=== PATIENT | female | born 1950 | race Caucasian/White ===

== ENCOUNTER 2019-06-30 06:26 | Day surgery (SDC) | payer OTHER, MEDICARE ==
--- NOTE | 2019-06-29 10:23 | EKG ---
Test Date: 2019-06-29 Test Time: 09:46:10 Network Cabler: [facility] MEASUREMENT RESULTS: Intervals: Rate: 69 MI: 150 QRSD: 76 QT: 402 QTc: 430 Wideman: P: 47 MI: 150 QRS: 5 T: 20 INTERPRETIVE STATEMENTS: Normal sinus rhythm Normal ECG Compared to ECG 10/14/2016 06:35:01 No significant changes Electronically Signed On 06-29-19 10:22:30 FRONT DESK ASSOCIATE by Roberto Orozco
[2019-06-29 10:45] LABS: Absolute Lymphocytes (CBC) 0.9 K/uL (0.7-4.9); Basophils % 0.8 % (0-1.3); Lymphocytes % 40.1 % (15.3-44.8); MPV 8.4 fL (7.6-11.3); RBC Red Blood Cell Count 3.77 M/uL (3.86-4.86)
--- NOTE | 2019-06-29 11:02 | RAD REPORT ---
EXAM DESCRIPTION: Freddy Cash (2 Views)06/29/2019 10:10 am CLINICAL HISTORY: Breast cancer. Preop COMPARISON: May 2018 FINDINGS: The lungs appear clear of acute infiltrate. The heart is normal size IMPRESSION: No acute abnormalities displayed
[2019-06-30] MEDS ORDERED: Ringers Lactate 1,000 ML IV ONE ×2 (07:04→13:47)
[2019-06-30] MEDS ORDERED: CIPROFLOXACIN 400mg IV 400 MG/200 ML BAG IV ONE (07:04)
[2019-06-30] MEDS ORDERED: LIDOCAINE 2% MPF 5 ML VIAL ONE (08:50)
[2019-06-30] MEDS ORDERED: FENTANYL CITR 100 MCG/2 ML ONE (08:50)
[2019-06-30] MEDS ORDERED: ROCURONIUM 50 MG/5 ML VIAL IV ONE (08:50)
[2019-06-30] MEDS ORDERED: propofoL 200 MG/20 ML VIAL IV ONE (08:50)
[2019-06-30] MEDS ORDERED: MIDAZOLAM HCL 2 MG/2 ML INJ ONE (08:50)
--- NOTE | 2019-06-30 09:20 | RAD REPORT ---
EXAM DESCRIPTION: NM - Lymphoscintigraphy - 06/30/2019 8:06 am FINDINGS: Injection performed at 0736 hours. Four periareolar injections using 0.01 millicuries technetium 99 M sulfur colloid performed. A single image was obtained showing the 4 periareolar injections.
[2019-06-30] MEDS ORDERED: METHYLENE BLUE 0.5% 10 ML AMP ONE (09:52)
--- NOTE | 2019-06-30 11:20 | RAD REPORT ---
EXAM DESCRIPTION: US - Surgical Specimen - 06/30/2019 11:11 am FINDINGS: Sonographic evaluation of the right breast specimen shows the spiculated mass, previously subjected to biopsy, to be present within the biopsy tissue. A small hypoechoic 6 mm mass with punctate echogenicity, seen on the pre localization chief ultrasound technologist imaging i s also contained within the specimen.
--- NOTE | 2019-06-30 11:28 | RAD REPORT ---
EXAM DESCRIPTION: US - Brst,Preop NL Wire Init w/Guid - 06/30/2019 9:02 am CLINICAL HISTORY: NEEDLE LOCALIZATION, right breast pre-surgical needle localization procedure prior to biopsy/mastectomy COMPARISON: MRI of the breast June 22, outside sonography exam TECHNIQUE: Preliminary sonographic imaging was performed and identified a previously biopsied spicul ated mass in the 9 o'clock right breast. Appearance of the mass and position match prior imaging stud ies. Along the medial and slightly inferior margin of this dominant mass is a second 6-7 mm spiculate d mass. Anterior breast was prepped and draped in the usual sterile fashion. Consent for the procedure had be en obtained as part of the surgical consent. From an inferior approach the skin and deeper tissues were anesthetized with 1% lidocaine. Under dire ct sonographic visualization a [place] mammo lock needle was advanced with the tip abutting the inferio r margin of the mass. The hookwire was set. At final positioning the tip of the needle was at the lat eral inferior margin of the mass. The patient tolerated procedure well without complications and was transferred to the surgical [facility] area for pending breast procedure. IMPRESSION: Successful ultrasound-guided needle localization of the right breast mass.
[2019-06-30] MEDS: HYDROMORPHONE HCL 2 MG/ML inj ONE ×4 (13:59→14:29)
[2019-06-30] MEDS ORDERED: ONDANSETRON 4 MG/2 ML VIAL ONE (14:22)
[2019-06-30 14:44] VITALS: O2SAT 98
[2019-06-30] MEDS ORDERED: TRAMADOL 37.5mg/APAP 325mg PER TAB ONE (15:50)
[2019-06-30 16:58] VITALS: TEMP 98.7
[2019-06-30 16:59] VITALS: BP 112/48
--- NOTE | 2019-07-01 01:20 | OP ---
Date of Procedure: 06/30/2019 Surgeon: Tank Redman MD Secured Entrance Monitor: DEVONTE Castro and DEVONTE Kaiser. Preoperative Diagnosis: Right breast cancer. Postoperative Diagnosis: Right breast cancer. Procedure: 1.Needle localization, sentinel node biopsy, right breast mastectomy with axillary dissection. 2.Left breast mastectomy. Estimated Blood Loss: Minimal. Specimen: Axillary dissection on the right side, sentinel node on the right side, right breast and l eft breast. Findings: Margins free and as above. Anesthesia: General. Complications: None. Drains: SHANAI #10 flat, 2 on the right, 1 on the left. Condition: Patient tolerated procedure in stable condition, taken to Recovery in good general condit ion. Procedure In Detail: Patient was brought to the OR and placed in supine position. General anesthesi a was begun. Patient was prepped and draped in the usual sterile fashion and then methylene blue inj ected around the nipple-areolar margins around the right breast and the patient had a needle localiza tion where the cancer was done in the radiology and the patient was prepped and draped in the usual s terile fashion. Then, a counting device was used to try to isolate the sentinel node. The sentinel node could not be identified because patient had a previous right breast surgery for a mass or cyst m any-many years ago, so the anatomy had been distorted. So, at this time, I did the mastectomy with t he ellipse of skin incision approximately 20 x 10 cm to include where the needle localization and spe cimen was and then subcutaneous tissue divided and flaps created superiorly to the clavicle, medially to the sternal border, inferiorly to the insertion of the rectus abdominis muscle, ad laterally to t he anterior border of the latissimus dorsi. Then, all the breast tissue off the pectoralis fascia re moved and sent to Pathology for margin check after Radiology confirmed that the cancer was in the spe cimen and at this time, wound was irrigated, bleeding controlled with cautery. Then, the axilla was examined. A 3 cm lymph node was identified. This was sent for frozen section. However, because the patient had lobular carcinoma, intraoperative consultation was obtained from our oncologist, Dr. Gilson smith. We discussed the case in detail and given that the primary was 28 mm in size and the lymph node w as 3 cm and we could not identify the sentinel node because of the distorted anatomy, the prudent thi ng in our opinion was to proceed with an axillary dissection, which was done. Through the same wound , the axillary vein was identified and neurovascular bundle of the long thoracic nerve and thoracodor bronwyn neurovascular bundle was identified. The Lynn's lymph nodes were identified and all the lymph nodes in this region were dissected. Vascular clips were utilized as needed. 2-0 silk was used as n eeded. Cautery was used and the lymph nodes were removed and sent to Pathology. Subsequently, wound was irrigated, bleeding controlled with cautery, and then 2 Jason-Francois drain, 1 in the right axil la, 1 under the flap, were placed and secured with 3-0 nylon and then 2-0 chromic, 3-0 chromic used t o approximate the subcutaneous tissue and closed the skin. Sterile dressing applied and fresh instru ments, entire team re-scrubbed and then on the left breast, a simple mastectomy was done the same man ner as on the right side without the axillary dissection and the wound was closed the same way. Then , a sterile dressing was applied. Patient was awakened and taken to Recovery in good general conditi on. Discharged home. The patient will go to day surgery and home when stable. Disposition: Home. Condition: Stable. Discharge Instructions: Resume home medications and diet. Activity as tolerated. No heavy lifting. Keep dressing clean and dry. Follow up in my office in a week. Call for appointment. Ultracet 1 tablet p.o. q.4 p.r.n. pain, Cipro 500 mg p.o. q.12. Incentive spirometry. Sponge bathe only. Record SHANIA q .12, bring record to office. REMIGIO/HEBERT Voice ID: [id number] Report ID: [id number]
== END 2019-06-30 17:00 | disposition home or self-care (01) ==
LOC: OR 06:26
PROVIDERS: ATTEND Surgery
PROC: 0HTU0ZZ Resection of Left Breast, Open Approach (ICD-10-PCS; principal; 2019-06-30 09:30)
PROC: 0HTT0ZZ Resection of Right Breast, Open Approach (ICD-10-PCS; 2019-06-30 09:30)
DX: C50.911 Malignant neoplasm of unspecified site of right female breast (principal); Z17.0 Estrogen receptor positive status [ER+]; Z88.0 Allergy status to penicillin; Z88.2 Allergy status to sulfonamides; Z88.6 Allergy status to analgesic agent; Z83.3 Family history of diabetes mellitus
CPT/HCPCS: 19303; 93005; 85025; 80048; 36415; 88307; 88333; 71046; 76098; 19285; 78195; 19307; 38900; J2704; J2250; J1170; J3010; J7120 ×2; J2405; J0744; A9541; 88305

== ENCOUNTER 2019-07-18 10:17 | Inpatient (IN) | payer OTHER, MEDICARE ==
[2019-07-18] MEDS ORDERED: VANCOMYCIN/NS 1 gm 1 GM/250 ML BAG IV ONE (10:45)
[2019-07-18] MEDS ORDERED: ONDANSETRON 4 MG/2 ML VIAL ONE (10:53)
[2019-07-18] MEDS ORDERED: MORPHINE 4 MG/ML SYR ONE (10:53)
[2019-07-18 10:56] LABS: Absolute Lymphocytes (CBC) 0.9 K/uL (0.7-4.9); Basophils % 0.3 % (0-1.3); Hematocrit 35.2 % (36.0-45.0); Lymphocytes % 15.3 % (15.3-44.8); MPV 8.1 fL (7.6-11.3); RBC Red Blood Cell Count 3.63 M/uL (3.86-4.86)
--- NOTE | 2019-07-18 11:29 | EDPHYS ---
Physician Documentation [facility] Name: Rosi Jordan Age: 69 yrs Sex: Female : 1950 Arrival Date: 07/18/2019 Time: 10:22 Bed 24 Private MD: ED Physician Tony Perales HPI: 07/18 11:18 This 69 yrs old Female presents to ER via EMS with complaints of right arm tw4 pain. Historical: - Allergies: 10:30 Codeine; ca1 10:30 PENICILLINS; ca1 10:30 Sulfa (Sulfonamide Antibiotics); ca1 - Home Meds: 11:41 atorvastatin 20 mg Oral tab 1 tab once daily [Active]; aspirin 81 mg Oral TbEC 1 tab ca1 once daily [Active]; azelastine 137 mcg 1 spray twice a day [Active]; cholestyramine (with sugar) 4 gram oral powd [Active]; citalopram 40 mg oral tab 1 tab once daily [Active]; clonazepam 0.5 mg Oral tab 1 tab daily [Active]; Depakote 250 mg Oral TbEC 1 tab once daily [Active]; donepezil 10 mg oral tab 1 tab once daily [Active]; Iron CR Oral 325 mg daily [Active]; gabapentin 300 mg oral cap 1 cap 3 times per day [Active]; Levaquin 500 mg Oral tab 1 tab once daily [Active]; levothyroxine 75 mcg tab 1 tab once daily [Active]; Vitamin B-12 5000 mcg Oral TbER daily [Active]; lisinopril 20 mg oral tab 1 tab once daily [Active]; memantine 10 mg oral tab 1 tab daily [Active]; nifedipine 90 mg Oral TbER 1 tab once daily [Active]; omeprazole 40 mg Oral cpDR 1 cap once daily [Active]; oxybutynin chloride 5 mg Oral tab 1 tab daily [Active]; prednisone 10 mg Oral tab once daily [Active]; Singulair 10 mg Oral tab 1 tab once daily [Active]; Soma 350 mg Oral tab 1 tab nightly [Active]; Symbicort 80-4.5 mcg/actuation inhalation HFAA 2 puffs 2 times per day [Active]; tramadol 50 mg Oral tab 1 tab every 6 hours [Active]; trazodone 50 mg Oral tab 1 tab nightly [Active]; trimethoprim 100 mg Oral tab 1 tab once daily [Active]; Vitamin D3 5,000 unit oral tab daily [Active]; - PMHx: 10:30 Depression; GERD; Hypertension; Hypothyroidism; Hyperlipidemia; ca1 11:41 Breast Cancer; ca1 - PSHx: 10:30 hand surgery; ca1 11:41 lap band; foot surgery; back surgery; Mastectomy; ca1 - Immunization history:: Adult Immunizations up to date, Pneumococcal vaccine is up to date, Flu vaccine is up to date. - Coronavirus screen:: The patient has NOT traveled to [place] in the past 14 days. The patient has NOT had contact with known/suspected case of Coronavirus?. - Social history:: Smoking status: Patient denies any tobacco usage or history of. - Ebola Screening: : Patient negative for fever greater than or equal to 101.5 degrees Fahrenheit, and additional compatible Ebola Virus Disease symptoms Patient denies exposure to infectious person Patient denies travel to an Ebola-affected area in the 21 days before illness onset No symptoms or risks identified at this time. ROS: 11:29 Constitutional: Negative for fever, chills, and weight loss, Eyes: Negative for injury, tw4 pain, redness, and discharge, Cardiovascular: Negative for chest pain, palpitations, and edema, Respiratory: Negative for shortness of breath, cough, wheezing, and pleuritic chest pain, Abdomen/GI: Negative for abdominal pain, nausea, vomiting, diarrhea, and constipation, Back: Negative for injury and pain, Neuro: Negative for headache, weakness, numbness, tingling, and seizure. 11:29 Skin: Positive for cellulitis, Negative for abrasions, abscesses, avulsion, burn, ecchymosis, erythema, hematoma, jaundice, laceration(s), lesions. Exam: 11:29 Constitutional: This is a well developed, well nourished patient who is awake, alert, tw4 and in no acute distress. Head/Face: Normocephalic, atraumatic. Chest/axilla: Normal chest wall appearance and motion. Nontender with no deformity. No lesions are appreciated. Cardiovascular: Regular rate and rhythm with a normal S1 and S2. No gallops, murmurs, or rubs. Normal PMI, no JVD. No pulse deficits. Respiratory: Lungs have equal breath sounds bilaterally, clear to auscultation and percussion. No rales, rhonchi or wheezes noted. No increased work of breathing, no retractions or nasal flaring. Abdomen/GI: Soft, non-tender, with normal bowel sounds. No distension or tympany. No guarding or rebound. No evidence of tenderness throughout. MS/ Extremity: Pulses equal, no cyanosis. Neurovascular intact. Full, normal range of motion. Neuro: Awake and alert, GCS 15, oriented to person, place, time, and situation. Cranial nerves II-XII grossly intact. Motor strength 5/5 in all extremities. Sensory grossly intact. Cerebellar exam normal. Normal gait. 11:29 Skin: cellulitis, that is moderate. 11:29 Skin: cellulitis, irregular, on the dorsal aspect of right forearm, right tricep and palmar aspect of right forearm. Vital Signs: 10:31 BP 121 / 53; Pulse 87; Resp 18 S; Temp 98.6(O); Pulse Ox 94% on R/A; Weight 90.26 kg ca1 (R); Height 5 ft. 1 in. (154.94 cm) (R); Pain 8/10; 11:28 BP 102 / 53; Pulse 80; Resp 16 S; Pulse Ox 97% on R/A; Pain 4/10; ca1 12:10 BP 98 / 52; Pulse 85; Resp 17 S; Pulse Ox 94% on R/A; ca1 13:03 BP 123 / 55; Pulse 73; Resp 16; Pulse Ox 96% on R/A; ca1 10:31 Body Mass Index 37.60 (90.26 kg, 154.94 cm) ca1 MDM: 10:27 Patient medically screened. tw4 21:24 Differential diagnosis: abscess, cellulitis. Data reviewed: vital signs, nurses notes. tw4 Data interpreted: Pulse oximetry: Interpretation: normal. Counseling: I had a detailed discussion with the patient and/or guardian regarding: the historical points, exam findings, and any diagnostic results supporting the discharge/admit diagnosis, lab results, radiology results. Medication response: morphine markedly relieved the patient's pain. Symptoms have improved. Response to treatment: and as a result, I will admit patient. Physician consultation: Kirby Ludwig DO regarding admission, to the medical/surgical unit. patient's condition, and will see patient in ED. Special discussion:. 07/18 10:30 Order name: CBC with Diff; Complete Time: : tw4 07/18 10:30 Order name: CMP tw4 07/18 10:30 Order name: Blood Culture Adult (2) tw4 07/18 10:30 Order name: Lactate; Complete Time: tw4 07/18 11:45 Order name: UPPER EXTREMITY VENOUS UNILATE EDMS Administered Medications: 10:50 Drug: Zofran 4 mg Route: IVP; Site: left antecubital; ca1 11:29 Follow up: Response: No adverse reaction; Nausea is decreased ca1 10:53 Drug: morphine 4 mg {Note: RASS = 0.} Route: IVP; Site: left antecubital; ca1 11:29 Follow up: Response: No adverse reaction; Pain is decreased; RASS: Alert and Calm (0) ca1 11:20 Drug: vancoMYCIN 1 grams Route: IVPB; Infused Over: 2 hrs; Site: left antecubital; ca1 13:22 Follow up: Response: No adverse reaction; IV Status: Completed infusion ca1 11:30 Drug: LevaQUIN 750 mg Volume: 150 ml; Route: IVPB; Infused Over: 90 mins; Site: left ca1 antecubital; 13:31 Follow up: Response: No adverse reaction; IV Status: Infusion continued upon admission ca1 Disposition: 07/18/19 11:29 Hospitalization ordered by Kirby Ludwig for Inpatient Admission. Preliminary diagnosis is Cellulitis of right upper limb. - Bed requested for Telemetry/MedSurg (Inpatient). - Status is Inpatient Admission. ca1 - Condition is Stable. - Problem is new. - Symptoms have improved. Signatures: [facility] Helena Smith RN RN dw Tony Perales MD MD tw4 Ritu Valero RN RN ca1 Corrections: (The following items were deleted from the chart) 11:45 11:43 Extremity Venous Uni [id number] ordered. [facility] 12:42 11:29 Hospitalization Ordered by Kirby Ludwig DO for Inpatient Admission. Preliminary dw diagnosis is Cellulitis of right upper limb. Bed requested for Telemetry/MedSurg (Inpatient). Status is Inpatient Admission. Condition is Stable. Problem is new. Symptoms have improved. tw4 13:33 12:42 07/18/2019 11:29 Hospitalization Ordered by Kirby Ludwig DO for Inpatient ca1 Admission. Preliminary diagnosis is Cellulitis of right upper limb. Bed requested for Telemetry/MedSurg (Inpatient). Status is Inpatient Admission. Condition is Stable. Problem is new. Symptoms have improved. dw
--- NOTE | 2019-07-18 11:29 | ER ---
Nurse's Notes [facility] Name: Rosi Jordan Age: 69 yrs Sex: Female : 1950 Arrival Date: 07/18/2019 Time: 10:22 Bed 24 Private MD: Diagnosis: Cellulitis of right upper limb Presentation: 07/18 10:22 Presenting complaint: EMS states: Double mastectomy 2 weeks ago. Wednesday, R hand ca1 started swelling and redness noted. Went up to the elbow yesterday, tenderness reported, warm to touch. Seen Dr. Feroz hunter yesterday, given 2 more ABX. Reports pain and nausea. Denies fever. Transition of care: patient was not received from another setting of care. Onset of symptoms was July 18, 2019. Risk Assessment: Do you want to hurt yourself or someone else? Patient reports no desire to harm self or others. Initial Sepsis Screen: Does the patient meet any 2 criteria? No. Patient's initial sepsis screen is negative. Does the patient have a suspected source of infection? No. Patient's initial sepsis screen is negative. Care prior to arrival: None. 10:22 Method Of Arrival: [facility] ca1 10:22 Acuity: CASPER 3 ca1 Historical: - Allergies: 10:30 Codeine; ca1 10:30 PENICILLINS; ca1 10:30 Sulfa (Sulfonamide Antibiotics); ca1 - Home Meds: 11:41 atorvastatin 20 mg Oral tab 1 tab once daily [Active]; aspirin 81 mg Oral TbEC 1 tab ca1 once daily [Active]; azelastine 137 mcg 1 spray twice a day [Active]; cholestyramine (with sugar) 4 gram oral powd [Active]; citalopram 40 mg oral tab 1 tab once daily [Active]; clonazepam 0.5 mg Oral tab 1 tab daily [Active]; Depakote 250 mg Oral TbEC 1 tab once daily [Active]; donepezil 10 mg oral tab 1 tab once daily [Active]; Iron CR Oral 325 mg daily [Active]; gabapentin 300 mg oral cap 1 cap 3 times per day [Active]; Levaquin 500 mg Oral tab 1 tab once daily [Active]; levothyroxine 75 mcg tab 1 tab once daily [Active]; Vitamin B-12 5000 mcg Oral TbER daily [Active]; lisinopril 20 mg oral tab 1 tab once daily [Active]; memantine 10 mg oral tab 1 tab daily [Active]; nifedipine 90 mg Oral TbER 1 tab once daily [Active]; omeprazole 40 mg Oral cpDR 1 cap once daily [Active]; oxybutynin chloride 5 mg Oral tab 1 tab daily [Active]; prednisone 10 mg Oral tab once daily [Active]; Singulair 10 mg Oral tab 1 tab once daily [Active]; Soma 350 mg Oral tab 1 tab nightly [Active]; Symbicort 80-4.5 mcg/actuation inhalation HFAA 2 puffs 2 times per day [Active]; tramadol 50 mg Oral tab 1 tab every 6 hours [Active]; trazodone 50 mg Oral tab 1 tab nightly [Active]; trimethoprim 100 mg Oral tab 1 tab once daily [Active]; Vitamin D3 5,000 unit oral tab daily [Active]; - PMHx: 10:30 Depression; GERD; Hypertension; Hypothyroidism; Hyperlipidemia; ca1 11:41 Breast Cancer; ca1 - PSHx: 10:30 hand surgery; ca1 11:41 lap band; foot surgery; back surgery; Mastectomy; ca1 - Immunization history:: Adult Immunizations up to date, Pneumococcal vaccine is up to date, Flu vaccine is up to date. - Coronavirus screen:: The patient has NOT traveled to [place] in the past 14 days. The patient has NOT had contact with known/suspected case of Coronavirus?. - Social history:: Smoking status: Patient denies any tobacco usage or history of. - Ebola Screening: : Patient negative for fever greater than or equal to 101.5 degrees Fahrenheit, and additional compatible Ebola Virus Disease symptoms Patient denies exposure to infectious person Patient denies travel to an Ebola-affected area in the 21 days before illness onset No symptoms or risks identified at this time. Screenin:32 Abuse screen: Denies threats or abuse. Denies injuries from another. Nutritional ca1 screening: No deficits noted. Tuberculosis screening: No symptoms or risk factors identified. Fall Risk IV access (20 points). Assessment: 10:30 General: Appears in no apparent distress. comfortable, Behavior is calm, cooperative, ca1 appropriate for age. Pain: Complains of pain in right arm Pain does not radiate. Pain currently is 8 out of 10 on a pain scale. Quality of pain is described as sharp, Pain began 2-3 days ago. Is continuous. Neuro: Level of Consciousness is awake, alert, obeys commands. Cardiovascular: Heart tones S1 S2 present Capillary refill < 3 seconds Patient's skin is warm and dry. Respiratory: Airway is patent Trachea midline Respiratory effort is even, unlabored, Respiratory pattern is regular, symmetrical, Breath sounds are clear bilaterally. GI: Abdomen is round non-distended, Bowel sounds present X 4 quads. Abd is soft and non tender X 4 quads. : No signs and/or symptoms were reported regarding the genitourinary system. EENT: No signs and/or symptoms were reported regarding the EENT system. Derm: Skin is healthy with good turgor, Skin is pink, warm \T\ dry. Wound noted right breast and left breast Wound is Surgical incision, clean,, dry and intact. With a drain on the R side. draining well with brownish drainage noted Bruising that is bright red, on right bicep and dorsal aspect of right forearm. Musculoskeletal: Circulation, motion, and sensation intact. Capillary refill < 3 seconds, Range of motion: intact in all extremities. 11:24 Reassessment: Patient appears in no apparent distress at this time. Patient and/or ca1 family updated on plan of care and expected duration. Pain level reassessed. Patient is alert, oriented x 3, equal unlabored respirations, skin warm/dry/pink. 11:41 Reassessment: Dr. Ludwig at bedside. ca1 12:10 Reassessment: Patient appears in no apparent distress at this time. Patient and/or ca1 family updated on plan of care and expected duration. Pain level reassessed. Patient is alert, oriented x 3, equal unlabored respirations, skin warm/dry/pink. 12:17 Reassessment: Pt wheeled to US. ca1 13:03 Reassessment: Patient appears in no apparent distress at this time. Patient and/or ca1 family updated on plan of care and expected duration. Pain level reassessed. Patient is alert, oriented x 3, equal unlabored respirations, skin warm/dry/pink. 13:07 Reassessment: Called for report. Nurse will call back per BROCK Vega. ca1 Vital Signs: 10:31 BP 121 / 53; Pulse 87; Resp 18 S; Temp 98.6(O); Pulse Ox 94% on R/A; Weight 90.26 kg ca1 (R); Height 5 ft. 1 in. (154.94 cm) (R); Pain 8/10; 11:28 BP 102 / 53; Pulse 80; Resp 16 S; Pulse Ox 97% on R/A; Pain 4/10; ca1 12:10 BP 98 / 52; Pulse 85; Resp 17 S; Pulse Ox 94% on R/A; ca1 13:03 BP 123 / 55; Pulse 73; Resp 16; Pulse Ox 96% on R/A; ca1 10:31 Body Mass Index 37.60 (90.26 kg, 154.94 cm) ca1 ED Course: 10:22 Patient arrived in ED. ca1 10:27 Tony Perales MD is Attending Physician. tw4 10:28 Triage completed. ca1 10:31 Ritu Valero, RN is Primary Nurse. ca1 10:31 Arm band placed on right wrist. ca1 10:32 Patient has correct armband on for positive identification. Placed in gown. Bed in low ca1 position. Call light in reach. Side rails up X2. 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 Pulse ox on. NIBP on. Warm blanket given. 10:32 No provider procedures requiring assistance completed. ca1 10:45 Inserted saline lock: 20 gauge in left antecubital area, using aseptic technique. Blood ca1 collected. 10:45 Initial lab(s) drawn, by me, sent to lab. First set of blood cultures drawn. ca1 11:15 Second set of blood cultures drawn by lab staff. ca1 11:22 Notified ED physician of a critical lab result(s). lactate-2.1. sv 11:27 Kirby Ludwig DO is Hospitalizing Provider. tw4 13:03 Patient admitted, IV remains in place. ca1 Administered Medications: 10:50 Drug: Zofran 4 mg Route: IVP; Site: left antecubital; ca1 11:29 Follow up: Response: No adverse reaction; Nausea is decreased ca1 10:53 Drug: morphine 4 mg {Note: RASS = 0.} Route: IVP; Site: left antecubital; ca1 11:29 Follow up: Response: No adverse reaction; Pain is decreased; RASS: Alert and Calm (0) ca1 11:20 Drug: vancoMYCIN 1 grams Route: IVPB; Infused Over: 2 hrs; Site: left antecubital; ca1 13:22 Follow up: Response: No adverse reaction; IV Status: Completed infusion ca1 11:30 Drug: LevaQUIN 750 mg Volume: 150 ml; Route: IVPB; Infused Over: 90 mins; Site: left ca1 antecubital; 13:31 Follow up: Response: No adverse reaction; IV Status: Infusion continued upon admission ca1 Outcome: 11:29 Decision to Hospitalize by Provider. tw4 13:25 Admitted to Med/surg accompanied by tech, via stretcher, room 206, with chart, Report ca1 called to CIRILO Wong 13:25 Condition: stable 13:25 Instructed on the need for admit. 13:33 Patient left the ED. ca1 Signatures: Abeba Orozco RN RN sv Tony Perales MD MD tw4 Ritu Valero RN RN ca1
[2019-07-18 11:33] LABS: Bilirubin Total 0.5 mg/dL (0.2-1.0); Potassium 4.5 mmol/L (3.5-5.1); Protein, Total 7.3 g/dL (6.4-8.2)
--- NOTE | 2019-07-18 12:53 | RAD REPORT ---
EXAM DESCRIPTION: US - UPPER EXTREMITY VENOUS UNILATE - 07/18/2019 12:41 pm CLINICAL HISTORY: Pain;Swelling Arm pain and swelling COMPARISON: Extrem Venous W Compress Arash dated 10/13/2016 FINDINGS: Right upper extremity venous system was interrogated with Doppler technique. Normal flow, compressibility and augmentation was noted. There is no DVT present. IMPRESSION: No evidence of right upper extremity deep venous thrombosis.
[2019-07-18] MEDS ORDERED: Levofloxacin 750mg IV 750 MG/150 ML BAG IV ONE (13:32)
[2019-07-18] MEDS ORDERED: ONDANSETRON 4 MG/2 ML VIAL IV PRN (13:50)
[2019-07-18] MEDS ORDERED: TRAMADOL HCL 50 MG TAB PO PRN (13:50)
[2019-07-18] MEDS: NA CHLORIDE 0.9% 1,000 ML IV SCH (14:17)
[2019-07-18] MEDS: ACETAMINOPHEN 500 MG TAB PO PRN (14:26)
--- NOTE | 2019-07-18 14:56 | P.HP ---
Certification for Inpatient Patient admitted to: Inpatient With expected LOS: >2 Midnights Patient will require the following post-hospital care: None Practitioner: I am a practitioner with admitting privileges, knowledge of patient current condition, hospital course, and medical plan of care. Services: Services provided to patient in accordance with Admission requirements found in Title 42 Section 412.3 of the Code of Federal Regulations Patient History Date of Service: 07/18/19 Primary Care Provider: Dr. Abrams; Surgery-Dr. Redman; Oncology-Dr. Tirado Reason for admission: Erythema, swelling to the right upper extremity History of Present Illness: 69-year-old female with multiple medical problems including hypothyroidism, GERD, hypertension, chronic renal disease and breast cancer. Patient had bilateral breast mastectomy and removal of lymph nodes to the right side about 2 weeks ago. She follow up with her surgeon yesterday. She had noticed some increasing edema to the right upper extremity with some erythema mainly to the hand and forearm region. Today a she noted more erythema, warmth and swelling to the right upper extremity above the elbow all region. She also reported some mild erythema to the left forearm. She reports some chills. Denies fever. No erythema, exudate or swelling noted to surgical site of bilateral mastectomies. She came to the ER for further evaluation. In the ER she was evaluated. White count 5.6, hemoglobin 11.5. Platelet count 151. Sodium 138, potassium 4.5, BUN of 19, creatinine 1.47 with a GFR 35. Glucose 124. Lactic acid slightly elevated at 2.1. Repeat lactic acid showed improvement. Venous Doppler shows no DVT. Patient was started on IV antibiotic therapy. Patient admitted for further evaluation and treatment. When I saw the patient ER, she appeared stable. She did not appear septic. Blood pressure 102/53. Patient receiving IV fluids. Allergies codeine Allergy (Verified 07/18/19 13:50) Rash Penicillins Allergy (Verified 07/18/19 13:50) Rash Sulfa (Sulfonamide Antibiotics) Allergy (Verified 07/18/19 13:50) Rash Home medications list reviewed: Yes Home Medications: Aspirin [Aspirin EC 81 MG] 81 mg PO DAILY 10/13/16 Atorvastatin Calcium [Lipitor*] 20 mg PO BEDTIME 10/13/16 Cetirizine HCl [Zyrtec] 10 mg PO DAILY 10/13/16 Cholecalciferol (Vitamin D3) [Vitamin D3] 400 unit PO DAILY 10/13/16 Cholestyramine (with Sugar) [Cholestyramine Packet] 4 gm PO DAILY 10/13/16 Citalopram [Celexa*] 40 mg PO DAILY 10/13/16 Donepezil [Aricept*] 5 mg PO DAILY 10/13/16 Ferrous Sulfate [Iron] 325 mg PO DAILY 10/13/16 Levothyroxine [Synthroid*] 75 mcg PO [id number] 10/13/16 Oxybutynin Chloride [Ditropan*] 10 mg PO BID 10/13/16 Tramadol HCl [Ultram] 50 mg PO Q6HP PRN 10/13/16 Trazodone [Desyrel*] 50 mg PO BEDTIME 10/13/16 clonazePAM [Klonopin*] 0.5 mg PO BID 10/13/16 Divalproex [Depakote Sprinkle] 250 mg PO BEDTIME 06/29/19 Ferrous Gluconate [Iron] 65 mg PO DAILY 06/29/19 Gabapentin 300 mg PO BID 06/29/19 Memantine HCl 10 mg PO BID 06/29/19 Nifedipine [Procardia Xl] 90 mg PO DAILY AFTER SUPPER 06/29/19 Pantoprazole [Protonix Tab] 40 mg PO DAILY 06/29/19 lisinopriL [Lisinopril] 20 mg PO [id number] 06/29/19 - Past Medical/Surgical History Diabetic: No -: Depression -: GERD -: Hyperlipidemia -: Hypertension -: Hypothyroidism -: Dementia -: Chronic renal disease -: Recurrent UTI -: Breast cancer status post bilateral mastectomy -: Hand surgery -: Lap band -: Foot surgery -: Back surgery -: Bilateral mastectomy -: Cholecystectomy -: Tubal ligation Psychosocial/ Personal History: She is a . She has 3 children. 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 - Family History Mother -: Diabetes Father -: Heart disease, Other (see notes) (CHF) Brother -: Heart disease Sister -: Other (see notes) (Lupus) - Social History Smoking Status: Never smoker Alcohol use: No CD- Drugs: No Caffeine use: Yes Place of Residence: Home Review of Systems General: As per HPI Eyes: Unremarkable ENT: Unremarkable Respiratory: Unremarkable Cardiovascular: Unremarkable Gastrointestinal: Unremarkable Genitourinary: Unremarkable Musculoskeletal: As per HPI Integumentary: As per HPI Neurological: Unremarkable Lymphatics: Unremarkable Physical Examination - Vital Signs Temperature: 98 F Blood Pressure: 123/55 Pulse: 73 Respirations: 16 - Physical Exam General: Alert, In no apparent distress, Oriented x3, Cooperative HEENT: Atraumatic, Normocephalic, Other (Dry mucous membranes) Neck: Supple Respiratory: Clear to auscultation bilaterally, Normal air movement Cardiovascular: Normal pulses, Regular rate/rhythm Gastrointestinal: Normal bowel sounds, Soft and benign, Non-distended, No tenderness, No masses, No rebound, No guarding Musculoskeletal: Other (Swelling noted to the right upper extremity compared to the left. Some erythema, ecchymosis noted to the right side. Minimal erythema swelling noted to the left side. Warm to touch on the right side.) Integumentary: Warmth, Other (Bilateral mastectomy postop changes noted.) Neurological: Normal speech, Normal strength at 5/5 x4 extr, Normal tone, Normal affect - Studies Laboratory Data (last 24 hrs) 07/18/19 10:45: Sodium 138, Potassium 4.5, BUN 19 H, Creatinine 1.47 H, Glucose 124 H, Total Bilirubin 0.5, AST 18, ALT 17, Alkaline Phosphatase 67 07/18/19 10:45: WBC 5.6, Hgb 11.5 L, Hct 35.2 L, Plt Count 151 L Assessment and Plan - Plan Impression: Bilateral right greater than left upper extremity cellulitis Acute on chronic renal failure stage 3 Hypertension Hypothyroidism Hyperlipidemia GERD Depression Recent bilateral mastectomy with history of breast cancer Plan: Bilateral right greater than left upper extremity cellulitis: Patient with me to further evaluation and treatment. Will start IV antibiotic therapy. Will also start IV fluids. Will check pro calcitonin. Obtain blood cultures. Venous Doppler negative for DVT. Will continue to monitor closely. Elevate upper extremities. Will have surgery evaluate patient tomorrow. Anticipate improvement over the next 48-72 hr. Acute on chronic renal failure stage 3: Continue IV fluid hydration. Will consult Nephrology to further monitor and address. Hypertension: Obtain home medication. Hold blood pressure medication at this time. Hypothyroidism: Will need to obtain and restart home medication. Hyperlipidemia: Will need to obtain and restart home medication GERD: Will provide medication Depression: Restart home medication Recent bilateral mastectomy with history of breast cancer: Continue postop changes. Surgery will re-evaluate. Discharge Plan: Home Plan to discharge in: Greater than 2 days - Advance Directives Does patient have a Living Will: No Does patient have a Durable POA for Healthcare: No - Code Status/Comfort Care Code Status Assessed: Yes (Patient is full code) Time Spent Managing Pts Care (In Minutes): 55
[2019-07-18 15:41] VITALS: BMI 37.5
[2019-07-18] MEDS: INSULIN -REGULAR HUMAN 50 UNIT/0.5 ML ML SQ SCH ×2 (16:18→20:25)
[2019-07-18] MEDS: HEPARIN 5000 UNIT/ML 1 ML VIAL SQ SCH (20:30)
[2019-07-18] MEDS ORDERED: TRAZODONE 50 MG TABLET PO SCH (21:00)
[2019-07-19] MEDS: NA CHLORIDE 0.9% 1,000 ML IV SCH ×2 (01:24→09:50)
[2019-07-19 06:01] LABS: Absolute Lymphocytes (CBC) 0.7 K/uL (0.7-4.9); Basophils % 0.3 % (0-1.3); Hematocrit 29.4 % (36.0-45.0); MPV 8.6 fL (7.6-11.3); RBC Red Blood Cell Count 3.02 M/uL (3.86-4.86)
[2019-07-19 06:22] LABS: Magnesium 1.7 mg/dL (1.8-2.4); Potassium 5.3 mmol/L (3.5-5.1)
[2019-07-19] MEDS ORDERED: PANTOPRAZOLE 40MG TABLET PO SCH (06:30)
[2019-07-19] MEDS: INSULIN -REGULAR HUMAN 50 UNIT/0.5 ML ML SQ SCH ×4 (07:30→20:17)
[2019-07-19] MEDS: PANTOPRAZOLE 40MG TABLET PO SCH (08:05)
[2019-07-19] MEDS: HEPARIN 5000 UNIT/ML 1 ML VIAL SQ SCH ×2 (08:06→20:15)
[2019-07-19] MEDS: ACETAMINOPHEN 500 MG TAB PO PRN (08:24)
[2019-07-19] MEDS ORDERED: MAGNESIUM SULFATE 1 gm IVPB 1 GM/100 ML BAG IV ONE (09:00)
[2019-07-19] MEDS ORDERED: VANCOMYCIN 1.5 GM in NA CHLORIDE 0.9% 500 ML IVPB SCH ×4 (09:00)
--- NOTE | 2019-07-19 11:18 | CON ---
Date of Consultation: 07/18/2019 Reason For Consultation: Lymphangitis right upper extremity and left upper extremity. History Of Present Illness: Patient is a 69-year-old female, who underwent right modified radical ma stectomy for breast cancer and left simple mastectomy approximately 2 to 3 weeks ago. She still has 1 drain and that drain is draining approximately 30 cc every 12 hours. It is in the right side. She came to my office on Wednesday with redness and swelling of her right upper extremity was glove pattern distal to the elbow and the hand. On the left side, she has small patchy area of redness, warmth, a nd swelling. I started her on oral antibiotics. However she started having fevers yesterday and my office advised her to go to the emergency room for IV antibiotics. She was admitted and she had a Do ppler done. There was no DVT noted and she was admitted for IV antibiotics. I was asked to evaluate the patient. She is awake, alert, feels better. No fever today. Pain and swelling have improved s spencer being admitted. Review of Systems: Otherwise unremarkable. No sore throat, runny nose, cough, headaches, or dizziness. No chest pain. Past Medical History: Significant for depression, GERD, hyperlipidemia, hypertension, breast cancer. Past Surgical History: Bilateral mastectomy and the right one being modified radical hand surgery, l ap band, foot surgery, cholecystectomy, tubal ligation. Allergies: CODEINE, PENICILLIN, SULFA. Social History: Patient does not smoke. Denies drinking. Family History: Significant for diabetes in her mother. Heart disease in father and brother. Physical Examination: Vitals: Her vital signs currently are stable. She is afebrile. She is awake, alert, and oriented x 3. Head and Neck: No masses. Chest: Clear. Heart: S1, S2. Abdomen: Soft. Extremities: Neurovascularly intact. On the right arm there is no redness distal to the elbow anymo re and the swelling is markedly improved. There is redness in the right arm however, it is somewhat circumferential in nature but it stops before entering the axilla region and there is some warmth to it and the area on the left forearm that has improved as well. Neuro: Nonfocal. Laboratory Data: White count is 4.9. There is no left shift. Chemistry reviewed. Extremity venous study does not show any DVT. Assessment: Probable lymphangitis, cellulitis right upper extremity. Recommendations: Continue IV antibiotics for another 24 hours and as patient is making good progress continue current regimen of the antibiotics and she can be probably tomorrow discharged home on oral antibiotics and she will follow up with me in my office and I will remove the drain when it is less than 30 cc in the 24 hour period. Currently, patient is on vancomycin and Levaquin. /MODL Voice ID: [id number] Report ID: [id number]
--- NOTE | 2019-07-19 11:38 | P.PN ---
Subjective Date of Service: 07/19/19 Primary Care Provider: Dr. Abrams; Surgery-Dr. Redman; Oncology-Dr. Tirado Chief Complaint: Erythema, swelling to the right upper extremity Subjective: Improving, Doing well Physical Examination - Vital Signs Temperature: 98.9 F Blood Pressure: 112/76 Pulse: 89 Respirations: 20 Pulse Ox (%): 93 - Physical Exam General: Alert, Cooperative HEENT: Atraumatic Neck: Supple Respiratory: Clear to auscultation bilaterally, Normal air movement Cardiovascular: Normal pulses, Regular rate/rhythm Integumentary: Other (Erythema, swelling to the right upper extremity improved) Neurological: Normal speech, Normal strength at 5/5 x4 extr, Normal tone, Normal affect - Studies Microbiology Data (last 24 hrs): 07/18/19 11:17 Blood - Blood Anaerobic Blood Culture - Final Medications List Reviewed: Yes Assessment & Plan Discharge Plan: Home Plan to discharge in: 24 Hours Physician Review Additional Text: Impression: Bilateral right greater than left upper extremity cellulitis Acute on chronic renal failure stage 3 Hypertension Hypothyroidism Hyperlipidemia GERD Depression Recent bilateral mastectomy with history of breast cancer Plan: Bilateral right greater than left upper extremity cellulitis: Erythema, swelling improved. Venous Doppler negative for DVT. Continue to elevate upper extremity. Continue IV antibiotic therapy. Case discussed with surgery. Likely discharge tomorrow with oral antibiotics. Acute on chronic renal failure stage 3: Will hold IV fluid. Await further recommendations from nephrology Hypertension: Obtain home medication. Hold blood pressure medication at this time. Hypothyroidism: Continue home medication. Hyperlipidemia: Continue home medication GERD: Continue Medicaid Depression: Continue medication Recent bilateral mastectomy with history of breast cancer: Continue postop changes. Surgery will re-evaluate. Time Spent Managing Pts Care (In Minutes): 55
[2019-07-19] MEDS ORDERED: TRAMADOL HCL 50 MG TAB PO PRN (11:39)
[2019-07-19] MEDS ORDERED: clonazePAM 0.5 MG TAB PO PRN (11:39)
[2019-07-19] MEDS ORDERED: carisoprodoL 350 MG TAB PO PRN (11:39)
[2019-07-19] MEDS ORDERED: TRAZODONE 50 MG TABLET PO PRN (11:39)
--- NOTE | 2019-07-19 12:48 | CON ---
Date of Consultation: 07/19/2019 Reason For Consult: Chronic renal insufficiency. History Of Present Illness: Ms. Jordan is a 69-year-old female with past medical history significant for recent diagnosis of breast cancer, status post right mastectomy done by Dr. Redman recently. She noted that she started having increased edema to the right upper extremity and erythema with severe pain. She had gone to Dr. Redman for evaluation and was told to come to the ER if it got worse and he nce she presented to the ER. She has been diagnosed with cellulitis of the right upper arm and is be ing treated with IV antibiotics. Of note, she also has had lymph node dissection on the right side a s well along with her bilateral breast mastectomy. Past Medical History: Significant for history of diabetes, depression, GERD, hypertension, hyperlipi demia, stage 3 CKD, recurrent urinary tract infections. Past Surgical History: Significant for history of hand surgery, lap band, foot surgery, back surgery , bilateral mastectomy, cholecystectomy, and tubal ligation. Social History: Patient is a . 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 No history of smoking or alcohol use reported. Family History: Significant for history of mother with diabetes and father with history of heart dis ease. Review of Systems: Positive for pain and swelling in the right upper extremity, which is improving at this time. Denies any chest pain or shortness of breath. Denies any dysuria or hematuria. Denies any abdominal pain, nausea, vomiting, headaches, blurry vision. All other review of systems are negative. Physical Examination: Vital Signs: Showing temperature of 98 degrees Fahrenheit, pulse rate of 94, respiratory rate of 18, and blood pressure of 130/59. General: She appears in no acute distress. HEENT: Shows atraumatic head. Lungs: Auscultation of the lungs revealed bilateral equal air entry with diminished breath sounds at the bases. Heart: Auscultation of the heart revealed regular rate and rhythm. Extremities: Right upper extremity with a lot of subcutaneous edema with some swelling and bruising was noted. Laboratory Data: At this time is showing sodium of 137, potassium of 5.3, chloride of 109, BUN of 22 , and creatinine of 1.4. Magnesium was low at 1.7 and calcium was at 8.2. CBC showing hemoglobin of 9.5, hematocrit of 29.4, and platelet count of 123. Blood cultures are currently pending. Current Medications: Tylenol p.r.n. for pain, heparin for DVT prophylaxis, Levaquin 250 mg every 24 hours, magnesium sulfate has been repleted, normal saline at 100 mL an hour, Zofran p.r.n., tramadol p.r.n., trazodone, vancomycin every 36 hours. Impression: 1.Chronic renal insufficiency, currently with stable renal function. Creatinine is overall stable c ompared to her baseline. 2.Right upper extremity cellulitis with recent history of bilateral mastectomy and lymph node dissec tion. Suspect underlying developing lymphedema of the right upper extremity with some superimposed c ellulitis. I agree with broad-spectrum antibiotics with Levaquin and vancomycin at this time. We wi ll continue the medications, adjust for renal function, and we will follow up closely. 3.Acute on chronic renal insufficiency, currently with stable renal function. 4.Mild hyperkalemia. We will continue to monitor. Patient is not on any other medicines except for heparin that can cause hyperkalemia. We will continue to monitor and no need for Kayexalate at this time. 5.Hypomagnesemia, has been repleted. 6.Recent bilateral mastectomy with history of breast cancer. Continue postoperative monitoring. Plan: Overall, patient is doing okay at this time. Renal function is stable. She has mild hyperkal emia, which can be monitored and hypomagnesemia has been repleted. Continue antibiotics, adjust for renal function, and we will follow up closely. Avoid further hypotension and nephrotoxins. VV/MODL Voice ID: [id number] Report ID: [id number]
[2019-07-19] MEDS ORDERED: Levofloxacin 250mg IV 250 MG/50 ML BAG IV SCH (13:00)
[2019-07-19] MEDS: ENSURE PUDDING 4 OZ CUP PO SCH (14:00)
[2019-07-19] MEDS: GABAPENTIN 300 MG CAP PO SCH ×2 (14:11→20:15)
[2019-07-19] MEDS ORDERED: DIPHENOX/ATROP SULF 1 TAB PO PRN (19:13)
[2019-07-19] MEDS: LACTOBACILLUS/ACIDOPHILUS TAB PO SCH (20:16)
[2019-07-19] MEDS: HOME MED 1 EA UNK (Budesonide/Formoterol Fumarate [Symbicort 80-4.5 Mcg Inhaler] 2 PUFF) IH SCH (20:30)
[2019-07-19] MEDS ORDERED: DIVALPROEX NA 125 MG CAP PO SCH (21:00)
[2019-07-19] MEDS ORDERED: DONEPEZIL HCL 5 MG TAB PO SCH (21:00)
[2019-07-19] MEDS ORDERED: ATORVASTATIN 20 MG TAB PO SCH (21:00)
[2019-07-20 04:28] VITALS: TEMP 98.7
[2019-07-20 05:39] LABS: Hematocrit 28.4 % (36.0-45.0); RBC Red Blood Cell Count 2.93 M/uL (3.86-4.86)
[2019-07-20 05:40] LABS: Absolute Lymphocytes (CBC) 0.7 K/uL (0.7-4.9); Basophils % 0.3 % (0-1.3); MPV 8.3 fL (7.6-11.3)
[2019-07-20] MEDS ORDERED: LEVOTHYROXINE SOD 0.075 MG TAB PO SCH (06:00)
[2019-07-20 06:01] LABS: Magnesium 1.9 mg/dL (1.8-2.4); Potassium 5.1 mmol/L (3.5-5.1)
[2019-07-20] MEDS: INSULIN -REGULAR HUMAN 50 UNIT/0.5 ML ML SQ SCH (07:30)
[2019-07-20 07:53] LABS: Blood Morphology Comment NOT SEEN (NOT SEEN); Platelet Estimate ADEQ
[2019-07-20 08:04] VITALS: BP 151/68
[2019-07-20] MEDS: HEPARIN 5000 UNIT/ML 1 ML VIAL SQ SCH (08:14)
[2019-07-20] MEDS: HOME MED 1 EA UNK (Budesonide/Formoterol Fumarate [Symbicort 80-4.5 Mcg Inhaler] 2 PUFF) IH SCH (08:15)
[2019-07-20] MEDS: PANTOPRAZOLE 40MG TABLET PO SCH (08:15)
[2019-07-20] MEDS: LACTOBACILLUS/ACIDOPHILUS TAB PO SCH (08:16)
[2019-07-20] MEDS: GABAPENTIN 300 MG CAP PO SCH (08:19)
[2019-07-20] MEDS: ENSURE PUDDING 4 OZ CUP PO SCH (08:23)
[2019-07-20] MEDS ORDERED: CITALOPRAM 10 MG TABLET PO SCH (09:00)
[2019-07-20] MEDS ORDERED: lisinopriL 20 MG TAB PO SCH (09:00)
[2019-07-20] MEDS ORDERED: ASPIRIN EC 81 MG TAB PO SCH (09:00)
[2019-07-20] MEDS ORDERED: MONTELUKAST 10 MG TAB PO SCH (09:00)
[2019-07-20] MEDS ORDERED: MEMANTINE HCL 10 MG TABLET PO SCH (09:00)
[2019-07-20] MEDS ORDERED: CYANOCOBALAMIN 1,000 MCG TAB PO SCH (09:00)
[2019-07-20] MEDS ORDERED: HOME MED 1 EA UNK (Omeprazole [Prilosec] 40 MG) PO SCH (09:00)
[2019-07-20] MEDS ORDERED: OXYBUTYNIN CHLORIDE 5 MG TAB PO SCH (09:00)
[2019-07-20] MEDS ORDERED: FERROUS SULFATE 325 MG TAB PO SCH (09:00)
[2019-07-20] MEDS ORDERED: predniSONE 10 MG TAB PO SCH (09:00)
[2019-07-20] MEDS ORDERED: NIFEDIPINE XL 90 MG TABLET PO SCH (09:00)
--- NOTE | 2019-07-20 09:19 | P.DS ---
Admission Date: 07/18/19 Discharge Date: 07/20/19 Primary Care Provider: Dr. Abrams; Surgery-Dr. Redman; Oncology-Dr. Tirado Disposition: ROUTINE DISCHARGE Discharge Condition: GOOD Reason for Admission: Erythema, swelling to the right upper extremity Consultations: Surgery-Dr. Redman Nephrology-Dr. Wyman Procedures: Venous doppler: Negative for DVT Medical Problem List: Bilateral right greater than left upper extremity cellulitis Acute on chronic renal failure stage 3 Hypertension Hypothyroidism Hyperlipidemia GERD Depression Recent bilateral mastectomy with history of breast cancer COPD Chronic allergies Chronic pain Brief History of Present Illness: 69-year-old female with multiple medical problems including hypothyroidism, GERD, hypertension, chronic renal disease and breast cancer. Patient had bilateral breast mastectomy and removal of lymph nodes to the right side about 2 weeks ago. She follow up with her surgeon yesterday. She had noticed some increasing edema to the right upper extremity with some erythema mainly to the hand and forearm region. Today a she noted more erythema, warmth and swelling to the right upper extremity above the elbow all region. She also reported some mild erythema to the left forearm. She reports some chills. Denies fever. No erythema, exudate or swelling noted to surgical site of bilateral mastectomies. She came to the ER for further evaluation. In the ER she was evaluated. White count 5.6, hemoglobin 11.5. Platelet count 151. Sodium 138, potassium 4.5, BUN of 19, creatinine 1.47 with a GFR 35. Glucose 124. Lactic acid slightly elevated at 2.1. Repeat lactic acid showed improvement. Venous Doppler shows no DVT. Patient was started on IV antibiotic therapy. Patient admitted for further evaluation and treatment. When I saw the patient ER, she appeared stable. She did not appear septic. Blood pressure 102/53. Patient receiving IV fluids. Hospital Course: Patient presented with bilateral right greater than left upper extremity cellulitis. Patient started on IV antibiotic therapy. Patient improved. Venous Doppler negative for DVT. Patient seen by surgery. No intervention required. Blood cultures negative. Her condition has significantly improved. No significant pain at discharge. At discharge patient will continue with doxycycline 100 mg twice daily and Levaquin 250 mg daily for 7 days. Patient will also continue with Bactroban ointment to the wound, nares and umbilicus twice daily. Patient is to elevate arm whenever possible. She is to monitor for any further exudate. Recommend follow up with surgery within 1 week to follow up her care. Medications have been adjusted per renal function. Patient with history of chronic renal failure stage 3. This has remained stable. Nephrology monitored the patient closely. No further recommendations at this time. Patient may he continue with her current medications. Future medications to be renally dosed. Recommend follow up with nephrology as directed. Patient with hypertension. This has remained stable. At discharge she will continue with Nifedipine XL 90 mg daily, lisinopril 20 mg daily. Recommend to maintain blood pressures less 150/80. Further adjustment can be done by her PCP. Patient with hypothyroidism. At discharge she will continue with levothyroxine 75 mcg daily. Patient with GERD. At discharge she may continue with Prilosec 40 mg daily. Patient with depression. She will continue with her home medications of Celexa 40 mg daily, Klonopin 0.5 mg daily as needed for anxiety, trazodone 50 mg at bedtime, and Depakote 250 mg at bedtime. Further adjustment can be done by her PCP. Patient with history of COPD and chronic allergies. At discharge she will continue with Symbicort 2 puffs twice daily and Singulair 10 mg daily. Follow up with her PCP to further monitor. Patient with chronic pain. She may continue with Soma 350 mg at bedtime as needed for muscle spasm, gabapentin 300 mg 3 times a day and tramadol 50 mg 3 times a day as needed for pain. Further adjustment in medication can be done by her PCP. Patient with early dementia. Patient may continue with home medications of Aricept 10 mg daily and Namenda 10 mg daily. Vital Signs/Physical Exam: Temp Pulse Resp BP Pulse Ox 98.7 F 75 15 151/68 H 94 07/20/19 08:00 07/20/19 08:00 07/20/19 08:00 07/20/19 08:00 07/20/19 08:00 General: Alert, In no apparent distress, Oriented x3, Cooperative HEENT: Atraumatic Neck: Supple Respiratory: Clear to auscultation bilaterally, Normal air movement Cardiovascular: Normal pulses, Regular rate/rhythm Gastrointestinal: Normal bowel sounds, Soft and benign, Non-distended Musculoskeletal: No tenderness, No warmth Integumentary: Other (Edema to the right upper extremity significantly improved. Minimal erythema noted. Clear exudate noted to the right distal humerus region about 2-3 inches above the elbow. No pain noted.) Neurological: Normal speech, Normal strength at 5/5 x4 extr, Normal tone, Normal affect Laboratory Data at Discharge: WBC 3.1 K/uL (4.3-10.9) L D 07/20/19 05:06 Hgb 9.5 g/dL (12.0-15.0) L 07/20/19 05:06 Hct 28.4 % (36.0-45.0) L 07/20/19 05:06 Plt Count 118 K/uL (152-406) L 07/20/19 05:06 Sodium 138 mmol/L (136-145) 07/20/19 05:06 Potassium 5.1 mmol/L (3.5-5.1) 07/20/19 05:06 BUN 15 mg/dL (7-18) 07/20/19 05:06 Creatinine 1.24 mg/dL (0.55-1.3) 07/20/19 05:06 Glucose 102 mg/dL (74-106) 07/20/19 05:06 Magnesium 1.9 mg/dL (1.8-2.4) 07/20/19 05:06 Total Bilirubin 0.5 mg/dL (0.2-1.0) 07/18/19 10:45 AST 18 U/L (15-37) 07/18/19 10:45 ALT 17 U/L (12-78) 07/18/19 10:45 Alkaline Phosphatase 67 U/L (45-117) 07/18/19 10:45 Home Medications: Aspirin [Aspirin EC 81 MG] 81 mg PO DAILY 10/13/16 Atorvastatin Calcium [Lipitor*] 20 mg PO BEDTIME 10/13/16 Cholestyramine (with Sugar) [Cholestyramine Packet] 4 gm PO DAILY 10/13/16 Citalopram [Celexa*] 40 mg PO DAILY 10/13/16 Donepezil [Aricept*] 10 mg PO DAILY 10/13/16 Ferrous Sulfate [Iron] 325 mg PO DAILY 10/13/16 Levothyroxine [Synthroid*] 75 mcg PO [id number] 10/13/16 Oxybutynin Chloride [Ditropan*] 5 mg PO DAILY 10/13/16 Tramadol HCl [Ultram] 50 mg PO Q6HP PRN 10/13/16 Trazodone [Desyrel*] 50 mg PO BEDTIME 10/13/16 clonazePAM [Klonopin*] 0.5 mg PO DAILY 10/13/16 Divalproex [Depakote Sprinkle*] 250 mg PO BEDTIME 06/29/19 Gabapentin 300 mg PO TID 06/29/19 Memantine HCl 10 mg PO DAILY 06/29/19 Nifedipine [Procardia Xl] 90 mg PO DAILY 06/29/19 lisinopriL [Lisinopril] 20 mg PO DAILY 06/29/19 Azelastine [Astelin 137MCG/Metered [place]*] 137 mcg NS BID 07/18/19 Budesonide/Formoterol Fumarate [Symbicort 80-4.5 Mcg Inhaler] 2 puff IH BID Cholecalciferol (Vitamin D3) [Vitamin D3] 5,000 unit PO DAILY 07/18/19 Cyanocobalamin [Vitamin B-12*] 5,000 mcg PO DAILY 07/18/19 Montelukast [Singulair*] 10 mg PO DAILY 07/18/19 Omeprazole [Prilosec] 40 mg PO DAILY 07/18/19 carisoprodoL [Soma*] 350 mg PO BEDTIME 07/18/19 predniSONE [Prednisone*] 10 mg PO DAILY 07/18/19 Doxycycline Hyclate [Vibramycin] 100 mg PO Q12H #14 capsule 07/20/19 Mupirocin Oint [Bactroban 2% Ointment] 8 appl TOP SEECOM #1 tube 07/20/19 levoFLOXacin [Levaquin] 250 mg PO DAILY #7 tab 07/20/19 New Medications: Doxycycline Hyclate [Vibramycin] 100 mg PO Q12H #14 capsule levoFLOXacin [Levaquin] 250 mg PO DAILY #7 tab Mupirocin Oint [Bactroban 2% Ointment] 8 appl TOP SEECOM #1 tube Patient Discharge Instructions: 1. Recommend follow up with PCP in 1 week to follow up this hospitalization. 2. Patient presented with bilateral right greater than left upper extremity cellulitis. Patient started on IV antibiotic therapy. Patient improved. Venous Doppler negative for DVT. Patient seen by surgery. No intervention required. Blood cultures negative. Her condition has significantly improved. No significant pain at discharge. At discharge patient will continue with doxycycline 100 mg twice daily and Levaquin 250 mg daily for 7 days. Patient will also continue with Bactroban ointment to the wound, nares and umbilicus twice daily. Patient is to elevate arm whenever possible. She is to monitor for any further exudate. Recommend follow up with surgery within 1 week to follow up her care. Medications have been adjusted per renal function. 3. Patient with history of chronic renal failure stage 3. This has remained stable. Nephrology monitored the patient closely. No further recommendations at this time. Patient may he continue with her current medications. Future medications to be renally dosed. Recommend follow up with nephrology as directed. 4. Patient with hypertension. This has remained stable. At discharge she will continue with Nifedipine XL 90 mg daily, lisinopril 20 mg daily. Recommend to maintain blood pressures less 150/80. Further adjustment can be done by her PCP. 5. Patient with hypothyroidism. At discharge she will continue with levothyroxine 75 mcg daily. 6. Patient with GERD. At discharge she may continue with Prilosec 40 mg daily. 7. Patient with depression. She will continue with her home medications of Celexa 40 mg daily, Klonopin 0.5 mg daily as needed for anxiety, trazodone 50 mg at bedtime, and Depakote 250 mg at bedtime. Further adjustment can be done by her PCP. 8. Patient with history of COPD and chronic allergies. At discharge she will continue with Symbicort 2 puffs twice daily and Singulair 10 mg daily. Follow up with her PCP to further monitor. 9. Patient with chronic pain. She may continue with Soma 350 mg at bedtime as needed for muscle spasm, gabapentin 300 mg 3 times a day and tramadol 50 mg 3 times a day as needed for pain. Further adjustment in medication can be done by her PCP. 10. Patient with early dementia. Patient may continue with home medications of Aricept 10 mg daily and Namenda 10 mg daily. Diet: Renal Activity: Ad khoi Time spent managing pt's care (in minutes): 55
[2019-07-20 10:38] VITALS: O2SAT 94
[2019-07-20] MEDS ORDERED: CHOLESTYRAMINE/ASP 4 GM/PKT PO SCH (12:00)
[2019-07-21] MEDS ORDERED: propofoL 200 MG/20 ML VIAL IV ONE (14:51)
[2019-07-21] MEDS ORDERED: GLYCOPYRROLATE 0.2 MG/ML SYR ONE (14:52)
[2019-07-21] MEDS ORDERED: FENTANYL CITR 250 MCG/5 ML ONE (14:53)
[2019-07-21] MEDS ORDERED: LIDOCAINE 2% MPF 5 ML VIAL ONE (14:53)
[2019-07-21] MEDS ORDERED: ROCURONIUM 50 MG/5 ML VIAL IV ONE (14:54)
[2019-07-21] MEDS ORDERED: NEOSTIGMINE 1 MG/ML -5 ML ONE (14:54)
[2019-07-21] MEDS ORDERED: MIDAZOLAM HCL 2 MG/2 ML INJ ONE (14:54)
== END 2019-07-20 10:25 | disposition home or self-care (01) | DRG 603 ==
LOC: ER 10:17 → ERHOLD 11:46 → 2ND 13:27
PROVIDERS: ADMIT Family Medicine; ATTEND Family Medicine
DX: L03.114 Cellulitis of left upper limb (principal); N17.9 Acute kidney failure, unspecified; L03.113 Cellulitis of right upper limb; I12.9 Hypertensive chronic kidney disease with stage 1 through stage 4 chronic kidney disease, or unspecified chronic kidney disease; N18.3 Chronic kidney disease, stage 3 (moderate); E03.9 Hypothyroidism, unspecified; K21.9 Gastro-esophageal reflux disease without esophagitis; F41.8 Other specified anxiety disorders; J44.9 Chronic obstructive pulmonary disease, unspecified; J30.1 Allergic rhinitis due to pollen; G89.29 Other chronic pain; F03.90 Unspecified dementia, unspecified severity, without behavioral disturbance, psychotic disturbance, mood disturbance, and anxiety; E78.5 Hyperlipidemia, unspecified; C50.919 Malignant neoplasm of unspecified site of unspecified female breast; Z98.84 Bariatric surgery status; E87.5 Hyperkalemia; E83.42 Hypomagnesemia; Z88.0 Allergy status to penicillin; Z88.2 Allergy status to sulfonamides
CPT/HCPCS: 36415; 80048; 80053; 80202; 82947; 83605; 83735; 84132; 84145; 85025; 87040; 93971; 96365; 96375; 99285; J1644; J2405; J3370; J3475; J7030; J7040; J7512

== ENCOUNTER 2019-08-01 16:56 | Inpatient (IN) | payer OTHER, MEDICARE ==
[2019-08-01 18:57] LABS: Absolute Lymphocytes (CBC) 1.4 K/uL (0.7-4.9); Basophils % 0.9 % (0-1.3); Hematocrit 30.8 % (36.0-45.0); Lymphocytes % 25.9 % (15.3-44.8); MPV 9.1 fL (7.6-11.3); RBC Red Blood Cell Count 3.17 M/uL (3.86-4.86)
[2019-08-01 19:10] LABS: ALT/SGPT 23 U/L (12-78); AST/SGOT 26 U/L (15-37); Albumin 3.2 g/dL (3.4-5.0); Alkaline Phosphatase 69 U/L (45-117); BUN Blood Urea Nitrogen 29 mg/dL (7-18); Bicarbonate 26 mmol/L (21-32); Bilirubin Direct 0.1 mg/dL (0-0.2); Bilirubin Total 0.3 mg/dL (0.2-1.0); Glucose Level 95 mg/dL (74-106); Magnesium 1.8 mg/dL (1.8-2.4); NT PRO-BNP 141 pg/mL (<125); Potassium 4.6 mmol/L (3.5-5.1); Protein, Total 6.9 g/dL (6.4-8.2); Sodium Level 140 mmol/L (136-145); Troponin (Emerg Dept Use Only) < 0.02 ng/mL (0.0-0.045)
--- NOTE | 2019-08-01 19:40 | RAD REPORT ---
EXAM DESCRIPTION: RAD - Chest Single View - 08/01/2019 6:46 pm CLINICAL HISTORY: left arm swelling Chest pain. COMPARISON: Chest Pa And Lat (2 Views) dated 06/29/2019; Chest Pa And Lat (2 Views) dated 06/08/2018; C hest Pa And Lat (2 Views) dated 04/26/2018; Chest Pa And Lat (2 Views) dated 01/17/2018 FINDINGS: Portable technique limits examination quality. The lungs are grossly clear. The heart is normal in size. No displaced fractures. IMPRESSION: No acute intrathoracic process suspected.
[2019-08-01 19:49] LABS: Blood Morphology Comment NOT SEEN (NOT SEEN); Platelet Estimate DECR; Urine White Blood Cell Casts OK
--- NOTE | 2019-08-01 20:26 | ER ---
Nurse's Notes [facility] Name: Rosi Jordan Age: 69 yrs Sex: Female : 1950 Arrival Date: 08/01/2019 Time: 16:58 Bed 25 Private MD: Jayme Cantu Diagnosis: Cellulitis of left upper limb Presentation: 07/31 17:40 Chief complaint: Patient states: Redness, pain and swelling to L arm since yesterday ss evening. Pt reports she was recently treated for cellulitis to her R arm. Coronavirus screen: The patient has NOT traveled to a country currently being monitored by the [facility] within the last 14 days. Proceed with normal triage procedures. Ebola Screen: Patient denies exposure to infectious person. Patient denies travel to an Ebola-affected area in the 21 days before illness onset. Initial Sepsis Screen: Does the patient meet any 2 criteria? No. Patient's initial sepsis screen is negative. Does the patient have a suspected source of infection? Yes: Other: poss cellulitis. Risk Assessment: Do you want to hurt yourself or someone else? Patient reports no desire to harm self or others. 17:40 Method Of Arrival: Ambulatory ss 17:40 Acuity: CASPER 3 ss 18:03 Onset of symptoms was July 31, 2019. ll1 Historical: - Allergies: 17:38 Codeine; ss 17:38 PENICILLINS; ss 17:38 Sulfa (Sulfonamide Antibiotics); ss 22:49 Vancomycin; ll1 - Home Meds: 17:38 aspirin 81 mg Oral TbEC 1 tab once daily [Active]; atorvastatin 20 mg Oral tab 1 tab ss once daily [Active]; azelastine 137 mcg 1 spray twice a day [Active]; cholestyramine (with sugar) 4 gram Oral powd [Active]; citalopram 40 mg tab 1 tab once daily [Active]; clonazepam 0.5 mg Oral tab 1 tab daily [Active]; Depakote 250 mg Oral TbEC 1 tab once daily [Active]; donepezil 10 mg Oral tab 1 tab once daily [Active]; gabapentin 300 mg Oral cap 1 cap 3 times per day [Active]; Iron CR Oral 325 mg daily [Active]; Levaquin 500 mg Oral tab 1 tab once daily [Active]; levothyroxine 75 mcg tab 1 tab once daily [Active]; lisinopril 20 mg Oral tab 1 tab once daily [Active]; memantine 10 mg Oral tab 1 tab daily [Active]; nifedipine 90 mg Oral TbER 1 tab once daily [Active]; omeprazole 40 mg Oral cpDR 1 cap once daily [Active]; oxybutynin chloride 5 mg Oral tab 1 tab daily [Active]; prednisone 10 mg Oral tab once daily [Active]; Singulair 10 mg Oral tab 1 tab once daily [Active]; Soma 350 mg Oral tab 1 tab nightly [Active]; Symbicort 80-4.5 mcg/actuation inhalation HFAA 2 puffs 2 times per day [Active]; trazodone 50 mg Oral tab 1 tab nightly [Active]; trimethoprim 100 mg Oral tab 1 tab once daily [Active]; Vitamin B-12 5000 MCG Oral TbER daily [Active]; Vitamin D3 5,000 unit Oral tab daily [Active]; tramadol 50 mg Oral tab 1 tab every 6 hours [Active]; - PMHx: 17:38 breast cancer; Depression; GERD; Hyperlipidemia; Hypertension; Hypothyroidism; ss - PSHx: 17:38 hand surgery; lap band; foot surgery; back surgery; Mastectomy; ss - Immunization history:: Adult Immunizations up to date. - Social history:: Smoking status: Patient denies any tobacco usage or history of. Screenin:03 Abuse screen: Denies threats or abuse. Nutritional screening: No deficits noted. ll1 Tuberculosis screening: No symptoms or risk factors identified. 21:56 Fall Risk IV access (20 points). Ambulatory Aid- Crutches/Cane/Walker (15 pts). Gait- ll1 Weak (10 pts.). Total Hu Fall Scale indicates High Risk Score (45 or more points). Fall prevention measures have been instituted. Side Rails Up X 2 Placed Close to Nursing Station. Assessment: 17:45 General: Appears in no apparent distress. Behavior is calm, cooperative. Pain: ll1 Complains of pain in left arm Pain currently is 4 out of 10 on a pain scale. Quality of pain is described as aching, Pain began gradually, 2-3 days ago. 17:45 Neuro: No deficits noted. Cardiovascular: No deficits noted. Respiratory: No deficits ll1 noted. Derm: Skin is intact, Skin is red, Skin temperature is warm Reports pain and redness to LUE. 18:45 Reassessment: No changes from previously documented assessment. Patient and/or family ll1 updated on plan of care and expected duration. Pain level reassessed. Patient is alert, oriented x 3, equal unlabored respirations, skin warm/dry/pink. 19:45 Reassessment: No changes from previously documented assessment. Patient and/or family ll1 updated on plan of care and expected duration. Pain level reassessed. Patient is alert, oriented x 3, equal unlabored respirations, skin warm/dry/pink. 22:35 Reassessment: pt c/o reddened area to left upper chest area notified Isaiah RIVERS who bb is at bedside will hold room admission for Dr Hardin to evaluate, vancomycin stopped. 22:50 Reassessment: Isaiah RIVERS spoke to Dr Hardin who states stop the vancomycin and send bb the pt upstairs, pt is A\T\O x 4, resp unlabored, IV site intact, patent, redness to left chest wall approx size of a grapefruit. Vital Signs: 17:40 BP 134 / 51; Pulse 92; Resp 17; Temp 98.8; Pulse Ox 97% on R/A; Weight 90.72 kg; Height ss 5 ft. 1 in. (154.94 cm); 21:53 BP 127 / 71; Pulse 82; Resp 17; Temp 98.3; Pulse Ox 97% ; Pain 3/10; ll1 17:40 Body Mass Index 37.79 (90.72 kg, 154.94 cm) ED Course: 16:58 Patient arrived in ED. ag5 16:58 Jayme Cantu MD is Private Physician. ag5 17:36 Triage completed. ss 17:38 Arm band placed on right wrist. ss 18:01 Isaiah Lozano PA is PHCP. cp 18:01 Isaiah Cifuentes MD is Attending Physician. cp 18:02 Michele Edwards, CIRILO is Primary Nurse. ll1 18:03 Patient has correct armband on for positive identification. Bed in low position. Call ll1 light in reach. Side rails up X 1. 18:47 XRAY Chest (1 view) In Process Unspecified. EDMS 20:24 Rolly Hardin MD is Hospitalizing Provider. cp 22:09 Patient admitted, IV remains in place. ll1 22:09 No provider procedures requiring assistance completed. ll1 22:34 Attending Physician role handed off by Isaiah Cifuentes MD ll1 22:34 Primary Nurse role handed off by Michele Edwards RN [facility] 22:47 Michele Edwards, RN is Primary Nurse. 1 Administered Medications: Discontinued: vancoMYCIN 1 grams IVPB once over 2 hrs 18:51 Drug: Cefepime 1 grams Route: IVPB; Rate: 200 ml/hr; Infused Over: 30 mins; Site: left ll1 jugular; 20:28 Follow up: Response: No adverse reaction; RASS: Alert and Calm (0); IV Status: ll1 Completed infusion 20:44 Drug: vancoMYCIN 1 grams Route: IVPB; Infused Over: 2 hrs; Site: left jugular; [facility] Outcome: 20:25 Decision to Hospitalize by Provider. cp 22:07 Admitted to Med/surg accompanied by tech, via stretcher, room 2nd floor, Report called [facility] to Tj 22:07 Condition: stable 22:07 Instructed on the need for admit. 22:24 Patient left the ED. 1 22:52 Patient left the ED. bb Signatures: Dispatcher [employer] EDMS Angélica Grullon RN RN bb Isabel Meyer RN RN ss Page, Corey, TITA PA Renetta Simon [facility] Michele Edwards, CIRILO RN [facility]
--- NOTE | 2019-08-01 20:26 | EDPHYS ---
Physician Documentation [facility] Name: Rosi Jordan Age: 69 yrs Sex: Female : 1950 Arrival Date: 08/01/2019 Time: 16:58 Bed 25 Private MD: Jayme Cantu ED Physician HPI: 07/31 18:20 This 69 yrs old Female presents to ER via Ambulatory with complaints of Arm cp Problem. 18:20 The patient or guardian complains of pain, that is acute, swelling, erythema. The cp complaints affect the left arm. Context: concern for cellulitis. Associated signs and symptoms: Pertinent positives: erythema, Pertinent negatives: deformity, fever, numbness, weakness, chest pain, shortness of breath. Historical: - Allergies: 17:38 Codeine; ss 17:38 PENICILLINS; ss 17:38 Sulfa (Sulfonamide Antibiotics); ss 22:49 Vancomycin; ll1 - Home Meds: 17:38 aspirin 81 mg Oral TbEC 1 tab once daily [Active]; atorvastatin 20 mg Oral tab 1 tab ss once daily [Active]; azelastine 137 mcg 1 spray twice a day [Active]; cholestyramine (with sugar) 4 gram Oral powd [Active]; citalopram 40 mg tab 1 tab once daily [Active]; clonazepam 0.5 mg Oral tab 1 tab daily [Active]; Depakote 250 mg Oral TbEC 1 tab once daily [Active]; donepezil 10 mg Oral tab 1 tab once daily [Active]; gabapentin 300 mg Oral cap 1 cap 3 times per day [Active]; Iron CR Oral 325 mg daily [Active]; Levaquin 500 mg Oral tab 1 tab once daily [Active]; levothyroxine 75 mcg tab 1 tab once daily [Active]; lisinopril 20 mg Oral tab 1 tab once daily [Active]; memantine 10 mg Oral tab 1 tab daily [Active]; nifedipine 90 mg Oral TbER 1 tab once daily [Active]; omeprazole 40 mg Oral cpDR 1 cap once daily [Active]; oxybutynin chloride 5 mg Oral tab 1 tab daily [Active]; prednisone 10 mg Oral tab once daily [Active]; Singulair 10 mg Oral tab 1 tab once daily [Active]; Soma 350 mg Oral tab 1 tab nightly [Active]; Symbicort 80-4.5 mcg/actuation inhalation HFAA 2 puffs 2 times per day [Active]; trazodone 50 mg Oral tab 1 tab nightly [Active]; trimethoprim 100 mg Oral tab 1 tab once daily [Active]; Vitamin B-12 5000 MCG Oral TbER daily [Active]; Vitamin D3 5,000 unit Oral tab daily [Active]; tramadol 50 mg Oral tab 1 tab every 6 hours [Active]; - PMHx: 17:38 breast cancer; Depression; GERD; Hyperlipidemia; Hypertension; Hypothyroidism; ss - PSHx: 17:38 hand surgery; lap band; foot surgery; back surgery; Mastectomy; ss - Immunization history:: Adult Immunizations up to date. - Social history:: Smoking status: Patient denies any tobacco usage or history of. ROS: 18:25 Constitutional: Negative for body aches, chills, fever, poor PO intake. cp 18:25 Eyes: Negative for injury, pain, redness, and discharge. cp 18:25 ENT: Negative for drainage from ear(s), ear pain, sore throat, difficulty swallowing, difficulty handling secretions. 18:25 Cardiovascular: Negative for chest pain, palpitations. 18:25 Respiratory: Negative for cough, shortness of breath, wheezing. 18:25 Abdomen/GI: Negative for abdominal pain, nausea, vomiting, and diarrhea. 18:25 MS/extremity: Positive for erythema, pain, swelling, tenderness, of the left arm, Negative for injury or acute deformity, decreased range of motion, paresthesias. 18:25 Neuro: Negative for altered mental status, headache, weakness. 18:25 All other systems are negative. Exam: 18:30 Constitutional: The patient appears in no acute distress, alert, awake, cp non-diaphoretic, non-toxic, well developed, well nourished. 18:30 Head/Face: Normocephalic, atraumatic. cp 18:30 Eyes: Periorbital structures: appear normal, Conjunctiva: normal, no exudate, no injection, Sclera: no appreciated abnormality, Lids and lashes: appear normal, bilaterally. 18:30 ENT: External ear(s): are unremarkable, Nose: is normal, Mouth: is normal, Posterior pharynx: is normal, airway is patent, no erythema, no exudate. 18:30 Chest/axilla: Inspection: right side mastectomy noted. 18:30 Cardiovascular: Rate: normal, Rhythm: regular, JVD: is not appreciated. 18:30 Respiratory: the patient does not display signs of respiratory distress, Respirations: normal, no use of accessory muscles, no retractions, labored breathing, is not present, Breath sounds: are clear throughout, no decreased breath sounds, no stridor, no wheezing. 18:30 Abdomen/GI: Exam negative for discomfort, distension, guarding, Inspection: abdomen appears normal. 18:30 Musculoskeletal/extremity: Extremities: grossly normal except: noted in the left arm: erythema, swelling, tenderness, Perfusion: the extremity is normally perfused throughout, Sensation intact. 18:30 Neuro: Orientation: to person, place \T\ time. Mentation: is normal, Motor: moves all fours, strength is normal, Sensation: no obvious gross deficits. Vital Signs: 17:40 BP 134 / 51; Pulse 92; Resp 17; Temp 98.8; Pulse Ox 97% on R/A; Weight 90.72 kg; Height ss 5 ft. 1 in. (154.94 cm); 21:53 BP 127 / 71; Pulse 82; Resp 17; Temp 98.3; Pulse Ox 97% ; Pain 3/10; ll1 17:40 Body Mass Index 37.79 (90.72 kg, 154.94 cm) Procedures: 18:20 Peripheral line: by aseptic technique a peripheral line was placed in the left external cp jugular vein. MDM: 18:04 [facility] 19:55 Data reviewed: vital signs, nurses notes, lab test result(s), EKG, radiologic studies, plain films. 19:55 Differential diagnosis: DVT, cellulitis, vasculitis, sepsis. Test interpretation: by ED cp physician or midlevel provider: ECG, plain radiologic studies, chest xray negative for infiltrates. Counseling: I had a detailed discussion with the patient and/or guardian regarding: the historical points, exam findings, and any diagnostic results supporting the discharge/admit diagnosis, lab results, radiology results. 20:23 Physician consultation: Rolly Hardin MD was called at 20:23, regarding admission, to the telemetry unit. patient's condition, no answer and unable to leave message. 07/31 18:15 Order name: Basic Metabolic Panel; Complete Time: 19:11 07/31 19:11 Interpretation: Normal except: BUN 29; CRE 1.55; GFR 33. cp 07/31 18:15 Order name: CBC with Diff; Complete Time: 19:50 cp 07/31 19:12 Interpretation: Normal except: RBC 3.17; HGB 10.4; HCT 30.8; PLT 147; EOSINOPHIL % 8.3. cp 07/31 18:15 Order name: LFT's; Complete Time: 19:11 cp 07/31 19:12 Interpretation: Normal except: GLOB 3.7; ALB 3.2; A/G 0.9. cp 07/31 18:15 Order name: Magnesium; Complete Time: 19:11 cp 07/31 18:15 Order name: NT PRO-BNP; Complete Time: 19:11 cp 07/31 18:15 Order name: PT-INR; Complete Time: 19:11 cp 07/31 18:15 Order name: Troponin (emerg Dept Use Only); Complete Time: 19:11 cp 07/31 18:15 Order name: Blood Culture Adult (2) cp 07/31 18:15 Order name: Procalcitonin; Complete Time: 19:38 cp 07/31 19:38 Interpretation: Within normal limits: Procalcitonin 0.15. cp 07/31 18:15 Order name: Lactate; Complete Time: 19:11 cp 07/31 19:39 Interpretation: Within normal limits: LAC 1.1. cp 07/31 19:50 Order name: CBC Smear Scan; Complete Time: 19:50 EDMS 07/31 21:12 Order name: Basic Metabolic Panel EDMS 07/31 21:12 Order name: Basic Metabolic Panel EDMS 07/31 21:12 Order name: CBC with Automated Diff EDMS 07/31 18:15 Order name: XRAY Chest (1 view); Complete Time: 19:50 cp 07/31 19:51 Interpretation: Report review. cp 07/31 18:15 Order name: EKG; Complete Time: 18:16 cp 07/31 18:15 Order name: Cardiac monitoring; Complete Time: 22:11 cp 07/31 18:15 Order name: EKG - Nurse/Tech; Complete Time: 22:10 cp 07/31 18:15 Order name: IV Saline Lock; Complete Time: 22:10 cp 07/31 18:15 Order name: Labs collected and sent; Complete Time: 22:10 cp 07/31 18:15 Order name: O2 Per Protocol; Complete Time: 22:10 cp 07/31 18:15 Order name: O2 Sat Monitoring; Complete Time: 22:10 cp 07/31 21:12 Order name: CONS Pharmacy Consult EDMS 07/31 21:12 Order name: CONS Pharmacy Consult EDMS 07/31 21:12 Order name: Consistent Carb (ADA) [address] EDMS 07/31 21:12 Order name: CBC with Automated Diff EDMS Administered Medications: Discontinued: vancoMYCIN 1 grams IVPB once over 2 hrs 18:51 Drug: Cefepime 1 grams Route: IVPB; Rate: 200 ml/hr; Infused Over: 30 mins; Site: left ll1 jugular; 20:28 Follow up: Response: No adverse reaction; RASS: Alert and Calm (0); IV Status: ll1 Completed infusion 20:44 Drug: vancoMYCIN 1 grams Route: IVPB; Infused Over: 2 hrs; Site: left jugular; ll1 Disposition: 08/01 12:42 Co-signature as Attending Physician, Isaiah Cifuentes MD I agree with the assessment and urbaon plan of care. Disposition: 08/01/19 20:25 Hospitalization ordered by Rolly Hardin for Inpatient Admission. Preliminary diagnosis is Cellulitis of left upper limb. - Bed requested for Telemetry/MedSurg (Inpatient). - Status is Inpatient Admission. bb - Condition is Stable. - Problem is an ongoing problem. - Symptoms are unchanged. Signatures: Dispatcher [facility] Helena Smith RN RN dw Anderson, Corey, MD MD cha Ballard, Brenda, RN RN bb Smirch, Shelby, RN RN ss Page, Corey, PA PA cp Lewis, Lynsay, RN RN ll1 Corrections: (The following items were deleted from the chart) 07/31 21:22 20:25 Hospitalization Ordered by Rolly Hardin MD for Inpatient Admission. Preliminary dw diagnosis is Cellulitis of left upper limb. Bed requested for Telemetry/MedSurg (Inpatient). Status is Inpatient Admission. Condition is Stable. Problem is an ongoing problem. Symptoms are unchanged. cp 22:24 21:22 08/01/2019 20:25 Hospitalization Ordered by Rolly Hardin MD for Inpatient ll1 Admission. Preliminary diagnosis is Cellulitis of left upper limb. Bed requested for Telemetry/MedSurg (Inpatient). Status is Inpatient Admission. Condition is Stable. Problem is an ongoing problem. Symptoms are unchanged. dw 22:52 22:24 08/01/2019 20:25 Hospitalization Ordered by Rolly Hardin MD for Inpatient bb Admission. Preliminary diagnosis is Cellulitis of left upper limb. Bed requested for Telemetry/MedSurg (Inpatient). Status is Inpatient Admission. Condition is Stable. Problem is an ongoing problem. Symptoms are unchanged. ll1
[2019-08-01] MEDS ORDERED: VANCOMYCIN 1 GM/VIAL ONE (20:39)
[2019-08-01] MEDS ORDERED: NA CHLORIDE 0.9% 250 ML ONE (20:40)
[2019-08-01] MEDS ORDERED: ACETAMINOPHEN 500 MG TAB PO PRN (21:08)
[2019-08-01] MEDS ORDERED: MORPHINE 2 MG/ML SYR IV PRN (21:08)
[2019-08-01] MEDS ORDERED: VANCOMYCIN/NS 1 gm 1 GM/250 ML BAG IVPB SCH (21:15)
[2019-08-01] MEDS: NA CHLORIDE 0.9% 1,000 ML IV SCH (23:36)
[2019-08-02 00:31] VITALS: BMI 39.7
[2019-08-02] MEDS: GABAPENTIN 300 MG CAP PO SCH ×3 (01:14→22:25)
[2019-08-02] MEDS: DONEPEZIL HCL 5 MG TAB PO SCH ×2 (01:14→22:25)
[2019-08-02] MEDS: DOXYCYCLINE 100 MG CAP PO SCH ×3 (01:14→22:25)
[2019-08-02] MEDS: TRAZODONE 50 MG TABLET PO SCH ×2 (01:15→22:26)
[2019-08-02] MEDS: PANTOPRAZOLE 40MG TABLET PO SCH ×2 (01:15→22:24)
[2019-08-02] MEDS ORDERED: NA CHLORIDE 0.9% 250 ML ONE (01:42)
[2019-08-02] MEDS ORDERED: VANCOMYCIN/NS 1 gm 1 GM/250 ML BAG IVPB ONE (01:45)
[2019-08-02] MEDS ORDERED: VANCOMYCIN 1 GM/VIAL ONE (01:46)
[2019-08-02] MEDS ORDERED: Levofloxacin500mg IV 500 MG/100 ML BAG IV SCH (05:00)
[2019-08-02 05:32] LABS: Absolute Lymphocytes (CBC) 0.6 K/uL (0.7-4.9); Basophils % 0.3 % (0-1.3); Hematocrit 27.5 % (36.0-45.0); Lymphocytes % 20.4 % (15.3-44.8); MPV 8.3 fL (7.6-11.3); RBC Red Blood Cell Count 2.84 M/uL (3.86-4.86)
[2019-08-02] MEDS ORDERED: METHYLPREDNISOLONE 125 MG INJ IV ONE (07:20)
--- NOTE | 2019-08-02 07:25 | P.HP ---
Certification for Inpatient Patient admitted to: Inpatient With expected LOS: >2 Midnights Patient will require the following post-hospital care: None Practitioner: I am a practitioner with admitting privileges, knowledge of patient current condition, hospital course, and medical plan of care. Services: Services provided to patient in accordance with Admission requirements found in Title 42 Section 412.3 of the Code of Federal Regulations Patient History Date of Service: 08/01/19 Reason for admission: Left upper extremity cellulitis History of Present Illness: Patient is a 69-year-old female with a recent history of breast cancer status post bilateral mastectomy who was here about a week ago with right upper extremity cellulitis. Patient was given IV antibiotics at that time with vancomycin and Levaquin and this resolved. She comes in once again with her left upper extremity being erythema dose. She does have some purple blotches on that left upper arm as well. She was on antibiotics over the last couple weeks while the right upper extremity was healing. The persistent rash is concerning for something more than just a routine cellulitis. She could possibly have a vasculitis as well. Will keep her on antibiotic therapy at this time and see how all the redness improves over the next few days. The pictures do indicate a significant improvement of the cellulitis of the right upper extremity very quickly. She said the redness some peer to just go away after a couple of days. I feel a cellulitis with improve much more gradually. Will monitor this patient very closely and will continue the antibiotic therapy that work on her last admission. Will also try to get culture results from her last admission. Allergies codeine Allergy (Verified 07/18/19 13:50) Rash Penicillins Allergy (Verified 07/18/19 13:50) Rash Sulfa (Sulfonamide Antibiotics) Allergy (Verified 07/18/19 13:50) Rash Home Medications: Aspirin [Ecotrin 81 MG] 81 mg PO DAILY 08/01/19 Atorvastatin Calcium [Lipitor] 20 mg PO BEDTIME 08/01/19 Azelastine [Astelin 137MCG/Metered [place]] 1 sprays NS BID 08/01/19 Cholecalciferol (Vitamin D3) [Vitamin D3] 5,000 unit PO DAILY 08/01/19 Cholestyramine (with Sugar) [Cholestyramine Packet] 4 gm PO DAILY 08/01/19 Citalopram Hydrobromide [Celexa] 40 mg PO DAILY 08/01/19 Cyanocobalamin (Vitamin B-12) [Vitamin B12] 5,000 mcg PO DAILY 08/01/19 Divalproex [Depakote Sprinkle] 250 mg PO BEDTIME 08/01/19 Donepezil HCl [Aricept] 10 mg PO DAILY 08/01/19 Doxycycline Hyclate 100 mg PO Q12H 08/01/19 Ferrous Sulfate [Feosol] 325 mg PO DAILY 08/01/19 Gabapentin 300 mg PO DAILY 08/01/19 Gabapentin 600 mg PO BEDTIME 08/01/19 Levothyroxine Sodium [Synthroid] 75 mcg PO DAILY 08/01/19 Lisinopril [Zestril] 20 mg PO DAILY 08/01/19 Memantine HCl [Namenda] 10 mg PO DAILY 08/01/19 Omeprazole [Prilosec] 40 mg PO BEDTIME 08/01/19 Trazodone [Desyrel] 50 mg PO BEDTIME 08/01/19 Nifedipine [Procardia Xl] 90 mg PO BEDTIME 08/02/19 - Past Medical/Surgical History Has patient received pneumonia vaccine in the past: Yes Diabetic: No -: Depression -: GERD -: Hyperlipidemia -: Hypertension -: Hypothyroidism -: Dementia -: Chronic renal disease -: Recurrent UTI -: Breast cancer status post bilateral mastectomy -: Hand surgery -: Lap band -: Foot surgery -: Back surgery -: Bilateral mastectomy -: Cholecystectomy -: Tubal ligation Psychosocial/ Personal History: She is a . She has 3 children. 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 - Family History Mother Medical History: Diabetes Father Medical History: Heart disease, Other (see notes) Brother Medical History: Heart disease Sister Medical History: Other (see notes) Notes: lupous - Social History Smoking Status: Never smoker Alcohol use: No CD- Drugs: No Caffeine use: Yes Place of Residence: Home Physical Examination - Vital Signs Temperature: 99.3 F Blood Pressure: 145/70 Pulse: 89 Respirations: 18 Pulse Ox (%): 93 - Physical Exam General: Alert, In no apparent distress, Oriented x3 HEENT: Atraumatic, PERRLA, Mucous membr. moist/pink, EOMI, Sclerae nonicteric Neck: Supple, 2+ carotid pulse no bruit, No LAD, Without JVD or thyroid abnormality Respiratory: Clear to auscultation bilaterally, Normal air movement Cardiovascular: Regular rate/rhythm, Normal S1 S2, No murmurs Gastrointestinal: Normal bowel sounds, Soft and benign, Non-distended, No tenderness Musculoskeletal: No clubbing, No swelling, Tenderness Integumentary: No rashes, Tenderness/swelling, Erythema Neurological: Normal gait, Normal speech, Normal strength at 5/5 x4 extr, Normal tone, Sensation intact, Cranial nerves 3-12 intact, Normal affect Lymphatics: No axilla or inguinal lymphadenopathy - Studies Laboratory Data (last 24 hrs) 08/01/19 18:00: PT 11.8, INR 1.00 08/01/19 18:00: WBC 5.3 D, Hgb 10.4 L, Hct 30.8 L, Plt Count 147 L D 08/01/19 18:00: Sodium 140, Potassium 4.6, BUN 29 H, Creatinine 1.55 H, Glucose 95, Magnesium 1.8, Total Bilirubin 0.3, AST 26, ALT 23, Alkaline Phosphatase 69 Assessment & Plan - Problems (Diagnosis) (1) Left arm cellulitis Current Visit: Yes Status: Acute (2) Depression Onset Date: 10/14/16 Current Visit: No Status: Chronic Qualifiers: (3) Hyperlipidemia Onset Date: 10/14/16 Current Visit: No Status: Chronic Qualifiers: (4) Hypertension Onset Date: 10/14/16 Current Visit: No Status: Chronic Qualifiers: (5) Hypothyroidism Onset Date: 10/14/16 Current Visit: No Status: Chronic Qualifiers: - Plan 1. Continue with IV antibiotic 2. Continue with local wound care 3. Wound care consultation if there is any worsening 4. Gentle IV hydration 5. Monitor CBC 6. Strict blood sugar monitoring 7. Pain control 8. GI and DVT prophylaxis Discharge Plan: Home Plan to discharge in: Greater than 2 days - Advance Directives Does patient have a Living Will: Yes Does patient have a Durable POA for Healthcare: Yes - Code Status/Comfort Care Code Status Assessed: Yes Code Status: Full Code Critical Care: No Time Spent Managing PTS Care (In Minutes): 45
[2019-08-02 07:34] LABS: Blood Morphology Comment NOT SEEN (NOT SEEN); Platelet Estimate DECR; Urine White Blood Cell Casts OK
[2019-08-02] MEDS: NA CHLORIDE 0.9% 1,000 ML IV SCH (08:00)
[2019-08-02] MEDS: ONDANSETRON 4 MG/2 ML VIAL IV PRN ×2 (08:53→17:34)
[2019-08-02] MEDS: AZELASTINE NASAL SPRAY 30 ML NAS SCH ×2 (08:56→21:00)
[2019-08-02] MEDS: LEVOTHYROXINE SOD 0.075 MG TAB PO SCH (08:57)
[2019-08-02] MEDS: CHOLESTYRAMINE/ASP 4 GM/PKT PO SCH (08:57)
[2019-08-02] MEDS: CYANOCOBALAMIN 1,000 MCG TAB PO SCH (08:57)
[2019-08-02] MEDS: VITAMIN D 5,000 UNIT CAP PO SCH (08:59)
[2019-08-02] MEDS: ASPIRIN EC 81 MG TAB PO SCH (08:59)
[2019-08-02] MEDS: FERROUS SULFATE 325 MG TAB PO SCH (09:00)
[2019-08-02] MEDS: lisinopriL 20 MG TAB PO SCH (09:00)
[2019-08-02] MEDS: CITALOPRAM 10 MG TABLET PO SCH (09:02)
[2019-08-02] MEDS: MEMANTINE HCL 10 MG TABLET PO SCH (09:02)
[2019-08-02] MEDS: predniSONE 20 MG TAB PO SCH ×2 (09:03→22:26)
[2019-08-02 10:36] VITALS: O2SAT 93
--- NOTE | 2019-08-02 14:45 | P.PN ---
Subjective Date of Service: 08/02/19 Chief Complaint: Left upper extremity cellulitis No new changes. Patient had her right upper extremity markedly swollen which resolved over a period of 2 days. I suspect the erythema and swelling secondary to lymphedema versus lymphangitis. She denies any pain. Noted patient has undergone bilateral mastectomy with right axillary lymph node dissection which increases risk for lymphedema in the upper extremities. Physical Examination - Vital Signs Temperature: 99.1 F Blood Pressure: 163/85 Pulse: 75 Respirations: 18 Pulse Ox (%): 91 - Physical Exam General: Alert, In no apparent distress, Oriented x3 HEENT: Mucous membr. moist/pink, Sclerae nonicteric Neck: Supple, JVD not distended Respiratory: Clear to auscultation bilaterally, Normal air movement Cardiovascular: Regular rate/rhythm, Normal S1 S2, No murmurs, Edema (Mild edema of left upper extremity.) Capillary refill: <2 Seconds Gastrointestinal: Normal bowel sounds, Soft and benign, Non-distended, No tenderness Musculoskeletal: Swelling (Left upper extremity), Erythema (Left upper extremity ) Integumentary: Erythema (As above.) Neurological: Normal speech, Normal strength at 5/5 x4 extr, Cranial nerves 3- 12 intact - Studies Laboratory Data (last 24 hrs) 08/01/19 18:00: PT 11.8, INR 1.00 08/01/19 18:00: WBC 5.3 D, Hgb 10.4 L, Hct 30.8 L, Plt Count 147 L D 08/01/19 18:00: Sodium 140, Potassium 4.6, BUN 29 H, Creatinine 1.55 H, Glucose 95, Magnesium 1.8, Total Bilirubin 0.3, AST 26, ALT 23, Alkaline Phosphatase 69 Assessment And Plan - Plan Continue current antibiotics Consult to wound Care Clinic to assist for arrangement for lymphedema Clinic Check venous Doppler of bilateral upper extremities to rule out DVT.
[2019-08-02] MEDS ORDERED: TRAMADOL HCL 50 MG TAB PO PRN (16:01)
[2019-08-02] MEDS: HYDRALAZINE HCL 20 MG/ML VIAL IV PRN ×2 (16:10→22:26)
[2019-08-02] MEDS ORDERED: HYDROCODONE/APAP 10/325 TAB PO PRN (19:46)
[2019-08-02] MEDS ORDERED: DIVALPROEX NA 125 MG CAP PO SCH (21:00)
[2019-08-02] MEDS ORDERED: ATORVASTATIN 20 MG TAB PO SCH (21:00)
--- NOTE | 2019-08-02 21:09 | RAD REPORT ---
EXAM DESCRIPTION: US - UPPER EXTREMITY VENOUS BILAT - 08/02/2019 8:36 pm CLINICAL HISTORY: Arm swelling COMPARISON: July 27 2019 FINDINGS: The jugular, subclavian, axillary, brachial, basilic, radial and ulnar veins bilaterally a re compressible. Doppler demonstrates good flow IMPRESSION: No evidence of venous thrombus involving either upper extremity
[2019-08-03] MEDS: ONDANSETRON 4 MG/2 ML VIAL IV PRN (00:22)
[2019-08-03] MEDS ORDERED: NIFEDIPINE XL 90 MG TABLET PO SCH (01:00)
[2019-08-03] MEDS ORDERED: Levofloxacin 250mg IV 250 MG/50 ML BAG IV SCH (05:00)
[2019-08-03 08:21] VITALS: BP 127/66; TEMP 97.8
[2019-08-03] MEDS: AZELASTINE NASAL SPRAY 30 ML NAS SCH (08:59)
[2019-08-03] MEDS ORDERED: VANCOMYCIN 1.75 GM in NA CHLORIDE 0.9% 500 ML IVPB SCH ×2 (09:00→21:00)
[2019-08-03] MEDS: CHOLESTYRAMINE/ASP 4 GM/PKT PO SCH (09:00)
[2019-08-03] MEDS: LEVOTHYROXINE SOD 0.075 MG TAB PO SCH (09:01)
[2019-08-03] MEDS: lisinopriL 20 MG TAB PO SCH (09:01)
[2019-08-03] MEDS: VITAMIN D 5,000 UNIT CAP PO SCH (09:03)
[2019-08-03] MEDS: MEMANTINE HCL 10 MG TABLET PO SCH (09:03)
[2019-08-03] MEDS: DOXYCYCLINE 100 MG CAP PO SCH (09:03)
[2019-08-03] MEDS: CYANOCOBALAMIN 1,000 MCG TAB PO SCH (09:03)
[2019-08-03] MEDS: CITALOPRAM 10 MG TABLET PO SCH (09:04)
[2019-08-03] MEDS: ASPIRIN EC 81 MG TAB PO SCH (09:04)
[2019-08-03] MEDS: FERROUS SULFATE 325 MG TAB PO SCH (09:04)
[2019-08-03] MEDS: predniSONE 20 MG TAB PO SCH (09:04)
[2019-08-03] MEDS: GABAPENTIN 300 MG CAP PO SCH (09:04)
--- NOTE | 2019-08-03 10:35 | P.DS ---
Admission Date: 08/01/19 Discharge Date: 08/03/19 Disposition: ROUTINE DISCHARGE Discharge Condition: GOOD Reason for Admission: Left upper extremity cellulitis - Problems (1) Post-mastectomy lymphedema syndrome Status: Acute (2) Left arm cellulitis Status: Acute (3) History of breast cancer Status: Acute (4) Hypertension Onset Date: 10/14/16 Status: Chronic Qualifiers: Brief History of Present Illness: 69-year-old woman with a history of breast cancer status post recent bilateral mastectomy and right lymph node dissection was admitted a week ago for right upper extremity cellulitis. Her right arm swelling, redness and pain resolved within 2 days on antibiotics. Patient returned to the ED with a complaint of swelling and redness of the left upper extremity. She denied pain in the left upper extremity. Cellulitis was again suspected. Patient was admitted for further management. Hospital Course: Patient was admitted to the medical floor and started broad-spectrum IV antibiotics. Venous Doppler of the extremities did not show any evidence of DVT. There was a concern patient has recurrent lymphedema of the upper extremities secondary to bilateral mastectomy. Case was discussed with Dr. Redman, wound care was contacted and patient referred to lymphedema clinic. Tl Hale from the lymphedema clinic as contacted patient and setting up the appointment. Patient is deemed clinically stable and discharged with oral antibiotics. Vital Signs/Physical Exam: Temp Pulse Resp BP Pulse Ox 97.8 F 72 18 127/66 95 08/03/19 08:00 08/03/19 09:01 08/03/19 08:00 08/03/19 09:01 08/03/19 08:00 General: Alert, In no apparent distress HEENT: Atraumatic, Mucous membr. moist/pink Neck: Supple Respiratory: Clear to auscultation bilaterally, Normal air movement Cardiovascular: Regular rate/rhythm, Normal S1 S2, Edema (1+ Edema of left upper extremity) Gastrointestinal: Normal bowel sounds, Soft and benign, No tenderness Musculoskeletal: Swelling (Left upper extremity), Erythema (Mild erythema left hand and forearm.) Neurological: Normal speech, Normal strength at 5/5 x4 extr Laboratory Data at Discharge: WBC 2.9 K/uL (4.3-10.9) L D 08/02/19 05:09 Hgb 9.2 g/dL (12.0-15.0) L 08/02/19 05:09 Hct 27.5 % (36.0-45.0) L 08/02/19 05:09 Plt Count 124 K/uL (152-406) L 08/02/19 05:09 PT 11.8 SECONDS (9.5-12.5) 08/01/19 18:00 INR 1.00 08/01/19 18:00 Sodium 140 mmol/L (136-145) 08/02/19 05:09 Potassium 5.0 mmol/L (3.5-5.1) 08/02/19 05:09 BUN 25 mg/dL (7-18) H 08/02/19 05:09 Creatinine 1.19 mg/dL (0.55-1.3) 08/03/19 08:00 Glucose 106 mg/dL (74-106) 08/02/19 05:09 Magnesium 1.8 mg/dL (1.8-2.4) 08/01/19 18:00 Total Bilirubin 0.3 mg/dL (0.2-1.0) 08/01/19 18:00 AST 26 U/L (15-37) 08/01/19 18:00 ALT 23 U/L (12-78) 08/01/19 18:00 Alkaline Phosphatase 69 U/L (45-117) 08/01/19 18:00 Home Medications: Aspirin [Ecotrin 81 MG] 81 mg PO DAILY 08/01/19 Atorvastatin Calcium [Lipitor*] 20 mg PO BEDTIME 08/01/19 Azelastine [Astelin 137MCG/Metered [place]*] 1 sprays NS BID 08/01/19 Cholecalciferol (Vitamin D3) [Vitamin D3] 5,000 unit PO DAILY 08/01/19 Cholestyramine (with Sugar) [Cholestyramine Packet] 4 gm PO DAILY 08/01/19 Citalopram Hydrobromide [Celexa] 40 mg PO DAILY 08/01/19 Cyanocobalamin (Vitamin B-12) [Vitamin B12] 5,000 mcg PO DAILY 08/01/19 Divalproex [Depakote Sprinkle*] 250 mg PO BEDTIME 08/01/19 Donepezil HCl [Aricept] 10 mg PO DAILY 08/01/19 Doxycycline Hyclate 100 mg PO Q12H 08/01/19 Ferrous Sulfate [Ferrous Sulfate*] 325 mg PO DAILY 08/01/19 Gabapentin 300 mg PO DAILY 08/01/19 Gabapentin 600 mg PO BEDTIME 08/01/19 Levothyroxine Sodium [Synthroid] 75 mcg PO DAILY 08/01/19 Lisinopril [Zestril] 20 mg PO DAILY 08/01/19 Memantine HCl [Namenda] 10 mg PO DAILY 08/01/19 Omeprazole [Prilosec] 40 mg PO BEDTIME 08/01/19 Trazodone [Desyrel*] 50 mg PO BEDTIME 08/01/19 Nifedipine [Procardia Xl] 90 mg PO BEDTIME 08/02/19 Montelukast Sodium [Singulair] 10 mg PO BEDTIME 08/03/19 Oxybutynin Chloride [Ditropan*] 5 mg PO DAILY 08/03/19 Trimethoprim 100 mg PO DAILY 08/03/19 levoFLOXacin [Levaquin] 500 mg PO DAILY #7 tab 08/03/19 New Medications: levoFLOXacin [Levaquin] 500 mg PO DAILY #7 tab Patient Discharge Instructions: Follow up Lymphedema Clinic next week. Diet: AHA Activity: Ad khoi Followup: Tank Redman MD [ACTIVE - CAN ADMIT] - (Follow up in office in 1 month. Call to schedule an appointment.) Time spent managing pt's care (in minutes): 42
== END 2019-08-03 11:41 | disposition home or self-care (01) | DRG 600 ==
LOC: ER 16:56 → ERHOLD 21:31 → 2ND 22:05
PROVIDERS: ADMIT Hospitalist; ATTEND Internal Medicine
DX: I97.2 Postmastectomy lymphedema syndrome (principal); L03.114 Cellulitis of left upper limb; N18.3 Chronic kidney disease, stage 3 (moderate); I12.9 Hypertensive chronic kidney disease with stage 1 through stage 4 chronic kidney disease, or unspecified chronic kidney disease; E03.9 Hypothyroidism, unspecified; F32.9 Major depressive disorder, single episode, unspecified; K21.9 Gastro-esophageal reflux disease without esophagitis; C50.919 Malignant neoplasm of unspecified site of unspecified female breast; Z90.13 Acquired absence of bilateral breasts and nipples
CPT/HCPCS: 36415; 71045; 80048; 80076; 80202; 82565; 83605; 83735; 83880; 84145; 84484; 85025; 85610; 87040; 93970; 93971; 96365; 96366; 96375; 99285; J0360; J2270; J2405; J2930; J3370; J7030; J7040; J7512

== ENCOUNTER 2021-11-25 14:38 | Emergency (ER) | payer OTHER, MEDICARE ==
[2021-11-25 16:08] LABS: Absolute Lymphocytes (CBC) 0.9 K/uL (0.7-4.9); Hematocrit 38.2 % (36.0-45.0); Lymphocytes % 17.2 % (15.3-44.8); MCV 96.4 fL (80-100); MPV 7.3 fL (7.6-11.3); RBC Red Blood Cell Count 3.96 M/uL (3.86-4.86)
[2021-11-25] MEDS ORDERED: DIPHENHYDRAMINE 50 MG/ML VIAL ONE (16:12)
[2021-11-25] MEDS ORDERED: METOCLOPRAMIDE 10 MG/2mL INJ ONE (16:12)
[2021-11-25] MEDS ORDERED: ONDANSETRON 4 MG/2 ML VIAL ONE (16:12)
[2021-11-25 16:19] LABS: Albumin 4.1 g/dL (3.4-5.0); Bilirubin Total 0.4 mg/dL (0.2-1.0); Potassium 4.2 mmol/L (3.5-5.1); Protein, Total 7.8 g/dL (6.4-8.2)
[2021-11-25 16:36] LABS: Urine Blood Negative (Negative); Urine Glucose Negative (Negative); Urine Protein Negative (Negative); Urine Specific Gravity 1.015 (1.005-1.030)
[2021-11-25 16:46] LABS: Urine Bacteria <20 /HPF (<20); Urine RBC NONE SEEN /HPF (NONE SEEN)
[2021-11-25] MEDS ORDERED: NA CHLORIDE 0.9% 1,000 ML ONE (17:00)
--- NOTE | 2021-11-25 17:41 | RAD REPORT ---
EXAM DESCRIPTION: RAD - Chest Single View - 11/25/2021 5:33 pm CLINICAL HISTORY: generalized weaknes Chest pain. COMPARISON: Chest Single View dated 08/01/2019; Chest Pa And Lat (2 Views) dated 06/29/2019; Chest Pa A nd Lat (2 Views) dated 06/08/2018; Chest Pa And Lat (2 Views) dated 04/26/2018 FINDINGS: Portable technique limits examination quality. The lungs are grossly clear. The heart is upper limit of normal in size. No displaced fractures. IMPRESSION: No acute intrathoracic process suspected.
--- NOTE | 2021-11-25 19:14 | RAD REPORT ---
EXAM DESCRIPTION: CT - Head Brain Wo Cont - 11/25/2021 6:57 pm CLINICAL HISTORY: Headache Headache, hypertension COMPARISON: No comparisons TECHNIQUE: All CT scans are performed using dose optimization technique as appropriate and may inclu de automated exposure control or mA/KV adjustment according to patient size. FINDINGS: No intracranial hemorrhage, hydrocephalus or extra-axial fluid collection.Mild brain atrop hy.No areas of brain edema or evidence of midline shift. The paranasal sinuses and mastoids are clear. The calvarium is intact. IMPRESSION: No acute intracranial abnormality.
--- NOTE | 2021-11-25 19:51 | ER ---
Nurse's Notes [facility] Name: Rosi Jordan Age: 71 yrs Sex: Female : 1950 Arrival Date: 11/25/2021 Time: 14:44 Bed 3 Private MD: Diagnosis: Headache Presentation: 11/25 14:44 Chief complaint: EMS states: SENT FROM CLINIC FOR PEDERSEN AND HTN, SEEN AT [facility] FOR SAME bp AND D/C WITH DX OF [facility]ERTIGO. Coronavirus screen: At this time, the client does not indicate any symptoms associated with coronavirus-19. Ebola Screen: No symptoms or risks identified at this time. Initial Sepsis Screen: Does the patient meet any 2 criteria? No. Patient's initial sepsis screen is negative. Does the patient have a suspected source of infection? No. Patient's initial sepsis screen is negative. Risk Assessment: Do you want to hurt yourself or someone else? Patient reports no desire to harm self or others. Onset of symptoms is unknown. Care prior to arrival: Medication(s) given: CLONIDINE 0.1 MG IV initiated. 20 GA, in the left antecubital area. 14:44 Method Of Arrival: EMS: [facility] bp 14:44 Acuity: CASPER 3 bp Triage Assessment: 14:46 Headache History: The patient has had previous headaches and this one is similar to bp previous episodes. General: Appears in no apparent distress. uncomfortable, obese, Behavior is cooperative, appropriate for age, anxious. Pain: Complains of pain in head Pain currently is 6 out of 10 on a pain scale. Pain began 2-3 days ago. Also complains of no other associated symptoms. EENT: No deficits noted. Neuro: Reports headache. Cardiovascular: No deficits noted. Respiratory: No deficits noted. GI: No signs and/or symptoms were reported involving the gastrointestinal system. : No signs and/or symptoms were reported regarding the genitourinary system. Derm: No deficits noted. Musculoskeletal: No deficits noted. Historical: - Allergies: 14:46 Codeine; bp 14:46 PENICILLINS; bp 14:46 Sulfa (Sulfonamide Antibiotics); bp 14:46 Vancomycin; bp - Home Meds: 14:46 lisinopril 20 mg Oral tab 1 tab once daily [Active]; Arimidex 1 mg Oral tab 1 tab once bp daily [Active]; aspirin 81 mg Oral TbEC 1 tab once daily [Active]; atorvastatin 20 mg Oral tab 1 tab once daily [Active]; cholecalciferol (vitamin D3) 5000 UNIT oral 1 tab daily [Active]; cholestyramine (with sugar) 4 gram Oral powd 1 scoop 2 times per day [Active]; citalopram 40 mg tab 1 tab once daily [Active]; diazepam 5 mg Oral tab 1 tab 2 times per day [Active]; Depakote 250 mg Oral TbEC 1 tab once daily [Active]; donepezil 10 mg Oral tab 1 tab once daily [Active]; Iron CR Oral 325 mg daily [Active]; fluticasone propionate 50 mcg/actuation nasal spsn 1 spray once daily [Active]; furosemide 20 mg Oral tab 1 tab 2 times per day [Active]; gabapentin 300 mg Oral cap 1 cap 3 times per day [Active]; Foltx 2-1.13-25 mg oral tab 1 tab daily [Active]; levothyroxine 75 mcg tab 1 tab once daily [Active]; loratadine 10 mg oral tab 1 tab once daily [Active]; meclizine 25 mg Oral tab 1 tab 3 times per day [Active]; memantine 10 mg Oral tab 1 tab daily [Active]; modafinil 200 mg oral tab 1 tab once daily [Active]; nifedipine 90 mg Oral TbER 1 tab once daily [Active]; omeprazole 40 mg Oral cpDR 1 cap once daily [Active]; oxybutynin chloride 5 mg Oral tab 1 tab daily [Active]; trazodone 50 mg Oral tab 1 tab nightly [Active]; - PMHx: 14:46 breast cancer; Hypothyroidism; Hypertension; Hyperlipidemia; Depression; GERD; Kidney bp disease; - PSHx: 14:46 Cholecystectomy; Tonsillectomy; bp - Immunization history:: Adult Immunizations up to date. - Social history:: Smoking status: Patient denies any tobacco usage or history of. Screenin:55 Abuse screen: Denies threats or abuse. Denies injuries from another. Nutritional bp screening: No deficits noted. Tuberculosis screening: No symptoms or risk factors identified. Fall Risk None identified. Assessment: 14:55 General: SEE TRIAGE NOTE. bp 16:00 Reassessment: Patient appears in no apparent distress at this time. No changes from jl7 previously documented assessment. Patient and/or family updated on plan of care and expected duration. Pain level reassessed. Patient is alert, oriented x 3, equal unlabored respirations, skin warm/dry/pink. 17:00 Reassessment: Patient appears in no apparent distress at this time. No changes from jl7 previously documented assessment. Patient and/or family updated on plan of care and expected duration. Pain level reassessed. Patient is alert, oriented x 3, equal unlabored respirations, skin warm/dry/pink. 18:23 Reassessment: Left AC IV infiltrated, removed, catheter intact. Unable to obtain jl7 another left arm IV, VO from [facility] for IV to lower extremity. 22G inserted to left foot, NS bolus restarted at this time. Vital Signs: 14:44 BP 187 / 98; Pulse 81; Resp 20; Temp 97.8; Pulse Ox 93% ; Weight 92.08 kg; bp 16:00 BP 156 / 70; Pulse 63; Resp 15; Pulse Ox 95% ; jl7 17:02 BP 170 / 65; Pulse 81; Resp 15; Pulse Ox 94% ; jl7 18:28 BP 129 / 97; Pulse 57; Resp 15; Pulse Ox 93% ; jl7 19:00 BP 135 / 116; Pulse 67; Resp 21 S; Pulse Ox 92% on R/A; aa9 ED Course: 14:44 Patient arrived in ED. bp 14:46 Triage completed. bp 14:46 Arm band placed on. bp 14:55 Patient has correct armband on for positive identification. Bed in low position. Call bp light in reach. Side rails up X2. 14:56 Selvin Pfeiffer DO is Attending Physician. ms3 15:00 Maintain EMS IV. Dressing intact. Good blood return noted. Site clean \T\ dry. Gauge \T\ bp site: 20 G LEFT AC. 15:09 Tl Almeida is PHCP. jl9 15:12 Debi Echeverria, CIRILO is Primary Nurse. jl7 17:35 CXR XRAY In Process Unspecified. EDMS 18:58 CT Head Brain wo Cont In Process Unspecified. EDMS 19:11 Attending Physician role handed off by Selvin Pfeiffer DO rn 19:11 Hugh Reeys MD is Attending Physician. rn 19:24 Primary Nurse role handed off by Debi Echeverria RN mw2 19:34 Eliezer Ornelas, RN is Primary Nurse. as6 19:50 Nacho Short MD is Referral Physician. rn 20:13 No provider procedures requiring assistance completed. IV discontinued, intact, as6 bleeding controlled, No redness/swelling at site. Pressure dressing applied. Administered Medications: 15:45 Drug: Zofran (Ondansetron) 4 mg Route: IVP; Site: left antecubital; bp 18:29 Follow up: Response: No adverse reaction jl7 15:45 Drug: Reglan (metoCLOPramide) 10 mg Route: IVP; Site: left antecubital; bp 18:29 Follow up: Response: No adverse reaction jl7 15:45 Drug: Benadryl (diphenhydrAMINE) 12.5 mg Route: IVP; Site: left antecubital; bp 16:30 Follow up: Response: No adverse reaction; Pain is decreased jl7 17:02 Drug: NS 0.9% 1000 ml Route: IV; Rate: 1000 ml; Site: left antecubital; jl7 20:14 Follow up: IV Status: Completed infusion as6 Medication: 14:55 VIS not applicable for this client. bp Outcome: 19:51 Discharge ordered by MD. rn 20:13 Discharged to home via wheelchair, with family. as6 20:13 Condition: stable 20:13 Discharge instructions given to patient, Instructed on discharge instructions, follow up and referral plans. Demonstrated understanding of instructions, follow-up care. 20:14 Patient left the ED. as6 Signatures: Dispatcher [employer] EDMS Hugh Reyes MD MD rn Leal, Jahala, RN RN jl7 Tobi Chirinos RN RN bp Andreina Meneses mw2 Selvin Pfeiffer DO DO ms3 Eliezer Ornelas, RN RN as6 Tl Almeida jl9 Jada Levi RN RN aa9
--- NOTE | 2021-11-25 19:51 | EDPHYS ---
Physician Documentation [facility] Name: Rosi Jordan Age: 71 yrs Sex: Female : 1950 Arrival Date: 11/25/2021 Time: 14:44 Bed 3 Private MD: ED Physician Hugh Reyes HPI: 11/25 18:14 This 71 yrs old Female presents to ER via EMS with complaints of Headache, Blood ms3 Pressure Problem. 18:14 The patient complains of pain to the head. The patient describes the headache as ms3 throbbing. Onset: The symptoms/episode began/occurred 2 week(s) ago. Associated signs and symptoms: Pertinent positives: weakness. Severity of symptoms: At its worst the pain was moderate, in the emergency department the pain has improved. The symptoms are alleviated by nothing. the symptoms are aggravated by nothing. Historical: - Allergies: 14:46 Codeine; bp 14:46 PENICILLINS; bp 14:46 Sulfa (Sulfonamide Antibiotics); bp 14:46 Vancomycin; bp - Home Meds: 14:46 lisinopril 20 mg Oral tab 1 tab once daily [Active]; Arimidex 1 mg Oral tab 1 tab once bp daily [Active]; aspirin 81 mg Oral TbEC 1 tab once daily [Active]; atorvastatin 20 mg Oral tab 1 tab once daily [Active]; cholecalciferol (vitamin D3) 5000 UNIT oral 1 tab daily [Active]; cholestyramine (with sugar) 4 gram Oral powd 1 scoop 2 times per day [Active]; citalopram 40 mg tab 1 tab once daily [Active]; diazepam 5 mg Oral tab 1 tab 2 times per day [Active]; Depakote 250 mg Oral TbEC 1 tab once daily [Active]; donepezil 10 mg Oral tab 1 tab once daily [Active]; Iron CR Oral 325 mg daily [Active]; fluticasone propionate 50 mcg/actuation nasal spsn 1 spray once daily [Active]; furosemide 20 mg Oral tab 1 tab 2 times per day [Active]; gabapentin 300 mg Oral cap 1 cap 3 times per day [Active]; Foltx 2-1.13-25 mg oral tab 1 tab daily [Active]; levothyroxine 75 mcg tab 1 tab once daily [Active]; loratadine 10 mg oral tab 1 tab once daily [Active]; meclizine 25 mg Oral tab 1 tab 3 times per day [Active]; memantine 10 mg Oral tab 1 tab daily [Active]; modafinil 200 mg oral tab 1 tab once daily [Active]; nifedipine 90 mg Oral TbER 1 tab once daily [Active]; omeprazole 40 mg Oral cpDR 1 cap once daily [Active]; oxybutynin chloride 5 mg Oral tab 1 tab daily [Active]; trazodone 50 mg Oral tab 1 tab nightly [Active]; - PMHx: 14:46 breast cancer; Hypothyroidism; Hypertension; Hyperlipidemia; Depression; GERD; Kidney bp disease; - PSHx: 14:46 Cholecystectomy; Tonsillectomy; bp - Immunization history:: Adult Immunizations up to date. - Social history:: Smoking status: Patient denies any tobacco usage or history of. ROS: 18:14 Constitutional: Negative for fever, and chills. ENT: Negative for injury, pain, and ms3 discharge, Neck: Negative for injury, pain, and swelling, Cardiovascular: Negative for chest pain, and palpitations. Respiratory: Negative for shortness of breath, cough, wheezing, and pleuritic chest pain, Abdomen/GI: Negative for abdominal pain, nausea, vomiting, diarrhea, and constipation, MS/Extremity: Negative for injury and deformity, Skin: Negative for injury, rash, and discoloration. 18:14 Neuro: Positive for headache. 18:14 All other systems are negative. ms3 Exam: 18:14 Constitutional: This is a well developed, well nourished patient who is awake, alert, ms3 and in no acute distress. Head/Face: Normocephalic, atraumatic. Eyes: Pupils equal round and reactive to light, extra-ocular motions intact. Lids and lashes normal. Conjunctiva and sclera are non-icteric and not injected. Periorbital areas with no swelling, redness, or edema. Neck: Trachea midline, no cervical lymphadenopathy. Supple, full range of motion without nuchal rigidity, or vertebral point tenderness. No Meningismus. Chest/axilla: Normal chest wall appearance and motion. Nontender with no deformity. Cardiovascular: Regular rate and rhythm with a normal S1 and S2. No gallops, murmurs, or rubs. Normal PMI, no JVD. No pulse deficits. Respiratory: Lungs have equal breath sounds bilaterally, clear to auscultation and percussion. No rales, rhonchi or wheezes noted. No increased work of breathing, no retractions or nasal flaring. Abdomen/GI: Soft, non-tender, with normal bowel sounds. No distension or tympany. No guarding or rebound. No evidence of tenderness throughout. Skin: Warm, dry with normal turgor. Normal color with no rashes, no lesions, and no evidence of cellulitis. MS/ Extremity: Pulses equal, no cyanosis. Neurovascular intact. Full, normal range of motion. Psych: Awake, alert, with orientation to person, place and time. Behavior, mood, and affect are within normal limits. Vital Signs: 14:44 BP 187 / 98; Pulse 81; Resp 20; Temp 97.8; Pulse Ox 93% ; Weight 92.08 kg; bp 16:00 BP 156 / 70; Pulse 63; Resp 15; Pulse Ox 95% ; jl7 17:02 BP 170 / 65; Pulse 81; Resp 15; Pulse Ox 94% ; jl7 18:28 BP 129 / 97; Pulse 57; Resp 15; Pulse Ox 93% ; jl7 19:00 BP 135 / 116; Pulse 67; Resp 21 S; Pulse Ox 92% on R/A; aa9 MDM: 15:09 Patient medically screened. jl9 18:14 Differential diagnosis: intracerebral hemorrhage, subarachnoid bleed, sinusitis vs ms3 covid. 19:48 Data reviewed: vital signs, nurses notes, lab test result(s), EKG, radiologic studies, rn CT scan, plain films, and as a result, I will discharge patient. Counseling: I had a detailed discussion with the patient and/or guardian regarding: the historical points, exam findings, and any diagnostic results supporting the discharge/admit diagnosis, lab results, radiology results, the need for outpatient follow up, to return to the emergency department if symptoms worsen or persist or if there are any questions or concerns that arise at home. Response to treatment: the patient's symptoms have markedly improved after treatment, and as a result, I will discharge patient. Special discussion: I discussed with the patient/guardian in detail that at this point there is no indication for admission to the hospital. It is understood, however, that if the symptoms persist or worsen the patient needs to return immediately for re-evaluation. Based on the history and exam findings, there is no indication for further emergent testing or inpatient evaluation. I discussed with the patient/guardian the need to see the neurologist for further evaluation of the symptoms. ED course: Pt signed out to me by Dr. Pfeiffer, pending ct head, plan was to dc home if ct normal. Pt feels better, ct head negative. Has had 2 weeks of headache, seen at outside hospital without acute findings. Has neurologist. No focal neuro symptoms. Will f/u with Dr. Short and given return precautions.. 11/25 15:24 Order name: CBC with Diff; Complete Time: 16:51 ms3 11/25 15:24 Order name: CMP; Complete Time: 16:51 ms3 11/25 15:24 Order name: Urine Microscopic Only; Complete Time: 16:51 ms3 11/25 16:36 Order name: Urine Dipstick-Ancillary; Complete Time: 16:51 EDMS 11/25 16:52 Order name: CXR XRAY; Complete Time: 17:58 ms3 11/25 15:24 Order name: IV Saline Lock; Complete Time: 15:37 ms3 11/25 15:24 Order name: Labs collected and sent; Complete Time: 16:15 ms3 11/25 17:59 Order name: CT Head Brain wo Cont; Complete Time: 19:41 eb Administered Medications: 15:45 Drug: Zofran (Ondansetron) 4 mg Route: IVP; Site: left antecubital; bp 18:29 Follow up: Response: No adverse reaction jl7 15:45 Drug: Reglan (metoCLOPramide) 10 mg Route: IVP; Site: left antecubital; bp 18:29 Follow up: Response: No adverse reaction jl7 15:45 Drug: Benadryl (diphenhydrAMINE) 12.5 mg Route: IVP; Site: left antecubital; bp 16:30 Follow up: Response: No adverse reaction; Pain is decreased jl7 17:02 Drug: NS 0.9% 1000 ml Route: IV; Rate: 1000 ml; Site: left antecubital; jl7 20:14 Follow up: IV Status: Completed infusion as6 Disposition Summary: 11/25/21 19:51 Discharge Ordered Location: Home rn Problem: an ongoing problem rn Symptoms: have improved rn Condition: Stable rn Diagnosis - Headache rn Followup: rn - With: Nacho Short MD - When: As needed - Reason: Recheck today's complaints, Re-evaluation by your physician Discharge Instructions: - Discharge Summary Sheet rn - General Headache Without Cause rn - Hypertension, Adult rn Forms: - Medication Reconciliation Form rn - Thank You Letter rn - 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
[2021-11-25 20:41] VITALS: TEMP 97.8
[2021-11-25 20:50] VITALS: BP 135/116; O2SAT 92
--- NOTE | 2021-11-26 11:08 | EKG ---
Test Date: 2021-11-25 Test Time: 15:21:05 Crematory Operator: OLI MEASUREMENT RESULTS: Intervals: Rate: 64 OR: 158 QRSD: 80 QT: 396 QTc: 408 [place]: P: 58 OR: 158 QRS: 3 T: 19 INTERPRETIVE STATEMENTS: Normal sinus rhythm Normal ECG Compared to ECG 06/29/2019 09:46:10 No significant changes Electronically Signed On 11-26-21 11:06:37 CDT by Rohit Perez
== END 2021-11-25 20:14 | disposition home or self-care (01) ==
LOC: ER 14:38
DX: R51.9 Headache, unspecified (principal); R53.1 Weakness; E03.9 Hypothyroidism, unspecified; F32.A Depression, unspecified; Z85.3 Personal history of malignant neoplasm of breast; Z88.0 Allergy status to penicillin; Z88.2 Allergy status to sulfonamides; Z88.3 Allergy status to other anti-infective agents; Z88.5 Allergy status to narcotic agent
CPT/HCPCS: 93005; 85025; 36415; 80053; 70450; 71045; J2765; J1200; J7030; J2405; 81003; 81015

== ENCOUNTER → 2022-01-05 | Day surgery (SDC) | payer OTHER, MEDICARE | LOC: DS 07:38 | PROVIDERS: ATTEND Urology | PROC: 05HC33Z Insertion of Infusion Device into Left Basilic Vein, Percutaneous Approach (ICD-10-PCS; principal; 2022-01-05) | DX: N39.0 Urinary tract infection, site not specified (principal); Z88.0 Allergy status to penicillin; Z88.6 Allergy status to analgesic agent; Z88.2 Allergy status to sulfonamides; Z79.2 Long term (current) use of antibiotics ==

== ENCOUNTER 2022-07-01 12:35 | Emergency (ER) | payer OTHER, MEDICARE ==
--- OUTSIDE RECORDS SUMMARY | 2022-07-01 12:41 | XMS REPORT | Continuity of Care Document ---
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 No cyclobenza rine rine radha Procardia Procardia No 1{table QD Procardia XL 90 MG XL 90 MG t} XL 90 MG Depakote Depakote No 1{table BID Depakote 250 MG 250 MG t} 250 MG Wixela Wixela No 1{puff} BID Wixela Inhub Inhub Inhub 250-50 250-50 250-50 MCG/ACT MCG/ACT MCG/ACT Omeprazole Omeprazole No QD Omeprazole 40 MG 40 MG 40 MG Namenda 10 Namenda 10 No 1{table BID Namenda 10 MG MG t} MG Oxybutynin Oxybutynin No 1{table BID Oxybutynin Chloride 5 Chloride 5 t} Chloride 5 MG MG MG Claritin 10 Claritin 10 No 1{table QD Claritin MG MG t} 10 MG Lipitor 20 Lipitor 20 No 1{table QD Lipitor 20 MG MG t} MG Aspirin 81 Aspirin 81 No 1{table QD Aspirin 81 81 MG 81 MG t} 81 MG Vitamin D3 Vitamin D3 No 1{capsu Vitamin D3 1.25 MG 1.25 MG le} 1.25 MG (95153 UT) (95965 UT) (82127 UT) Synthroid Synthroid No QD Synthroid 75 MCG 75 MCG 75 MCG Questran 4 Questran 4 No 1{packe QD Questran 4 GM GM t_mixed GM _with_w ater_or _non-ca rbonate d_drink } Gabapentin Gabapentin No 1{capsu QD Gabapentin 300 MG 300 MG le} 300 MG traZODone traZODone No 1{table QD traZODone HCl 50 MG HCl 50 MG t_at_be HCl 50 MG dtime_a s_neede d} CeleXA 40 CeleXA 40 No .5{tabl QD CeleXA 40 MG MG et} MG Lasix 20 MG Lasix 20 MG No 1{table QD Lasix 20 t} MG Aricept 10 Aricept 10 No 1{table QD Aricept 10 MG MG t_at_be MG dtime} Ferrous Ferrous No 1{table QD Ferrous Sulfate 325 Sulfate 325 t} Sulfate (65 Fe) MG (65 Fe) MG 325 (65 Fe) MG Lisinopril Lisinopril No 1{table QD Lisinopril 20 MG 20 MG t} 20 MG Provigil Provigil No 1{table QD Provigil 200 MG 200 MG t_in_th 200 MG e_morni ng} Anastrozole Anastrozole No 1{table QD Anastrozol 1 MG 1 MG t} e 1 MG cyclobenzap cyclobenzap No cyclobenza rine rine radha Procardia Procardia No 1{table QD Procardia XL 90 MG XL 90 MG t} XL 90 MG Depakote Depakote No 1{table BID Depakote 250 MG 250 MG t} 250 MG Wixela Wixela No 1{puff} BID Wixela Inhub Inhub Inhub 250-50 250-50 250-50 MCG/ACT MCG/ACT MCG/ACT Omeprazole Omeprazole No QD Omeprazole 40 MG 40 MG 40 MG Namenda 10 Namenda 10 No 1{table BID Namenda 10 MG MG t} MG Oxybutynin Oxybutynin No 1{table BID Oxybutynin Chloride 5 Chloride 5 t} Chloride 5 MG MG MG Claritin 10 Claritin 10 No 1{table QD Claritin MG MG t} 10 MG Lipitor 20 Lipitor 20 No 1{table QD Lipitor 20 MG MG t} MG Aspirin 81 Aspirin 81 No 1{table QD Aspirin 81 81 MG 81 MG t} 81 MG Vitamin D3 Vitamin D3 No 1{capsu Vitamin D3 1.25 MG 1.25 MG le} 1.25 MG (19277 UT) (96686 UT) (66032 UT) Synthroid Synthroid No QD Synthroid 75 MCG 75 MCG 75 MCG Questran 4 Questran 4 No 1{packe QD Questran 4 GM GM t_mixed GM _with_w ater_or _non-ca rbonate d_drink } Gabapentin Gabapentin No 1{capsu QD Gabapentin 300 MG 300 MG le} 300 MG traZODone traZODone No 1{table QD traZODone HCl 50 MG HCl 50 MG t_at_be HCl 50 MG dtime_a s_neede d} CeleXA 40 CeleXA 40 No .5{tabl QD CeleXA 40 MG MG et} MG Lasix 20 MG Lasix 20 MG No 1{table QD Lasix 20 t} MG Aricept 10 Aricept 10 No 1{table QD Aricept 10 MG MG t_at_be MG dtime} Ferrous Ferrous No 1{table QD Ferrous Sulfate 325 Sulfate 325 t} Sulfate (65 Fe) MG (65 Fe) MG 325 (65 Fe) MG Lisinopril Lisinopril No 1{table QD Lisinopril 20 MG 20 MG t} 20 MG Provigil Provigil No 1{table QD Provigil 200 MG 200 MG t_in_th 200 MG e_morni ng} Anastrozole Anastrozole No 1{table QD Anastrozol 1 MG 1 MG t} e 1 MG cyclobenzap cyclobenzap No cyclobenza rine rine radha Procardia Procardia No 1{table QD Procardia XL 90 MG XL 90 MG t} XL 90 MG Depakote Depakote No 1{table BID Depakote 250 MG 250 MG t} 250 MG Wixela Wixela No 1{puff} BID Wixela Inhub Inhub Inhub 250-50 250-50 250-50 MCG/ACT MCG/ACT MCG/ACT Omeprazole Omeprazole No QD Omeprazole 40 MG 40 MG 40 MG Namenda 10 Namenda 10 No 1{table BID Namenda 10 MG MG t} MG Oxybutynin Oxybutynin No 1{table BID Oxybutynin Chloride 5 Chloride 5 t} Chloride 5 MG MG MG Claritin 10 Claritin 10 No 1{table QD Claritin MG MG t} 10 MG Lipitor 20 Lipitor 20 No 1{table QD Lipitor 20 MG MG t} MG Aspirin 81 Aspirin 81 No 1{table QD Aspirin 81 81 MG 81 MG t} 81 MG Vitamin D3 Vitamin D3 No 1{capsu Vitamin D3 1.25 MG 1.25 MG le} 1.25 MG (45469 UT) (27961 UT) (79752 UT) Synthroid Synthroid No QD Synthroid 75 MCG 75 MCG 75 MCG Questran 4 Questran 4 No 1{packe QD Questran 4 GM GM t_mixed GM _with_w ater_or _non-ca rbonate d_drink } Immunizations Ordered Immunization Filled Immunization Date Status Commen ts Source Name Name Hx influenza 2008-03-07 Completed [facility] vaccine-unspecified< 05:00:00 Herm jhony sup>1</sup> Vital Signs Vital Name Observation Time Observation Value Comments Source height 2022-01-15 11:45:00 61 [in_i] [facility] weight 2022-01-15 11:45:00 218 [lb_av] [facility] temperature 2022-01-15 11:45:00 98.6 [degF] [facility] bmi 2022-01-15 11:45:00 41.19 kg/m2 [facility] oximetry 2022-01-15 11:45:00 96 % [facility] respiratory rate 2022-01-15 11:45:00 16 /min [facility] blood pressure 2022-01-15 11:45:00 178 mm[Hg] [facility] systolic [facility] blood pressure 2022-01-15 11:45:00 79 mm[Hg] [facility] - diastolic [facility] Systolic (mm Hg) 2022-03-12 15:05:00 Alfredo [place] Diastolic (mm Hg) 2022-03-12 15:05:00 [place] Heart Rate 2022-03-12 15:05:00 [facility] Román Weight 2022-03-12 15:05:00 Georgette [place] Systolic (mm Hg) 2021-09-11 14:52:00 Alfredo rial [place] Diastolic (mm Hg) 2021-09-11 14:52:00 Mem orial [place] Heart Rate 2021-09-11 14:52:00 [facility] Rom[facility] Respitory Rate 2021-09-11 14:52:00 Memori al Román Height 2021-09-11 14:52:00 156.21 cm [facility] Rom[facility] Weight 2021-09-11 14:52:00 [facility] Rom[facility] BMI Calculated 2021-09-11 14:52:00 Memori al Román Systolic (mm Hg) 2020-06-12 15:22:00 Alfredo rial [place] Diastolic (mm Hg) 2020-06-12 15:22:00 Mem orial Román Heart Rate 2020-06-12 15:22:00 [facility] Román Respitory Rate 2020-06-12 15:22:00 Memori al Román Height 2020-06-12 15:22:00 157.48 cm [facility] [place] Weight 2020-06-12 15:22:00 [facility] [place] BMI Calculated 2020-06-12 15:22:00 Memori al Román Systolic (mm Hg) 2020-04-10 16:15:00 Alfredo rial Román Diastolic (mm Hg) 2020-04-10 16:15:00 Mem orial Román Heart Rate 2020-04-10 16:15:00 [facility] Román Respitory Rate 2020-04-10 16:15:00 Memori al Román Height 2020-04-10 16:15:00 157.48 cm [facility] [place] Weight 2020-04-10 16:15:00 [facility] [place] BMI Calculated 2020-04-10 16:15:00 Memori al Román Systolic (mm Hg) 2019-05-12 16:29:00 Alfredo rial [place] Diastolic (mm Hg) 2019-05-12 16:29:00 Mem orial Román Heart Rate 2019-05-12 16:29:00 [facility] Román Respitory Rate 2019-05-12 16:29:00 Memori al Román Height 2019-05-12 16:29:00 154.94 cm [facility] [place] Weight 2019-05-12 16:29:00 [facility] [place] BMI Calculated 2019-05-12 16:29:00 [facility] al [place] Systolic (mm Hg) 2019-01-17 14:44:00 Alfredo rial Román Diastolic (mm Hg) 2019-01-17 14:44:00 Mem orial Román Heart Rate 2019-01-17 14:44:00 [facility] [place] Respitory Rate 2019-01-17 14:44:00 Memori al [place] Height 2019-01-17 14:44:00 157.48 cm [facility] [place] Weight 2019-01-17 14:44:00 [facility] [place] BMI Calculated 2019-01-17 14:44:00 [facility] al [place] Height 2018-11-08 14:16:00 157.48 cm [facility] [place] Weight 2018-11-08 14:16:00 [facility] [place] BMI Calculated 2018-11-08 14:16:00 Memori al Román Respitory Rate 2018-11-08 14:16:00 Memori al [place] Heart Rate 2018-11-08 14:16:00 [facility] [place] Systolic (mm Hg) 2018-11-08 14:16:00 Alfredo rial Román Diastolic (mm Hg) 2018-11-08 14:16:00 Mem orial Román Systolic (mm Hg) 2018-06-28 15:33:00 Alfredo rial [place] Diastolic (mm Hg) 2018-06-28 15:33:00 Mem orial [place] Heart Rate 2018-06-28 15:33:00 [facility] [place] Height 2018-06-28 15:33:00 157.48 cm [facility] Rom[facility] Weight 2018-06-28 15:33:00 [facility] Román BMI Calculated 2018-06-28 15:33:00 Memori al [place] Temperature Oral (F) 2017-10-05 09:10:00 97.5 F [facility] [place] Systolic (mm Hg) 2017-10-05 09:10:00 Alfredo rial [place] Diastolic (mm Hg) 2017-10-05 09:10:00 Mem orial Román Respitory Rate 2017-10-05 09:10:00 Memori al [place] Heart Rate 2017-10-05 09:10:00 [facility] Román Heart Rate 2017-10-05 06:39:00 [facility] Román Systolic (mm Hg) 2017-10-05 06:39:00 Alfredo rial [place] Diastolic (mm Hg) 2017-10-05 06:39:00 Mem orial Román Systolic (mm Hg) 2017-10-05 05:00:00 Alfredo rial [place] Diastolic (mm Hg) 2017-10-05 05:00:00 Mem orial Román Heart Rate 2017-10-05 05:00:00 [facility] Román Respitory Rate 2017-10-05 05:00:00 Memori al Román Temperature Oral (F) 2017-10-05 04:30:00 98 F [facility] [place] Respitory Rate 2017-10-05 04:30:00 Memori al [place] Temperature Oral (F) 2017-10-05 00:05:00 97.5 F [facility] [place] Weight 2017-09-10 15:00:00 [facility] [place] BMI Calculated 2017-09-10 15:00:00 Mem[facility] al [place] Height 2017-09-10 15:00:00 160.02 cm [facility] Rom[facility] Respitory Rate 2016-09-09 19:30:00 Memori al Román Systolic (mm Hg) 2016-09-09 19:30:00 Alfredo rial [place] Diastolic (mm Hg) 2016-09-09 19:30:00 Mem orial [place] Systolic (mm Hg) 2016-09-09 18:45:00 Alfredo rial Román Diastolic (mm Hg) 2016-09-09 18:45:00 Mem orial Román Respitory Rate 2016-09-09 18:45:00 Memori al [place] Systolic (mm Hg) 2016-09-09 18:30:00 Alfredo rial Román Diastolic (mm Hg) 2016-09-09 18:30:00 Mem orial Román Respitory Rate 2016-09-09 18:30:00 Memori al Román Heart Rate 2016-09-09 13:15:00 [facility] Román BMI Calculated 2016-08-27 18:34:00 Memori al Román Height 2016-08-27 18:34:00 157.48 cm [facility] Rom[facility] Weight 2016-08-27 18:34:00 [facility] [place] Procedures Procedure Date / Time Performed Performing Clinician Sour e Bilateral tubal [facility] Rom[facility] ligation<sup>1</sup> Cholecystectomy<sup>2</matos Memori al [place] p> CTR - Carpal tunnel [facility] Her johnson release<sup>3</sup> Laminectomy<sup>4</sup> [facility] Román Procedure<sup>5</sup> [facility] H ermann Encounters Start End Encounter Admission Attending Care Care Encounter Source Date/Time Date/Time Type Type Clinicians Facility Department ID 2022-01-15 Out[facility] [id number] Common 10:55:04 [facility] 2022-09-10 2022-09-10 Outpatient MHIE MHIE [id number] Memoria 10:30:00 10:30:00 05 melissa GarciaRomán 2022-03-17 2022-03-19 Outside nullFlavo MNA [id number] Memoria 16:08:40 04:59:59 Medical r Neurology 04 l Ced Shekhar [place] 2022-03-17 2022-03-18 Outpatient MHMISCHER MHMISCHER [id number] 11:08:40 23:59:59 04 2022-03-12 2022-03-13 Outpatient nullFlavo MNA [id number] Memoria 14:45:00 04:59:59 r Neurology 04 l Shekhar [place] 2022-03-12 2022-03-12 Outpatient MARIYA ShortSCHORTIZ [id number] 09:45:00 23:59:59 Nacho 04 Minh 2022-03-12 2022-03-12 Outpatient MHIE MHIE [id number] Memoria 09:45:00 09:45:00 04 melissa Román 2022-02-23 2022-02-23 [facility]EL[facility] [id number] Co mmon 00:00:00 00:00:00 [facility] 2022-01-15 2022-01-15 [facility] [id number] Co mmon 00:00:00 00:00:00 VISIT EST Spir it PT LEVEL 3 - [facility] 2021-12-23 2021-12-23 Outpatient ROVERTO_CLEVE CUMMINGS KSCATIA [id number] [place] 00:00:00 00:00:00 [id number] 2021-09-11 2021-09-12 Outpatient nullFlavo MNA [id number] Memoria 15:30:00 04:59:59 r Neurology 03 l Shekhar [place] 2021-09-11 2021-09-11 Outpatient BEAN ShortSCHER MHMISCHER [id number] 10:30:00 23:59:59 Nacho 03 Minh 2021-09-11 2021-09-11 Outpatient MHIE MHIE [id number] Memoria 10:30:00 10:30:00 03 melissa Román 2021-06-19 2021-06-19 Outpatient GALINDO CUMMINGS KSHOP [id number] [place] 08:44:00 08:44:00 SSA [id number] [facility] 2020-07-24 2020-07-24 Ambulatory nullFlavo MNA [id number] Memoria 15:00:00 15:00:00 Pre-Reg r Neurology 02 melissa Shekhar [place] 2020-07-24 2020-07-24 Outpatient MHIE MHIE [id number] Memoria 09:00:00 09:00:00 02 melissa Román 2020-07-24 2020-07-24 Outpatient BEAN ShortSCHER MISCHER [id number] 09:00:00 09:00:00 Nacho 02 Minh 2020-06-12 2020-06-13 Outpatient nullFlavo MNA [id number] Memoria 15:00:00 05:59:59 r Neurology 01 melissa Shekhar [place] 2020-06-12 2020-06-12 Outpatient BEAN ShortSCHER MHMISCHER [id number] 09:00:00 23:59:59 Nacho 01 Minh 2020-06-12 2020-06-12 Outpatient MHIE MHIE [id number] Memoria 09:00:00 09:00:00 01 melissa [place] 2020-04-10 2020-04-11 Outpatient nullFlavo MNA [id number] Memoria 15:45:00 05:59:59 r Neurology 00 melissa [place] 2020-04-10 2020-04-10 Outpatient BEAN ShortSCHER MHMISCHER [id number] 09:45:00 23:59:59 Nacho 00 Minh 2020-04-10 2020-04-10 Outpatient MHIE MHIE [id number] Memoria 09:45:00 09:45:00 00 melissa [place] 2019-11-17 2019-11-17 Ambulatory nullFlavo MNA [id number] Memoria 15:00:00 15:00:00 Pre-Reg r Neurology 08 l Shekhar Garciaann 2019-11-17 2019-11-17 Outpatient MHIE MHIE [id number] Memoria 10:00:00 10:00:00 08 melissa Román 2019-11-17 2019-11-17 Outpatient BEAN ShortSCHER MISCHER [id number] 10:00:00 10:00:00 Nacho Jaime Wilkinson 2019-06-23 2019-06-25 Outside nullFlavo MNA [id number] Memoria 19:58:44 05:59:59 Medical r Neurology 03 l Records Shekhar [place] 2019-06-23 2019-06-24 Outpatient MHMISCHER MHMISCHER [id number] 13:58:44 23:59:59 03 2019-05-12 2019-05-13 Outpatient nullFlavo MNA [id number] Memoria 16:00:00 05:59:59 r Neurology 07 l Shekhar Román 2019-05-12 2019-05-12 Outpatient MAI ShortMISCHER MISCHER [id number] 10:00:00 23:59:59 Nacho Stefanie Wilkinson 2019-05-12 2019-05-12 Outpatient MHIE MHIE [id number] Memoria 10:00:00 10:00:00 Stefanie [place] 2019-01-17 2019-01-18 Outpatient nullFlavo MNA [id number] Memoria 14:45:00 04:59:59 r Neurology 06 melissa Corrigan Román 2019-01-17 2019-01-17 Outpatient MAI ShortMISCHER MISCHER [id number] 09:45:00 23:59:59 Nacho Silver Wilkinson 2019-01-17 2019-01-17 Outpatient MHIE MHIE [id number] Memoria 09:45:00 09:45:00 06 melissa Román 2018-11-08 2018-11-09 Outpatient nullFlavo MNA [id number] Memoria 14:15:00 04:59:59 r Neurology 05 l [place] Román 2018-11-08 2018-11-08 Outpatient BEAN ShortSCHER MISCHER [id number] 09:15:00 23:59:59 Nacho 05 Minh 2018-11-08 2018-11-08 Outpatient MHIE MHIE [id number] Memoria 09:15:00 09:15:00 05 melissa GarciaChepachet 2018-08-09 2018-08-09 Outpatient MHIE MHIE [id number] Memoria 09:45:00 09:45:00 04 melissa [place] 2018-06-28 2018-06-29 Outpatient nullFlavo MNA [id number] Memoria 15:30:00 05:59:59 r Neurology 03 l [place] Román 2018-06-28 2018-06-28 Outpatient BEAN ShortSCHER MHMISCHER [id number] 09:30:00 23:59:59 Nacho 03 Minh 2018-06-28 2018-06-28 Outpatient MHIE MHIE [id number] Memoria 09:30:00 09:30:00 03 melissa Román 2018-06-02 2018-06-04 Outside nullFlavo MNA [id number] Memoria 21:24:00 05:59:59 Medical r Neurology 01 l Records [place] Román 2018-06-02 2018-06-03 Outpatient MHMISCHER MHMISCHER [id number] 15:24:00 23:59:59 2018-03-18 2018-03-18 Ambulatory nullFlavo MNA [id number] Memoria 15:00:00 15:00:00 Pre-Reg r Neurology 02 l [place] Román 2018-03-18 2018-03-18 Outpatient MHIE MHIE [id number] Memoria 10:00:00 10:00:00 02 melissa Román 2018-03-18 2018-03-18 Outpatient Han, MAIMISCHER MHMISCHER [id number] 10:00:00 10:00:00 Nacho Tucker Minh 2018-02-09 2018-02-09 Outpatient MHIE MHIE [id number] Memoria 10:30:00 10:30:00 01 melissa [place] 2017-10-04 2017-10-05 Bedded nullFlavo [facility] [id number] Memoria 11:11:00 17:15:00 Outpatient r Román 03 l [facility] 2017-10-04 2017-10-05 Outpatient [facility] [id number] 06:11:00 12:15:00 Shanna I 03 2016-09-09 2016-09-09 Day nullFlavo [facility] [id number] Memoria 11:05:00 20:20:00 Surgery r Román 02 l [facility] 2016-09-09 2016-09-09 Outpatient Bindal, [facility] [id number] 06:05:00 15:20:00 Jonny K 02 2016-04-14 2016-04-14 Outpatient cain_jo MMG [id number] [id number] [place] 03:16:00 03:16:00 [facility] 2013-03-27 2013-03-27 ZAHEER nullFlavo [id number] Memoria 09:44:00 17:45:00 r Gunner l Román Results Test Description Test Time Test Comments Results Result Comments Source CHEM PANEL 2017-10-05 08:43:00 Test Item Value Reference Range Interpretation Comme nts Glucose Lvl (test code = Glucose Lvl) 130 70-99 [facility] [id number] 08:43:00 Test Item Value Reference Range Interpretation Comments Potassium Lvl (test code = Potassium 4.9 3.5-5.1 Lvl) [facility] [id number] 08:43:00 Test Item Value Reference Range Interpretation Comments BUN (test code = BUN) 7-22 [facility] [id number] 08:43:00 Test Item Value Reference Range Interpretation Comments Creatinine Lvl (test code = Creatinine 1.10 0.50-1.40 Lvl) [facility] [id number] 08:43:00 Test Item Value Reference Range Interpretation Comments Sodium Lvl (test code = Sodium Lvl) 136 135-145 [facility] [id number] 08:43:00 Test Item Value Reference Range Interpretation Comments CO2 (test code = CO2) 24 24-32 [facility] [id number] 08:43:00 Test Item Value Reference Range Interpretation Comments Chloride Lvl (test code = Chloride Lvl) 105 95-109 [facility] [id number] 08:43:00 Test Item Value Reference Range Interpretation Comments AGAP (test code = AGAP) 11.9 10.0-20.0 [facility]2018-05-15 08:43:00 Test Item Value Reference Range Interpretation Comments Calcium Lvl (test code = Calcium Lvl) 9.0 8.5-10.5 [facility]2018-05-15 08:43:00 Test Item Value Reference Range Interpretation Comments eGFR (test code = eGFR) 51 [facility]2018-05-14 16:20:00 Test Item Value Reference Range Interpretation Comments eGFR (test code = eGFR) 46 [facility]2018-05-14 16:20:00 Test Item Value Reference Range Interpretation Comments AGAP (test code = AGAP) 11.7 10.0-20.0 [facility] HospitalHang[facility] Huato SoftwareCONE [id number] 16:20:00 Test Item Value Reference Range Interpretation Comments BUN (test code = BUN) 19 7-22 [facility]2018-05-14 16:20:00 Test Item Value Reference Range Interpretation Comments Glucose Lvl (test code = Glucose Lvl) 136 70-99 [facility]2018-05-14 16:20:00 Test Item Value Reference Range Interpretation Comments Creatinine Lvl (test code = Creatinine 1.20 0.50-1.40 Lvl) [facility]Hang[facility] Huato SoftwareCONE [id number] 16:20:00 Test Item Value Reference Range Interpretation Comments Potassium Lvl (test code = Potassium 4.7 3.5-5.1 Lvl) [facility]2018-05-14 16:20:00 Test Item Value Reference Range Interpretation Comments Sodium Lvl (test code = Sodium Lvl) 141 135-145 [facility]2018-05-14 16:20:00 Test Item Value Reference Range Interpretation Comments Chloride Lvl (test code = Chloride Lvl) 108 95-109 [facility]2018-05-14 16:20:00 Test Item Value Reference Range Interpretation Comments CO2 (test code = CO2) 26 24-32 [facility]2018-05-14 16:20:00 Test Item Value Reference Range Interpretation Comments Calcium Lvl (test code = Calcium Lvl) 8.9 8.5-10.5 [facility] [id number] 11:30:00 Test Item Value Reference Range Interpretation Comments ABO/Rh (test code = ABO/Rh) A POS [facility] [id number] 11:30:00 Test Item Value Reference Range Interpretation Comments Antibody Scrn (test Negative (10/04/17 6:30 code = Antibody Scrn) AM) [facility]2018-04-20 15:05:00 Test Item Value Reference Range Interpretation Comments eGFR (test code = eGFR) 51 [facility]2018-04-20 15:05:00 Test Item Value Reference Range Interpretation Comments Calcium Lvl (test code = Calcium Lvl) 9.4 8.5-10.5 [facility]2018-04-20 15:05:00 Test Item Value Reference Range Interpretation Comments Potassium Lvl (test code = Potassium 4.7 3.5-5.1 Lvl) [facility]2018-04-20 15:05:00 Test Item Value Reference Range Interpretation Comments Chloride Lvl (test code = Chloride Lvl) 107 95-109 [facility]2018-04-20 15:05:00 Test Item Value Reference Range Interpretation Comments CO2 (test code = CO2) 27 24-32 [facility]2018-04-20 15:05:00 Test Item Value Reference Range Interpretation Comments Sodium Lvl (test code = Sodium Lvl) 139 135-145 [facility]2018-04-20 15:05:00 Test Item Value Reference Range Interpretation Comments Glucose Lvl (test code = Glucose Lvl) 94 70-99 [facility]2018-04-20 15:05:00 Test Item Value Reference Range Interpretation Comments BUN (test code = BUN) 19 7-22 [facility]2018-04-20 15:05:00 Test Item Value Reference Range Interpretation Comments Creatinine Lvl (test code = Creatinine 1.10 0.50-1.40 Lvl) [facility]2018-04-20 15:05:00 Test Item Value Reference Range Interpretation Comments AGAP (test code = AGAP) 9.7 10.0-20.0 [id number] 15:05:00 Test Item Value Reference Range Interpretation Comments Lymphocytes (test code = Lymphocytes) 23.6 20.0-40.0 [id number] 15:05:00 Test Item Value Reference Range Interpretation Comments Basophils # (test code 0.0 See_Comment [Aut omated message] The = Basophils #) system which generated this result tra nsmitted reference range : <=0.2. The reference r tato was not used to int erpret this result as normal/abnormal . [facility] [id number] 15:05:00 Test Item Value Reference Range Interpretation Comments Eosinophils # (test code 0.2 See_Comment [A utomated message] The = Eosinophils #) system wh h generated this result tra nsmitted reference range : <=0.5. The reference r tato was not used to int erpret this result as normal/abnormal . [id number] 15:05:00 Test Item Value Reference Range Interpretation Comments Segs-Bands # (test code = Segs-Bands #) 2.0 1.5-8.1 [facility] CenterRsgpdpcYIGCTFLSAU1180-82-13 15:05:00 Test Item Value Reference Range Interpretation Comments Monocytes (test code = Monocytes) 11.8 2.0-12.0 [facility] CenterNgboneeGEMEQNEHBG8002-88-42 15:05:00 Test Item Value Reference Range Interpretation Comments Basophils (test code = 0.8 See_Comment [Aut omated message] The Basophils) system which ge nerated this result tra nsmitted reference range : <=1.0. The reference r tato was not used to int erpret this result as normal/abnormal . [facility] CenterZslidciTGTFCSCLQE0903-38-39 15:05:00 Test Item Value Reference Range Interpretation Comments Monocytes # (test code 0.4 See_Comment [Aut omated message] The = Monocytes #) system which generated this result tra nsmitted reference range : <=0.8. The reference r tato was not used to int erpret this result as normal/abnormal . [facility] CenterMternlrYTKQPEPFIS4546-46-79 15:05:00 Test Item Value Reference Range Interpretation Comments Eosinophils (test code = 4.5 See_Comment [A utomated message] The Eosinophils) system which ge nerated this result tra nsmitted reference range : <=4.0. The reference r tato was not used to int erpret this result as normal/abnormal . [facility] CenterIxdwzpqCMWFYKEKFY5730-48-94 15:05:00 Test Item Value Reference Range Interpretation Comments Lymphocytes # (test code = Lymphocytes 0.8 1.0-5.5 #) [facility] CenterVzdusfhLICBLEKZPE4628-91-92 15:05:00 Test Item Value Reference Range Interpretation Comments Segs (test code = Segs) 59.3 45.0-75.0 [facility] CenterJetfbvvBSDSVLDECU8125-89-40 15:05:00 Test Item Value Reference Range Interpretation Comments MPV (test code = MPV) 7.9 7.4-10.4 [facility] CenterLbicitvDQVMSAYBAI2879-72-76 15:05:00 Test Item Value Reference Range Interpretation Comments RDW (test code = RDW) 13.5 11.5-14.5 [facility] CenterMjwjpajTCHLEULLWY3423-74-02 15:05:00 Test Item Value Reference Range Interpretation Comments Platelet (test code = Platelet) 132 133-450 [facility] CenterMgrmwckDYUQZEUKZY9703-25-26 15:05:00 Test Item Value Reference Range Interpretation Comments Hct (test code = Hct) 38.5 36.0-48.0 [facility] CenterYbjjtvaCQTLNUDNSU4164-70-28 15:05:00 Test Item Value Reference Range Interpretation Comments Hgb (test code = Hgb) 13.1 12.0-16.0 [facility] CenterTsphicxLZJPSHKEZF6808-92-49 15:05:00 Test Item Value Reference Range Interpretation Comments RBC (test code = RBC) 4.07 4.20-5.40 [facility] CenterVzljviaUJPHLJWOOQ8009-09-62 15:05:00 Test Item Value Reference Range Interpretation Comments WBC (test code = WBC) 3.4 3.7-10.4 [facility] CenterRcbhdxzXEOPSWBDNL4145-40-50 15:05:00 Test Item Value Reference Range Interpretation Comments MCHC (test code = MCHC) 34.0 32.0-36.0 [facility] CenterQquqvirHOAFIMYRHX9220-40-88 15:05:00 Test Item Value Reference Range Interpretation Comments MCV (test code = MCV) 94.6 80.0-98.0 [facility] CenterKpcznyqBQGDSORJUF5135-85-98 15:05:00 Test Item Value Reference Range Interpretation Comments MCH (test code = MCH) 32.2 pg 27.0-31.0 [facility]NhbtieiDINHOOZTNXGE0473-21-29 18:40:00 Test Item Value Reference Range Interpretation Comments AGAP (test code = AGAP) 13.2 10.0-20.0 [facility]ebbpwVAIJRMAOUNZO3433-77-33 18:40:00 Test Item Value Reference Range Interpretation Comments eGFR (test code = eGFR) 52 [facility] FlintEonsmmhNILMJJBLHITV1541-55-92 18:40:00 Test Item Value Reference Range Interpretation Comments Glucose Lvl (test code = Glucose Lvl) 70 70-99 [facility] FlintGausajkBKQBAOXASWWG6150-25-84 18:40:00 Test Item Value Reference Range Interpretation Comments BUN (test code = BUN) 16 7-22 [facility] FlintDmoystoJHSFCUGYMQWU5413-88-43 18:40:00 Test Item Value Reference Range Interpretation Comments CO2 (test code = CO2) 26 24-32 [facility] FlintEfhoywvNHTQTAYBJBSA1290-69-84 18:40:00 Test Item Value Reference Range Interpretation Comments Calcium Lvl (test code = Calcium Lvl) 9.1 8.5-10.5 [facility] FlintGpbtekbCECVNOIFGKWW2778-39-60 18:40:00 Test Item Value Reference Range Interpretation Comments Chloride Lvl (test code = Chloride Lvl) 106 95-109 [facility] FlintNfdlxrdZDOFWMKVPLFH2169-71-59 18:40:00 Test Item Value Reference Range Interpretation Comments Potassium Lvl (test code = Potassium 4.2 3.5-5.1 Lvl) [facility] FlintTewlxcqAQARTISZPABN1705-72-75 18:40:00 Test Item Value Reference Range Interpretation Comments Sodium Lvl (test code = Sodium Lvl) 141 135-145 [facility] FlintRnvlnlkIINVDJHXKOLU1736-51-67 18:40:00 Test Item Value Reference Range Interpretation Comments Creatinine Lvl (test code = Creatinine 1.10 0.50-1.40 Lvl) [facility] CenterBrrkmaxYSUUFOJZEU7233-31-67 18:40:00 Test Item Value Reference Range Interpretation Comments Segs-Bands # (test code = Segs-Bands #) 2.3 1.5-8.1 [facility] CenterMtgykddGMPQLQREAW5332-02-94 18:40:00 Test Item Value Reference Range Interpretation Comments Lymphocytes # (test code = Lymphocytes 1.1 1.0-5.5 #) [facility] CenterRzyoqqnPMHUXLRJNR7389-66-41 18:40:00 Test Item Value Reference Range Interpretation Comments Basophils # (test code 0.0 See_Comment [Aut omated message] The = Basophils #) system which generated this result tra nsmitted reference range : <=0.2. The reference r tato was not used to int erpret this result as normal/abnormal . [facility] CenterHwotswoUEWSLSGBQD6607-11-07 18:40:00 Test Item Value Reference Range Interpretation Comments Basophils (test code = 0.6 See_Comment [Aut omated message] The Basophils) system which ge nerated this result tra nsmitted reference range : <=1.0. The reference r tato was not used to int erpret this result as normal/abnormal . [facility] CenterBmjsvitUKMNZKAKAH5967-26-90 18:40:00 Test Item Value Reference Range Interpretation Comments Eosinophils (test code = 4.0 See_Comment [A utomated message] The Eosinophils) system which ge nerated this result tra nsmitted reference range : <=4.0. The reference r tato was not used to int erpret this result as normal/abnormal . [facility] CenterMzowfdcORGNBUQAME3916-75-64 18:40:00 Test Item Value Reference Range Interpretation Comments Eosinophils # (test code 0.2 See_Comment [A utomated message] The = Eosinophils #) system whic h generated this result tra nsmitted reference range : <=0.5. The reference r tato was not used to int erpret this result as normal/abnormal . [facility] CenterJkfmnkaKODXZGFBGS3554-53-54 18:40:00 Test Item Value Reference Range Interpretation Comments Monocytes # (test code 0.5 See_Comment [Aut omated message] The = Monocytes #) system which generated this result tra nsmitted reference range : <=0.8. The reference r tato was not used to int erpret this result as normal/abnormal . [facility] CenterItkuiraBOPYTSBMPQ0145-13-36 18:40:00 Test Item Value Reference Range Interpretation Comments Monocytes (test code = Monocytes) 11.9 2.0-12.0 [facility] CenterDhvscnqRKYXZEKDPL9000-59-10 18:40:00 Test Item Value Reference Range Interpretation Comments Segs (test code = Segs) 57.1 45.0-75.0 [facility] CenterXymjwzzBYZNTACPIP3118-93-59 18:40:00 Test Item Value Reference Range Interpretation Comments Lymphocytes (test code = Lymphocytes) 26.4 20.0-40.0 [facility] CenterTuebuapUPWIBMPBCO2885-15-65 18:40:00 Test Item Value Reference Range Interpretation Comments Platelet (test code = Platelet) 135 133-450 [facility] CenterXznwyrkBJBREYELJR7758-88-49 18:40:00 Test Item Value Reference Range Interpretation Comments MPV (test code = MPV) 8.6 7.4-10.4 [facility] CenterKrimripZPRVKYSYZK4454-97-73 18:40:00 Test Item Value Reference Range Interpretation Comments RDW (test code = RDW) 13.6 11.5-14.5 [facility] CenterHzyqoatBHQKSSSVPX5479-43-70 18:40:00 Test Item Value Reference Range Interpretation Comments WBC (test code = WBC) 4.1 3.7-10.4 [facility] CenterLwfehasIRMITTYLLC3677-55-17 18:40:00 Test Item Value Reference Range Interpretation Comments MCV (test code = MCV) 92.3 80.0-98.0 [facility] CenterUkddymtTWIUXUMOGL7477-06-60 18:40:00 Test Item Value Reference Range Interpretation Comments MCH (test code = MCH) 30.5 pg 27.0-31.0 [facility] CenterGmubjciJEJFCZDCAP0907-87-59 18:40:00 Test Item Value Reference Range Interpretation Comments Hct (test code = Hct) 35.7 36.0-48.0 [facility] CenterAbyymvgXPEVXLWOUH2018-43-10 18:40:00 Test Item Value Reference Range Interpretation Comments RBC (test code = RBC) 3.86 4.20-5.40 [facility] CenterJgybbdySXOSWIDAPD3346-11-94 18:40:00 Test Item Value Reference Range Interpretation Comments Hgb (test code = Hgb) 11.8 12.0-16.0 [facility] CenterLprfktkBYMJUAUEQJ5837-54-03 18:40:00 Test Item Value Reference Range Interpretation Comments MCHC (test code = MCHC) 33.0 32.0-36.0 [facility]
[2022-07-01 13:28] LABS: Urine Blood Negative (Negative); Urine Glucose Negative (Negative); Urine Protein 1+ (Negative)
[2022-07-01] MEDS ORDERED: MORPHINE 4 MG/ML SYR ONE (13:37)
[2022-07-01] MEDS ORDERED: LIDOCAINE 4% PATCH ONE (13:38)
[2022-07-01] MEDS ORDERED: ONDANSETRON 4 MG (ODT) TAB ONE (13:38)
--- NOTE | 2022-07-01 14:39 | ER ---
Nurse's Notes [facility] Name: Rosi Jordan Age: 72 yrs Sex: Female : 1950 Arrival Date: 07/01/2022 Time: 12:44 Bed 13 Private MD: Diagnosis: Low back pain Presentation: 07/01 13:01 Chief complaint: Patient states: she has been having back pain for a "few days" but ap3 last night the pain was so severe it brought her to tears. Patient currently rates her pain 8/10 on the pain scale. Coronavirus screen: At this time, the client does not indicate any symptoms associated with coronavirus-19. Ebola Screen: No symptoms or risks identified at this time. Initial Sepsis Screen: Does the patient meet any 2 criteria? No. Patient's initial sepsis screen is negative. Does the patient have a suspected source of infection? No. Patient's initial sepsis screen is negative. Risk Assessment: Do you want to hurt yourself or someone else? Patient reports no desire to harm self or others. Onset of symptoms was June 28, 2022. 13:01 Method Of Arrival: Wheelchair ap3 13:01 Acuity: CASPER 3 ap3 Historical: - Allergies: 13:02 Codeine; ap3 13:02 PENICILLINS; ap3 13:02 Sulfa (Sulfonamide Antibiotics); ap3 13:02 Vancomycin; ap3 - PMHx: 13:02 breast cancer; Depression; GERD; Hyperlipidemia; Hypertension; Hypothyroidism; kidney ap3 disease; - PSHx: 13:02 Cholecystectomy; Tonsillectomy; ap3 - Immunization history:: Client reports receiving the 2nd dose of the Covid vaccine, Flu vaccine is up to date. - Social history:: Smoking status: Patient denies any tobacco usage or history of. Screenin:03 Abuse screen: Denies threats or abuse. Nutritional screening: No deficits noted. ap3 Tuberculosis screening: No symptoms or risk factors identified. 13:46 [facility] ED Fall Risk Assessment (Adult) History of falling in the last 3 months, ko1 including since admission No falls in past 3 months (0 pts) Confusion or Disorientation No (0 pts) Intoxicated or Sedated No (0 pts) Impaired Gait No (0 pts) Mobility Assist Device Used No (0 pt) Altered Elimination No (0 pt) Score/Fall Risk Level 0 - 2 = Low Risk Oriented to surroundings, Maintained a safe environment, Educated pt \\T\\ family on fall prevention, incl call for assistance when getting out of bed, Assessed \\T\\ reinforced patient's understanding of fall precautions, Provided non-skid footwear, Hourly rounding (assess needs \\T\\ fall precautionary measures) done, Used ambulatory aids as needed (educated on \\T\\ assisted with), Used gait belt as appropriate. Assessment: 13:46 General: Appears in no apparent distress. uncomfortable, Behavior is calm, cooperative, ko1 appropriate for age. Pain: Complains of pain in left lower back. Neuro: Level of Consciousness is awake, alert, obeys commands, Oriented to person, place, time, situation, Appropriate for age Director Product Management are equal bilaterally Moves all extremities. Full function Gait is steady, Speech is normal, Facial symmetry appears normal, Pupils are PERRLA, Pupil Size: 3mm Intact. Cardiovascular: No deficits noted. Respiratory: No deficits noted. GI: No deficits noted. : No deficits noted. EENT: No deficits noted. Derm: No deficits noted. Musculoskeletal: Reports pain in left lower back. Vital Signs: 13:01 BP 141 / 61; Pulse 77; Resp 18; Temp 98.4; Pulse Ox 94% ; Weight 92.53 kg; ap3 13:46 BP 122 / 59; Pulse 78; Resp 16; Pulse Ox 99% ; ko1 14:00 BP 122 / 58; Pulse 92; Resp 18; Pulse Ox 98% ; ko1 14:30 BP 134 / 51; Pulse 92; Pulse Ox 99% ; ko1 15:00 BP 122 / 55; Pulse 90; Resp 18; Pulse Ox 99% ; ko1 ED Course: 12:44 Patient arrived in ED. am2 12:58 Peyman Davila NP is PHCP. pm1 12:58 Selvin Pfeiffer DO is Attending Physician. pm1 13:02 Triage completed. ap3 13:03 Arm band placed on right wrist. ap3 13:04 Patient has correct armband on for positive identification. Bed in low position. Call ap3 light in reach. Side rails up X 1. Pulse ox on. NIBP on. Door closed. Noise minimized. 13:07 Dona Vazquez, CIRILO is Primary Nurse. ko1 13:46 No provider procedures requiring assistance completed. Patient did not have IV access ko1 during this emergency room visit. Administered Medications: 13:37 Drug: Zofran (Ondansetron) 4 mg Route: PO; ko1 13:40 Drug: Lidoderm Patch 5 % (700 mg/patch) 1 patches Route: Topical; Site: affected area; ko1 13:41 Drug: morphine 4 mg Route: IM; Site: left gluteus; ko1 Medication: 13:46 VIS not applicable for this client. ko1 Outcome: 14:38 Discharge ordered by MD. pm1 15:24 Discharged to home ambulatory. jl7 15:24 Condition: stable 15:24 Discharge instructions given to patient, Instructed on discharge instructions, follow up and referral plans. medication usage, Demonstrated understanding of instructions, follow-up care, medications, Prescriptions given X 2. 15:25 Patient left the ED. jl7 Signatures: Peyman Davila NP [employer] REPRESENTATIVE pm1 Debi Echeverria RN RN jl7 Page Parnell am2 Page Damon RN RN ap3 Dona Vazquez, CIRILO RN ko1 Corrections: (The following items were deleted from the chart) 13:05 13:01 BP 141 / 61; Pulse 77bpm; Resp 18bpm; Pulse Ox 87%; Temp 98.4F; 92.53 kg; ap3 ap3
--- NOTE | 2022-07-01 14:39 | EDPHYS ---
Physician Documentation [facility] Name: Rosi Jordan Age: 72 yrs Sex: Female : 1950 Arrival Date: 07/01/2022 Time: 12:44 Bed 13 Private MD: ED Physician Selvin Pfeiffer HPI: 07/01 13:33 This 72 yrs old Female presents to ER via Wheelchair with complaints of Back Pain. pm1 13:33 The patient presents with pain. The symptoms are located in the left buttocks. Onset: pm1 The symptoms/episode began/occurred 3 day(s) ago. The pain radiates to the left leg. Associated signs and symptoms: Pertinent negatives: dysuria, fever, incontinence. The problem was sustained when bending over. Modifying factors: The patient symptoms are alleviated by remaining still. Severity of symptoms: in the emergency department the symptoms are unchanged. The patient has experienced similar episodes in the past, multiple times, patient reports similar presentation to right leg with herniation of disc. The patient has not recently seen a physician. Historical: - Allergies: 13:02 Codeine; ap3 13:02 PENICILLINS; ap3 13:02 Sulfa (Sulfonamide Antibiotics); ap3 13:02 Vancomycin; ap3 - PMHx: 13:02 breast cancer; Depression; GERD; Hyperlipidemia; Hypertension; Hypothyroidism; kidney ap3 disease; - PSHx: 13:02 Cholecystectomy; Tonsillectomy; ap3 - Immunization history:: Client reports receiving the 2nd dose of the Covid vaccine, Flu vaccine is up to date. - Social history:: Smoking status: Patient denies any tobacco usage or history of. ROS: 13:33 Constitutional: Negative for fever, chills, and weight loss, Cardiovascular: Negative pm1 for chest pain, palpitations, and edema, Respiratory: Negative for shortness of breath, cough, wheezing, and pleuritic chest pain. 13:33 : Negative for injury, bleeding, discharge, and swelling, MS/Extremity: Negative for injury and deformity, Skin: Negative for injury, rash, and discoloration, Neuro: Negative for headache, weakness, numbness, tingling, and seizure. 13:33 Back: Positive for of the left buttocks pain. 13:33 All other systems are negative. Exam: 13:33 Constitutional: This is a well developed, well nourished patient who is awake, alert, pm1 and in no acute distress. Head/Face: Normocephalic, atraumatic. 13:33 Skin: Warm, dry with normal turgor. Normal color with no rashes, no lesions, and no evidence of cellulitis. MS/ Extremity: Pulses equal, no cyanosis. Neurovascular intact. Full, normal range of motion. 13:33 Cardiovascular: Exam negative for acute changes, Rate: normal, Rhythm: regular, Pulses: no pulse deficits are appreciated. 13:33 Respiratory: Exam negative for acute changes, respiratory distress, shortness of breath. 13:33 Abdomen/GI: Inspection: abdomen appears normal, Palpation: abdomen is soft and non-tender, in all quadrants. 13:33 Back: vertebral tenderness, is not appreciated, muscle spasm, is appreciated in the left buttocks, Straight leg raises: of both lower extremities does not illicit pain. 13:33 Neuro: Exam negative for acute changes, Orientation: is normal, Mentation: is normal, Motor: is normal, moves all fours, Sensation: no obvious gross deficits. Vital Signs: 13:01 BP 141 / 61; Pulse 77; Resp 18; Temp 98.4; Pulse Ox 94% ; Weight 92.53 kg; ap3 13:46 BP 122 / 59; Pulse 78; Resp 16; Pulse Ox 99% ; ko1 14:00 BP 122 / 58; Pulse 92; Resp 18; Pulse Ox 98% ; ko1 14:30 BP 134 / 51; Pulse 92; Pulse Ox 99% ; ko1 15:00 BP 122 / 55; Pulse 90; Resp 18; Pulse Ox 99% ; ko1 MDM: 13:07 Patient medically screened. pm1 13:28 Differential diagnosis: ruptured disc, sprain, vertebral fracture, sciatica, muscle pm1 spasm. 14:36 Data reviewed: vital signs. pm1 14:36 ED course: Patient reports her pain has reached well past our goal of cutting her pain pm1 in half below 4. Patient cannot take codeine for pain. She can take tramadol. Will discharge home with tramadol and lidoderm patch. 14:36 Counseling: I had a detailed discussion with the patient and/or guardian regarding: the pm1 historical points, exam findings, and any diagnostic results supporting the discharge/admit diagnosis, the need for outpatient follow up, a neurosurgeon, a orthopedic surgeon, if no improvement in her pain. 14:45 ED course: [place]MP[place] reviewed, Patient's last tramadol prescription on 01/21/2022. pm1 07/01 13:28 Order name: Urine Dipstick-Ancillary; Complete Time: 13:33 EDMS Administered Medications: 13:37 Drug: Zofran (Ondansetron) 4 mg Route: PO; ko1 13:40 Drug: Lidoderm Patch 5 % (700 mg/patch) 1 patches Route: Topical; Site: affected area; ko1 13:41 Drug: morphine 4 mg Route: IM; Site: left gluteus; ko1 Disposition: 18:52 Co-signature as Attending Physician, Selvin Pfeiffer DO I was immediately available on-site ms3 in the Emergency Department for consultation in the care of the patient. Disposition Summary: 07/01/22 14:38 Discharge Ordered Location: Home pm1 Problem: new pm1 Symptoms: have improved pm1 Condition: Stable pm1 Diagnosis - Low back pain pm1 Followup: pm1 - With: Emergency Department - When: As needed - Reason: Worsening of condition Followup: pm1 - With: Private Physician - When: 2 - 3 days - Reason: Recheck today's complaints, Continuance of care, Re-evaluation by your physician Discharge Instructions: - Discharge Summary Sheet pm1 - Acute Back Pain, Adult pm1 - Back Injury Prevention, Jdgh-oh-Myrm pm1 Forms: - Medication Reconciliation Form pm1 - Thank You Letter pm1 - Antibiotic Education pm1 - Prescription Opioid Use pm1 Prescriptions: - Lidoderm 5 % Topical adhesive patch,medicated - apply 1 patch by TRANSDERMAL route once daily As needed 12 hours on and 12 pm1 hours off in a 24-hour period; 30 patch; Refills: 0, Product Selection Permitted - Tramadol 50 mg Oral Tablet - take 1 tablet by ORAL route every 8 hours As needed as needed; 12 tablet; pm1 Refills: 0, Product Selection Permitted Signatures: Peyman Davila NP [employer] pm1 Page Damon, RN RN ap3 Selvin Pfeiffer DO DO ms3 Dona Vazquez RN RN ko1
[2022-07-01 15:28] VITALS: TEMP 98.4
[2022-07-01 15:32] VITALS: O2SAT 99
[2022-07-01 15:33] VITALS: BP 122/55
== END 2022-07-01 15:25 | disposition home or self-care (01) ==
LOC: ER 12:35
DX: M54.50 Low back pain, unspecified (principal); Z88.0 Allergy status to penicillin; Z88.2 Allergy status to sulfonamides; Z88.3 Allergy status to other anti-infective agents; Z88.5 Allergy status to narcotic agent
CPT/HCPCS: 81003; Q0162; J2001

== ENCOUNTER 2022-07-20 09:16 | Inpatient (IN) | payer OTHER, MEDICARE ==
--- OUTSIDE RECORDS SUMMARY | 2022-07-20 09:25 | XMS REPORT | Continuity of Care Document ---
:1950 Author Organization [facility] Address [address] [place] [address] Care Team Providers Name Role Phone Nacho Short Attending Clinician JO ANN Attending Clinician Unavailable Shanna Newton I Attending Clinician Jonny Meraz Attending Clinician reno Attending Clinician Unavailable JO ANN Admitting Clinician Unavailable reno Admitting Clinician Unavailable Payers Payer Name Policy Type Policy Number Effective Date Expiration Date S miranda [place]IC[place]: [id number] 2013 My[employer]se 00:00:00 [facility] [id number] 2014 OPTION - PLAN F 00:00:00 (MEDICARE SUPPLEMENT) Problems Condition Condition Condition Status Onset Resolution Last Treating Co mments Source Name Details Category Date Date Treatment Clinician Date DISC DISC Diagnosis Active 2017-10-05 Mem oria Active 09-07 15:49:00 l 09/07/2017 00:00: Dmitriy sykes 00 [facility] NA NA Active Diagnosis Active 2017-10-04 Memoria 09/07/201709-07 13:11:00 l 00:00: Román Martino 00 POST POST Diagnosis Active 2016-09-09 Mem oria LAMINECTOM LAMINECTOM 08-27 06:08:00 l Y SYNDROME Y SYNDROME 00:00: He rmann OF LUMBAR OF LUMBAR 00 JALEN JALEN Active 08/27/2016 [facility] Dementia Dementia Problem Active 2015-052022-03-21 Memoria (disorder) (disorder) 1- 05:05:02 l Active 00:00: Román 04/02/2016 00 [facility] Am[facility]ia Amnesia Problem Active 2015-052022-03-21 Me moria (finding) (finding) 0- 05:05:02 l Active 00:00: Román 03/03/2016 00 Problem 03/21/2022 [facility] Essential Essential Problem Active 2015-052022-03-21 Memoria hypertensi hypertensi 0- 05:05:02 l on on 00:00: Román (disorder) (disorder) 00 Active 03/03/2016 Problem 03/21[facility]2022 [facility] Hyperlipid Hyperlipi Problem Active 2015-052022-03-21 Memoria emia demia 0- 05:05:02 l (disorder) (disorder) 00:00: He rmann Active 00 03/03/2016 Problem 03/21/2022 [facility] HNP/BACK HNP/BACK Diagnosis Active 2012-052013-03-28 Memoria ACH ACH Active 12:04:00 l 03/15/2013 00:00: Dmitriy sykes 00 [facility] Disorder Disorder Problem Active 2021-09-14 Memoria of of 02-03 03:37:06 l refraction refraction 00:00: He rmann AND/OR AND/OR 00 accommodat accommodat ion ion (disorder) (disorder) Active 02/03/2013 Problem 09/14/2021 Data migrated from [email or web address] on 10/20/14. [facility] Allergic Allergic Problem Active 2021-09-14 Memoria rhinitis rhinitis 08-19 03:37:06 l (disorder) (disorder) 00:00: He rmann Active 00 08/19/2012 Problem 09/14/2021 Data migrated from [email or web address] on 10/20/14. 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 - [facility] syndrome syndrome [facility] Cirrhosis Cirrhosis Problem Com mon of liver of liver [facility] [id number] Lower Problem Common urinary Spirit tract - [facility] symptoms (LUTS) [facility] [id number] Recurrent Problem Com mon UTI [facility] [id number] Voiding Problem Commo n dysfunctio Spirit n - [facility] [id number] Detrusor Problem Comm on instabilit Spirit y - [facility] [id number] Bacterial Problem Com mon infection, Spirit unspecifie - [facility] d [facility] [id number] OAB Problem Common (overactiv Spirit e bladder) [facility] [id number] Urinary Problem Commo n incontinen Spirit ce, - [facility]I unspecifie [facility] [id number] DSD Problem Common (detrusor Spirit [facility] Urge Problem Common urinary urinary Spirit incontinen incontinen - [facility] ce ce [facility] 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 Sp amanda ce [facility] [id number] Complicate Problem Com mon d UTI [facility] (urinary - CHI tract St infection) [facility] Anemia Anemia Problem Resolve 2021-09-14 Mem oria (disorder) (disorder) d 03:37:06 l Resolved Román Problem 09/14/2021 [facility] Chronic Chronic Problem Resolve 2021-09-14 M emoria obstructiv obstructiv d 03:37:06 l e lung e lung [place] disease disease (disorder) (disorder) Resolved Problem 09/14/2021 [facility] Hypothyroi Hypothyro Problem Resolve 2021-09-14 Memoria dism idism d 03:37:06 l (disorder) (disorder) He rmann Resolved Problem 09/14/2021 [facility] Gastroesop Gastroeso Problem Active 2022-03-21 Memoria hageal phageal 05:05:02 l reflux reflux Román disease disease (disorder) (disorder) Active Problem 03/21/2022 [facility] Anxiety Anxiety Problem Active 2022-03-21 Me moria (finding) (finding) 05:05:02 l Active Román Problem [facility]/21/2022 [facility] Benign Benign Problem Active 2021-09-14 Alfredo nusrat hypertensi hypertensi 03:37:06 l on on [place] (disorder) (disorder) Active Problem 09/14/2021 Data migrated from [facility] on 10/20/14. [facility] Crohn's Crohn's Problem Active 2022-03-21 Me moria disease disease 05:05:02 l (disorder) (disorder) He rmann Active Problem 03/21/2022 [facility] Cerebrovas Problem Active 2022-03-21 M emoria cular Cerebrovas 05:05:02 l accident cular [place] (disorder) accident (disorder) Active Problem 03/21/20222013 [facility] Hypertensi Problem Active 2022-03-21 M emoria ve Hypertensi 05:05:02 l disorder, ve Román systemic disorder, arterial systemic (disorder) arterial (disorder) Active Problem 03/21/2022 [facility] Increased Increased Problem Active 2022-03-21 Memoria frequency frequency 05:05:02 l of of [place] urination urination (finding) (finding) Active Problem 03/21/2022 [facility] Labile Labile Problem Active 2022-03-21 Alfredo nusrat affect affect 05:05:02 l (finding) (finding) Herm jhony Active Problem 03/21/2022 [facility] Paraparesi Parapares Problem Active 2022-03-21 Memoria s is 05:05:02 l (disorder) (disorder) He rmann Active Problem 03/21/2022 numbness [facility] Headache Headache Problem Active 2022-03-21 Memoria (finding) (finding) 05:05:02 l Active Román Problem 03/21/2022 [facility] CONN TISS CONN TISS Diagnosis Active 2017-10-05 Memoria AND DISC AND DISC 15:49:00 l 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 Active [facility] Cough Cough Problem Resolve 2012-2021-09-14 2021-09-14 Memoria (finding) (finding) d 3-29 03:37:06 03:37:06 l Resolved 00:00: Román 08/19/2012 00 Problem 09/14/2021 Data migrated from [facility] on 10/20/14. [facility] Allergies, Adverse Reactions, Alerts Allergy Allergy Status Severity Reaction(s) Onset Inactive Treating Comm ents Source Name Type Date Date Clinician penicill penicill Active Memori a ins<sup> ins<sup> 3-29 l 1</sup> 1</sup> 05:00: Román sulfa sulfa Active Memoria drugs<matos drugs<matos 3-29 l p>2</sup p>2</sup 05:00: Dmitriy [...] n in V in V [facility] codeine codeine Active Unknown Common [facility] Sulfona Sulfona Active Unknown Commo n mide mide Spirit (substan (substan - CHI ce) ce) [facility] Social History Social Habit Start Date Stop Date Quantity Comments Source History of Tobacco Common Spirit - Use [facility] Social History 2017-09-10 2017-09-10 Georgette urena 16:02:16 16:02:16 Sex Ass[birth year] At [birth year] [facility] 00:00:00 00[facility]:00 [facility] Smoking Status Start [...] tab, 1 Yamilex nn 00 Refill(s), Pharmacy: [id number], 156.21, cm, 09/11/21 9:52:00 CDT, Height, 94.545, kg, 03/12/22 10:27:00 CDT, Weight donepezil 2021-05 Yes = 1 tab, Alfredo nusrat 10 mg oral 0-20 PO, l tablet 15:50: Bedtime, # Yamilex nn 00 90 tab, 1 Refill(s), Pharmacy: [id number], 156.21, cm, 09/11/21 9:52:00 CDT, Height, 94.545, kg, 03/12/22 10:27:00 CDT, Weight memantine 2021-05 Yes = 1 tab, Alfredo nusrat 10 mg oral 0-20 PO, BID, # l tablet 15:50: 180 tab, 1 Yamilex nn 00 Refill(s), Pharmacy: [id number], 156.21, cm, 09/11/21 9:52:00 CDT, Height, 94.545, kg, 03/12/22 10:27:00 CDT, Weight donepezil 2021-05 Yes = 1 tab, Alfredo nusrat 10 mg oral 0-20 PO, l tablet 15:50: Bedtime, # Yamilex nn 00 90 tab, 1 Refill(s), Pharmacy: [facility] #[id number], 156.21, cm, 09/11/21 9:52:00 CDT, Height, 94.545, kg, 03/12/22 10:27:00 CDT, Weight donepezil 0 Yes = 1 tab, Alfredo nusrat 10 mg oral 4-21 PO, l tablet 15:02: Bedtime, # Yamilex nn 00 90 tab, 1 Refill(s), Pharmacy: [id number], 156.21, cm, 09/11/21 9:52:00 CDT, Height, 91.364, kg, 09/11/21 9:52:00 CDT, Weight donepezil 0 Yes = 1 tab, Alfredo nusrat 10 mg oral 4-21 PO, l tablet 15:02: Bedtime, # Yamilex nn 00 90 tab, 1 Refill(s), Pharmacy: [id number], 156.21, cm, 09/11/21 9:52:00 CDT, Height, 91.364, kg, 09/11/21 9:52:00 CDT, Weight divalproex 2020-05 Yes = 1 tab, Mem oria sodium 250 2-23 PO, l mg oral 18:11: Bedtime, # Herm jhony enteric 00 90 tab, 3 coated Refill(s), tablet Pharmacy: ([facility]) [facility] STORE [id number], 157.48, cm, 06/12/20 9:22:00 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, Height, 95.909, kg, 06/12/20 9:22:00 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, Weight divalproex 2020-05 Yes = 1 tab, Mem oria sodium 250 2-23 PO, l mg oral 18:11: Bedtime, # Herm jhony enteric 00 90 tab, 3 coated Refill(s), tablet Pharmacy: ([facility]) [facility] STORE [id number], 157.48, cm, 06/12/20 9:22:00 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, Height, 95.909, kg, 06/12/20 9:22:00 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, Weight Divalproex 2019-05 Yes 250 mg = 1 M emoria Sodium 250 1-18 tab, PO, l MG Enteric 16:34: Bedtime, # H ermann Coated 00 90 tab, 3 Tablet Refill(s), [Depakote] Pharmacy: [facility] #[id number], 157.48, cm, 04/10/20 10:15:00 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, Height, 93.182, kg, 04/10/20 10:15:00 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, Weight donepezil 2019-05 Yes = 1 tab, Alfredo nusrat 10 mg oral 1-18 PO, l tablet 16:34: Bedtime, # Yamilex nn 00 90 tab, 1 Refill(s), Pharmacy: [id number], 157.48, cm, 04/10/20 10:15:00 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, Height, 93.182, kg, 04/10/20 10:15:00 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, Weight memantine 2019-05 Yes = 1 tab, Alfredo nusrat 10 mg oral 1-18 PO, BID, # l tablet 16:34: 180 tab, 3 Yamilex nn 00 Refill(s), Pharmacy: [facility] #[id number], 157.48, cm, 04/10/20 10:15:00 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, Height, 93.182, kg, 04/10/20 10:15:00 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, Weight Divalproex 2019-05 Yes 250 mg = 1 M emoria Sodium 250 1-18 tab, PO, l MG Enteric 16:34: Bedtime, # H ermann Coated 00 90 tab, 3 Tablet Refill(s), [Depakote] Pharmacy: [facility] #[id number], 157.48, cm, 04/10/20 10:15:00 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, Height, 93.182, kg, 04/10/20 10:15:00 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, Weight donepezil 2019-05 Yes = 1 tab, Alfredo nusrat 10 mg oral 1-18 PO, l tablet 16:34: Bedtime, # Yamilex nn 00 90 tab, 1 Refill(s), Pharmacy: [id number], 157.48, cm, 04/10/20 10:15:00 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, Height, 93.182, kg, 04/10/20 10:15:00 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, Weight memantine 2019-05 Yes = 1 tab, Alfredo nusrat 10 mg oral 1-18 PO, BID, # l tablet 16:34: 180 tab, 3 Yamilex nn 00 Refill(s), Pharmacy: [facility] #[id number], 157.48, cm, 04/10/20 10:15:00 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, Height, 93.182, kg, 04/10/20 10:15:00 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, Weight memantine 2018-05 Yes = 1 tab, Alfredo nusrat 10 mg oral 0-30 PO, BID, # l tablet 12:56: 180 tab, 3 Yamilex nn 36 Refill(s), Pharmacy: [id number] memantine 2018-05 Yes = 1 tab, Alfredo nursat 10 mg oral 0-30 PO, BID, # l tablet 12:56: 180 tab, 3 Yamilex nn 36 Refill(s), [id number] Divalproex 2019- Yes 250 mg = 1 M emoria Sodium 250 9-26 tab, PO, l MG Enteric 14:44: Bedtime, # H ermann Coated 39 90 tab, 3 Tablet Refill(s), [Depakote] [id number] Divalproex 2019- Yes 250 mg = 1 M emoria Sodium 250 9-26 tab, PO, l MG Enteric 14:44: Bedtime, # H ermann Coated 39 90 tab, 3 Tablet Refill(s), [Depakote] [id number] memantine 2019-0 Yes = 1 tab, Alfredo nusrat 10 mg oral 8-27 PO, BID, # l tablet 15:15: 60 tab, 3 Dmitriy n 57 Refill(s), [id number] memantine Yes = 1 tab, Alfredo nusrat 10 mg oral 8-27 PO, BID, # l tablet 15:15: 60 tab, 3 Dmitriy n 57 Refill(s), [id number] donepezil 2019- Yes 10 mg = 1 Mem oria 10 mg oral 8-27 tab, PO, l tablet 15:15: Bedtime, # Yamilex nn 46 90 tab, 3 Refill(s), [id number] donepezil 2018-0 Yes 10 mg = 1 Mem oria 10 mg oral 8-27 tab, PO, l tablet 15:15: Bedtime, # Yamilex nn 46 90 tab, 3 Refill(s), [id number] Divalproex 2019- Yes 250 mg = 1 M emoria Sodium 250 8-27 tab, PO, l MG Enteric 15:15: Bedtime, # H ermann Coated 43 30 tab, 4 Tablet Refill(s), [Depakote] [id number] Divalproex 2019-0 Yes 250 mg = 1 M emoria Sodium 250 8-27 tab, PO, l MG Enteric 15:15: Bedtime, # H ermann Coated 43 30 tab, 4 Tablet Refill(s), [Depakote] [id number] Divalproex 2019- Yes 250 mg = 1 M emoria Sodium 250 6-18 tab, PO, l MG Enteric 14:51: Bedtime, # H ermann Coated 00 30 tab, 4 Tablet Refill(s), [Depakote] [id number] Divalproex Yes 250 mg = 1 M emoria Sodium 250 6-18 tab, PO, l MG Enteric 14:51: Bedtime, # H ermann Coated 00 30 tab, 4 Tablet Refill(s), [Depakote] [id number] memantine Yes = 1 tab, Alfredo nusrat 10 mg oral 6-01 PO, BID, # l tablet 23:10: 60 tab, Román 32 Refill(s) 3, [id number] memantine Yes = 1 tab, Alfredo nusrat 10 mg oral 6-01 PO, BID, # l tablet 23:10: 60 tab, Román 32 Refill(s) 3, [id number] Dextrometho No 1 cap, PO, Memoria rphan 4-04 Q12H, l Hydrobromid 16:15: Neudexta He rmann e 20 MG / 42 samples Quinidine given 1 Sulfate 10 month MG Oral supply-lot Capsule #[id number] Exp [Nuedexta] 02/2021, X 30 day, # 60 cap, 0 Refill(s), given to patient Dextrometho No 1 cap, PO, Memoria rphan [...] Dmitriy n 00 tab, 3 Refill(s), [id number] memantine No 10 mg = 1 Mem oria 10 mg oral 2-05 tab, PO, l tablet 16:01: BID, # 60 Dmitriy n 00 tab, 3 Refill(s), Pharmacy: [facility] #[id number] Cholestyram No Notes: Alfredo nusrat ine Resin 5-15 (Same As: l 14:00: Questran) [place] Zestril No Notes: Memoria 5-15 (Same as: l 14:00: Prinivil, Román 00 Zestril) Synthroid No Notes: Memori a 5-15 Take 1 l 14:00: hour [place] 00 before or 2 hours after meal; Enteral feeds may interefere with the absorption of this medication . (Same as:Synthro id, Levothroid ) Ditropan XL No Notes: Alfredo nusrat 5-15 (Same as: l 14:00: Ditropan Román XL) "Do Not Crush" Omeprazole No 40 mg, Memor ia 5-15 Route: PO, l 14:00: Drug form: DRC, Daily, Dosing Weight 88.807, kg, Start date: 10/05/17 9:00:00 CDT, Duration: 30 day, Stop date: 11/03/17 9:00:00 CDT NIFEdipine No Notes: Memor ia 90 mg oral 5-15 (Same as: l tablet, 14:00: Adalat CC, Herm jhony extended Procardia release XL) Give on empty stomach. Take 1 hour before or 2 hours after meal; "Avoid grapefruit and grapefruit juice". Do not crush Singulair No Notes: Memori a 5-15 (Same l 14:00: as:Singula [place] ir) Cholestyram No Notes: Alfredo nusrat ine Resin 5-15 (Same As: l 14:00: Questran) Román Zestril No Notes: Memoria 5-15 (Same as: l 14:00: Prinivil, [place] Zestril) Synthroid No Notes: Memori a 5-15 Take 1 l 14:00: hour Román 00 before or 2 hours after meal; Enteral feeds may interefere with the absorption of this medication . (Same as:Synthro id, Levothroid ) Ditropan XL No Notes: Alfredo nusrat 5-15 (Same as: l 14:00: Ditropan [place] 00 XL) "Do Not Crush" Omeprazole No 40 mg, Memor ia 5-15 Route: PO, l 14:00: Drug form: Román DRC, Daily, Dosing Weight 88.807, kg, Start [...] Memori a 5-15 (Same l 14:00: as:Singula [place] ir) Methocarbam Yes 750 mg = 1 Memoria ol 750 MG 5-15 tab, PO, l Oral Tablet 13:40: Q6H, PRN He rmann [Robaxin] 00 Spasms, X 10 day, # 40 tab, 0 Refill(s) Methocarbam Yes 750 mg = 1 Memoria [...] Memoria 5-15 (Same as: l 05:56: Zofran) Román 00 Zofran No Notes: Memoria 5-15 (Same as: l 05:56: Zofran) Hydralazine No Notes: Alfredo nusrat 5-15 (Same as: l 04:22: Apresoline ) Push over 5 minutes Hydralazine No Notes: Alfredo nusrat 5-15 (Same as: l 04:22: Apresoline ) Push over 5 minutes Lipitor No Notes: Memoria 5-15 (Same As: l 02:00: Lipitor) Trazodone No Notes: Memori a Hydrochlori 5-15 (Same As: l de 50 MG 02:00: Desyrel) Yamilex nn Oral Tablet 00 donepezil No Notes: Memori a 5-15 (Same as: l 02:00: Aricept) donepezil No Notes: Memori a 5-15 (Same as: l 02:00: Aricept) Lipitor No Notes: Memoria 5-15 (Same As: l 02:00: Lipitor) Trazodone No Notes: Memori a Hydrochlori 5-15 (Same As: l de 50 MG 02:00: Desyrel) Yamilex nn Oral Tablet 00 Citalopram No 10 mg, 1 Mem oria 5-14 tab, l 22:00: Route: PO, Román 00 Drug form: TAB, BID, Dosing Weight 88.807, kg, Start date: 10/04/17 17:00:00 CDT, Duration: 30 day, Stop date: 11/03/17 9:00:00 CDT budesonide- No Notes: Alfredo nusrat formoterol 5-14 (Same as: l 80 mcg-4.5 22:00: Symbicort) H ermann mcg/inh 00 WASTE: inhalation Aerosol - aerosol Return to with Pharmacy adapter Docusate No Notes: Memoria 5-14 (Same as: l 22:00: Colace) [place] 00 (Do Not Crush) Namenda No Notes: Memoria 5-14 (Same As: l 22:00: Namenda) [place] Citalopram No 10 mg, 1 Mem oria 5-14 tab, l 22:00: Route: PO, Román 00 Drug form: TAB, BID, Dosing Weight 88.807, kg, Start date: 10/04/17 17:00:00 CDT, Duration: 30 day, Stop date: 11/03/17 9:00:00 CDT budesonide- No Notes: Alfredo nusrat formoterol 5-14 (Same as: l 80 mcg-4.5 22:00: Symbicort) H ermann mcg/inh 00 WASTE: inhalation Aerosol - aerosol Return to with Pharmacy adapter Docusate No Notes: Memoria 5-14 (Same as: l 22:00: Colace) [place] 00 (Do Not Crush) Namenda No Notes: Memoria 5-14 (Same As: l 22:00: Namenda) [place] 00 Protonix No Notes: Memoria 5-14 Tablet l 21:30: should not Román 00 be chewed or crushed. (Same as: Protonix) Protonix No Notes: Memoria 5-14 Tablet l 21:30: should not Román 00 be chewed or crushed. (Same as: Protonix) dexamethaso 2017-0 No Notes: Alfredo nusrat ne 5-14 Give with l 20:00: food. Román 00 (Same As: Decadron) dexamethaso 2017-0 No Notes: Alfredo nusrat ne 5-14 Give with l 20:00: food. [place] 00 (Same As: Decadron) Insulin 2017-0 No Notes: Memoria Lispro 5-14 (Same as: l 17:21: Humalog ) Román 00 Roll in palms of hands gently; Do not shake `vigorousl y. "Single Patient Use Only " WASTE: F/P - Black; E - Municipal Trash Bin Stable for 28 days at room temperatur e. Expires in days from ____Date Dextrose 2017-0 No 12.5 gm, Memor ia 50% Syringe 5-14 25 mL, l 17:21: Route: [place] 00 IVP, Drug Form: INJ, Dosing Weight 88.807, kg, PRN, PRN Blood Glucose Results, Start date: 10/04/17 12:21:00 CDT, Duration: 30 day, Stop date: 11/03/17 12:20:00 CDT Glucagon 2017- No 1 mg, Memoria 5-14 Route: IM, l 17:21: Drug form: Román 00 PDR/INJ, PRN, Dosing Weight 88.807, kg, PRN Blood Glucose Results, Start date: 10/04/17 12:21:00 CDT, Duration: 30 day, Stop date: 11/03/17 12:20:00 CDT Insulin 2017-0 No Notes: Memoria Lispro 5-14 (Same as: l 17:21: Humalog ) [place] 00 Roll in palms of hands gently; Do not shake `vigorousl y. "Single Patient Use Only " WASTE: F/P - Black; E - Municipal Trash Bin Stable for 28 days at room temperatur e. Expires in days from ____Date Dextrose 2017-0 No 12.5 gm, Memor ia 50% Syringe 5-14 25 mL, l 17:21: Route: [place] 00 IVP, Drug Form: INJ, Dosing Weight 88.807, kg, PRN, PRN Blood Glucose Results, Start date: 10/04/17 12:21:00 CDT, Duration: 30 day, Stop date: 11/03/17 12:20:00 CDT Glucagon 2018-0 No 1 mg, Memoria 5-14 Route: IM, l 17:21: Drug form: [place] 00 PDR/INJ, PRN, Dosing Weight 88.807, kg, PRN Blood Glucose Results, Start date: 10/04/17 12:21:00 CDT, Duration: 30 day, Stop date: 11/03/17 12:20:00 CDT remifentani 2017-0 No Route: IV, Memoria l (ANES) 5-14 Drug form: l 15:49: INJ, ONCE, Stop date: 10/04/17 10:49:00 CDT neostigmine 2018-0 No Route: IV, Memoria (ANES) 5-14 Drug form: l 15:49: INJ, ONCE, Stop date: 10/04/17 10:49:00 CDT glycopyrrol 2017-0 No Route: IV, Memoria ate (ANES) 5-14 Drug form: l 15:49: INJ, ONCE, Stop date: 10/04/17 10:49:00 CDT remifentani 2017-0 No Route: IV, Memoria l (ANES) 5-14 Drug form: l 15:49: INJ, ONCE, Stop date: 10/04/17 10:49:00 CDT neostigmine 2017-0 No Route: IV, Memoria (ANES) 5-14 Drug form: l 15:49: INJ, ONCE, Stop date: 10/04/17 10:49:00 CDT glycopyrrol 2017-0 No Route: IV, Memoria ate (ANES) 5-14 Drug form: l 15:49: INJ, ONCE, Stop date: 10/04/17 10:49:00 CDT ondansetron 2018-0 No Route: IV, Memoria (ANES) 5-14 Drug form: l 15:38: INJ, ONCE, Stop date: 10/04/17 10:38:00 CDT ondansetron 2017-0 No Route: IV, Memoria (ANES) 5-14 Drug form: l 15:38: INJ, ONCE, Stop date: 10/04/17 10:38:00 CDT Glucagon 2017-0 No 1 mg, Memoria 5-14 Route: IM, l 15:34: Drug form: [place] PDR/INJ, PRN, Dosing Weight 88.807, kg, PRN Blood Glucose Results, Start date: 10/04/17 10:34:00 CDT, Duration: 30 day, Stop date: 11/03/17 10:33:00 CDT Dextrose 2017- No 12.5 gm, Memor ia 50% Syringe 10-04 25 mL, l 15:34: Route: [place] 00 IVP, Drug Form: INJ, Dosing Weight 88.807, kg, PRN, PRN Blood Glucose Results, Start date: 10/04/17 10:34:00 CDT, Duration: 30 day, Stop date: 11/03/17 10:33:00 CDT Insulin 2017-0 No Notes: Memoria Lispro 5-14 (Same as: l 15:34: Humalog ) Román 00 Roll in palms of hands gently; Do not shake `vigorousl y. "Single Patient Use Only " WASTE: F/P - Black; E - Municipal Trash Bin Stable for 28 days at room temperatur e. Expires in days from ____Date Insulin 2018-0 No Notes: Memoria Lispro 5-14 (Same as: l 15:34: Humalog ) [place] 00 Roll in palms of hands gently; Do not shake `vigorousl y. "Single Patient Use Only " WASTE: F/P - Black; E - Municipal Trash Bin Stable for 28 days at room temperatur e. Expires in days from ____Date Glucagon 2018-0 No 1 mg, Memoria 5-14 Route: IM, l 15:34: Drug form: Román 00 PDR/INJ, PRN, Dosing Weight 88.807, kg, PRN Blood Glucose Results, Start date: 10/04/17 10:34:00 CDT, Duration: 30 day, Stop date: 11/03/17 10:33:00 CDT Dextrose No 12.5 gm, Memor ia 50% Syringe 5-14 25 mL, l 15:34: Route: Román 00 IVP, Drug Form: INJ, Dosing Weight 88.807, kg, PRN, PRN Blood Glucose Results, Start date: 10/04/17 10:34:00 CDT, Duration: 30 day, Stop date: 11/03/17 10:33:00 CDT Bisacodyl No Notes: Memori a 5-14 (Same As: l 15:27: Dulcolax, Román 00 Bisco-Lax) Maalox No Notes: Memoria Advanced 5-14 (aluminum l Regular 15:27: hydroxide- Herm jhony Strength 00 magnesium SUSP hyd-simeth icone 200-200-20 mg/5ml 30 ml ud STEPHEN) Oxycodone No Notes: Memori a Hydrochlori 5-14 (Same as: l de 5 MG 15:27: Roxicodone Herm jhony Oral Tablet 00 ) Aluminum 0 No 30 mL, Memoria Hydroxide / 5-14 Route: PO, l magnesium 15:27: Dosing Dmitriy n carbonate 00 Weight 88.807, kg, Q4H, PRN as needed for indigestio n, Start date: 10/04/17 10:27:00 CDT Dexamethaso No 4 mg, Memor ia ne 5-14 Route: l 15:27: IVP, ONCE, Homer 00 Dosing Weight 88.807, kg, Start date: [...] 5-14 not exceed l 15:27: 4 gm/day. Homer 00 (Same as: Tylenol) 2NS + KCL No Notes: Alfredo nusrat 20mEq/L 5-14 PREMIX IV l 1000ml 15:27: - Do Not Román (Premix) 00 Alter 1,000 mL WASTE: F/P - Sink; E - Municipal Trash Bin Acetaminoph No Notes: Alfredo nusrat en 325 MG / 5-14 Same as l Hydrocodone 15:27: Sandy Yamilex nn Bitartrate 00 325-7.5mg 7.5 MG Oral Do not Tablet exceed [Sandy 4gm/day of 7.5/325] acetaminop hen. Zofran No Notes: Memoria 5-14 (Same as: l 15:27: Zofran) Homer MEDICATION WASTE Product Size: 4 mg Product Wasted: ___ mg Meperidine No Notes: Memor ia 5-14 (Same as: l 15:27: Demerol) Homer 00 "Use Precaution in Elderly, Seizure disorders, and Renal impairment " Bisacodyl No Notes: Memori a 5-14 (Same As: l 15:27: Dulcolax, Homer 00 Bisco-Lax) Maalox No Notes: Memoria Advanced [...] Dexamethaso No 4 mg, Memor ia ne 5-14 Route: l 15:27: IVP, ONCE, Homer 00 Dosing Weight 88.807, kg, Start date: 10/04/17 10:27:00 CDT, Stop date: 10/04/17 10:27:00 CDT tramadol No Notes: Not Mem oria hydrochlori -14 to exceed l de 50 MG 15:27: 400mg/day. Her johnson Oral Tablet 00 (Same As: [Ultram] Ultram) Morphine No Notes: Memoria 5-14 (Same l 15:27: as:MORPhin 00 e Sulfate) Acetaminoph No Notes: Do M emoria en 5-14 not exceed l 15:27: 4 gm/day. Homer 00 (Same as: Tylenol) 1/2NS + KCL No Notes: Alfredo nusrat 20mEq/L -14 PREMIX IV l 1000ml 15:27: - Do Not Román (Premix) 00 Alter 1,000 mL WASTE: F/P - Sink; E - Municipal Trash Bin Acetaminoph No Notes: Alfredo nusrat en 325 MG / 5-14 Same as l Hydrocodone 15:27: Sandy Yamilex nn Bitartrate 00 325-7.5mg 7.5 MG Oral Do not Tablet exceed [Sandy 4gm/day of 7.5/325] acetaminop hen. Zofran No Notes: Memoria -14 (Same as: l 15:27: Zofran) MEDICATION WASTE Product Size: 4 mg Product Wasted: ___ mg Meperidine No Notes: Memor ia -14 (Same as: l 15:27: Demerol) "Use Precaution in Elderly, Seizure disorders, and Renal impairment " ePHEDrine No Route: IV, Me moria (ANES) 5-14 Drug form: l 14:58: INJ, ONCE, Stop date: 10/04/17 9:58:00 CDT ePHEDrine No Route: IV, Me moria (ANES) [...] 14:48: Narcan) Ondansetron No Notes: Alfredo nusrat 5-14 (Same as: l 14:48: Zofran) MEDICATION WASTE Product Size: 4 mg Product Wasted: ___ mg propofol No Route: IV, Mem oria (ANES) [...] 5-14 Drug form: l 14:48: INJ, ONCE, Homer 00 Stop date: 10/04/17 9:48:00 CDT Metoprolol No [...] 14:48: Narcan) Ondansetron No Notes: Alfredo nusrat 5-14 (Same as: l 14:48: Zofran) MEDICATION WASTE Product Size: 4 mg Product Wasted: ___ mg Albuterol No Notes: SEE Me moria 0.83 MG/ML 5-14 RT l Inhalant 14:47: DOCUMENTAT Her johnson Solution 00 ION (Same as: Proventil) Albuterol No Notes: SEE Me moria 0.83 MG/ML 5-14 RT l Inhalant 14:47: DOCUMENTAT Her johnson Solution 00 ION (Same as: Proventil) midazolam No Route: IV, Me moria (ANES) 5-14 Drug form: l 14:02: SOLN, Homer 00 ONCE, Stop date: 10/04/17 9:02:00 CDT midazolam 2017-0 No Route: IV, Me moria (ANES) 5-14 Drug form: l 14:02: SOLN, Homer 00 ONCE, Stop date: 10/04/17 9:02:00 CDT remifentani 2017-0 No Route: IV, Memoria l (ANES) 1 5-14 Drug form: l mg 14:01: INJ, date: 10/04/17 9:01:00 CDT, Stop date: 10/04/17 10:01:00 CDT propofol 2017-0 No Route: IV, Mem oria (ANES) 10 5-14 Drug form: l mg 14:01: INJ, date: 10/04/17 9:01:00 CDT, Stop date: 10/04/17 10:01:00 CDT remifentani 2017-0 No Route: IV, Memoria l (ANES) 1 5-14 Drug form: l mg 14:01: INJ, date: 10/04/17 9:01:00 CDT, Stop date: 10/04/17 10:01:00 CDT propofol 2017-0 No Route: IV, Mem oria (ANES) 10 -14 Drug form: l mg 14:01: INJ, date: 10/04/17 9:01:00 CDT, Stop date: 10/04/17 10:01:00 CDT Isolyte S 2017-0 No Route: IV, Me moria PH 7.4 5-14 Total l (ANES) 1000 13:48: Volume: Her johnson mL 00 1,000, Start date: 10/04/17 8:48:00 CDT, Stop date: 10/04/17 9:48:00 CDT Isolyte S 2017-0 No Route: IV, Me moria PH 7.4 5-14 Total l (ANES) 1000 13:48: Volume: Her johnson mL 00 1,000, Start date: 10/04/17 8:48:00 CDT, Stop date: 10/04/17 9:48:00 CDT vancomycin 2018-0 No Route: IV, M emoria (ANES) 2000 5-14 Drug form: l mg 13:28: INJ, 00 date: 10/04/17 8:28:00 CDT, Stop date: 10/04/17 9:28:00 CDT Lactated 2017-0 No Route: IV, Mem oria Ringers 5-14 Total l Injection 13:28: Volume: Yamilex nn IV (ANES) 00 1,000, 1000 mL Start date: 10/04/17 8:28:00 CDT, Stop date: 10/04/17 9:28:00 CDT vancomycin 2018-0 No Route: IV, M emoria (ANES) 2000 5-14 Drug form: l mg 13:28: INJ, Start date: 10/04/17 8:28:00 CDT, Stop date: 10/04/17 9:28:00 CDT Lactated 2017-0 No Route: IV, Mem oria Ringers 5-14 Total l Injection 13:28: Volume: Yamilex nn IV (ANES) 00 1,000, 1000 mL Start date: 10/04/17 8:28:00 CDT, Stop date: 10/04/17 9:28:00 CDT Symbicort 2018-0 Yes 2 puff, Memor ia 80/4.5 4-20 INHALATION l inhalation 17:21: , BID, 0 Her johnson aerosol 00 Refill(s) with adapter Symbicort 2018-0 Yes 2 puff, Memor ia 80/4.5 4-20 INHALATION l inhalation 17:21: , BID, 0 Her johnson aerosol 00 Refill(s) with adapter Unknown 0 No Refill(s) Memor ia Home 4-20 0 l Medication 16:20: Unknown 2017-0 No Refill(s) Memor ia Home 4-20 0 l Medication 16:20: cholestyram 2018-0 Yes 4 gm, PO, M emoria ine 4 g/5 g 4-20 Daily, 0 l oral powder 15:56: Refill(s) H cholestyram 2018-0 Yes 4 gm, PO, M emoria ine 4 g/5 g 4-20 Daily, 0 l oral powder 15:56: Refill(s) H Vitamin B 2018-0 Yes 5,000 Memoria 12 4-20 microgram, l 15:54: 0 Refill(s) Vitamin B Yes 5,000 Memoria 12 4-20 microgram, l 15:54: 0 Homer 00 Refill(s) aspirin 81 Yes 81 mg = 1 Me moria mg tablet, 2-21 tab, PO, l chewable 19:09: Daily, Homer 00 tab, 0 Refill(s) Dymista 137 Yes 1 spray, Me moria mcg-50 2-21 NASAL, l mcg/inh 19:09: BID, 0 Román nasal spray 00 Refill(s) ZyrTEC 10 Yes 10 mg = 1 Mem oria mg oral 2-21 tab, PO, l tablet 19:09: Daily, 0 Homer 00 Refill(s) Lexapro 20 Yes 20 mg = 1 Me moria mg oral 2-21 tab, PO, l tablet 19:09: Daily, 0 Homer 00 Refill(s) Lasix 20 mg Yes 20 mg = 1 M emoria oral tablet 2-21 tab, PO, l 19:09: Daily, 0 Román 00 Refill(s) Levoxyl 75 Yes 75 Memoria mcg (0.075 2-21 microgram l mg) oral 19:09: = 1 tab, Yamilex nn tablet 00 PO, Before Breakfast, empty stomach, # 30 tab, 0 Refill(s) Singulair Yes 10 mg = 1 Mem oria 10 mg oral 2-21 tab, PO, l tablet 19:09: Daily, 0 Homer 00 Refill(s) omeprazole Yes 40 mg = 1 Me moria 40 mg oral 2-21 cap, PO, l delayed 19:09: Daily, 0 Dmitriy n release 00 Refill(s) capsule Ditropan XL Yes 5 mg = 1 Me moria 5 mg oral 2-21 tab, PO, l tablet, 19:09: Daily, 0 Dmitriy n extended 00 Refill(s) release Vitamin D3 Yes 0 Memoria 2-21 Refill(s) l 19:09: Román 00 aspirin 81 Yes 81 mg = 1 Me moria mg tablet, 2-21 tab, PO, l chewable 19:09: Daily, Homer 00 tab, 0 Refill(s) Dymista 137 Yes 1 spray, Me moria mcg-50 2-21 NASAL, l mcg/inh 19:09: BID, 0 Román nasal spray 00 Refill(s) ZyrTEC 10 Yes 10 mg = 1 Mem oria mg oral 2-21 tab, PO, l tablet 19:09: Daily, 0 Homer 00 Refill(s) Lexapro 20 Yes 20 mg = 1 Me moria mg oral 2-21 tab, PO, l tablet 19:09: Daily, 0 Homer 00 Refill(s) Lasix 20 mg Yes 20 mg = 1 M emoria oral tablet 2-21 tab, PO, l 19:09: Daily, 0 Homer 00 Refill(s) Levoxyl 75 Yes 75 Memoria mcg (0.075 2-21 microgram l mg) oral 19:09: = 1 tab, Yamilex nn tablet 00 PO, Before Breakfast, empty stomach, # 30 tab, 0 Refill(s) Singulair Yes 10 mg = 1 Mem oria 10 mg oral 2-21 tab, PO, l tablet 19:09: Daily, 0 Homer 00 Refill(s) omeprazole Yes 40 mg = 1 Me moria 40 mg oral 2-21 cap, PO, l delayed 19:09: Daily, 0 Dmitriy n release 00 Refill(s) capsule Ditropan XL Yes 5 mg = 1 Me moria 5 mg oral 2-21 tab, PO, l tablet, 19:09: Daily, 0 Dmitriy n extended 00 Refill(s) release Vitamin D3 Yes 0 Memoria 2-21 Refill(s) l 19:09: Román 00 vancomycin 2016-0 Yes 2001 mg: Me moria 4-19 infuse l 14:41: over 2.5 Homer 00 hours vancomycin 2017-0 Yes 2001 mg: Me moria 4-19 infuse l 14:41: over 2.5 Román 00 hours Morphine No Notes: Memoria 4-19 (Same l 11:56: as:MORPhin Homer 00 e Sulfate) Flumazenil No Notes: Memor ia - (Same as: l 11:56: Romazicon) Homer 00 Naloxone No Notes: Memoria 4-19 Same as l 11:56: Narcan Román 00 Fentanyl No Notes: Memoria 4-19 (Same as: l 11:56: Sublimaze) Homer 00 Preservati ve free. Ondansetron No Notes: Alfredo nusrat 4-19 (Same as: l 11:56: Zofran) Homer 00 MEDICATION WASTE Product Size: 4 mg Product Wasted: ___ mg Acetaminoph No Notes: Max Memoria en 4-19 acetaminop l 11:56: hen 4000 Homer 00 mg/day (4 gm/day). (Same as: Tylenol Extra Strength) Calcium No 1,000 mL, Memor ia Chloride 09-09 Rate: 125 l 0.0014 11:56: ml/hr, Homer MEQ/ML / 00 Infuse Potassium over: 8 Chloride hr, Route: 0.004 IV, Dosing MEQ/ML / Weight Sodium 84.5 kg, Chloride Total 0.103 Volume: MEQ/ML / 1,000, Sodium Start Lactate date: 0.028 09/09/16 MEQ/ML 6:56:00 Injectable CDT, Solution Duration: 30 day, Stop date: 10/09/16 6:55:00 CDT Morphine No Notes: Memoria 4-19 (Same l 11:56: as:MORPhin Román 00 e Sulfate) Flumazenil No Notes: Memor ia - (Same as: l 11:56: Romazicon) Homer Naloxone No Notes: Memoria 4-19 Same as l 11:56: Narcan Román 00 Fentanyl No Notes: Memoria 4-19 (Same as: l 11:56: Sublimaze) Homer 00 Preservati ve free. Ondansetron No Notes: Alfredo nusrat 4-19 (Same as: l 11:56: Zofran) Homer 00 MEDICATION WASTE Product Size: 4 mg Product Wasted: ___ mg Acetaminoph No Notes: Max Memoria en 4-19 acetaminop l 11:56: hen 4000 Homer 00 mg/day (4 gm/day). (Same as: Tylenol Extra Strength) Calcium 2016- No 1,000 mL, Memor ia Chloride 09-09 Rate: 125 l 0.0014 11:56: ml/hr, Homer MEQ/ML / 00 Infuse Potassium over: 8 [...] 0 Dmitriy n extended 00 Refill(s) release 24 HR Yes 90 mg = 1 Memoria Nifedipine 4-06 tab, PO, l 90 MG 19:03: Daily, 0 Homer Extended 00 Refill(s) Release Tablet NIFEdipine Yes 90 mg = 1 Me moria 90 mg oral 4-06 tab, PO, l tablet, 19:03: Daily, 0 Dmitriy n extended 00 Refill(s) release Lasix 2016-0 Yes = 1 tab, Memoria 4-06 PO, Daily, l 19:02: 0 Román 00 Refill(s) Lasix 2017-0 Yes = 1 tab, Memoria 4-06 PO, Daily, l 19:02: 0 Román 00 Refill(s) Lisinopril 2017 Yes 40 mg = 1 Me moria 40 MG Oral 4-06 tab, PO, l Tablet 19:00: Daily, 0 Homer [Zestril] 00 Refill(s) Zestril 40 2017- Yes 40 mg = 1 Me moria mg oral 4-06 tab, PO, l tablet 19:00: Daily, 0 Homer 00 Refill(s) Lisinopril 2016- Yes 40 mg = 1 Me moria 40 MG Oral 4-06 tab, PO, l Tablet 19:00: Daily, 0 Homer [Zestril] 00 Refill(s) Zestril 40 Yes 40 mg = 1 Me moria mg oral 4-06 tab, PO, l tablet 19:00: Daily, 0 Román Refill(s) Streptococc No Notes: Alfredo nusrat us 4-06 Lightly l pneumoniae 18:38: roll vial He rmann serotype 1 47 (DO NOT capsular SHAKE) antigen before diphtheria administra [id number] tion. protein (Same as: conjugate Prevnar vaccine / 13) Streptococc us pneumoniae serotype 14 capsular antigen diphtheria [id number] protein conjugate vaccine / Streptococc us pneumoniae serotype 18C capsular antigen d Streptococc No Notes: Alfredo nusrat us 4-06 Lightly l pneumoniae 18:38: roll vial He rmann serotype 1 47 (DO NOT capsular SHAKE) antigen before diphtheria administra [id number] tion. protein (Same as: conjugate Prevnar vaccine / 13) Streptococc us pneumoniae serotype 14 capsular antigen diphtheria [id number] protein conjugate vaccine / Streptococc us pneumoniae serotype 18C capsular antigen d citalopram 2012-05 Yes 10 mg, 1 Mem oria 10 mg oral 0-23 tab, PO, l tablet 20:07: BID, Román 58 Substituti on Allowed citalopram 2012-05 Yes 10 mg, 1 Mem oria 10 mg oral 0-23 tab, PO, l tablet 20:07: BID, Román 58 Substituti on Allowed Lipitor 20 2012-05 Yes 20 mg, 1 Mem oria mg oral 0-23 tab, l tablet 20:07: Bedtime, Román 36 Substituti on Allowed Lipitor 20 2012-05 Yes 20 mg, 1 Mem oria mg oral 0-23 tab, l tablet 20:07: Bedtime, Román 36 Substituti on Allowed trazodone 2012-05 Yes 50 mg, 1 Alfredo nusrat 50 mg oral 0-23 tab, PO, l tablet 20:01: Bedtime, Román 31 Substituti on Allowed trazodone 2012-05 Yes 50 mg, 1 Alfredo nusrat 50 mg oral 0-23 tab, PO, l tablet 20:01: Bedtime, Román 31 Substituti on Allowed cyclobenzap cyclobenzap No cyclobenza rine rine radha [...] 1.25 MG 1.25 MG le} 1.25 MG (89250 UT) (38241 UT) (83876 UT) Synthroid Synthroid No QD Synthroid 75 [...] 1.25 MG 1.25 MG le} 1.25 MG (50730 UT) (79832 UT) (11523 UT) Synthroid Synthroid No QD Synthroid 75 [...] 1.25 MG 1.25 MG le} 1.25 MG (51537 UT) (26620 UT) (59776 UT) Synthroid Synthroid No QD Synthroid 75 [...] MG 1 MG t} e 1 MG Immunizations Ordered Immunization Filled Immunization Date Status Commen ts Source Name Name Hx influenza 2008-03-07 Completed [facility] vaccine-unspecified< 05:00:00 Herm jhony sup>1</sup> Hx influenza 2008-03-07 Completed [facility] vaccine-unspecified< 05:00:00 Herm jhony sup>1</sup> Vital Signs Vital Name Observation Time Observation Value Comments Source height 2022-01-15 11:45:00 61 [in_i] [facility] weight 2022-01-15 11:45:00 218 [lb_av] [facility] temperature 2022-01-15 11:45:00 98.6 [degF] [facility] bmi 2022-01-15 11:45:00 41.19 kg/m2 [facility] oximetry 2022-01-15 11:45:00 96 % [facility] respiratory rate 2022-01-15 11:45:00 16 /min [facility] blood pressure 2022-01-15 11:45:00 178 mm[Hg] [facility] blood pressure 2022-01-15 11:45:00 79 mm[Hg] [facility] diastolic [facility] Systolic (mm Hg) 2022-03-12 15:05:00 Alfredo [place] Diastolic (mm Hg) 2022-03-12 15:05:00 [facility] orial Román Heart Rate 2022-03-12 15:05:00 [facility] Weight 2022-03-12 15:05:00 Georgette Homer Systolic (mm Hg) 2021-09-11 14:52:00 Alfredo rial Román Diastolic (mm Hg) 2021-09-11 14:52:00 Mem orial Román Heart Rate 2021-09-11 14:52:00 [facility] Respitory Rate 2021-09-11 14:52:00 Memori al Homer Height 2021-09-11 14:52:00 156.21 cm [facility] Homer Weight 2021-09-11 14:52:00 [facility] Román BMI Calculated 2021-09-11 14:52:00 Memori al Homer Systolic (mm Hg) 2020-06-12 15:22:00 Alfredo rial Román Diastolic (mm Hg) 2020-06-12 15:22:00 Mem orial Homer Heart Rate 2020-06-12 15:22:00 [facility] Homer Respitory Rate 2020-06-12 15:22:00 Memori al Homer Height 2020-06-12 15:22:00 157.48 cm Memorial Rmoán Weight 2020-06-12 15:22:00 [facility] Homer BMI Calculated 2020-06-12 15:22:00 Memori al Homer Systolic (mm Hg) 2020-04-10 16:15:00 Alfredo rial Román Diastolic (mm Hg) 2020-04-10 16:15:00 Mem orial Román Heart Rate 2020-04-10 16:15:00 [facility] Román Respitory Rate 2020-04-10 16:15:00 Memori al Román Height 2020-04-10 16:15:00 157.48 cm [facility] Homer Weight 2020-04-10 16:15:00 [facility] Román BMI Calculated 2020-04-10 16:15:00 Memori al Homer Systolic (mm Hg) 2019-05-12 16:29:00 Alfredo rial Román Diastolic (mm Hg) 2019-05-12 16:29:00 Mem orial Román Heart Rate 2019-05-12 16:29:00 [facility] Román Respitory Rate 2019-05-12 16:29:00 Memori al Homer Height 2019-05-12 16:29:00 154.94 cm [facility] Román Weight 2019-05-12 16:29:00 [facility] Homer BMI Calculated 2019-05-12 16:29:00 Memori al Román Systolic (mm Hg) 2019-01-17 14:44:00 Alfredo rial Román Diastolic (mm Hg) 2019-01-17 14:44:00 Mem orial Homer Heart Rate 2019-01-17 14:44:00 [facility] Román Respitory Rate 2019-01-17 14:44:00 Memori al Homer Height 2019-01-17 14:44:00 157.48 cm [facility] Román Weight 2019-01-17 14:44:00 [facility] Román BMI Calculated 2019-01-17 14:44:00 Memori al Homer Height 2018-11-08 14:16:00 157.48 cm [facility] Homer Weight 2018-11-08 14:16:00 [facility] Román BMI Calculated 2018-11-08 14:16:00 Memori al Román Respitory Rate 2018-11-08 14:16:00 Memori al Román Heart Rate 2018-11-08 14:16:00 [facility] Homer Systolic (mm Hg) 2018-11-08 14:16:00 Alfredo rial Homer Diastolic (mm Hg) 2018-11-08 14:16:00 Mem orial Homer Systolic (mm Hg) 2018-06-28 15:33:00 Alfredo rial Homer Diastolic (mm Hg) 2018-06-28 15:33:00 Mem orial Homer Heart Rate 2018-06-28 15:33:00 [facility] Homer Height 2018-06-28 15:33:00 157.48 cm [facility] Román Weight 2018-06-28 15:33:00 [facility] Román BMI Calculated 2018-06-28 15:33:00 Memori al Román Temperature Oral (F) 2017-10-05 09:10:00 97.5 F [facility] Román Systolic (mm Hg) 2017-10-05 09:10:00 Alfredo rial Román Diastolic (mm Hg) 2017-10-05 09:10:00 Mem orial Román Respitory Rate 2017-10-05 09:10:00 Memori al Homer Heart Rate 2017-10-05 09:10:00 [facility] Homer Heart Rate 2017-10-05 06:39:00 [facility] Román Systolic (mm Hg) 2017-10-05 06:39:00 Alfredo rial Román Diastolic (mm Hg) 2017-10-05 06:39:00 Mem orial Román Systolic (mm Hg) 2017-10-05 05:00:00 Alfredo rial Román Diastolic (mm Hg) 2017-10-05 05:00:00 Mem orial Homer Heart Rate 2017-10-05 05:00:00 [facility] Román Respitory Rate 2017-10-05 05:00:00 Memori al Román Temperature Oral (F) 2017-10-05 04:30:00 98 F [facility] Homer Respitory Rate 2017-10-05 04:30:00 Memori al Homer Temperature Oral (F) 2017-10-05 00:05:00 97.5 F [facility] Homer Weight 2017-09-10 15:00:00 [facility] Homer BMI Calculated 2017-09-10 15:00:00 Memori al Homer Height 2017-09-10 15:00:00 160.02 cm [facility] Román Respitory Rate 2016-09-09 19:30:00 Memori al Román Systolic (mm Hg) 2016-09-09 19:30:00 Alfredo rial Román Diastolic (mm Hg) 2016-09-09 19:30:00 Mem orial Homer Systolic (mm Hg) 2016-09-09 18:45:00 Alfredo rial Homer Diastolic (mm Hg) 2016-09-09 18:45:00 Mem orial Homer Respitory Rate 2016-09-09 18:45:00 Memori al Homer Systolic (mm Hg) 2016-09-09 18:30:00 Alfredo rial Román Diastolic (mm Hg) 2016-09-09 18:30:00 Mem orial Homer Respitory Rate 2016-09-09 18:30:00 Memori al Homer Heart Rate 2016-09-09 13:15:00 [facility] Román BMI Calculated 2016-08-27 18:34:00 Memori al Homer Height 2016-08-27 18:34:00 157.48 cm [facility] Román Weight 2016-08-27 18:34:00 [facility] Román Procedures Procedure Date / Time Performed Performing Clinician Sour e Bilateral tubal [facility] Homer ligation<sup>1</sup> Cholecystectomy<sup>2</matos Memori al Homer p> CTR - Carpal tunnel Memorial Her johnson release<sup>3</sup> Laminectomy<sup>4</sup> [facility] Homer Procedure<sup>6</sup> Memorial ermann Encounters Start End Encounter Admission Attending Care Care Encounter Source Date/Time Date/Time Type Type Clinicians Facility Department ID 2022-01-15 Outpatient STLMLC STLMLC [id number] Common 10:55:04 [facility] 2022-09-10 2022-09-10 Outpatient MHIE MHIE [id number] Memoria 10:30:00 10:30:00 05 melissa [place] 2022-09-10 2022-09-10 Outpatient MHIE MHIE [id number] Memoria 10:30:00 10:30:00 05 melissa [place] 2022-03-17 2022-03-19 Outside nullFlavo MNA [id number] Memoria 16:08:40 04:59:59 Medical r Neurology 04 l Records Shekhar [place] 2022-03-17 2022-03-19 Outside nullFlavo MNA [id number] Memoria 16:08:40 04:59:59 Medical r Neurology 04 l Records Shekhar [place] 2022-03-17 2022-03-18 Outpatient MHMISCHER MHMISCHER [id number] 11:08:40 23:59:59 04 2022-03-12 2022-03-13 Outpatient nullFlavo MNA [id number] Memoria 14:45:00 04:59:59 r Neurology 04 l Shekhar [place] 2022-03-12 2022-03-13 Outpatient nullFlavo MNA [id number] Memoria 14:45:00 04:59:59 r Neurology 04 l Shekhar [place] 2022-03-12 2022-03-12 Outpatient Han, MHMISCHER MHMISCHER [id number] 09:45:00 23:59:59 Nacho Vanessa Wilkinson 2022-03-12 2022-03-12 Outpatient MHIE MHIE [id number] Memoria 09:45:00 09:45:00 04 melissa [place] 2022-02-23 2022-02-23 (TEL) STLMLC STLMLC [id number] Co mmon 00:00:00 00:00:00 [facility] 2022-01-15 2022-01-15 OFFICE STLMLC STLMLC [id number] Co mmon 00:00:00 00:00:00 VISIT EST Spir it PT LEVEL 3 - [facility] 2021-12-23 2021-12-23 Outpatient GALINDO [facility] [address] [place] 00:00:00 00:00:00 [facility] 2021-09-11 2021-09-12 Outpatient nullFlavo MNA [id number] Memoria 15:30:00 04:59:59 r Neurology 03 l Shekhar Garciaann 2021-09-11 2021-09-12 Outpatient nullFlavo MNA [id number] Memoria 15:30:00 04:59:59 r Neurology 03 l [place] Román 2021-09-11 2021-09-11 Outpatient MAI ShortNVSCHER MISCHER [id number] 10:30:00 23:59:59 Nacho Marina Wilkinson 2021-09-11 2021-09-11 Outpatient MHIE MHIE [id number] Memoria 10:30:00 10:30:00 03 melissa GarciaHomer 2021-06-19 2021-06-19 Outpatient GALINDO [facility] [address] [place] 08:44:00 08:44:00 [id number] 2020-07-24 2020-07-24 Ambulatory nullFlavo MNA [id number] Memoria 15:00:00 15:00:00 Pre-Reg r Neurology 02 l [place]ara Román 2020-07-24 2020-07-24 Ambulatory nullFlavo MNA [id number] Memoria 15:00:00 15:00:00 Pre-Reg r Neurology 02 l [place] Román 2020-07-24 2020-07-24 Outpatient MHIE MHIE [id number] Memoria 09:00:00 09:00:00 02 melissa Román 2020-07-24 2020-07-24 Outpatient BEAN ShortSCHER MHMISCHER [id number] 09:00:00 09:00:00 Nacho Tucker Wilkinson 2020-06-12 2020-06-13 Outpatient nullFlavo MNA [id number] Memoria 15:00:00 05:59:59 r Neurology 01 l Shekhar [place] 2020-06-12 2020-06-13 Outpatient nullFlavo MNA [id number] Memoria 15:00:00 05:59:59 r Neurology 01 l Shekhar [place] 2020-06-12 2020-06-12 [facility] [id number] 09:00:00 23:59:59 Nacho 01 Minh 2020-06-12 2020-06-12 Outpatient MHIE MHIE [id number] Memoria 09:00:00 09:00:00 01 l Román 2020-04-10 2020-04-11 Outpatient nullFlavo MNA [id number] Memoria 15:45:00 05:59:59 r Neurology 00 l Shekhar [place] 2020-04-10 2020-04-11 Outpatient nullFlavo MNA [id number] Memoria 15:45:00 05:59:59 r Neurology 00 l Shekhar [place] 2020-04-10 2020-04-10 [id number] 09:45:00 23:59:59 Nacho 00 Minh 2020-04-10 2020-04-10 Outpatient MHIE MHIE [id number] Memoria 09:45:00 09:45:00 00 l Homer 2019-11-17 2019-11-17 Ambulatory nullFlavo MNA [id number] Memoria 15:00:00 15:00:00 Pre-Reg r Neurology 08 l Shekhar [place] 2019-11-17 2019-11-17 Ambulatory nullFlavo MNA [id number] Memoria 15:00:00 15:00:00 Pre-Reg r Neurology 08 l Shekhar [place] 2019-11-17 2019-11-17 Outpatient MHIE MHIE [id number] Memoria 10:00:00 10:00:00 08 l Homer 2019-11-17 2019-11-17 [facility] [id number] 10:00:00 10:00:00 Nacho 08 Minh 2019-06-23 2019-06-25 Outside nullFlavo MNA [id number] Memoria 19:58:44 05:59:59 Medical r Neurology 03 l Records Shekhar [place] 2019-06-23 2019-06-25 Outside nullFlavo MNA [id number] Memoria 19:58:44 05:59:59 Medical r Neurology 03 l Records Shekhar [place] 2019-06-23 2019-06-24 [id number] 13:58:44 23:59:59 03 2019-05-12 2019-05-13 Outpatient nullFlavo MNA [id number] Memoria 16:00:00 05:59:59 r Neurology 07 l Shekhar [place] 2019-05-12 2019-05-13 Outpatient nullFlavo MNA [id number] Memoria 16:00:00 05:59:59 r Neurology 07 l Shekhar Román 2019-05-12 2019-05-12 Outpatient Han [facility] [id number] 10:00:00 23:59:59 Nacho Stefanie Wilkinson 2019-05-12 2019-05-12 Outpatient MHIE MHIE [id number] Memoria 10:00:00 10:00:00 Stefanie torres [place] 2019-01-17 2019-01-18 Outpatient nullFlavo MNA [id number] Memoria 14:45:00 04:59:59 r Neurology 06 melissa Corrigan Román 2019-01-17 2019-01-18 Outpatient nullFlavo MNA [id number] Memoria 14:45:00 04:59:59 r Neurology 06 melissa Corrigan [place] 2019-01-17 2019-01-17 [id number] 09:45:00 23:59:59 Nacho Silver Minh 2019-01-17 2019-01-17 Outpatient MHIE MHIE [id number] Memoria 09:45:00 09:45:00 06 melissa [place] 2018-11-08 2018-11-09 Outpatient nullFlavo MNA [id number] Memoria 14:15:00 04:59:59 r Neurology 05 melissa [place] 2018-11-08 2018-11-09 Outpatient nullFlavo MNA [id number] Memoria 14:15:00 04:59:59 r Neurology 05 melissa [place] 2018-11-08 2018-11-08 [facility] Krell[facility] [id number] 09:15:00 23:59:59 Nacho Dedrick Wilkinson 2018-11-08 2018-11-08 Outpatient MHIE MHIE [id number] Memoria 09:15:00 09:15:00 05 melissa [place] 2018-08-09 2018-08-09 Outpatient MHIE IE [id number] Memoria 09:45:00 09:45:00 04 melissa [place] 2018-08-09 2018-08-09 Outpatient MHIE IE [id number] Memoria 09:45:00 09:45:00 04 melissa [place] 2018-06-28 2018-06-29 Outpatient nullFlavo MNA [id number] Memoria 15:30:00 05:59:59 r Neurology 03 l Niobrara Román 2018-06-28 2018-06-29 Outpatient nullFlavo MNA [id number] Memoria 15:30:00 05:59:59 r Neurology 03 l Shekhar [place] 2018-06-28 2018-06-28 [id number] 09:30:00 23:59:59 Nacho 03 Minh 2018-06-28 2018-06-28 Outpatient MHIE IE [id number] Memoria 09:30:00 09:30:00 03 melissa Román 2018-06-02 2018-06-04 Outside nullFlavo MNA [id number] Memoria 21:24:00 05:59:59 Medical r Neurology 01 l Records Niobrara Román 2018-06-02 2018-06-04 Outside nullFlavo MNA [id number] Memoria 21:24:00 05:59:59 Medical r Neurology 01 l Records Niobrara Román 2018-06-02 2018-06-03 Outpatient MHMISCHER MISCHER [id number] 15:24:00 23:59:59 2018-03-18 2018-03-18 Ambulatory nullFlavo MNA [id number] Memoria 15:00:00 15:00:00 Pre-Reg r Neurology 02 l Niobrara Román 2018-03-18 2018-03-18 Ambulatory nullFlavo MNA [id number] Memoria 15:00:00 15:00:00 Pre-Reg r Neurology 02 l Niobrara Román 2018-03-18 2018-03-18 Outpatient MHIE IE [id number] Memoria 10:00:00 10:00:00 02 melissa Homer 2018-03-18 2018-03-18 [id number] 10:00:00 10:00:00 Nacho Wilkinson 2018-02-09 2018-02-09 Outpatient MHIE IE [id number] Memoria 10:30:00 10:30:00 01 melissa Román 2018-02-09 2018-02-09 Outpatient MHIE IE [id number] Memoria 10:30:00 10:30:00 01 melissa Homer 2017-10-04 2017-10-05 Bedded nullFlavo [facility] [id number] Memoria 11:11:00 17:15:00 Outpatient alonso [place] 03 [facility] 2017-10-04 2017-10-05 Bedded nullFlavo [facility] [id number] Memoria 11:11:00 17:15:00 Outpatient alonso [place] 03 [facility] 2017-10-04 2017-10-05 [facility] [id number] 06:11:00 12:15:00 Shanna I 03 2016-09-09 2016-09-09 Day nullFlavo [facility] [id number] Memoria 11:05:00 20:20:00 Surgery r Román 02 [facility] 2016-09-09 2016-09-09 Day nullFlavo [facility] [id number] Memoria 11:05:00 20:20:00 Surgery r Román 02 [facility] 2016-09-09 2016-09-09 Outpatient Bindal, [facility] [id number] 06:05:00 15:20:00 Jonny Miller 2016-04-14 2016-04-14 Outpatient cain_jo MMG MMG [id number] [place] 03:16:00 03:16:00 [facility] 2013-03-27 2013-03-27 ZAHEER nullFlavo [id number] Memoria 09:44:00 17:45:00 r [place] [id number] melissa [place] 2013-03-27 2013-03-27 ZAHEER nullFlavo MH [id number] Memoria 09:44:00 17:45:00 r [facility] 01 l Homer Results Test Description Test Time Test Comments Results Result Comments Source CHEM PANEL 2017-10-05 08:43:00 Test Item Value Reference Range Interpretation Comme nts Glucose Lvl (test code = Glucose Lvl) 130 70-99 [facility]2018-05-15 08:43:00 Test Item Value Reference Range Interpretation Comments Potassium Lvl (test code = Potassium 4.9 3.5-5.1 Lvl) [facility]2018-05-15 08:43:00 Test Item Value Reference Range Interpretation Comments BUN (test code = BUN) 20 7-22 [facility]2018-05-15 08:43:00 Test Item Value Reference Range Interpretation Comments Creatinine Lvl (test code = Creatinine 1.10 0.50-1.40 Lvl) [facility]2018-05-15 08:43:00 Test Item Value Reference Range Interpretation Comments Sodium Lvl (test code = Sodium Lvl) 136 135-145 [facility]2018-05-15 08:43:00 Test Item Value Reference Range Interpretation Comments CO2 (test code = CO2) 24 24-32 [facility]2018-05-15 08:43:00 Test Item Value Reference Range Interpretation Comments Chloride Lvl (test code = Chloride Lvl) 105 95-109 [facility]2018-05-15 08:43:00 Test Item Value Reference Range Interpretation Comments AGAP (test code = AGAP) 11.9 10.0-20.0 [facility]2018-05-15 08:43:00 Test Item Value Reference Range Interpretation Comments Calcium Lvl (test code = Calcium Lvl) 9.0 8.5-10.5 [facility]2018-05-15 08:43:00 Test Item Value Reference Range Interpretation Comments eGFR (test code = eGFR) 51 [facility]2018-05-15 08:43:00 Test Item Value Reference Range Interpretation Comments Glucose Lvl (test code = Glucose Lvl) 130 70-99 [facility]2018-05-15 08:43:00 Test Item Value Reference Range Interpretation Comments Potassium Lvl (test code = Potassium 4.9 3.5-5.1 Lvl) [facility]2018-05-15 08:43:00 Test Item Value Reference Range Interpretation Comments BUN (test code = BUN) 20 7-22 [facility]2018-05-15 08:43:00 Test Item Value Reference Range Interpretation Comments Creatinine Lvl (test code = Creatinine 1.10 0.50-1.40 Lvl) [facility]2018-05-15 08:43:00 Test Item Value Reference Range Interpretation Comments Sodium Lvl (test code = Sodium Lvl) 136 135-145 [facility]2018-05-15 08:43:00 Test Item Value Reference Range Interpretation Comments CO2 (test code = CO2) 24 24-32 [facility]2018-05-15 08:43:00 Test Item Value Reference Range Interpretation Comments Chloride Lvl (test code = Chloride Lvl) 105 95-109 [facility]2018-05-15 08:43:00 Test Item Value Reference Range Interpretation Comments AGAP (test code = AGAP) 11.9 10.0-20.0 [facility]2018-05-15 08:43:00 Test Item Value Reference Range Interpretation Comments Calcium Lvl (test code = Calcium Lvl) 9.0 8.5-10.5 [facility]2018-05-15 08:43:00 Test Item Value Reference Range Interpretation Comments eGFR (test code = eGFR) 51 [facility]2018-05-14 16:20:00 Test Item Value Reference Range Interpretation Comments eGFR (test code = eGFR) 46 [facility]2018-05-14 16:20:00 Test Item Value Reference Range Interpretation Comments AGAP (test code = AGAP) 11.7 10.0-20.0 [facility]2018-05-14 16:20:00 Test Item Value Reference Range Interpretation Comments BUN (test code = BUN) 19 7-22 [facility]2018-05-14 16:20:00 Test Item Value Reference Range Interpretation Comments Glucose Lvl (test code = Glucose Lvl) 136 70-99 [facility]2018-05-14 16:20:00 Test Item Value Reference Range Interpretation Comments Creatinine Lvl (test code = Creatinine 1.20 0.50-1.40 Lvl) [facility]2018-05-14 16:20:00 Test Item Value Reference Range Interpretation Comments Potassium Lvl (test code = Potassium 4.7 3.5-5.1 Lvl) [facility]2018-05-14 16:20:00 Test Item Value Reference Range Interpretation Comments Sodium Lvl (test code = Sodium Lvl) 141 135-145 [facility]2018-05-14 16:20:00 Test Item Value Reference Range Interpretation Comments Chloride Lvl (test code = Chloride Lvl) 108 95-109 [facility]2018-05-14 16:20:00 Test Item Value Reference Range Interpretation Comments CO2 (test code = CO2) 26 24-32 [facility]2018-05-14 16:20:00 Test Item Value Reference Range Interpretation Comments Calcium Lvl (test code = Calcium Lvl) 8.9 8.5-10.5 [facility]2018-05-14 16:20:00 Test Item Value Reference Range Interpretation Comments eGFR (test code = eGFR) 46 [facility]2018-05-14 16:20:00 Test Item Value Reference Range Interpretation Comments AGAP (test code = AGAP) 11.7 10.0-20.0 [facility]2018-05-14 16:20:00 Test Item Value Reference Range Interpretation Comments BUN (test code = BUN) 19 7-22 [facility]2018-05-14 16:20:00 Test Item Value Reference Range Interpretation Comments Glucose Lvl (test code = Glucose Lvl) 136 70-99 [facility]2018-05-14 16:20:00 Test Item Value Reference Range Interpretation Comments Creatinine Lvl (test code = Creatinine 1.20 0.50-1.40 Lvl) [facility]2018-05-14 16:20:00 Test Item Value Reference Range Interpretation Comments Potassium Lvl (test code = Potassium 4.7 3.5-5.1 Lvl) [facility]2018-05-14 16:20:00 Test Item Value Reference Range Interpretation Comments Sodium Lvl (test code = Sodium Lvl) 141 135-145 [facility]2018-05-14 16:20:00 Test Item Value Reference Range Interpretation Comments Chloride Lvl (test code = Chloride Lvl) 108 95-109 [place] 059398-05-14 16:20:00 Test Item Value Reference Range Interpretation Comments CO2 (test code = CO2) [employer] [id number] 16:20:00 Test Item Value Reference Range Interpretation Comments Calcium Lvl (test code = Calcium Lvl) 8.9 8.5-10.5 [facility] [email or web address] [id number] 11:30:00 Test Item Value Reference Range Interpretation Comments ABO/Rh (test code = ABO/Rh) A POS [facility] [email or web address] [id number] 11:30:00 Test Item Value Reference Range Interpretation Comments Antibody Scrn (test Negative (10/04/17 6:30 code = Antibody Scrn) AM) [employer] [id number] 11:30:00 Test Item Value Reference Range Interpretation Comments ABO/Rh (test code = ABO/Rh) A POS [facility] [email or web address] [id number] 11:30:00 Test Item Value Reference Range Interpretation Comments Antibody Scrn (test Negative (10/04/17 6:30 code = Antibody Scrn) AM) [facility] [employer] [id number] 15:05:00 Test Item Value Reference Range Interpretation Comments eGFR (test code = eGFR) 51 [facility] [employer] [id number] 15:05:00 Test Item Value Reference Range Interpretation Comments Calcium Lvl (test code = Calcium Lvl) 9.4 8.5-10.5 [employer] [id number] 15:05:00 Test Item Value Reference Range Interpretation Comments Potassium Lvl (test code = Potassium 4.7 3.5-5.1 Lvl) [facility] [employer] [id number] 15:05:00 Test Item Value Reference Range Interpretation Comments Chloride Lvl (test code = Chloride Lvl) 107 95-109 [employer] [id number] 15:05:00 Test Item Value Reference Range Interpretation Comments CO2 (test code = CO2) [employer] [id number] 15:05:00 Test Item Value Reference Range Interpretation Comments Sodium Lvl (test code = Sodium Lvl) 139 135-145 [employer] [id number] 15:05:00 Test Item Value Reference Range Interpretation Comments Glucose Lvl (test code = Glucose Lvl) 94 70-99 [facility]2018-04-20 15:05:00 Test Item Value Reference Range Interpretation Comments BUN (test code = BUN) 19 7-22 [facility]2018-04-20 15:05:00 Test Item Value Reference Range Interpretation Comments Creatinine Lvl (test code = Creatinine 1.10 0.50-1.40 Lvl) [facility]2018-04-20 15:05:00 Test Item Value Reference Range Interpretation Comments AGAP (test code = AGAP) 9.7 10.0-20.0 [facility] [id number] 15:05:00 Test Item Value Reference Range Interpretation Comments Lymphocytes (test code = Lymphocytes) 23.6 20.0-40.0 [facility] Hos[id number] 15:05:00 Test Item Value Reference Range Interpretation Comments Basophils # (test code 0.0 See_Comment [Aut omated message] The = Basophils #) system which generated this result tra nsmitted reference range : <=0.2. The reference r tato was not used to int erpret this result as normal/abnormal . [facility] H[id number] 15:05:00 Test Item Value Reference Range Interpretation Comments Eosinophils # (test code 0.2 See_Comment [A utomated message] The = Eosinophils #) system whic h generated this result tra nsmitted reference range : <=0.5. The reference r tato was not used to int erpret this result as normal/abnormal . [facility] HospitalKivbentQLNMLFWEIN0838-94-13 15:05:00 Test Item Value Reference Range Interpretation Comments Segs-Bands # (test code = Segs-Bands #) 2.0 1.5-8.1 [facility] H[id number] 15:05:00 Test Item Value Reference Range Interpretation Comments Monocytes (test code = Monocytes) 11.8 2.0-12.0 [facility] HospitalHzcowalXKBWKKGVKH1779-87-44 15:05:00 Test Item Value Reference Range Interpretation Comments Basophils (test code = 0.8 See_Comment [Aut omated message] The Basophils) system which ge nerated this result tra nsmitted reference range : <=1.0. The reference r tato was not used to int erpret this result as normal/abnormal . [facility] Hospit[id number] 15:05:00 Test Item Value Reference Range Interpretation Comments Monocytes # (test code 0.4 See_Comment [Aut omated message] The = Monocytes #) system which generated this result tra nsmitted reference range : <=0.8. The reference r tato was not used to int erpret this result as normal/abnormal . [facility] HospitalEawvlkxQTNUOMPANR9257-86-66 15:05:00 Test Item Value Reference Range Interpretation Comments Eosinophils (test code = 4.5 See_Comment [A utomated message] The Eosinophils) system which ge nerated this result tra nsmitted reference range : <=4.0. The reference r tato was not used to int erpret this result as normal/abnormal . [facility] Hospit[id number] 15:05:00 Test Item Value Reference Range Interpretation Comments Lymphocytes # (test code = Lymphocytes 0.8 1.0-5.5 #) [facility] HospitalBpdlwkzFZLJULDJKQ2575-35-02 15:05:00 Test Item Value Reference Range Interpretation Comments Segs (test code = Segs) 59.3 45.0-75.0 [facility] HospitalQfnftvoDPYMMTMLSE9219-05-30 15:05:00 Test Item Value Reference Range Interpretation Comments MPV (test code = MPV) 7.9 7.4-10.4 [facility] HospitalOodeqenKGBSOPOPHY9945-26-74 15:05:00 Test Item Value Reference Range Interpretation Comments RDW (test code = RDW) 13.5 11.5-14.5 [facility] H[id number] 15:05:00 Test Item Value Reference Range Interpretation Comments Platelet (test code = Platelet) 132 133-450 [facility] HospitalGusoahfGRYCYZFSYR2502-65-15 15:05:00 Test Item Value Reference Range Interpretation Comments Hct (test code = Hct) 38.5 36.0-48.0 [facility] HospitalEdbvuigVXUMCIRLBL5993-27-96 15:05:00 Test Item Value Reference Range Interpretation Comments Hgb (test code = Hgb) 13.1 12.0-16.0 [facility] H[id number] 15:05:00 Test Item Value Reference Range Interpretation Comments RBC (test code = RBC) 4.07 4.20-5.40 [facility] HospitalFkixmrpCWDYXBVLRK0400-78-59 15:05:00 Test Item Value Reference Range Interpretation Comments WBC (test code = WBC) 3.4 3.7-10.4 [facility] HospitalPbtkystAVCBWVYVCB8930-06-39 15:05:00 Test Item Value Reference Range Interpretation Comments MCHC (test code = MCHC) 34.0 32.0-36.0 [facility] HospitalKxpnxrbTZYLJYVKNS6958-04-30 15:05:00 Test Item Value Reference Range Interpretation Comments MCV (test code = MCV) 94.6 80.0-98.0 [facility] Hospit[id number] 15:05:00 Test Item Value Reference Range Interpretation Comments MCH (test code = MCH) 32.2 pg 27.0-31.0 [facility]2018-04-20 15:05:00 Test Item Value Reference Range Interpretation Comments eGFR (test code = eGFR) 51 [facility]2018-04-20 15:05:00 Test Item Value Reference Range Interpretation Comments Calcium Lvl (test code = Calcium Lvl) 9.4 8.5-10.5 [facility]2018-04-20 15:05:00 Test Item Value Reference Range Interpretation Comments Potassium Lvl (test code = Potassium 4.7 3.5-5.1 Lvl) [facility]2018-04-20 15:05:00 Test Item Value Reference Range Interpretation Comments Chloride Lvl (test code = Chloride Lvl) 107 95-109 [facility]2018-04-20 15:05:00 Test Item Value Reference Range Interpretation Comments CO2 (test code = CO2) 27 24-32 [facility]2018-04-20 15:05:00 Test Item Value Reference Range Interpretation Comments Sodium Lvl (test code = Sodium Lvl) 139 135-145 [facility]2018-04-20 15:05:00 Test Item Value Reference Range Interpretation Comments Glucose Lvl (test code = Glucose Lvl) 94 70-99 [facility]2018-04-20 15:05:00 Test Item Value Reference Range Interpretation Comments BUN (test code = BUN) 19 7-22 [facility]2018-04-20 15:05:00 Test Item Value Reference Range Interpretation Comments Creatinine Lvl (test code = Creatinine 1.10 0.50-1.40 Lvl) [facility]2018-04-20 15:05:00 Test Item Value Reference Range Interpretation Comments AGAP (test code = AGAP) 9.7 10.0-20.0 [facility] HospitalRfoncoiYNNPBZGZNI6262-76-06 15:05:00 Test Item Value Reference Range Interpretation Comments Lymphocytes (test code = Lymphocytes) 23.6 20.0-40.0 [facility] HospitalVedxeuwYWVBLWEPEY8340-51-70 15:05:00 Test Item Value Reference Range Interpretation Comments Basophils # (test code 0.0 See_Comment [Aut omated message] The = Basophils #) system which generated this result tra nsmitted reference range : <=0.2. The reference r tato was not used to int erpret this result as normal/abnormal . [facility] HospitalAvalkznQRXSYYPDCW0650-14-23 15:05:00 Test Item Value Reference Range Interpretation Comments Eosinophils # (test code 0.2 See_Comment [A utomated message] The = Eosinophils #) system whic h generated this result tra nsmitted reference range : <=0.5. The reference r tato was not used to int erpret this result as normal/abnormal . [facility] HospitalCzjzqoeRFJTIHMWWS2847-39-77 15:05:00 Test Item Value Reference Range Interpretation Comments Segs-Bands # (test code = Segs-Bands #) 2.0 1.5-8.1 [facility] HospitalAlyofigCYHZEXYTBE9689-96-72 15:05:00 Test Item Value Reference Range Interpretation Comments Monocytes (test code = Monocytes) 11.8 2.0-12.0 [facility] Hos[id number] 15:05:00 Test Item Value Reference Range Interpretation Comments Basophils (test code = 0.8 See_Comment [Aut omated message] The Basophils) system which ge nerated this result tra nsmitted reference range : <=1.0. The reference r tato was not used to int erpret this result as normal/abnormal . [facility] HospitalZifoyhwTBNCQEAUKG7012-43-04 15:05:00 Test Item Value Reference Range Interpretation Comments Monocytes # (test code 0.4 See_Comment [Aut omated message] The = Monocytes #) system which generated this result tra nsmitted reference range : <=0.8. The reference r tato was not used to int erpret this result as normal/abnormal . [facility] HospitalYkquaxjXNRZDTUNLZ4429-95-05 15:05:00 Test Item Value Reference Range Interpretation Comments Eosinophils (test code = 4.5 See_Comment [A utomated message] The Eosinophils) system which ge nerated this result tra nsmitted reference range : <=4.0. The reference r tato was not used to int erpret this result as normal/abnormal . [facility] HospitalLuxcgxbLLODXZHCLP5903-80-74 15:05:00 Test Item Value Reference Range Interpretation Comments Lymphocytes # (test code = Lymphocytes 0.8 1.0-5.5 #) [facility] HospitalKzesfxdMLBRXWVGTU9368-35-75 15:05:00 Test Item Value Reference Range Interpretation Comments Segs (test code = Segs) 59.3 45.0-75.0 [facility] HospitalUxxqiriWSQGWPYCEO8220-13-01 15:05:00 Test Item Value Reference Range Interpretation Comments MPV (test code = MPV) 7.9 7.4-10.4 [facility] HospitalEoiawuwKLBVEPYSOU6825-27-26 15:05:00 Test Item Value Reference Range Interpretation Comments RDW (test code = RDW) 13.5 11.5-14.5 [facility] HospitalIqzxbpmMCWCTYDTEG4955-24-25 15:05:00 Test Item Value Reference Range Interpretation Comments Platelet (test code = Platelet) 132 133-450 [facility] HospitalOarxiniSHDTEGOIXR1546-43-41 15:05:00 Test Item Value Reference Range Interpretation Comments Hct (test code = Hct) 38.5 36.0-48.0 [facility] HospitalZqajavgPOPBKGFXFF5544-19-61 15:05:00 Test Item Value Reference Range Interpretation Comments Hgb (test code = Hgb) 13.1 12.0-16.0 [facility] HospitalFbvwcmcYLSWZMCYQV9767-99-56 15:05:00 Test Item Value Reference Range Interpretation Comments RBC (test code = RBC) 4.07 4.20-5.40 [facility] HospitalXjelnxxFUHGFPDLCE5858-52-00 15:05:00 Test Item Value Reference Range Interpretation Comments WBC (test code = WBC) 3.4 3.7-10.4 [facility] HospitalOmcexrjKVBPFKIYGB6736-06-82 15:05:00 Test Item Value Reference Range Interpretation Comments MCHC (test code = MCHC) 34.0 32.0-36.0 [facility] HospitalBbekyzaKDBDPXKGWV6836-90-28 15:05:00 Test Item Value Reference Range Interpretation Comments MCV (test code = MCV) 94.6 80.0-98.0 [facility] HospitalMldbesnUREPDEXSVB0985-61-64 15:05:00 Test Item Value Reference Range Interpretation Comments MCH (test code = MCH) 32.2 pg 27.0-31.0 [facility]itsqulFWHRGSAFRIMD7307-56-27 18:40:00 Test Item Value Reference Range Interpretation Comments AGAP (test code = AGAP) 13.2 10.0-20.0 [facility] CenterHxrtlphMTSUXMPTOWVP0235-17-49 18:40:00 Test Item Value Reference Range Interpretation Comments eGFR (test code = eGFR) 52 [facility] CenterRvlpzrcVSXMYEWEWTZF4690-98-92 18:40:00 Test Item Value Reference Range Interpretation Comments Glucose Lvl (test code = Glucose Lvl) 70 70-99 [facility] CenterPljilxdVKNUYDCHTKKM6485-78-23 18:40:00 Test Item Value Reference Range Interpretation Comments BUN (test code = BUN) 16 7-22 [facility] CenterVjbloatDCRBYJIOSJNU8965-01-58 18:40:00 Test Item Value Reference Range Interpretation Comments CO2 (test code = CO2) 26 24-32 [facility] CenterQabhgjgHUAVDZLOKXSX4216-58-58 18:40:00 Test Item Value Reference Range Interpretation Comments Calcium Lvl (test code = Calcium Lvl) 9.1 8.5-10.5 [facility] CenterArdancmMCADKDDIXWGC9366-77-95 18:40:00 Test Item Value Reference Range Interpretation Comments Chloride Lvl (test code = Chloride Lvl) 106 95-109 [facility] CenterFccfbttMUTGUQKWDJHM5015-05-52 18:40:00 Test Item Value Reference Range Interpretation Comments Potassium Lvl (test code = Potassium 4.2 3.5-5.1 Lvl) [facility] CenterNoanuuaDCUPQMTWGMBZ5882-75-90 18:40:00 Test Item Value Reference Range Interpretation Comments Sodium Lvl (test code = Sodium Lvl) 141 135-145 [facility] CenterZhwtrasTZEFJJLXCWHJ5630-63-46 18:40:00 Test Item Value Reference Range Interpretation Comments Creatinine Lvl (test code = Creatinine 1.10 0.50-1.40 Lvl) [facility] HospitalAvtopylIPQGMJMLKM8611-19-85 18:40:00 Test Item Value Reference Range Interpretation Comments Segs-Bands # (test code = Segs-Bands #) 2.3 1.5-8.1 [facility] HospitalVieiajfTBRMIQKZKW8279-75-98 18:40:00 Test Item Value Reference Range Interpretation Comments Lymphocytes # (test code = Lymphocytes 1.1 1.0-5.5 #) [facility] HospitalHskdkteJKTTFKQAJC4982-60-09 18:40:00 Test Item Value Reference Range Interpretation Comments Basophils # (test code 0.0 See_Comment [Aut omated message] The = Basophils #) system which generated this result tra nsmitted reference range : <=0.2. The reference r tato was not used to int erpret this result as normal/abnormal . [facility] Hospit[id number] 18:40:00 Test Item Value Reference Range Interpretation Comments Basophils (test code = 0.6 See_Comment [Aut omated message] The Basophils) system which ge nerated this result tra nsmitted reference range : <=1.0. The reference r tato was not used to int erpret this result as normal/abnormal . [facility] HospitalJvdsdmhKSUTYQMLRD8660-80-08 18:40:00 Test Item Value Reference Range Interpretation Comments Eosinophils (test code = 4.0 See_Comment [A utomated message] The Eosinophils) system which ge nerated this result tra nsmitted reference range : <=4.0. The reference r tato was not used to int erpret this result as normal/abnormal . [facility] HospitalZrttovuLDZLQETAWH5431-03-12 18:40:00 Test Item Value Reference Range Interpretation Comments Eosinophils # (test code 0.2 See_Comment [A utomated message] The = Eosinophils #) system wh h generated this result tra nsmitted reference range : <=0.5. The reference r tato was not used to int erpret this result as normal/abnormal . [facility] HospitalRysoakpTNAOTAOHIK8212-32-54 18:40:00 Test Item Value Reference Range Interpretation Comments Monocytes # (test code 0.5 See_Comment [Aut omated message] The = Monocytes #) system which generated this result tra nsmitted reference range : <=0.8. The reference r tato was not used to int erpret this result as normal/abnormal . [facility] Hospit[id number] 18:40:00 Test Item Value Reference Range Interpretation Comments Monocytes (test code = Monocytes) 11.9 2.0-12.0 [facility]XphszahVTURCRMPHS3019-61-63 18:40:00 Test Item Value Reference Range Interpretation Comments Segs (test code = Segs) 57.1 45.0-75.0 [facility]awQejaqapBETYKUFJPE1682-99-28 18:40:00 Test Item Value Reference Range Interpretation Comments Lymphocytes (test code = Lymphocytes) 26.4 20.0-40.0 [facility]awWvyenzoILNPNZBRCO8920-97-31 18:40:00 Test Item Value Reference Range Interpretation Comments Platelet (test code = Platelet) 135 133-450 [facility]awDrbplrmZFKJWMFQRI3015-35-45 18:40:00 Test Item Value Reference Range Interpretation Comments MPV (test code = MPV) 8.6 7.4-10.4 [facility] HospitalBypbxobHIFVYYKRCK2306-41-55 18:40:00 Test Item Value Reference Range Interpretation Comments RDW (test code = RDW) 13.6 11.5-14.5 [facility]awKfweekwWCNGZTKZXE0717-59-08 18:40:00 Test Item Value Reference Range Interpretation Comments WBC (test code = WBC) 4.1 3.7-10.4 [facility]awVnmoryyJTMMIQVNMV0561-16-19 18:40:00 Test Item Value Reference Range Interpretation Comments MCV (test code = MCV) 92.3 80.0-98.0 [facility]awOlryqhyQZWYXNNILB1689-36-50 18:40:00 Test Item Value Reference Range Interpretation Comments MCH (test code = MCH) 30.5 pg 27.0-31.0 [facility]awUhomdmrREMPCAEDUU3738-38-51 18:40:00 Test Item Value Reference Range Interpretation Comments Hct (test code = Hct) 35.7 36.0-48.0 [facility]awGoiuftfNXWHKOWRFD2080-33-95 18:40:00 Test Item Value Reference Range Interpretation Comments RBC (test code = RBC) 3.86 4.20-5.40 [facility]awDyxekreJTNUWTWYFE9810-27-91 18:40:00 Test Item Value Reference Range Interpretation Comments Hgb (test code = Hgb) 11.8 12.0-16.0 [facility]awSdetbdnLKTWJVCEPO8323-55-54 18:40:00 Test Item Value Reference Range Interpretation Comments MCHC (test code = MCHC) 33.0 32.0-36.0 [facility] CenterFpxvbpvSHQBHMIXUZYD5589-35-79 18:40:00 Test Item Value Reference Range Interpretation Comments AGAP (test code = AGAP) 13.2 10.0-20.0 [facility]CCMUIQDMHPCM6585-29-99 18:40:00 Test Item Value Reference Range Interpretation Comments eGFR (test code = eGFR) 52 [facility]MgquibtBDCTLJKYFNEP2458-21-22 18:40:00 Test Item Value Reference Range Interpretation Comments Glucose Lvl (test code = Glucose Lvl) 70 70-99 [facility]XqfpwhzMOTAJGXQKCDH3526-83-10 18:40:00 Test Item Value Reference Range Interpretation Comments BUN (test code = BUN) 16 7-22 [facility] CenterFuvnbifOHZOKIMBPKPB9574-45-52 18:40:00 Test Item Value Reference Range Interpretation Comments CO2 (test code = CO2) 26 24-32 [facility] CenterBtpdcrfVMHCTFJQUJIX3133-62-37 18:40:00 Test Item Value Reference Range Interpretation Comments Calcium Lvl (test code = Calcium Lvl) 9.1 8.5-10.5 [facility] CenterMsrxpjdOWMSKOXDWXHR7760-84-74 18:40:00 Test Item Value Reference Range Interpretation Comments Chloride Lvl (test code = Chloride Lvl) 106 95-109 [facility] CenterTctncqaKHRQHMXLPUUA5784-65-90 18:40:00 Test Item Value Reference Range Interpretation Comments Potassium Lvl (test code = Potassium 4.2 3.5-5.1 Lvl) [facility] CenterIrndqhxDIPFKCHIXGLQ3758-23-44 18:40:00 Test Item Value Reference Range Interpretation Comments Sodium Lvl (test code = Sodium Lvl) 141 135-145 [facility] CenterOgamqyxUYRBBUDNOEGL1070-35-40 18:40:00 Test Item Value Reference Range Interpretation Comments Creatinine Lvl (test code = Creatinine 1.10 0.50-1.40 Lvl) [facility] HospitalJsmzoffCMNGQDWWNW7608-45-72 18:40:00 Test Item Value Reference Range Interpretation Comments Segs-Bands # (test code = Segs-Bands #) 2.3 1.5-8.1 [facility] HospitalCxowitkAEZYGOKAAS1132-61-53 18:40:00 Test Item Value Reference Range Interpretation Comments Lymphocytes # (test code = Lymphocytes 1.1 1.0-5.5 #) [facility] HospitalFyirwxiODEYQJTKLX5446-55-68 18:40:00 Test Item Value Reference Range Interpretation Comments Basophils # (test code 0.0 See_Comment [Aut omated message] The = Basophils #) system which generated this result tra nsmitted reference range : <=0.2. The reference r tato was not used to int erpret this result as normal/abnormal . [facility] HospitalGlxuwrbVWPCCVVMLP8742-23-43 18:40:00 Test Item Value Reference Range Interpretation Comments Basophils (test code = 0.6 See_Comment [Aut omated message] The Basophils) system which ge nerated this result tra nsmitted reference range : <=1.0. The reference r tato was not used to int erpret this result as normal/abnormal . [facility] HospitalYlgsjcsHPIWAPXBKV4469-33-80 18:40:00 Test Item Value Reference Range Interpretation Comments Eosinophils (test code = 4.0 See_Comment [A utomated message] The Eosinophils) system which ge nerated this result tra nsmitted reference range : <=4.0. The reference r tato was not used to int erpret this result as normal/abnormal . [facility] HospitalMshqrefYHDLSGHJXR1761-06-51 18:40:00 Test Item Value Reference Range Interpretation Comments Eosinophils # (test code 0.2 See_Comment [A utomated message] The = Eosinophils #) system whic h generated this result tra nsmitted reference range : <=0.5. The reference r tato was not used to int erpret this result as normal/abnormal . [facility] HospitalCtpkrpmYJNVXBQWHX9668-61-61 18:40:00 Test Item Value Reference Range Interpretation Comments Monocytes # (test code 0.5 See_Comment [Aut omated message] The = Monocytes #) system which generated this result tra nsmitted reference range : <=0.8. The reference r tato was not used to int erpret this result as normal/abnormal . [facility] HospitalCovdbqzXPCYTXBNSP1877-05-48 18:40:00 Test Item Value Reference Range Interpretation Comments Monocytes (test code = Monocytes) 11.9 2.0-12.0 [facility] HospitalNvkbqksAMRRLQIMEM1930-83-18 18:40:00 Test Item Value Reference Range Interpretation Comments Segs (test code = Segs) 57.1 45.0-75.0 [facility] HospitalQxkixdqNRABNPLJZP3447-34-87 18:40:00 Test Item Value Reference Range Interpretation Comments Lymphocytes (test code = Lymphocytes) 26.4 20.0-40.0 [facility] HospitalHbobzbnBEAKHHCCSX8286-31-73 18:40:00 Test Item Value Reference Range Interpretation Comments Platelet (test code = Platelet) 135 133-450 [facility] HospitalOfhxkymRTRKYTEOUS9500-32-36 18:40:00 Test Item Value Reference Range Interpretation Comments MPV (test code = MPV) 8.6 7.4-10.4 [facility] HospitalVzkgvmqQPQJMFAHBH2434-19-77 18:40:00 Test Item Value Reference Range Interpretation Comments RDW (test code = RDW) 13.6 11.5-14.5 [facility] HospitalWjnvkidCCZXTJFCJC9620-16-33 18:40:00 Test Item Value Reference Range Interpretation Comments WBC (test code = WBC) 4.1 3.7-10.4 [facility] HospitalOqszgcvTKLBJJDCWD3333-17-89 18:40:00 Test Item Value Reference Range Interpretation Comments MCV (test code = MCV) 92.3 80.0-98.0 [facility] HospitalIihapflTGMZIMMRLL4231-89-01 18:40:00 Test Item Value Reference Range Interpretation Comments MCH (test code = MCH) 30.5 pg 27.0-31.0 [facility] HospitalLxmmdpnAHABEPCZBR8891-74-60 18:40:00 Test Item Value Reference Range Interpretation Comments Hct (test code = Hct) 35.7 36.0-48.0 [facility] HospitalNtqncqwLPLWLOKLBT5452-74-83 18:40:00 Test Item Value Reference Range Interpretation Comments RBC (test code = RBC) 3.86 4.20-5.40 [facility] HospitalLkfdqirWTFLXNKLJT6052-05-45 18:40:00 Test Item Value Reference Range Interpretation Comments Hgb (test code = Hgb) 11.8 12.0-16.0 [facility] HospitalAhuimxsTDHIXIWAHS4092-27-74 18:40:00 Test Item Value Reference Range Interpretation Comments MCHC (test code = MCHC) 33.0 32.0-36.0 [facility]
[2022-07-20 10:03] LABS: Absolute Lymphocytes (CBC) 0.4 K/uL (0.7-4.9); Hematocrit 35.1 % (36.0-45.0); Lymphocytes % 9.6 % (15.3-44.8); MCV 95.3 fL (80-100); MPV 7.1 fL (7.6-11.3); RBC Red Blood Cell Count 3.68 M/uL (3.86-4.86)
[2022-07-20 10:08] LABS: Protime INR 1.27
[2022-07-20 10:32] LABS: Albumin 3.1 g/dL (3.4-5.0); Bilirubin Direct 0.2 mg/dL (0-0.2); Bilirubin Total 0.4 mg/dL (0.2-1.0); Magnesium 1.6 mg/dL (1.6-2.4); Potassium 4.4 mmol/L (3.5-5.1); Protein, Total 7.1 g/dL (6.4-8.2)
[2022-07-20 10:33] LABS: Troponin High Sensitivity 660.5 pg/mL (<58.9)
--- NOTE | 2022-07-20 10:45 | RAD REPORT ---
EXAM DESCRIPTION: RAD - Chest Single View - 07/20/2022 10:33 am CLINICAL HISTORY: COUGH COMPARISON: Chest Single View dated 01/05/2022; Chest Single View dated 11/25/2021; Chest Single View d ated 08/01/2019; Chest Pa And Lat (2 Views) dated 06/29/2019 FINDINGS: Lines: None. Lungs: Decreased lung volumes with coarsening of the pulmonary interstitium. Pleural: No significant pleural effusions or pneumothorax. Cardiac: Similar size and configuration. Mediastinum: Within normal limits. Bones: No acute fractures. Other: None IMPRESSION: Decreased lung volumes with coarsening of the interstitium that may reflect either edema and/or pneumonia.
[2022-07-20 10:53] LABS: SARS-COV-2 RT PCR NEGATIVE (NEGATIVE)
--- NOTE | 2022-07-20 10:57 | ER ---
Nurse's Notes [facility] Name: Rosi Jordan Age: 72 yrs Sex: Female : 1950 Arrival Date: 07/20/2022 Time: 09:23 Bed 8 Private MD: Kylee Pickens Diagnosis: Chest pain, unspecified;Essential (primary) hypertension;Non ST elevation SC;Weakness;UTI/ Urinary tract infection, site not specified;Unspecified cirrhosis of liver Presentation: 07/20 09:30 Chief complaint: Patient states: Patient reports a week of urine frequency and sg5 generalized weakness. Complains of pain between shoulder blades a 6/10. Room air 02 87%. Coronavirus screen: Vaccine status: Patient reports receiving the 2nd dose of the covid vaccine. At this time, the client does not indicate any symptoms associated with coronavirus-19. Ebola Screen: No symptoms or risks identified at this time. Initial Sepsis Screen: Does the patient meet any 2 criteria? No. Patient's initial sepsis screen is negative. Does the patient have a suspected source of infection? No. Patient's initial sepsis screen is negative. Risk Assessment: Do you want to hurt yourself or someone else? Patient reports no desire to harm self or others. Onset of symptoms was July 13, 2022. 09:30 Method Of Arrival: Wheelchair sg5 09:30 Acuity: CASPER 3 sg5 Triage Assessment: 09:41 General: Appears comfortable, Behavior is calm, cooperative, appropriate for age. Pain: sg5 Complains of pain in between shoulder blades Pain currently is 6 out of 10 on a pain scale. Cardiovascular: No deficits noted. Capillary refill < 3 seconds. Respiratory: Airway is patent. : Reports urinary frequency. Historical: - Allergies: 09:41 Codeine; sg5 09:41 PENICILLINS; sg5 09:41 Sulfa (Sulfonamide Antibiotics); sg5 09:41 Vancomycin; sg5 - Home Meds: 09:41 Arimidex 1 mg Oral tab 1 tab once daily [Active]; aspirin 81 mg Oral TbEC 1 tab once sg5 daily [Active]; atorvastatin 20 mg Oral tab 1 tab once daily [Active]; azelastine 137 mcg 1 spray twice a day [Active]; cholecalciferol (vitamin D3) 5000 UNIT Oral 1 tab daily [Active]; cholestyramine (with sugar) 4 gram Oral powd 1 scoop 2 times per day [Active]; citalopram 40 mg tab 1 tab once daily [Active]; clonazepam 0.5 mg Oral tab 1 tab daily [Active]; Depakote 250 mg Oral TbEC 1 tab once daily [Active]; diazepam 5 mg Oral tab 1 tab 2 times per day [Active]; donepezil 10 mg Oral tab 1 tab once daily [Active]; fluticasone propionate 50 mcg/actuation nasal spsn 1 spray once daily [Active]; Foltx 2-1.13-25 mg Oral tab 1 tab daily [Active]; furosemide 20 mg Oral tab 1 tab 2 times per day [Active]; gabapentin 300 mg Oral cap 1 cap 3 times per day [Active]; Iron CR Oral 325 mg daily [Active]; Levaquin 500 mg Oral tab 1 tab once daily [Active]; levothyroxine 75 mcg tab 1 tab once daily [Active]; lisinopril 20 mg Oral tab 1 tab once daily [Active]; loratadine 10 mg Oral tab 1 tab once daily [Active]; meclizine 25 mg Oral tab 1 tab 3 times per day [Active]; memantine 10 mg Oral tab 1 tab daily [Active]; modafinil 200 mg Oral tab 1 tab once daily [Active]; nifedipine 90 mg Oral TbER 1 tab once daily [Active]; omeprazole 40 mg Oral cpDR 1 cap once daily [Active]; oxybutynin chloride 5 mg Oral tab 1 tab daily [Active]; prednisone 10 mg Oral tab once daily [Active]; Singulair 10 mg Oral tab 1 tab once daily [Active]; Soma 350 mg Oral tab 1 tab nightly [Active]; Symbicort 80-4.5 mcg/actuation inhalation HFAA 2 puffs 2 times per day [Active]; tramadol 50 mg Oral tab 1 tab every 6 hours [Active]; trazodone 50 mg Oral tab 1 tab nightly [Active]; trimethoprim 100 mg Oral tab 1 tab once daily [Active]; Vitamin B-12 5000 MCG Oral TbER daily [Active]; Vitamin D3 5,000 unit Oral tab daily [Active]; - PMHx: 09:41 breast cancer; Depression; GERD; Hyperlipidemia; Hypertension; Hypothyroidism; kidney sg5 disease; - PSHx: 09:41 Cholecystectomy; Tonsillectomy; sg5 - Immunization history:: Adult Immunizations up to date, Client reports receiving the 2nd dose of the Covid vaccine, Flu vaccine is not up to date. - Social history:: Smoking status: Patient denies any tobacco usage or history of. - Family history:: not pertinent. Screenin:08 [facility] ED Fall Risk Assessment (Adult) History of falling in the last 3 months, kc6 including since admission No falls in past 3 months (0 pts) Confusion or Disorientation No (0 pts) Intoxicated or Sedated No (0 pts) Impaired Gait No (0 pts) Mobility Assist Device Used No (0 pt) Altered Elimination No (0 pt) Score/Fall Risk Level 0 - 2 = Low Risk Oriented to surroundings, Maintained a safe environment, Educated pt \T\ family on fall prevention, incl call for assistance when getting out of bed, Assessed \T\ reinforced patient's understanding of fall precautions, Hourly rounding (assess needs \T\ fall precautionary measures) done. Abuse screen: Denies threats or abuse. Denies injuries from another. Nutritional screening: No deficits noted. Tuberculosis screening: No symptoms or risk factors identified. Assessment: 09:45 General: Appears in no apparent distress. comfortable, Behavior is calm, cooperative, kc6 appropriate for age. Pain: Denies pain. Neuro: Sharma Agitation-Sedation Scale (RASS): 0 - Alert and Calm Level of Consciousness is awake, alert, obeys commands, Oriented to person, place, time, situation, Appropriate for age. Cardiovascular: Capillary refill < 3 seconds. Respiratory: Airway is patent Trachea midline Respiratory effort is even, unlabored, Respiratory pattern is regular, symmetrical. GI: No signs and/or symptoms were reported involving the gastrointestinal system. : Reports urinary frequency. EENT: No signs and/or symptoms were reported regarding the EENT system. Derm: No signs and/or symptoms reported regarding the dermatologic system. Skin is intact, Skin is pink, warm \T\ dry. Musculoskeletal: Reports weakness in generalized. 10:45 Reassessment: Patient appears in no apparent distress at this time. No changes from kc6 previously documented assessment. Patient and/or family updated on plan of care and expected duration. Pain level reassessed. Patient is alert, oriented x 3, equal unlabored respirations, skin warm/dry/pink. 11:45 Reassessment: Patient appears in no apparent distress at this time. No changes from kc6 previously documented assessment. Patient and/or family updated on plan of care and expected duration. Pain level reassessed. Patient is alert, oriented x 3, equal unlabored respirations, skin warm/dry/pink. 12:45 Reassessment: Patient appears in no apparent distress at this time. No changes from kc6 previously documented assessment. Patient and/or family updated on plan of care and expected duration. Pain level reassessed. Patient is alert, oriented x 3, equal unlabored respirations, skin warm/dry/pink. 13:45 Reassessment: Patient appears in no apparent distress at this time. No changes from kc6 previously documented assessment. Patient and/or family updated on plan of care and expected duration. Pain level reassessed. Patient is alert, oriented x 3, equal unlabored respirations, skin warm/dry/pink. 14:40 Reassessment: Patient appears in no apparent distress at this time. No changes from kc6 previously documented assessment. Patient and/or family updated on plan of care and expected duration. Pain level reassessed. Patient is alert, oriented x 3, equal unlabored respirations, skin warm/dry/pink. 15:02 Reassessment: attempted to call report to second floor. Maci, RN stated she will call me kc6 back in 5min. 15:42 Reassessment: attempted to call report to second floor. stated the nurses patient just kc6 got back from a procedure and she will have to call me back. 16:12 Reassessment: 750 mL of clear, yellow urine emptied from pure-wick. kc6 Vital Signs: 09:30 BP 144 / 63; Pulse 93; Resp 18; Temp 98.2; Pulse Ox 95% on 2 lpm NC; Weight 93.44 kg; sg5 Height 5 ft. 2 in. (157.48 cm); Pain 10/31; 09:30 BP 144 / 73; Pulse 85; Resp 18 S; Pulse Ox 89% on 2 lpm NC; kc6 10:30 BP 146 / 69; Pulse 87; Resp 20 S; Pulse Ox 97% on 2 lpm NC; kc6 11:24 BP 162 / 90; Pulse 90; Resp 21 S; Pulse Ox 98% on 2 lpm NC; kc6 12:45 BP 117 / 88; Pulse 84; Resp 16 S; Pulse Ox 93% on 2 lpm NC; kc6 13:51 BP 135 / 73; Pulse 88; Pulse Ox 97% on R/A; ap3 09:30 Body Mass Index 37.68 (93.44 kg, 157.48 cm) sg5 Shweta Coma Score: 10:28 Eye Response: spontaneous(4). Verbal Response: oriented(5). Motor Response: obeys urbano commands(6). Total: 15. ED Course: 09:23 Patient arrived in ED. am2 09:23 Kylee Pickens MD is Private Physician. am2 09:23 Isiaah Cifuentes MD is Attending Physician. urbano 09:41 Triage completed. sg5 09:41 Arm band placed on left wrist. sg5 09:52 Inserted saline lock: 22 gauge in left antecubital area, using aseptic technique. Blood iw collected. 09:52 Initial lab(s) drawn, by pr, sent to lab. First set of blood cultures drawn. iw 09:52 COVID-19/FLU A+B/RSV Sent. iw 09:57 Reva Hoffman, CIRILO is Primary Nurse. kc6 10:51 Isaiah Cifuentes MD is Hospitalizing Provider. urbano 10:52 Pelon Suresh MD is Hospitalizing Provider. urbano 12:01 Urine Culture Sent. kc6 12:08 Patient has correct armband on for positive identification. Bed in low position. Call kc6 light in reach. Side rails up X2. Adult w/ patient. 16:03 No provider procedures requiring assistance completed. Patient admitted, IV remains in kc6 place. Administered Medications: 10:35 Not Given (Duplicate Order): NS 0.9% 500 ml IV at bolus once urbano 10:35 CANCELLED (Duplicate Order): NS 0.9% 500 ml IV at bolus once urbano 11:47 Drug: Lasix (furosemide) 20 mg Route: IVP; Site: left antecubital; kc6 14:44 Follow up: Response: No adverse reaction kc6 11:47 Drug: Lopressor (metoprolol TARTRATE) 50 mg Route: PO; kc6 14:44 Follow up: Response: No adverse reaction kc 11:48 Drug: NS 0.9% 1000 ml Route: IV; Rate: 125 ml/hr; Site: left antecubital; kc6 14:44 Follow up: Response: No adverse reaction; IV Status: Infusion continued upon admission kc6 11:48 Drug: Rocephin (cefTRIAXone) 1 grams Route: IV; Rate: per protocol; Site: left [facility] antecubital; 14:45 Follow up: Response: No adverse reaction; IV Status: Completed infusion; IV Intake: [id number] 11:48 Drug: Aspirin Chewable Tablet 162 mg Route: PO; kc6 14:45 Follow up: Response: No adverse reaction kc6 11:48 Drug: Pepcid (famotidine) 20 mg Route: IVP; Site: left antecubital; kc6 14:45 Follow up: Response: No adverse reaction kc6 11:48 Drug: Zithromax (azithromycin) 500 mg Route: IVPB; Infused Over: 1 hrs; Site: left [facility] antecubital; 14:44 Follow up: Response: No adverse reaction; IV Status: Completed infusion; IV Intake: kc6 250ml 12:29 Drug: Heparin (SC-Bolus No thrombolytic) - HEParin 60 units/kg {Co-Signature: vg1 kc6 (Yanet Gregory RN).} Route: IVP; Site: left antecubital; 14:45 Follow up: Response: No adverse reaction kc6 12:29 Drug: Heparin (SC Drip) 12 units/kg/hr - (HEParin 38026 units, D5W 500 ml) kc6 {Co-Signature: vg1 (Yanet Gregory RN).} Route: IV; Rate: calculated rate; Site: left antecubital; 14:44 Follow up: Response: No adverse reaction; IV Status: Infusion continued upon admission kc6 Medication: 16:04 VIS not applicable for this client. kc6 Intake: 14:44 IV: 250ml; Total: 250ml. kc6 14:45 IV: 10ml; Total: 260ml. kc6 Outcome: 10:56 Decision to Hospitalize by Provider. urbano 16:03 Admitted to Med/surg accompanied by nurse, via stretcher, room 220, with oxygen, with kc6 chart, Report called to CIRILO Lux 16:03 Condition: stable 16:18 Patient left the ED. kc6 Signatures: Isaiah Cifuentes MD MD cha Williams, Irene RN Page Gomez am2 Page Damon RN RN ap3 Reva Hoffman, RN RN kc6 Abeba Cruz, RN RN sg5 Yanet Gregory RN vg1
--- NOTE | 2022-07-20 10:57 | EDPHYS ---
Physician Documentation [facility] Name: Rosi Jordan Age: 72 yrs Sex: Female : 1950 Arrival Date: 07/20/2022 Time: 09:23 Bed 8 Private MD: Kylee Pickens ED Physician Isaiah Cifuentes HPI: 07/20 10:25 This 72 yrs old Female presents to ER via Wheelchair with complaints of urbano General Weakness. 10:25 The patient complains of pain to the top of head, forehead, left frontal area, left urbano side of the back of head, right frontal area, right side of the back of head and right occipital area. The patient describes the headache as aching. Onset: The symptoms/episode began/occurred 3 day(s) ago. The patient presents with pain that is acute, with no known mechanism of injury. The symptoms are located in the thoracic area. The pain does not radiate. The problem was sustained from unknown cause. aggarwal, upper back pain weakness. Historical: - Allergies: 09:41 Codeine; sg5 09:41 PENICILLINS; sg5 09:41 Sulfa (Sulfonamide Antibiotics); sg5 09:41 Vancomycin; sg5 - Home Meds: 09:41 Arimidex 1 mg Oral tab 1 tab once daily [Active]; aspirin 81 mg Oral TbEC 1 tab once sg5 daily [Active]; atorvastatin 20 mg Oral tab 1 tab once daily [Active]; azelastine 137 mcg 1 spray twice a day [Active]; cholecalciferol (vitamin D3) 5000 UNIT Oral 1 tab daily [Active]; cholestyramine (with sugar) 4 gram Oral powd 1 scoop 2 times per day [Active]; citalopram 40 mg tab 1 tab once daily [Active]; clonazepam 0.5 mg Oral tab 1 tab daily [Active]; Depakote 250 mg Oral TbEC 1 tab once daily [Active]; diazepam 5 mg Oral tab 1 tab 2 times per day [Active]; donepezil 10 mg Oral tab 1 tab once daily [Active]; fluticasone propionate 50 mcg/actuation nasal spsn 1 spray once daily [Active]; Foltx 2-1.13-25 mg Oral tab 1 tab daily [Active]; furosemide 20 mg Oral tab 1 tab 2 times per day [Active]; gabapentin 300 mg Oral cap 1 cap 3 times per day [Active]; Iron CR Oral 325 mg daily [Active]; Levaquin 500 mg Oral tab 1 tab once daily [Active]; levothyroxine 75 mcg tab 1 tab once daily [Active]; lisinopril 20 mg Oral tab 1 tab once daily [Active]; loratadine 10 mg Oral tab 1 tab once daily [Active]; meclizine 25 mg Oral tab 1 tab 3 times per day [Active]; memantine 10 mg Oral tab 1 tab daily [Active]; modafinil 200 mg Oral tab 1 tab once daily [Active]; nifedipine 90 mg Oral TbER 1 tab once daily [Active]; omeprazole 40 mg Oral cpDR 1 cap once daily [Active]; oxybutynin chloride 5 mg Oral tab 1 tab daily [Active]; prednisone 10 mg Oral tab once daily [Active]; Singulair 10 mg Oral tab 1 tab once daily [Active]; Soma 350 mg Oral tab 1 tab nightly [Active]; Symbicort 80-4.5 mcg/actuation inhalation HFAA 2 puffs 2 times per day [Active]; tramadol 50 mg Oral tab 1 tab every 6 hours [Active]; trazodone 50 mg Oral tab 1 tab nightly [Active]; trimethoprim 100 mg Oral tab 1 tab once daily [Active]; Vitamin B-12 5000 MCG Oral TbER daily [Active]; Vitamin D3 5,000 unit Oral tab daily [Active]; - PMHx: 09:41 breast cancer; Depression; GERD; Hyperlipidemia; Hypertension; Hypothyroidism; kidney sg5 disease; - PSHx: 09:41 Cholecystectomy; Tonsillectomy; sg5 - Immunization history:: Adult Immunizations up to date, Client reports receiving the 2nd dose of the Covid vaccine, Flu vaccine is not up to date. - Social history:: Smoking status: Patient denies any tobacco usage or history of. - Family history:: not pertinent. ROS: 10:25 Constitutional: Negative for fever, chills, and weight loss, Eyes: Negative for injury, urbano pain, redness, and discharge, ENT: Negative for injury, pain, and discharge, Neck: Negative for injury, pain, and swelling, Cardiovascular: Negative for chest pain, palpitations, and edema, Respiratory: Negative for shortness of breath, cough, wheezing, and pleuritic chest pain, Abdomen/GI: Negative for abdominal pain, nausea, vomiting, diarrhea, and constipation, : Negative for injury, bleeding, discharge, and swelling, MS/Extremity: Negative for injury and deformity, Skin: Negative for injury, rash, and discoloration, Psych: Negative for depression, anxiety, suicide ideation, homicidal ideation, and hallucinations, Allergy/Immunology: Negative for hives, rash, and allergies, Endocrine: Negative for neck swelling, polydipsia, polyuria, polyphagia, and marked weight changes. 10:25 Back: Positive for decreased range of motion, pain with movement. 10:25 Neuro: Positive for weakness. Exam: 10:25 Constitutional: This is a well developed, well nourished patient who is awake, alert, urbano and in no acute distress. Head/Face: Normocephalic, atraumatic. Eyes: Pupils equal round and reactive to light, extra-ocular motions intact. Lids and lashes normal. Conjunctiva and sclera are non-icteric and not injected. Cornea within normal limits. Periorbital areas with no swelling, redness, or edema. ENT: Nares patent. No nasal discharge, no septal abnormalities noted. Tympanic membranes are normal and external auditory canals are clear. Oropharynx with no redness, swelling, or masses, exudates, or evidence of obstruction, uvula midline. Mucous membranes moist. Neck: Trachea midline, no thyromegaly or masses palpated, and no cervical lymphadenopathy. Supple, full range of motion without nuchal rigidity, or vertebral point tenderness. No Meningismus. Chest/axilla: Normal chest wall appearance and motion. Nontender with no deformity. No lesions are appreciated. Cardiovascular: Regular rate and rhythm with a normal S1 and S2. No gallops, murmurs, or rubs. Normal PMI, no JVD. No pulse deficits. Respiratory: Lungs have equal breath sounds bilaterally, clear to auscultation and percussion. No rales, rhonchi or wheezes noted. No increased work of breathing, no retractions or nasal flaring. Abdomen/GI: Soft, non-tender, with normal bowel sounds. No distension or tympany. No guarding or rebound. No evidence of tenderness throughout. Back: No spinal tenderness. No costovertebral tenderness. Full range of motion. Skin: Warm, dry with normal turgor. Normal color with no rashes, no lesions, and no evidence of cellulitis. MS/ Extremity: Pulses equal, no cyanosis. Neurovascular intact. Full, normal range of motion. Neuro: Awake and alert, GCS 15, oriented to person, place, time, and situation. Cranial nerves II-XII grossly intact. Motor strength 5/5 in all extremities. Sensory grossly intact. Cerebellar exam normal. Normal gait. Psych: Awake, alert, with orientation to person, place and time. Behavior, mood, and affect are within normal limits. 10:25 ECG was reviewed by the Attending Physician. Vital Signs: 09:30 BP 144 / 63; Pulse 93; Resp 18; Temp 98.2; Pulse Ox 95% on 2 lpm NC; Weight 93.44 kg; sg5 Height 5 ft. 2 in. (157.48 cm); Pain 6/10; 09:30 BP 144 / 73; Pulse 85; Resp 18 S; Pulse Ox 89% on 2 lpm NC; kc6 10:30 BP 146 / 69; Pulse 87; Resp 20 S; Pulse Ox 97% on 2 lpm NC; kc6 11:24 BP 162 / 90; Pulse 90; Resp 21 S; Pulse Ox 98% on 2 lpm NC; kc6 12:45 BP 117 / 88; Pulse 84; Resp 16 S; Pulse Ox 93% on 2 lpm NC; kc6 13:51 BP 135 / 73; Pulse 88; Pulse Ox 97% on R/A; ap3 09:30 Body Mass Index 37.68 (93.44 kg, 157.48 cm) sg5 [place] Coma Score: 10:28 Eye Response: spontaneous(4). Verbal Response: oriented(5). Motor Response: obeys urbano commands(6). Total: 15. MDM: 09:24 Patient medically screened. urbano 10:28 Differential diagnosis: arthritis, Cholelithiasis Peptic Ulcer Ureterolithiasis urbano hypoglycemia, hyponatremia, meningitis, migraine, neoplasm, sinusitis, subarachnoid bleed. Differential Diagnosis altered mental status, sepsis, flu. Data reviewed: vital signs, EMS record, lab test result(s), EKG, radiologic studies, CT scan, plain films. Consideration of Admission/Observation Patient was admitted/placed on observation. Escalation of care including admission/observation considered. Test considered but Not performed: MRI: no mri brain. 07/20 09:31 Order name: Basic Metabolic Panel [facility] 07/20 09:31 Order name: CBC with Diff [facility] 07/20 09:31 Order name: LFT's [facility] 07/20 09:31 Order name: Magnesium [facility] 07/20 09:31 Order name: NT PRO-BNP [facility] 07/20 09:31 Order name: PT-INR [facility] 07/20 09:31 Order name: Troponin HS [facility] 07/20 09:31 Order name: Lipase [facility] 07/20 09:31 Order name: Blood Culture Adult (2) [facility] 07/20 09:31 Order name: Lactate w/ 2H reflex if indic. [facility] 07/20 09:31 Order name: COVID-19/FLU A+B/RSV [facility] 07/20 09:31 Order name: Urine Culture [facility] 07/20 10:04 Order name: CBC with Automated Diff; Complete Time: 10:11 [facility] 07/20 10:08 Order name: Protime (+INR); Complete Time: 10:11 [facility] 07/20 10:23 Order name: Lactate w/ 2H reflex if indic.; Complete Time: 10:34 [facility] 07/20 10:34 Order name: Basic Metabolic Panel; Complete Time: 10:34 [facility] 07/20 10:34 Order name: Liver (Hepatic) Function; Complete Time: 10:34 [facility] 07/20 10:34 Order name: Troponin High Sensitivity; Complete Time: 10:34 [facility] 07/20 10:34 Order name: NT PRO-BNP; Complete Time: 10:34 [facility] 07/20 10:34 Order name: Magnesium; Complete Time: 10:34 [facility] 07/20 10:34 Order name: Lipase; Complete Time: 10:34 [facility] 07/20 10:34 Order name: TSH [facility] 07/20 10:46 Order name: Valproic Acid (depakote) [facility] 07/20 10:54 Order name: COVID-19/FLU A+B/RSV; Complete Time: 11:00 [facility] 07/20 10:58 Order name: Thyroid Stimulating Hormone; Complete Time: 11:00 [facility] 07/20 11:17 Order name: Ptt, Activated kc6 07/20 11:50 Order name: PTT, Activated Partial Thromb; Complete Time: 12:36 [facility] 07/20 11:58 Order name: Valproic Acid (Depakene) Level; Complete Time: 12:36 [facility] 07/20 12:02 Order name: Urine Dipstick-Ancillary; Complete Time: 12:36 [facility] 07/20 12:38 Order name: AMMONIA [facility] 07/20 09:31 Order name: XRAY Chest (1 view) [facility] 07/20 09:31 Order name: EKG; Complete Time: 09:32 [facility] 07/20 09:31 Order name: Cardiac monitoring; Complete Time: 09:52 [facility] 07/20 09:31 Order name: EKG - Nurse/Tech; Complete Time: 09:52 [facility] 07/20 09:31 Order name: IV Saline Lock; Complete Time: 09:52 [facility] 07/20 09:31 Order name: Labs collected and sent; Complete Time: :52 [facility] 07/20 09:31 Order name: O2 Per Protocol; Complete Time: 09:52 [facility] 07/20 09:31 Order name: O2 Sat Monitoring; Complete Time: 09:52 [facility] 07/20 10:12 Order name: CT Head Brain wo Cont [facility] 07/20 10:12 Order name: CT Aorta for Dissection [facility] 07/20 10:45 Order name: RAD; Complete Time: 10:46 [facility] 07/20 11:09 Order name: CT; Complete Time: 11:11 [facility] 07/20 11:12 Order name: Echo w/ Doppler [facility] 07/20 11:16 Order name: CT; Complete Time: 12:36 [facility] 07/20 14:06 Order name: D-Dimer [facility] 07/20 14:08 Order name: Hemoglobin A1c [facility] 07/20 14:08 Order name: Lipid Profile [facility] 07/20 14:11 Order name: Troponin High Sensitivity [facility] 07/20 14:11 Order name: Troponin High Sensitivity [facility] 07/20 14:11 Order name: Troponin High Sensitivity [facility] 07/20 15:50 Order name: Ptt, Activated kc6 07/20 09:31 Order name: Urine Dipstick-Ancillary (obtain specimen); Complete Time: 12:02 [facility] EC:25 Rate is 92 beats/min. Rhythm is regular. QRS [place] is Normal. [place] interval is normal. QRS urbano interval is normal. QT interval is normal. No Q waves. T waves are Normal. No ST changes noted. Clinical impression: NSR w/ Non-specific ST/T Changes and No evidence of ischemia. Reviewed by me. Administered Medications: 10:35 Not Given (Duplicate Order): NS 0.9% 500 ml IV at bolus once urbano 10:35 CANCELLED (Duplicate Order): NS 0.9% 500 ml IV at bolus once urbano 11:47 Drug: Lasix (furosemide) 20 mg Route: IVP; Site: left antecubital; kc6 14:44 Follow up: Response: No adverse reaction kc6 11:47 Drug: Lopressor (metoprolol TARTRATE) 50 mg Route: PO; kc6 14:44 Follow up: Response: No adverse reaction [facility] 11:48 Drug: NS 0.9% 1000 ml Route: IV; Rate: 125 ml/hr; Site: left antecubital; kc6 14:44 Follow up: Response: No adverse reaction; IV Status: Infusion continued upon admission 6 11:48 Drug: Rocephin (cefTRIAXone) 1 grams Route: IV; Rate: per protocol; Site: left [facility] antecubital; 14:45 Follow up: Response: No adverse reaction; IV Status: Completed infusion; IV Intake: [id number] 11:48 Drug: Aspirin Chewable Tablet 162 mg Route: PO; 6 14:45 Follow up: Response: No adverse reaction 6 11:48 Drug: Pepcid (famotidine) 20 mg Route: IVP; Site: left antecubital; kc 14:45 Follow up: Response: No adverse reaction 6 11:48 Drug: Zithromax (azithromycin) 500 mg Route: IVPB; Infused Over: 1 hrs; Site: left [facility] antecubital; 14:44 Follow up: Response: No adverse reaction; IV Status: Completed infusion; IV Intake: kc6 250ml 12:29 Drug: Heparin (UT-Bolus No thrombolytic) - HEParin 60 units/kg {Co-Signature: vg1 kc6 (Yanet Gregory RN).} Route: IVP; Site: left antecubital; 14:45 Follow up: Response: No adverse reaction 6 12:29 Drug: Heparin (UT Drip) 12 units/kg/hr - (HEParin 91063 units, D5W 500 ml) kc6 {Co-Signature: vg1 (Yanet Gregory RN).} Route: IV; Rate: calculated rate; Site: left antecubital; 14:44 Follow up: Response: No adverse reaction; IV Status: Infusion continued upon admission kc6 Disposition Summary: 07/20/22 10:56 Hospitalization Ordered Hospitalization Status: Inpatient Admission urbano Provider: Pelon Suresh cha Location: Telemetry/MedSurg (Inpatient) urbano Condition: Stable urbano Problem: new urbano Symptoms: have improved urbano Bed/Room Type: Standard urbano Room Assignment: 220(07/20/22 14:48) dw Diagnosis - Chest pain, unspecified urbano - Essential (primary) hypertension urbano - Non ST elevation [place] urbano - Weakness urbano - UTI/ Urinary tract infection, site not specified urbano - Unspecified cirrhosis of liver urbano Forms: - Medication Reconciliation Form urbano - SBAR form urbano Signatures: Dispatcher [employer] Helena Braden RN RN Isaiah Mata MD MD cha Campbell, Kaitlyn RN RN kc6 Abeba Cruz RN RN sg5 Yanet Gregory RN vg1 Corrections: (The following items were deleted from the chart) 10:35 10:12 NS 0.9% 500 ml IV at bolus once ordered. urbano urbano 14:48 10:56 urbano dw
--- NOTE | 2022-07-20 11:09 | RAD REPORT ---
EXAM DESCRIPTION: CT - Head Brain Wo Cont - 07/20/2022 11:01 am CLINICAL HISTORY: HEADACHE COMPARISON: Head Brain Wo Cont dated 11/25/2021 TECHNIQUE: All CT scans are performed using dose optimization technique as appropriate and may inclu de automated exposure control or mA/KV adjustment according to patient size. FINDINGS: No intracranial hemorrhage, hydrocephalus or extra-axial fluid collection.No areas of brai n edema or evidence of midline shift. The paranasal sinuses and mastoids are clear. The calvarium is intact. IMPRESSION: No acute intracranial abnormality.
--- NOTE | 2022-07-20 11:16 | RAD REPORT ---
EXAM DESCRIPTION: CTAngio Aorta For Dissection - 07/20/2022 11:03 am CLINICAL HISTORY: ABD PAIN COMPARISON: Chest Single View dated 07/20/2022None TECHNIQUE: CTA of the chest, abdomen, and pelvis was performed with IV contrast. MIPS of the aorta w ere created. All CT scans are performed using dose optimization technique as appropriate and may include automated exposure control or mA/KV adjustment according to patient size. FINDINGS: Thorax: Chest Wall: No abnormal mass surgical clips in the right axilla. Mastectomy. Lungs: Bilateral nonspecific ground-glass and nodular airspace opacities. Pleura: No effusions or pneumothorax. Cherry/Mediastinum: No lymphadenopathy. Mild circumferential thickened distal esophagus. Aorta/Pulmonary Arteries: Unremarkable Heart: Normal size. Small pericardial effusion. Possible aortic valve calcifications. Abdomen/Pelvis: Liver: Cirrhotic liver morphology. Biliary: No biliary ductal dilatation. Stomach: Changes of gastric banding. Duodenum: No significant focal abnormality. Pancreas: No significant abnormality. Spleen: Splenomegaly. Adrenal: No suspicious lesions. Kidney/ureter: No hydronephrosis. Too small to characterize and/or benign appearing renal lesions are noted. Retroperitoneum: No retroperitoneal adenopathy. Vascular: No aneurysm. Bowel: No significant focal abnormality. Peritoneum: Small volume of ascites. Bladder: Trace bladder gas. Mild hyperdensity within the bladder may be early excretion of contrast . debris. Reproductive: No adnexal masses. Bones: No acute fracture. Multilevel degenerative changes are present in the spine. Other: n/a IMPRESSION: 1. No evidence of aortic aneurysm or dissection. 2. Scattered nodular ground-glass opacities in the lung concerning for pneumonia, including viral sowmya ologies. 3. Small nonspecific pericardial effusion. 4. Cirrhosis with evidence of portal hypertension including ascites and splenomegaly. 5. Trace bladder gas. Correlate with urinalysis to exclude cystitis.
[2022-07-20] MEDS ORDERED: METOPROLOL TAR 50 MG TAB ONE (11:26)
[2022-07-20] MEDS ORDERED: FUROSEMIDE 20 MG/ 2ML VIAL ONE (11:26)
[2022-07-20] MEDS ORDERED: NA CHLORIDE 0.9% 1,000 ML ONE (11:27)
[2022-07-20] MEDS ORDERED: FAMOTIDINE 20 MG/2 ML VIAL IV ONE (11:27)
[2022-07-20] MEDS ORDERED: NA CHLORIDE 0.9% 250 ML ONE (11:27)
[2022-07-20] MEDS ORDERED: AZITHROMYCIN 500 MG INJ IVPB ONE (11:27)
[2022-07-20] MEDS ORDERED: CEFTRIAXONE 1000 MG/VIAL ONE (11:27)
[2022-07-20] MEDS ORDERED: ASPIRIN 81 MG CHEWABLE TABLET ONE (11:27)
[2022-07-20 12:02] LABS: Urine Blood Negative (Negative); Urine Glucose Negative (Negative); Urine Protein Trace (Negative); Urine pH 5.5 (5.0-7.0)
[2022-07-20] MEDS ORDERED: HEPARIN 5000 UNIT/ML 1 ML VIAL ONE (12:21)
[2022-07-20] MEDS ORDERED: HEPARIN/D5W 25,000 UNIT/500 ML BAG IV ONE (12:22)
[2022-07-20] MEDS ORDERED: HYDROCODONE/APAP 10/325 TAB PO PRN (14:07)
[2022-07-20] MEDS ORDERED: ONDANSETRON 4 MG/2 ML VIAL IV PRN (14:32)
[2022-07-20] MEDS ORDERED: ALBUTEROL 2.5 MG/3 ML NEB SOL NEB PRN (14:32)
--- NOTE | 2022-07-20 14:36 | P.HP ---
Certification for Inpatient Patient admitted to: Inpatient With expected LOS: >2 Midnights Patient will require the following post-hospital care: None Practitioner: I am a practitioner with admitting privileges, knowledge of patient current condition, hospital course, and medical plan of care. Services: Services provided to patient in accordance with Admission requirements found in Title 42 Section 412.3 of the Code of Federal Regulations Patient History Date of Service: 07/20/22 Reason for admission: Upper back pain, weakness\mailase History of Present Illness: Patient is a 72-year-old female with a past medical history significant for depression, GERD, hyperlipidemia, hypertension, hypothyroidism, COPD, CKD who presents with complaint of generalized weakness, malaise that has ongoing for the past 3 days. Patient also reports pain in between her shoulder blades that has been ongoing intermittently for the past couple of weeks. Patient is a poor historian and unable to provide accurate history. Patient reported associated signs and symptoms of shortness of breath, cough, orthopnea, poor appetite, abdominal distention, headache and nausea. Patient denies any other signs or symptoms. Symptoms are aggravated or relieved by nothing. Patient decided to present to the hospital due to worsening symptoms. Allergies codeine Allergy (Verified 01/05/22 09:45) Rash Penicillins Allergy (Verified 01/05/22 09:45) Rash Sulfa (Sulfonamide Antibiotics) Allergy (Verified 01/05/22 09:45) Rash Home Medications: Aspirin [Ecotrin 81 MG] 81 mg PO DAILY 08/01/19 Atorvastatin Calcium [Lipitor*] 20 mg PO BEDTIME 08/01/19 Azelastine [Astelin 137MCG/Metered [place]*] 1 sprays NS BID 08/01/19 Cholecalciferol (Vitamin D3) [Vitamin D3] 5,000 unit PO DAILY 08/01/19 Cholestyramine (with Sugar) [Cholestyramine Packet] 4 gm PO DAILY 08/01/19 Citalopram Hydrobromide [Celexa] 40 mg PO DAILY 08/01/19 Divalproex [Depakote Sprinkle*] 250 mg PO BEDTIME 08/01/19 Donepezil HCl [Aricept] 10 mg PO DAILY 08/01/19 Doxycycline Hyclate 100 mg PO Q12H 08/01/19 Ferrous Sulfate [Ferrous Sulfate*] 325 mg PO DAILY 08/01/19 Gabapentin 300 mg PO DAILY 08/01/19 Gabapentin 600 mg PO BEDTIME 08/01/19 Levothyroxine Sodium [Synthroid] 75 mcg PO DAILY 08/01/19 Lisinopril [Zestril] 20 mg PO DAILY 08/01/19 Memantine HCl [Namenda] 10 mg PO DAILY 08/01/19 Omeprazole [Prilosec] 40 mg PO BEDTIME 08/01/19 Trazodone [Desyrel*] 50 mg PO BEDTIME 08/01/19 Nifedipine [Procardia Xl] 90 mg PO BEDTIME 08/02/19 Montelukast Sodium [Singulair] 10 mg PO BEDTIME 08/03/19 Trimethoprim 100 mg PO DAILY 08/03/19 oxyBUTYnin chloride [Ditropan*] 5 mg PO DAILY 08/03/19 Ertapenem Sodium [Ertapenem] 1 gr IV DAILY 01/05/22 - Past Medical/Surgical History Diabetic: No -: Depression -: GERD -: Hyperlipidemia -: Hypertension -: Hypothyroidism -: Dementia -: Chronic renal disease -: Recurrent UTI -: Breast cancer status post bilateral mastectomy -: Hand surgery -: Lap band -: Foot surgery -: Back surgery -: Bilateral mastectomy -: Cholecystectomy -: Tubal ligation Psychosocial/ Personal History: She is a . She has 3 children. 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 - Family History Mother -: Diabetes Father -: Heart disease, Other (see notes) Brother -: Heart disease Sister -: Other (see notes) Notes: lupous - Social History Smoking Status: Never smoker Alcohol use: No CD- Drugs: No Caffeine use: Yes Place of Residence: Home Review of Systems General: Weakness, Malaise, Other (Poor appetite ) Eyes: Unremarkable ENT: Unremarkable Respiratory: Cough, Shortness of Breath Cardiovascular: Orthopnea Gastrointestinal: Nausea, Distention Genitourinary: Unremarkable Musculoskeletal: Back Pain Integumentary: Unremarkable Neurological: Weakness, Other (headache ) Lymphatics: Unremarkable Physical Examination - Physical Exam General: Alert, Oriented x3, Cooperative, Mild distress HEENT: Atraumatic, PERRLA, Mucous membr. moist/pink, EOMI, Sclerae nonicteric Neck: Supple, 2+ carotid pulse no bruit, No LAD, Without JVD or thyroid abnormality Respiratory: Diminished Cardiovascular: Normal pulses, Regular rate/rhythm, No murmurs Capillary refill: <2 Seconds Gastrointestinal: Normal bowel sounds, No tenderness, Distended Musculoskeletal: No clubbing, No swelling, No contractures, No tenderness Integumentary: No rashes, No breakdown, No significant lesion Neurological: Normal speech, Normal tone, Normal affect Lymphatics: No axilla or inguinal lymphadenopathy - Studies Laboratory Data (last 24 hrs) 07/20/22 11:28: APTT 31.7 07/20/22 09:45: PT 14.0 H, INR 1.27 07/20/22 09:45: WBC 3.80 L, Hgb 11.4 L, Hct 35.1 L, Plt Count 140 L 07/20/22 09:45: Sodium 130 L, Potassium 4.4, BUN 13, Creatinine 0.95, Glucose 159 H, Magnesium 1.6, Total Bilirubin 0.4, AST 10 L, ALT 12 L, Alkaline Phosphatase 69, Lipase 12 L Assessment and Plan - Plan --Pneumonia. Noted on imaging. Blood cultures pending. Continue antibiotics, neb treatment with Atrovent\albuterol and O2 therapy. --ACS. Troponin elevated. Troponins trending up. Patient placed on heparin drip. Cardiology consulted. Echocardiogram pending to assess LV\valvular funct ions and wall motion. We will await further recommendation from clinical admissions manager. --Decompensated liver cirrhosis. With portal hypertension and small volume ascites. Gastroenterology consulted. Will await further recommendations. --Elevated BNP. BNP at . Suspect CHF. Patient placed on diuresis with Lasix. Daily weight and strict I\O. Echocardiogram pending for further assessment. Further management per clinical admissions manager. --CKD 2. Stable. We will continue to monitor renal functions. --JULES. Continue ferrous sulfate --History of breast cancer. Status post mastectomy. Present status unknown. Continue supportive care. --Elevated D-dimer. CTA chest does not indicate any PE. Continue heparin drip. --Small pericardial effusion. Noted on CT scan. Echocardiogram for further evaluation. Continue supportive care. --UTI POA. Continue antibiotics. Urine cultures pending. --Hyperlipidemia. Continue statin. --Hypothyroidism. Continue Synthroid. --Dementia. Continue home medications. --Anxiety Disorder\depression. Continue home medications --Peripheral neuropathy. Continue home medication. --GERD. Continue home medication. --Hypertension. Poorly controlled. Continue home medications and labetalol as needed. --Class II obesity. Likely secondary to excess calories intake. Patient counseled on weight reduction, diet and excise therapy. --DVT prophylaxis with heparin drip. Discharge Plan: Home Plan to discharge in: Greater than 2 days - Advance Directives Does patient have a Living Will: Yes Does patient have a Durable POA for Healthcare: Yes - Code Status/Comfort Care Code Status Assessed: Yes Physician Review: Patient Assessed, Agree with Above Assessment and Plan Critical Care: No
[2022-07-20] MEDS ORDERED: HEPARIN/D5W 25,000 UNIT/500 ML BAG IV PRN (15:00)
[2022-07-20 16:49] LABS: Magnesium 1.6 mg/dL (1.6-2.4); Phosphorus 4.3 mg/dL (2.5-4.9); Thyroid Stimulating Hormone 1.71 uIU/mL (0.358-3.740)
[2022-07-20] MEDS: FUROSEMIDE 40 MG/4 ML VIAL IV SCH (18:20)
--- NOTE | 2022-07-20 18:49 | EKG ---
Test Date: 2022-07-20 Test Time: 09:45:59 Carton Filler: JOSE ALEJANDRO MEASUREMENT RESULTS: Intervals: Rate: 92 MO: 144 QRSD: 86 QT: 360 QTc: 445 Everson: P: 59 MO: 144 QRS: -19 T: 55 INTERPRETIVE STATEMENTS: Normal sinus rhythm Normal ECG Compared to ECG 11/25/2021 15:21:05 No significant changes Electronically Signed On 07-20-22 18:43:36 SURFACER by Rohit Perez
[2022-07-20 19:51] VITALS: BMI 37.6
[2022-07-20] MEDS: ACETAMINOPHEN 325 MG TABLET PO PRN (19:55)
[2022-07-20] MEDS ORDERED: LABETALOL 20 MG/4ML SYRINGE IV PRN (22:21)
--- NOTE | 2022-07-20 22:23 | RAD REPORT ---
EXAM DESCRIPTION: US - Extrem Venous W Compress Arash - 07/20/2022 10:12 pm CLINICAL HISTORY: Elevated D-dimer COMPARISON: None. TECHNIQUE: Real-time sonographic evaluation of the bilateral lower extremity deep venous systems was performed. FINDINGS: Normal compressibility, flow augmentation, phasic flow and spontaneous flow is identified in both the left and right lower extremity deep venous systems. No intraluminal filling defects seen. IMPRESSION: No DVT in either lower extremity.
[2022-07-21] MEDS: ALBUTEROL 2.5 MG/3 ML NEB SOL NEB SCH ×3 (02:00→14:00)
[2022-07-21] MEDS: IPRATROPIUM BROM 0.5MG/2.5ML NEB SCH ×3 (02:00→14:00)
--- NOTE | 2022-07-21 02:14 | CON ---
Date of Consultation: 07/20/2022 Reason For Consultation: Elevated troponin. History Of Present Illness: This is a 72-year-old female who comes into the hospital complaining of generalized weakness, but she has been having pain in between her shoulder blade that comes and goes along with shortness of breath. Denies having any history of cardiac disease. She follows up with a foot specialist for general checkup on a regular basis. No chest pain. Past Medical History: Breast cancer, dyslipidemia, hypertension, hypothyroidism, and chronic kidney disease. Medications: Refer reconciliation sheet for detailed list. Allergies: CODEINE, PENICILLIN, SULFA. Family History: No premature coronary artery disease or cancer. Social History: She does not smoke or drink. Does not use any drugs. Review of Systems: All systems reviewed, they were negative except as mentioned in HPI. Physical Examination: Vital Signs: Reviewed. Head and Neck: Pupils are equal, reactive to light. Intact eye movements. No JVD. No cervical lym phadenopathy. Neck is supple. Thyroid is not enlarged. Lungs: Clear to auscultation bilaterally. No rhonchi, wheezing, or crackles. No accessory muscle u se. Heart: Regular rate and rhythm. No extra sounds. Abdomen: Soft, nontender. Bowel sounds positive. No organomegaly. No masses or hernia. No rigidi ty or rebound. Extremities: No clubbing or cyanosis. Intact pulses. Skin: No rash. Neurologic: Alert, awake, oriented x3. No acute focal deficits appreciated. Investigations: Hemoglobin 11.4, and BUN 13, creatinine 0.95. Troponin is 660. NT-proBNP is 19,847 . Assessment And Recommendations: 1.Elevated troponin with pain in between her shoulder blades. This could be [id number] myocar dial infarction. Load with the aspirin 325 and then 81 mg daily. Also started on IV heparin drip. To keep n.p.o. past midnight for coronary angiogram tomorrow morning and trend troponin and please ob tain an echo. 2.Congestive heart failure with exacerbation. Agree with IV Lasix. Carefully monitor BUN, creatini ne, electrolytes. 3.Elevated D-dimer. PE also is a possibility. Continue IV heparin for now and we will plan for preet ging testing tomorrow with a CT angiogram. SR/MODL Voice ID: [id number] Report ID: [id number]
[2022-07-21] MEDS ORDERED: LIDOCAINE 1% 20 ML MDV ONE (06:23)
[2022-07-21] MEDS ORDERED: HEPA 1000U/500MLS 2,000 UNIT/1,000 ML BAG IV ONE (06:23)
[2022-07-21] MEDS ORDERED: FENTANYL CITR 100 MCG/2 ML ONE (06:25)
[2022-07-21] MEDS ORDERED: MIDAZOLAM HCL 2 MG/2 ML INJ ONE (06:25)
[2022-07-21] MEDS ORDERED: NITROGLYCERIN 100 MCG/ML SYR (for cath lab use only) IV ONE (06:26)
[2022-07-21] MEDS ORDERED: NITROGLYCERIN/D5W 25 MG/250 ML BTL IV ONE (06:26)
[2022-07-21] MEDS ORDERED: VERAPAMIL HCL 10 MG/4 ML VIAL IV ONE (06:26)
[2022-07-21] MEDS ORDERED: ATROPINE SULF 1 MG/10 ML SYR IV ONE (06:26)
[2022-07-21 06:45] LABS: Absolute Lymphocytes (CBC) 0.5 K/uL (0.7-4.9); MCV 94.3 fL (80-100); MPV 7.3 fL (7.6-11.3); RBC Red Blood Cell Count 3.49 M/uL (3.86-4.86)
[2022-07-21] MEDS ORDERED: HEPARIN 5000 UNIT/ML 1 ML VIAL ONE (06:47)
[2022-07-21] MEDS ORDERED: HEPARIN 10,000 UNIT/10 ML VIAL IV ONE (06:48)
[2022-07-21] MEDS ORDERED: NA CHLORIDE 0.9% 500 ML ONE (06:48)
[2022-07-21] MEDS ORDERED: ONDANSETRON 4 MG/2 ML VIAL ONE (06:54)
[2022-07-21 06:57] LABS: Potassium 4.1 mmol/L (3.5-5.1)
[2022-07-21] MEDS ORDERED: HYDRALAZINE HCL 20 MG/ML VIAL ONE (07:34)
[2022-07-21] MEDS ORDERED: METOPROLOL TARTRATE 5 MG/5 ML INJ IV ONE (07:35)
[2022-07-21] MEDS ORDERED: AZITHROMYCIN IV 500 MG in NA CHLORIDE 0.9% 250 ML IVPB SCH (09:00)
[2022-07-21] MEDS ORDERED: CEFTRIAXONE 1,000 MG in NA CHLORIDE 0.9% 50 ML IVPB SCH (09:00)
[2022-07-21] MEDS ORDERED: ASPIRIN 81 MG CHEWABLE TABLET PO SCH (09:00)
[2022-07-21] MEDS: FUROSEMIDE 40 MG/4 ML VIAL IV SCH ×2 (10:00→16:25)
--- NOTE | 2022-07-21 12:56 | OP ---
Date of Procedure: 07/21/2022 Surgeon: NICK CAPONE Procedure Performed: Selective coronary angiogram. Indication: Non-ST elevation myocardial infarction. Access: Right femoral artery 6-Armenian closed with 6-Armenian Angio-Seal. Complications: None. Bleeding: Less than 10 mL. Anesthesia: Total sedation time was 30 minutes. Used fentanyl and Versed. Description Of Procedure: After risks, benefits, alternatives were explained, the patient agreed to the procedure and signed informed consent. The patient was brought into the cardiac catheterization laboratory, prepped and draped in the usual sterile fashion. Then, I accessed right femoral artery u sing micropuncture kit, fluoroscopy, and ultrasound guidance, placed a 6-Armenian Slender sheath and to ok a 6-Armenian JL4 catheter into the aortic root, engaged left main and took standard views and exchan ged for a 6-Armenian JR4 catheter, engaged RCA and took standard views. Then, the catheter removed, sh eath was removed, and placed 6-Armenian Angio-Seal for closure with good hemostasis. Findings: 1.Left main; large and normal. 2.LAD; large with mid 40% focal, otherwise normal. 3.Left circumflex; moderate size with luminal irregularities. 4.RCA; large vessel, dominant with mid 30% stenosis. Conclusion: Mild nonobstructive coronary artery disease. Recommendation: Medical management. SR/MODL Voice ID: [id number] Report ID: [id number]
--- NOTE | 2022-07-21 13:24 | RAD REPORT ---
EXAM DESCRIPTION: CT - Chest For Pe Angio - 07/21/2022 1:09 pm CLINICAL HISTORY: Chest pain COMPARISON: None. TECHNIQUE: Dynamically enhanced axial 3 mm thick images of the chest were obtained during administra tion of 100 mL Isovue 370 IV contrast. Coronal and oblique reconstruction images were generated and r eviewed. Exam utilizes a protocol for optimal evaluation of pulmonary arterial tree. Maximum intensity projections 3D imaging was utilized All CT scans are performed using dose optimization technique as appropriate and may include automated exposure control or mA/KV adjustment according to patient size. FINDINGS: A pulmonary embolus is not seen. A thoracic aortic aneurysm is not noted. A small left pleural effusion. A small to moderate pericardial effusion is present Mild to moderate bilateral patchy lung opacities Cardiomegaly IMPRESSION: Negative for a pulmonary embolism. Small to moderate pericardial effusion Mild to moderate bilateral patchy lung opacities probably pulmonary edema. Pneumonia is a another con sideration
--- NOTE | 2022-07-21 14:44 | ECHO ---
HEIGHT: 5 ft 2 in WEIGHT: 205 lb 15.999 oz DATE OF STUDY: 07/21/[address]: Isaiah Cifuentes MD 2-DIMENSIONAL: YES M.MODE: YES DOPPLER: YES COLOR FLOW: YES TDS: PORTABLE: YES DEFINITY: BUBBLE STUDY: DIAGNOSIS: YES CARDIAC HISTORY: CATHERIZATION: YES SURGERY: NO PROSTHETIC VALVE: NO PACEMAKER: NO MEASUREMENTS (cm) DIASTOLIC (NORMALS) SYSTOLIC (NORMALS) IVSd 1.1 (0.6-1.2) LA Diam 4.1 (1.9-4.0) LVEF 67% LVIDd 5.2 (3.5-5.7) LVIDs 3.3 (2.0-3.5) %FS 37% LVPWd 1.1 (0.6-1.2) Ao Diam 2.6 (2.0-3.7) 2 DIMENSIONAL ASSESSMENT: RIGHT ATRIUM: NORMAL LEFT ATRIUM: ENLARGED RIGHT VENTRICLE: NORMAL LEFT VENTRICLE: NORMAL TRICUSPID VALVE: NORMAL MITRAL VALVE: MILD MITRAL REGURGITATION PULMONIC VALVE: NORMAL AORTIC VALVE: CALCIFIED AORTIC VALVE, NO AORTIC STENOSIS PERICARDIAL EFFUSION: NONE AORTIC ROOT: NORMAL LEFT VENTRICULAR WALL MOTION: NORMAL DOPPLER/COLOR FLOW: SEE BELOW COMMENTS: 1. NORMAL LEFT VENTRICULAR EJECTION FRACTION 60-65% 2. NORMAL WALL MOTION 3. LEFT ATRIAL ENLARGEMENT 4. MILD MITRAL REGURGITATION 5. GRADE I DIASTOLIC DYSFUNCTION 6. TRACE PERICARDIAL EFFUSION TECHNOLOGIST: EDWIN YEH
[2022-07-21] MEDS ORDERED: ALBUTEROL 2.5 MG/3 ML NEB SOL NEB PRN (15:09)
[2022-07-21] MEDS ORDERED: IPRATROPIUM BROM 0.5MG/2.5ML NEB PRN (15:10)
[2022-07-21] MEDS: CHOLESTYRAMINE/ASP 4 GM/PKT PO SCH (16:25)
[2022-07-21] MEDS: TRAMADOL HCL 50 MG TAB PO PRN (17:40)
--- NOTE | 2022-07-21 18:47 | PN ---
Date of Progress Note: 07/21/2022 Subjective: Seen by bedside. Status post coronary angiogram today, no significant coronary artery d isease was found. Review of Systems: No active chest pain, shortness of breath, orthopnea, cough, nausea, vomiting, diarrhea. All other s ystems reviewed and they were negative. Physical Examination: Vital Signs: Reviewed. Head and Neck: Pupils are equal, reactive to light. Intact eye movements. No JVD. No cervical lym phadenopathy. Neck is supple. Thyroid is not enlarged. Lungs: Clear to auscultation bilaterally. No rhonchi, wheezing, or crackles. No accessory muscle u se. Heart: Regular rate and rhythm. No extra sounds. Abdomen: Soft, nontender. Bowel sounds positive. No organomegaly. No masses or hernia. No rigidi ty or rebound. Extremities: No clubbing or cyanosis. Trace edema. Neurologic: Alert, awake, oriented x3. No acute focal deficits appreciated. Investigations: On echocardiogram, she has a trace pericardial effusion and she has normal ejection fraction. Assessment And Recommendations: 1.Chest pain. Coronary angiogram is negative for severe coronary artery disease. She has mild nono bstructive disease. Does not explain her symptoms and her CTA for PE protocol was negative. She has a trace pericardial effusion on echo, so probably a mild case of perimyocarditis, I recommend to use colchicine for 2 weeks and reassess. 2.Elevated NT-proBNP. She has diastolic heart failure. She will benefit from diuresis. Recommend to continue Lasix. Monitor BUN, creatinine, electrolytes. Cardiology will sign off on the case and she can follow up on outpatient b asis. SR/MODL Voice ID: [id number] Report ID: [id number]
--- NOTE | 2022-07-21 18:48 | P.PN ---
Subjective Date of Service: 07/21/22 Chief Complaint: Upper back pain, weakness\\mailase No acute events overnight. She underwent LHC this morning, which was without obstructing lesions per Dr. Perez. She reports that her back pain is mildly improved. She reports orthopnea. She denies any chest pain or palpitations. Review of Systems 10-point ROS is otherwise unremarkable Cardiovascular: Orthopnea, Edema Musculoskeletal: Back Pain Physical Examination - Vital Signs Temperature: 98.1 F Blood Pressure: 166/75 Pulse: 89 Respirations: 18 Pulse Ox (%): 93 - Physical Exam General: Alert, In no apparent distress, Oriented x3 HEENT: Atraumatic, EOMI, Sclerae nonicteric Neck: JVD distended (minimal) Respiratory: Diminished, Crackles/rales (bibasilar) Cardiovascular: Regular rate/rhythm, Normal S1 S2, No gallops, No rubs, No murmurs, Edema (1-2+ BLE) Gastrointestinal: Normal bowel sounds, Soft and benign, Non-distended, No tenderness, No rebound, No guarding Musculoskeletal: No clubbing Integumentary: No rashes Neurological: Normal speech, Normal affect Assessment And Plan - Plan # Acute on Chronic Decompensated Diastolic Congestive Heart Failure with Preserved Ejection Fraction # Trace Pericardial Effusion - Consult Cardiology and spoke with Dr. Perez - recommendations appreciated - Transthoracic echocardiogram = "1. normal left ventricular ejection fraction 60-65% 2. normal wall motion 3. left atrial enlargement 4. mild mitral regurgitation 5. grade I diastolic dysfunction 6. trace pericardial effusion" - Diuresis with IV furosemide - Continue home lisinopril - Daily weights - Strict I/O - Cardiac diet, 1.5 L fluid restriction, 2 g Na restriction # Suspect Type II Non-ST Segment Elevation (Demand Ischemia) secondary to above # Hypertension # Hyperlipidemia # Elevated D-Dimer - Evaluation thus far: - EKG: without STEMI criteria, trend - Serial troponin: 660.5 -> 623.3 -> 686.6 - D-Dimer: 1508 - Bilateral lower Extremity Doppler = "no DVT in either lower extremity." - CT chest angiogram = "negative for a pulmonary embolism. Small to moderate pericardial effusion Mild to moderate bilateral patchy lung opacities probably pulmonary edema. Pneumonia is a another consideration" - Transthoracic echocardiogram = "1. normal left ventricular ejection fraction 60-65% 2. normal wall motion 3. left atrial enlargement 4. mild mitral regurgitation 5. grade I diastolic dysfunction 6. trace pericardial effusion" - Chest x-ray = "decreased lung volumes with coarsening of the interstitium that may reflect either edema and/or pneumonia." - CT dissection protocol = "1. No evidence of aortic aneurysm or dissection. 2. Scattered nodular ground-glass opacities in the lung concerning for pneumonia, including viral etiologies. 3. Small nonspecific pericardial effusion. 4. Cirrhosis with evidence of portal hypertension including ascites and splenomegaly. 5. Trace bladder gas. Correlate with urinalysis to exclude cystitis." - Management plan: - Consult Cardiology and spoke with Dr. 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 Barnhart - recommendtions a ppreciated - Recommended starting furosemide + spironolactone - Continue home cholestyramine, pantoprazole # Hypothyroidism - Continue home levothyroxine # Anxiety with Depression - Continue home citalopram, divalproex # Mild Dementia - Continue home donepezil, memantine # History of Breast Cancer s/p Mastectomy - Continue home anastrazole - Follow-up with Oncology as previously scheduled # Peripheral Neuropathy - Continue home gabapentin # Urinary Incontinence - Continue home oxybutynin Pelon Suresh M.D.
[2022-07-21] MEDS: GABAPENTIN 300 MG CAP PO SCH (20:56)
[2022-07-21] MEDS: ATORVASTATIN 20 MG TAB PO SCH (20:56)
[2022-07-21] MEDS: DIVALPROEX NA 125 MG CAP PO SCH (20:56)
[2022-07-21] MEDS: SPIRONOLACTONE 25 MG TABLET PO SCH (20:56)
[2022-07-21] MEDS: oxyBUTYnin chloride 5 MG TAB PO SCH (20:57)
[2022-07-21] MEDS: TRAZODONE 50 MG TABLET PO PRN (22:00)
[2022-07-22] MEDS: TRAMADOL HCL 50 MG TAB PO PRN (05:29)
[2022-07-22 06:58] LABS: Absolute Lymphocytes (CBC) 0.5 K/uL (0.7-4.9); Lymphocytes % 15.3 % (15.3-44.8); MCV 94.9 fL (80-100); MPV 7.1 fL (7.6-11.3); RBC Red Blood Cell Count 3.58 M/uL (3.86-4.86)
[2022-07-22 07:21] LABS: Magnesium 1.7 mg/dL (1.6-2.4); Potassium 4.4 mmol/L (3.5-5.1)
[2022-07-22] MEDS: CHOLESTYRAMINE/ASP 4 GM/PKT PO SCH (07:37)
--- NOTE | 2022-07-22 08:52 | P.CNS ---
Date of Consult: 07/22/22 Chief Complaint: Upper back pain, weakness\mailase History of Present Illness: Patient is a 72-year-old female with a past medical history significant for depression, GERD, hyperlipidemia, hypertension, hypothyroidism, COPD, CKD who presents with complaint of generalized weakness, malaise that has ongoing for the past 3 days. Patient also reports pain in between her shoulder blades that has been ongoing intermittently for the past couple of weeks. Patient is a poor historian and unable to provide accurate history. Patient reported associated signs and symptoms of shortness of breath, cough, orthopnea, poor appetite, abdominal distention, headache and nausea. Patient denies any other signs or symptoms. Symptoms are aggravated or relieved by nothing. 07/20 UC indicates ESBL Klebsiella pneumoniae, and ID has been consulted for further IV antibiotics recommendations and management Allergies codeine Allergy (Verified 01/05/22 09:45) Rash Penicillins Allergy (Verified 01/05/22 09:45) Rash Sulfa (Sulfonamide Antibiotics) Allergy (Verified 01/05/22 09:45) Rash Home Medications: Aspirin [Ecotrin 81 MG] 81 mg PO DAILY 08/01/19 Atorvastatin Calcium [Lipitor*] 20 mg PO BEDTIME 08/01/19 Cholecalciferol (Vitamin D3) [Vitamin D3] 5,000 unit PO DAILY 08/01/19 Cholestyramine (with Sugar) [Cholestyramine Packet] 2 packet PO DAILY 08/01/19 Citalopram Hydrobromide [Celexa] 40 mg PO DAILY 08/01/19 Divalproex [Depakote Sprinkle*] 250 mg PO BEDTIME 08/01/19 Donepezil HCl [Aricept] 10 mg PO BEDTIME 08/01/19 Ferrous Sulfate [Ferrous Sulfate*] 325 mg PO TID 08/01/19 Gabapentin 300 mg PO DAILY 08/01/19 Gabapentin 600 mg PO BEDTIME 08/01/19 Levothyroxine Sodium [Synthroid] 75 mcg PO DAILY 08/01/19 Memantine HCl [Namenda] 10 mg PO BID 08/01/19 Trazodone [Desyrel*] 50 mg PO BEDTIME 08/01/19 Nifedipine [Procardia Xl] 90 mg PO BEDTIME 08/02/19 Trimethoprim 100 mg PO DAILY 08/03/19 oxyBUTYnin chloride [Ditropan*] 10 mg PO BID 08/03/19 Anastrozole [Arimidex] 1 mg PO BEDTIME 07/22/22 Furosemide [Lasix] 20 mg PO DAILYPRN PRN 07/22/22 Loratadine [Claritin] 10 mg PO DAILY 07/22/22 Nitrofuran Macro [Macrobid] 100 mg PO BID 07/22/22 Pantoprazole [Protonix Tab] 40 mg PO ACB 07/22/22 lisinopriL [Lisinopril] 10 mg PO DAILY 07/22/22 - Past Medical/Surgical History Diabetic: No -: Depression -: GERD -: Hyperlipidemia -: Hypertension -: Hypothyroidism -: Dementia -: Chronic renal disease -: Recurrent UTI -: Breast cancer status post bilateral mastectomy -: Hand surgery -: Lap band -: Foot surgery -: Back surgery -: Bilateral mastectomy -: Cholecystectomy -: Tubal ligation Psychosocial/ Personal History: She is a . She has 3 children. 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 - Family History Mother Medical History: Diabetes Father Medical History: Heart disease, Other (see notes) Brother Medical History: Heart disease Sister Medical History: Other (see notes) Notes: lupous - Social History Alcohol use: No CD- Drugs: No Caffeine use: Yes Place of Residence: Home Review of Systems 10-point ROS is otherwise unremarkable Gastrointestinal: Diarrhea (baseline, per patient) Genitourinary: Dysuria, Frequency, As per HPI Physical Examination Temp Pulse Resp BP Pulse Ox 98.3 F 79 18 116/65 91 07/22/22 04:00 07/22/22 04:00 07/22/22 04:00 07/22/22 04:00 07/22/22 04:00 General: Alert, In no apparent distress, Oriented x3 Respiratory: Clear to auscultation bilaterally Cardiovascular: No edema, Normal S1 S2 Gastrointestinal: Normal bowel sounds Musculoskeletal: No swelling, No tenderness Integumentary: No rashes, No breakdown Neurological: Normal speech, Normal tone, Sensation intact, Normal affect current medications Acetaminophen (Acetaminophen 325 Mg Tablet) 650 mg PO Q6H PRN PRN Reason: TEMP > 100.4' F Last Admin: 07/20/22 19:55 Dose: 650 mg Albuterol Sulfate (Albuterol 2.5 Mg/3 Ml Neb Hollie) 2.5 mg NEB [id number] PRN PRN Reason: WHEEZING Anastrozole (Anastrozole 1 Mg Tab) 1 mg PO DAILY [facility] Stop: 08/19/22 09:01 Aspirin (Aspirin Ec 81 Mg Tab) 81 mg PO DAILY [facility] Atorvastatin Calcium (Atorvastatin 20 Mg Tab) 20 mg PO BEDTIME [facility] Last Admin: 07/21/22 20:56 Dose: 20 mg Cholestyramine Resin (Cholestyramine/Asp 4 Gm/Pkt) 4 gm PO DAILY WITH BREAKFAST [facility] Last Admin: 07/22/22 07:37 Dose: 4 gm Citalopram Hydrobromide (Citalopram 10 Mg Tablet) 40 mg PO DAILY [facility] Divalproex Sodium (Divalproex Na 125 Mg Cap) 250 mg PO BEDTIME [facility] Last Admin: 07/21/22 20:56 Dose: 250 mg Donepezil HCl (Donepezil Hcl 5 Mg Tab) 10 mg PO DAILY [facility] Enoxaparin Sodium (Enoxaparin 40 Mg/0.4 Ml) 40 mg SQ DAILY [facility] Ferrous Sulfate (Ferrous Sulfate 325 Mg Tab) 325 mg PO DAILY [facility] Furosemide (Furosemide 40 Mg/4 Ml Vial) 40 mg IV BIDL [facility] Last Admin: 07/21/22 16:25 Dose: 40 mg Gabapentin (Gabapentin 300 Mg Cap) 300 mg PO TID [facility] Last Admin: 07/21/22 20:56 Dose: 300 mg Meropenem 1,000 mg/ Sodium (Chloride) 100 mls @ 200 mls/hr IV Q8HR [facility] Ipratropium [place] (Ipratropium Brom 0.5mg/2.5ml) 0.5 mg NEB [id number] PRN PRN Reason: WHEEZING Labetalol HCl (Labetalol 20 Mg/4ml Syringe) 10 mg IV Q6H PRN PRN Reason: sbp Levothyroxine Sodium (Levothyroxine Sod 0.075 Mg Tab) 0.075 mg PO ACB [facility] Lisinopril (Lisinopril 10 Mg Tab) 10 mg PO DAILY [facility] Memantine (Memantine Hcl 10 Mg Tablet) 10 mg PO DAILY [facility] Ondansetron HCl (Ondansetron 4 Mg/2 Ml Vial) 4 mg IV Q6HP PRN PRN Reason: NAUSEA / VOMITING Oxybutynin Chloride (Oxybutynin Chloride 5 Mg Tab) 10 mg PO BID [facility] Last Admin: 07/21/22 20:57 Dose: 10 mg Sodium Chloride (Flush Normal Saline 10 Ml) 10 ml IV BID [facility] Last Admin: 07/21/22 21:00 Dose: 10 ml Spironolactone (Spironolactone 25 Mg Tablet) 25 mg PO DAILY [facility] Last Admin: 07/21/22 20:56 Dose: 25 mg Tramadol HCl (Tramadol Hcl 50 Mg Tab) 50 mg PO Q6H PRN PRN Reason: Pain scale 5-7 (Moderate) Last Admin: 07/22/22 05:29 Dose: 50 mg Trazodone HCl (Trazodone 50 Mg Tablet) 50 mg PO BEDTIME PRN PRN Reason: INSOMNIA Last Admin: 07/21/22 22:00 Dose: 50 mg Microbiology 07/20/22 11:59 Clean Catch Urine [place] Count - Final >100,000 CFU/ML. 07/20/22 11:59 Clean Catch Urine - Final Klebsiella Pneumoniae Esbl 07/20/22 10:05 Blood - Blood Aerobic Blood Culture - Preliminary No growth in 24 hours. 07/20/22 10:05 Blood - Blood Anaerobic Blood Culture - Preliminary No growth in 24 hours. 07/20/22 09:45 Blood - Blood Aerobic Blood Culture - Preliminary No growth in 24 hours. 07/20/22 09:45 Blood - Blood Anaerobic Blood Culture - Preliminary No growth in 24 hours. Imagings Data: US - Extrem Venous W Compress Arash - 07/20/2022 IMPRESSION: No DVT in either lower extremity. RAD - Chest Single View - 07/20/2022 IMPRESSION: Decreased lung volumes with coarsening of the interstitium that may reflect either edema and/or pneumonia CT Angio Aorta For Dissection - 07/20/2022 IMPRESSION: 1. No evidence of aortic aneurysm or dissection. 2. Scattered nodular ground-glass opacities in the lung concerning for pneumonia, including viral etiologies. 3. Small nonspecific pericardial effusion. 4. Cirrhosis with evidence of portal hypertension including ascites and splenomegaly. 5. Trace bladder gas. Correlate with urinalysis to exclude cystitis CT - Head Brain Wo Cont - 07/20/2022 IMPRESSION: No acute intracranial abnormality CT - Chest For Pe Angio - 07/21/2022 IMPRESSION: Negative for a pulmonary embolism. Small to moderate pericardial effusion Mild to moderate bilateral patchy lung opacities probably pulmonary edema. Pneumonia is a another consideration - Problems (1) UTI (urinary tract infection) Plan: Cultures: - 07/20: UC: ESBL K. pneumoniae, Susceptible Gentamycin, Tobramycin, Zosyn, and Meropenem - 07/20 BC: Negative Antibiotics: - Had IV Azithromycin and Ceftriaxone (07/20-07/22) - Current on IV Meropenem (07/22- ) Recommendations: - Continue IV Meropenem for total of 7 days - Can switch to PO Ertapenem when discharge (2) Pneumonia Plan: CT Angio Aorta For Dissection - 07/20/2022 IMPRESSION: 1. No evidence of aortic aneurysm or dissection. 2. Scattered nodular ground-glass opacities in the lung concerning for pneumonia , including viral etiologies. 3. Small nonspecific pericardial effusion. 4. Cirrhosis with evidence of portal hypertension including ascites and splenomegaly. 5. Trace bladder gas. Correlate with urinalysis to exclude cystitis Antibiotics: - Had IV Azithromycin and Ceftriaxone (07/20-07/22) - Current on IV Meropenem (07/22- ) Recommendations: - Continue IV Meropenem for total of 7 days - Can switch to PO Ertapenem when discharge Conclusions/Impression: - UTI POA: Continue antibiotics and can switch to PO when discharge - Pneumonia - Decompensated liver cirrhosis - CKD 2 - History of breast cancer - Hyperlipidemia - Hypothyroidism - Dementia - Anxiety Disorder\depression - Peripheral neuropathy - GERD - Hypertension - Class II obesity ID will closely monitor the patient with signs of infection with fever and WBC trends Case has been discussed with Dr. Bo, N Thank you Dr. Suresh for consultation
[2022-07-22] MEDS: CITALOPRAM 10 MG TABLET PO SCH (09:11)
[2022-07-22] MEDS: FERROUS SULFATE 325 MG TAB PO SCH (09:11)
[2022-07-22] MEDS: GABAPENTIN 300 MG CAP PO SCH ×3 (09:11→21:32)
[2022-07-22] MEDS: oxyBUTYnin chloride 5 MG TAB PO SCH ×2 (09:11→21:32)
[2022-07-22] MEDS: ASPIRIN EC 81 MG TAB PO SCH (09:12)
[2022-07-22] MEDS: LEVOTHYROXINE SOD 0.075 MG TAB PO SCH (09:12)
[2022-07-22] MEDS: lisinopriL 10 MG TAB PO SCH (09:12)
[2022-07-22] MEDS: DONEPEZIL HCL 5 MG TAB PO SCH (09:12)
[2022-07-22] MEDS: SPIRONOLACTONE 25 MG TABLET PO SCH (09:12)
[2022-07-22] MEDS: MEMANTINE HCL 10 MG TABLET PO SCH (09:12)
[2022-07-22] MEDS: Meropenem 1,000 MG in NA CHLORIDE 0.9% 100 ML IV SCH ×2 (09:13→16:08)
[2022-07-22] MEDS: FUROSEMIDE 40 MG/4 ML VIAL IV SCH ×2 (09:13→16:08)
[2022-07-22] MEDS: ENOXAPARIN 40 MG/0.4 ML SQ SCH (09:13)
[2022-07-22] MEDS: ANASTROZOLE 1 MG TAB PO SCH (09:15)
[2022-07-22] MEDS: ACETAMINOPHEN 325 MG TABLET PO PRN (16:39)
--- NOTE | 2022-07-22 21:06 | RAD REPORT ---
EXAM DESCRIPTION: RAD - Chest Single View - 07/22/2022 9:00 pm CLINICAL HISTORY: PICC line Placement COMPARISON: Chest Single View dated 07/20/2022; Chest Single View dated 01/05/2022; Chest Single View dated 11/25/2021; Chest Single View dated 08/01/2019 FINDINGS: Portable chest was obtained following placement of a left upper extremity PICC line. The c atheter tip projects over the SVC.
[2022-07-22] MEDS: DIVALPROEX NA 125 MG CAP PO SCH (21:32)
[2022-07-22] MEDS: TRAZODONE 50 MG TABLET PO PRN (21:32)
[2022-07-22] MEDS: ATORVASTATIN 20 MG TAB PO SCH (21:32)
--- NOTE | 2022-07-22 23:12 | P.PN ---
Subjective Date of Service: 07/22/22 Chief Complaint: Upper back pain, weakness\\mailase No acute events overnight. Her breathing is gradually improving. She reports orthopnea. She reports good urine output with the furosemide. She denies any chest pain or palpitations. Her urine culture returned positive for ESBL. Review of Systems 10-point ROS is otherwise unremarkable Respiratory: Shortness of Breath Cardiovascular: Orthopnea Physical Examination - Vital Signs Temperature: 97.4 F Blood Pressure: 95/42 Pulse: 87 Respirations: 18 Pulse Ox (%): 94 - Studies Microbiology Data (last 24 hrs): 07/20/22 11:59 Clean Catch Urine [place] Count - Final >100,000 CFU/ML. 07/20/22 11:59 Clean Catch Urine - Final Klebsiella Pneumoniae Esbl Assessment And Plan - Plan - Physical Exam General: Alert, In no apparent distress, Oriented x3 HEENT: Atraumatic, EOMI, Sclerae nonicteric Neck: JVD not distended Respiratory: Diminished, Crackles/rales (faint, bibasilar) Cardiovascular: Regular rate/rhythm, No murmurs, Edema (1+ BLE) Gastrointestinal: Normal bowel sounds, Soft, No tenderness Musculoskeletal: No clubbing Integumentary: No rashes Neurological: Normal speech, Normal affect # Acute on Chronic Decompensated Diastolic Congestive Heart Failure with Preserved Ejection Fraction # Trace Pericardial Effusion - Consult Cardiology and spoke with Dr. Perez - recommendations appreciated - Transthoracic echocardiogram = "1. normal left ventricular ejection fraction 60-65% 2. normal wall motion 3. left atrial enlargement 4. mild mitral regurgitation 5. grade I diastolic dysfunction 6. trace pericardial effusion" - Diuresis with IV furosemide - Continue home lisinopril - Daily weights - Strict I/O - Cardiac diet, 1.5 L fluid restriction, 2 g Na restriction # Suspect Type II Non-ST Segment Elevation (Demand Ischemia) secondary to above # Hypertension # Hyperlipidemia # Elevated D-Dimer - Evaluation thus far: - EKG: without STEMI criteria, trend - Serial troponin: 660.5 -> 623.3 -> 686.6 - D-Dimer: 1508 - Bilateral lower Extremity Doppler = "no DVT in either lower extremity." - CT chest angiogram = "negative for a pulmonary embolism. Small to moderate pericardial effusion Mild to moderate bilateral patchy lung opacities probably pulmonary edema. Pneumonia is a another consideration" - Transthoracic echocardiogram = "1. normal left ventricular ejection fraction 60-65% 2. normal wall motion 3. left atrial enlargement 4. mild mitral regurgitation 5. grade I diastolic dysfunction 6. trace pericardial effusion" - Chest x-ray = "decreased lung volumes with coarsening of the interstitium that may reflect either edema and/or pneumonia." - CT dissection protocol = "1. No evidence of aortic aneurysm or dissection. 2. Scattered nodular ground-glass opacities in the lung concerning for pneumonia, including viral etiologies. 3. Small nonspecific pericardial effusion. 4. Cirrhosis with evidence of portal hypertension including ascites and splenomegaly. 5. Trace bladder gas. Correlate with urinalysis to exclude cystitis." - Management plan: - Consult Cardiology and spoke with Dr. Perez - recommendations appreciated - S/P LHC, without evidence of obstruction - Continue home aspirin, atorvastatin, lisinopril - Once improved from CHF, consider adding beta-juan pablo # ESBL Klebsiella Pneumoniae Urinary Tract Infection # Community-Acquired Pneumonia - Does not meet sepsis criteria - Consulted Infectious Diseases and spoke with Dr. 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 Barnhart - recommendtions appreciated - Recommended starting furosemide + spironolactone - Continue home cholestyramine, pantoprazole # Hypothyroidism - Continue home levothyroxine # Anxiety with Depression - Continue home citalopram, divalproex # Mild Dementia - Continue home donepezil, memantine # History of Breast Cancer s/p Mastectomy - Continue home anastrazole - Follow-up with Oncology as previously scheduled # Peripheral Neuropathy - Continue home gabapentin # Urinary Incontinence - Continue home oxybutynin Pelon Suresh M.D.
[2022-07-23 05:38] LABS: Absolute Lymphocytes (CBC) 0.6 K/uL (0.7-4.9); Hematocrit 31.7 % (36.0-45.0); Lymphocytes % 16.8 % (15.3-44.8); MCV 94.1 fL (80-100); RBC Red Blood Cell Count 3.37 M/uL (3.86-4.86)
[2022-07-23 05:49] LABS: Magnesium 1.7 mg/dL (1.6-2.4); Potassium 4.7 mmol/L (3.5-5.1)
[2022-07-23] MEDS ORDERED: MAGNESIUM SULFATE 1 gm IVPB 1 GM/100 ML BAG IV ONE (05:54)
[2022-07-23] MEDS: TRAMADOL HCL 50 MG TAB PO PRN (06:30)
[2022-07-23] MEDS: LEVOTHYROXINE SOD 0.075 MG TAB PO SCH (06:30)
[2022-07-23] MEDS: CHOLESTYRAMINE/ASP 4 GM/PKT PO SCH (07:36)
[2022-07-23] MEDS ORDERED: Meropenem 1,000 MG in NA CHLORIDE 0.9% 100 ML IV SCH (09:00)
[2022-07-23] MEDS ORDERED: ERTAPENEM SODIUM 1 GM VIAL IVPB SCH (09:00)
[2022-07-23] MEDS ORDERED: ERTAPENEM NA 1 GM in NA CHLORIDE 0.9% 100 ML IVPB SCH (09:00)
[2022-07-23] MEDS: CITALOPRAM 10 MG TABLET PO SCH (09:13)
[2022-07-23] MEDS: lisinopriL 10 MG TAB PO SCH (09:13)
[2022-07-23] MEDS: DONEPEZIL HCL 5 MG TAB PO SCH (09:13)
[2022-07-23] MEDS: ANASTROZOLE 1 MG TAB PO SCH (09:13)
[2022-07-23] MEDS: FUROSEMIDE 40 MG/4 ML VIAL IV SCH ×2 (09:14→16:39)
[2022-07-23] MEDS: MEMANTINE HCL 10 MG TABLET PO SCH (09:14)
[2022-07-23] MEDS: SPIRONOLACTONE 25 MG TABLET PO SCH (09:14)
[2022-07-23] MEDS: ASPIRIN EC 81 MG TAB PO SCH (09:14)
[2022-07-23] MEDS: GABAPENTIN 300 MG CAP PO SCH ×2 (09:14→14:24)
[2022-07-23] MEDS: FERROUS SULFATE 325 MG TAB PO SCH (09:14)
[2022-07-23 09:21] VITALS: O2SAT 94
[2022-07-23] MEDS: oxyBUTYnin chloride 5 MG TAB PO SCH (09:22)
[2022-07-23] MEDS: ENOXAPARIN 40 MG/0.4 ML SQ SCH (09:22)
[2022-07-23] MEDS ORDERED: Meropenem 1000 MG/VIAL IV ONE (09:23)
[2022-07-23] MEDS ORDERED: NA CHLORIDE 0.9% 100 ML ONE (09:24)
--- NOTE | 2022-07-23 09:41 | P.PN ---
Subjective Date of Service: 07/23/22 Chief Complaint: Upper back pain, weakness\mailase Patient sitting in the chair having lunch with family member at the bedside. No major event upon examination Physical Examination - Vital Signs Temperature: 97.6 F Blood Pressure: 137/81 Pulse: 79 Respirations: 18 Pulse Ox (%): 97 - Physical Exam General: Alert, In no apparent distress, Oriented x3 Neck: Supple Respiratory: Crackles/rales (basal fine) Cardiovascular: No edema, Normal S1 S2 Gastrointestinal: Normal bowel sounds Musculoskeletal: No swelling, No contractures, No tenderness Integumentary: No rashes, No breakdown Neurological: Normal speech, Normal tone, Sensation intact, Normal affect - Studies active medications Acetaminophen (Acetaminophen 325 Mg Tablet) 650 mg PO Q6H PRN PRN Reason: TEMP > 100.4' F Last Admin: 07/22/22 16:39 Dose: 650 mg Albuterol Sulfate (Albuterol 2.5 Mg/3 Ml Neb Hollie) 2.5 mg NEB [id number] PRN PRN Reason: WHEEZING Anastrozole (Anastrozole 1 Mg Tab) 1 mg PO DAILY [facility] Stop: 08/19/22 09:01 Last Admin: 07/23/22 09:13 Dose: 1 mg Aspirin (Aspirin Ec 81 Mg Tab) 81 mg PO DAILY [facility] Last Admin: 07/23/22 09:14 Dose: 81 mg Atorvastatin Calcium (Atorvastatin 20 Mg Tab) 20 mg PO BEDTIME [facility] Last Admin: 07/22/22 21:32 Dose: 20 mg Cholestyramine Resin (Cholestyramine/Asp 4 Gm/Pkt) 4 gm PO DAILY WITH BREAKFAST [facility] Last Admin: 07/23/22 07:36 Dose: 4 gm Citalopram Hydrobromide (Citalopram 10 Mg Tablet) 40 mg PO DAILY [facility] Last Admin: 07/23/22 09:13 Dose: 40 mg Divalproex Sodium (Divalproex Na 125 Mg Cap) 250 mg PO BEDTIME [facility] Last Admin: 07/22/22 21:32 Dose: 250 mg Donepezil HCl (Donepezil Hcl 5 Mg Tab) 10 mg PO DAILY [facility] Last Admin: 07/23/22 09:13 Dose: 10 mg Enoxaparin Sodium (Enoxaparin 40 Mg/0.4 Ml) 40 mg SQ DAILY [facility] Last Admin: 03/02/23 09:22 Dose: 40 mg Ferrous Sulfate (Ferrous Sulfate 325 Mg Tab) 325 mg PO DAILY [facility] Last Admin: 07/23/22 09:14 Dose: 325 mg Furosemide (Furosemide 40 Mg/4 Ml Vial) 40 mg IV BIDL [facility] Last Admin: 07/23/22 09:14 Dose: 40 mg Gabapentin (Gabapentin 300 Mg Cap) 300 mg PO TID [facility] Last Admin: 07/23/22 09:14 Dose: 300 mg Meropenem 1,000 mg/ Sodium (Chloride) 100 mls @ 200 mls/hr IV Q12HR [facility] Ipratropium [place] (Ipratropium Brom 0.5mg/2.5ml) 0.5 mg NEB [id number] PRN PRN Reason: WHEEZING Labetalol HCl (Labetalol 20 Mg/4ml Syringe) 10 mg IV Q6H PRN PRN Reason: sbp Levothyroxine Sodium (Levothyroxine Sod 0.075 Mg Tab) 0.075 mg PO ACB [facility] Last Admin: 07/23/22 06:30 Dose: 0.075 mg Lisinopril (Lisinopril 10 Mg Tab) 10 mg PO DAILY [facility] Last Admin: 07/23/22 09:13 Dose: 10 mg Memantine (Memantine Hcl 10 Mg Tablet) 10 mg PO DAILY [facility] Last Admin: 07/23/22 09:14 Dose: 10 mg Ondansetron HCl (Ondansetron 4 Mg/2 Ml Vial) 4 mg IV Q6HP PRN PRN Reason: NAUSEA / VOMITING Oxybutynin Chloride (Oxybutynin Chloride 5 Mg Tab) 10 mg PO BID [facility] Last Admin: 07/23/22 09:22 Dose: 10 mg Sodium Chloride (Flush Normal Saline 10 Ml) 10 ml IV BID [facility] Last Admin: 07/23/22 09:15 Dose: 10 ml Spironolactone (Spironolactone 25 Mg Tablet) 25 mg PO DAILY [facility] Last Admin: 07/23/22 09:14 Dose: 25 mg Tramadol HCl (Tramadol Hcl 50 Mg Tab) 50 mg PO Q6H PRN PRN Reason: Pain scale 5-7 (Moderate) Last Admin: 07/23/22 06:30 Dose: 50 mg Trazodone HCl (Trazodone 50 Mg Tablet) 50 mg PO BEDTIME PRN PRN Reason: INSOMNIA Last Admin: 07/22/22 21:32 Dose: 50 mg Microbiology Data (last 24 hrs): 07/20/22 11:59 Clean Catch Urine [place] Count - Final >100,000 CFU/ML. 07/20/22 11:59 Clean Catch Urine - Final Klebsiella Pneumoniae Esbl Assessment And Plan - Current Problems (Diagnosis) (1) UTI (urinary tract infection) Plan: Cultures: - 07/20: UC: ESBL K. pneumoniae, Susceptible Gentamycin, Tobramycin, Zosyn, and Meropenem - 07/20 BC: Negative Antibiotics: - Had IV Azithromycin and Ceftriaxone (07/20-07/22) - Current on IV Meropenem (07/22- ) Recommendations: - Continue IV Meropenem for total of 7 days - Can switch to PO Ertapenem when discharge PICC placed 07/22 (2) Pneumonia Plan: CT Angio Aorta For Dissection - 07/20/2022 IMPRESSION: 1. No evidence of aortic aneurysm or dissection. 2. Scattered nodular ground-glass opacities in the lung concerning for pneumonia , including viral etiologies. 3. Small nonspecific pericardial effusion. 4. Cirrhosis with evidence of portal hypertension including ascites and splenomegaly. 5. Trace bladder gas. Correlate with urinalysis to exclude cystitis Antibiotics: - Had IV Azithromycin and Ceftriaxone (07/20-07/22) - Current on IV Meropenem (07/22- ) Recommendations: - Continue IV Meropenem for total of 7 days - Can switch to PO Ertapenem when discharge - Plan - UTI POA: Continue antibiotics and can switch to PO when discharge - Pneumonia - Decompensated liver cirrhosis - CKD 2 - History of breast cancer - Hyperlipidemia - Hypothyroidism - Dementia - Anxiety Disorder\depression - Peripheral neuropathy - GERD - Hypertension - Class II obesity ID will closely monitor the patient with signs of infection with fever and WBC trends Case has been discussed with Dr. Bo, N Physician Review: Patient Assessed, Agree with Above Assessment and Plan
--- NOTE | 2022-07-23 09:52 | P.CNS ---
Date of Consult: 07/23/22 Reason for Consult: KORY Requesting Physician: Pelon Suresh Chief Complaint: Upper back pain, weakness\mailase History of Present Illness: Patient is a 72-year-old female with a past medical history significant for depression, GERD, hyperlipidemia, hypertension, hypothyroidism, COPD, CKD who presents with complaint of generalized weakness, malaise that has ongoing for the past 3 days. Patient also reports pain in between her shoulder blades that has been ongoing intermittently for the past couple of weeks. Patient is a poor historian and unable to provide accurate history. Patient reported associated signs and symptoms of shortness of breath, cough, orthopnea, poor appetite, abdominal distention, headache and nausea. Patient denies any other signs or symptoms. Symptoms are aggravated or relieved by nothing. Patient decided to present to the hospital due to worsening symptoms. 10:25 This 72 yrs old Female presents to ER via Wheelchair with complaints of urbano General Weakness. 10:25 The patient complains of pain to the top of head, forehead, left frontal area, left urbano side of the back of head, right frontal area, right side of the back of head and right occipital area. The patient describes the headache as aching. Onset: The symptoms/episode began/occurred 3 day(s) ago. The patient presents with pain that is acute, with no known mechanism of injury. The symptoms are located in the thoracic area. The pain does not radiate. The problem was sustained from unknown cause. aggarwal, upper back pain weakness. Allergies codeine Allergy (Verified 01/05/22 09:45) Rash Penicillins Allergy (Verified 01/05/22 09:45) Rash Sulfa (Sulfonamide Antibiotics) Allergy (Verified 01/05/22 09:45) Rash Home medications list reviewed: Yes Home Medications: Aspirin [Ecotrin 81 MG] 81 mg PO DAILY 08/01/19 Atorvastatin Calcium [Lipitor*] 20 mg PO BEDTIME 08/01/19 Cholecalciferol (Vitamin D3) [Vitamin D3] 5,000 unit PO DAILY 08/01/19 Cholestyramine (with Sugar) [Cholestyramine Packet] 2 packet PO DAILY 08/01/19 Citalopram Hydrobromide [Celexa] 40 mg PO DAILY 08/01/19 Divalproex [Depakote Sprinkle*] 250 mg PO BEDTIME 08/01/19 Donepezil HCl [Aricept] 10 mg PO BEDTIME 08/01/19 Ferrous Sulfate [Ferrous Sulfate*] 325 mg PO TID 08/01/19 Gabapentin 300 mg PO DAILY 08/01/19 Gabapentin 600 mg PO BEDTIME 08/01/19 Levothyroxine Sodium [Synthroid] 75 mcg PO DAILY 08/01/19 Memantine HCl [Namenda] 10 mg PO BID 08/01/19 Trazodone [Desyrel*] 50 mg PO BEDTIME 08/01/19 Nifedipine [Procardia Xl] 90 mg PO BEDTIME 08/02/19 Trimethoprim 100 mg PO DAILY 08/03/19 oxyBUTYnin chloride [Ditropan*] 10 mg PO BID 08/03/19 Anastrozole [Arimidex] 1 mg PO BEDTIME 07/22/22 Furosemide [Lasix] 20 mg PO DAILYPRN PRN 07/22/22 Loratadine [Claritin] 10 mg PO DAILY 07/22/22 Nitrofuran Macro [Macrobid] 100 mg PO BID 07/22/22 Pantoprazole [Protonix Tab] 40 mg PO ACB 07/22/22 lisinopriL [Lisinopril] 10 mg PO DAILY 07/22/22 - Past Medical/Surgical History Diabetic: No -: Depression -: GERD -: Hyperlipidemia -: HTN -: Hypothyroidism -: Dementia -: CKD -: Recurrent UTI -: Breast cancer status post bilateral mastectomy -: Hand surgery -: Lap band -: Foot surgery -: Back surgery -: Bilateral mastectomy -: Cholecystectomy -: Tubal ligation Psychosocial/ Personal History: She is a . She has 3 children. 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 - Family History Mother Medical History: Diabetes Father Medical History: Heart disease, Other (see notes) Brother Medical History: Heart disease Sister Medical History: Other (see notes) Notes: lupous - Social History Alcohol use: No CD- Drugs: No Caffeine use: Yes Place of Residence: Home Review of Systems 10-point ROS is otherwise unremarkable Physical Examination Temp Pulse Resp BP Pulse Ox 97.6 F 79 18 137/81 97 07/23/22 09:40 07/23/22 09:40 07/23/22 09:40 07/23/22 09:40 07/23/22 09:40 General: In no apparent distress, Oriented x3, Cooperative HEENT: Atraumatic Neck: Supple Respiratory: Crackles/rales (Right base) Cardiovascular: Regular rate/rhythm, Edema Gastrointestinal: Soft and benign, Non-distended Musculoskeletal: No clubbing, No contractures Integumentary: No rashes, No cyanosis Neurological: Normal speech Blood work reviewed in the chart Imagings Data: EXAM DESCRIPTION: RAD - Chest Single View - 07/22/2022 9:00 pm CLINICAL HISTORY: PICC line Placement COMPARISON: Chest Single View dated 07/20/2022; Chest Single View dated 01/05/2022; Chest Single View dated 11/25/2021; Chest Single View dated 08/01/2019 FINDINGS: Portable chest was obtained following placement of a left upper extremity PICC line. The catheter tip projects over the SVC. EXAM DESCRIPTION: CT - Chest For Pe Angio - 07/21/2022 1:09 pm CLINICAL HISTORY: Chest pain COMPARISON: None. TECHNIQUE: Dynamically enhanced axial 3 mm thick images of the chest were obtained during administration of 100 mL Isovue 370 IV contrast. Coronal and oblique reconstruction images were generated and reviewed. Exam utilizes a protocol for optimal evaluation of pulmonary arterial tree. Maximum intensity projections 3D imaging was utilized All CT scans are performed using dose optimization technique as appropriate and may include automated exposure control or mA/KV adjustment according to patient size. FINDINGS: A pulmonary embolus is not seen. A thoracic aortic aneurysm is not noted. A small left pleural effusion. A small to moderate pericardial effusion is present Mild to moderate bilateral patchy lung opacities Cardiomegaly IMPRESSION: Negative for a pulmonary embolism. Small to moderate pericardial effusion Mild to moderate bilateral patchy lung opacities probably pulmonary edema. Pneumonia is a another consideration LEFT VENTRICULAR WALL MOTION: NORMAL DOPPLER/COLOR FLOW: SEE BELOW COMMENTS: 1. NORMAL LEFT VENTRICULAR EJECTION FRACTION 60-65% 2. NORMAL WALL MOTION 3. LEFT ATRIAL ENLARGEMENT 4. MILD MITRAL REGURGITATION 5. GRADE I DIASTOLIC DYSFUNCTION 6. TRACE PERICARDIAL EFFUSION Conclusions/Impression: KORY may due to GERSON vs diuresis -No NSAIDs -She can be discharged and followed as an outpt; She has an appt with Dr. Pickens tomorrow Hyponatremia -Continue Lasix -Caution with excess free water intake HTN with CKD/ CHF -Continue Lisinopril -Hold Nifedipine as this time Diastolic CHF, A/C -Continue Lasix and Spironolactone -Consider Lasix 40mg PO BID and Spironolactone 25mg daily for discharge Anemia in chronic illness Pancytopenia -Monitor CBC Case reviewed with Dr. Suresh Thank you kindly for the consult
[2022-07-23 13:45] VITALS: BP 137/81; TEMP 97.6
[2022-07-23] MEDS ORDERED: ERTAPENEM NA 1 GM in NA CHLORIDE 0.9% 100 ML IVPB ONE (14:00)
--- NOTE | 2022-07-23 15:31 | P.DS ---
Admission Date: 07/20/22 Discharge Date: 07/23/22 Disposition: ROUTINE DISCHARGE Discharge Condition: GOOD Reason for Admission: Upper back pain, weakness\\mailase Consultations: 1. Cardiology 2. Gastroenterology 3. Nephrology 4. 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 Rosi Jordan is a pleasant 72-year-old female with a past medical history significant for chronic diastolic congestive heart failure, hypertension, hyperlipidemia, FLEMING cirrhosis complicated by portal hypertension, gastroesophageal reflux disease, hypothyroidism, anxiety, depression, mild dementia, history of breast cancer s/p mastectomy, and urinary incontinence who was admitted to the [facility] on 07/20/2022 for weakness/malaise. She was admitted to the Medicine service. Upon further evaluation, her EKG was without STEMI criteria. Her troponin trend was 660.5 -> 623.3 -> 686.6. Her chest x-ray revealed, "decreased lung volumes with coarsening of the interstitium that may reflect either edema and/or pneumonia." Her transthoracic echocardiogram revealed, "1. normal left ventricular ejection fraction 60-65% 2. normal wall motion 3. left atrial enlargement 4. mild mitral regurgitation 5. grade I diastolic dysfunction 6. trace pericardial effusion." Cardiology was consulted and she was evaluated by Dr. Perez. She underwent a selective coronary angiogram, which revealed mild non-obstructive coronary artery disease. He recommended that she be evaluated for a pulmonary embolism. A d-dimer was obtained, and returned elevated at 1,508. A bilateral lower extremity Doppler revealed, "no DVT in either lower extremity." A CT chest angiogram, "negative for a pulmonary embolism. Small to moderate pericardial effusion Mild to moderate bilateral patchy lung opacities probably pulmonary edema. Pneumonia is a another consideration." It was thought that her symptoms and troponin elevation were secondary to acute on chronic decompensated congestive heart failure. She was diuresed per Cardiology recommendations and Dr. Perez has cleared her for discharge with outpatient follow-up. Nephrology was consulted due to the concern of developing a contrast-induced nephropathy because of the amount of contrast she required during her hospitalization. Dr. Wyman evaluated her and cleared her for discharge with a follow-up appointment with labs tomorrow with his partner, Dr. Pickens. He recommended discharging her on furosemide, spironolactone, and lisinopril. He advised holding nifedipine on discharge. Additionally, her infectious evaluation was notable for ESBL Klebsiella Pneumoniae urinary tract infection. Infectious Diseases was consulted and she was evaluated by Dr. Bo. He recommended that she be discharged on 7 days of IV ertapenem (end date: 07/28/2022). A PICC line was placed. With the assistance of case management, Home Health was arranged. She was incidentally noted to have mild distal circumferential esophageal thickening. She was advised that esophageal thickening can predispose her to development of esophageal cancer. Dr. Barnhart was consulted and recommended discharge with outpatient follow-up. She verbalized understanding and agreed to make this appointment. She was also advised to follow-up her renal lesions with her PCP, and verbalized understanding. Despite adequate diuresis, she remained hypoxic on room air. She qualified for home oxygen, and with the assistance of case management, this was arranged for her. On 07/23/2022, he was seen on rounds and deemed medically stable for discharge. She was discharged with instructions to schedule follow-up appointments with her PCP/Optoelectronics Engineer (Dr. Pickens), with her Soil Expert (Dr. Corcoran), with her Final Coat Sprayer (Dr. Scott), and with Pulmonology (Dr. Cortez). She was provided prescriptions for furosemide and spironolactone. She and her daughter were given the opportunity to ask questions and reported no further questions. Furthermore, all questions were answered to the best of my ability. A copy of this discharge summary will be sent to the above providers to facilitate continuity of care. Today, I personally spent 35 minutes on her case, of which greater than 50% of the time was spent in patient education, counseling, and coordination of care as described above. - Physical Exam General: Alert, In no apparent distress, Oriented x3 HEENT: Atraumatic, Sclerae nonicteric Neck: JVD not distended Respiratory: Diminished, but clear to auscultation bilaterally without wheezes, rhonchi, or rales Cardiovascular: Regular rate/rhythm, No murmurs, Edema (trace-1+ BLE) Gastrointestinal: Normal bowel sounds, Soft, No tenderness Musculoskeletal: No clubbing Integumentary: No rashes Neurological: Normal speech, Normal affect Vital Signs/Physical Exam: Temp Pulse Resp BP Pulse Ox 97.6 F 79 18 137/81 97 07/23/22 13:44 07/23/22 13:44 07/23/22 13:44 07/23/22 13:44 07/23/22 13:44 Laboratory Data at Discharge: WBC 3.50 K/uL (4.3-10.9) L 07/23/22 05:15 Hgb 10.4 g/dL (12.0-15.0) L 07/23/22 05:15 Hct 31.7 % (36.0-45.0) L 07/23/22 05:15 Plt Count 137 K/uL (152-406) L 07/23/22 05:15 PT 14.0 SECONDS (9.5-12.5) H 07/20/22 09:45 INR 1.27 07/20/22 09:45 APTT Cancelled 07/21/22 06:29 Sodium 131 mmol/L (136-145) L 07/23/22 05:15 Potassium 4.7 mmol/L (3.5-5.1) 07/23/22 05:15 BUN 21 mg/dL (7-18) H 07/23/22 05:15 Creatinine 1.11 mg/dL (0.55-1.02) H 07/23/22 05:15 Glucose 109 mg/dL (74-106) H 07/23/22 05:15 Phosphorus 4.3 mg/dL (2.5-4.9) 07/20/22 16:10 Magnesium 1.7 mg/dL (1.6-2.4) 07/23/22 05:15 Total Bilirubin 0.4 mg/dL (0.2-1.0) 07/20/22 09:45 AST 10 U/L (15-37) L 07/20/22 09:45 ALT 12 U/L (13-56) L 07/20/22 09:45 Alkaline Phosphatase 69 U/L (45-117) 07/20/22 09:45 Triglycerides 144 mg/dL (<150) 07/20/22 16:10 Cholesterol 91 mg/dL (<200) 07/20/22 16:10 HDL Cholesterol 26 mg/dL (40-60) L 07/20/22 16:10 Cholesterol/HDL Ratio 3.50 07/20/22 16:10 Lipase 12 U/L (13-75) L 07/20/22 09:45 Home Medications: RX: Aspirin [Ecotrin 81 MG] 81 mg PO DAILY 08/01/19 RX: Atorvastatin Calcium [Lipitor*] 20 mg PO BEDTIME 08/01/19 RX: Cholecalciferol (Vitamin D3) [Vitamin D3] 5,000 unit PO DAILY 08/01/19 RX: Cholestyramine (with Sugar) [Cholestyramine Packet] 2 packet PO DAILY 08/01/19 RX: Citalopram Hydrobromide [Celexa] 40 mg PO DAILY 08/01/19 RX: Divalproex [Depakote Sprinkle*] 250 mg PO BEDTIME 08/01/19 RX: Donepezil HCl [Aricept] 10 mg PO BEDTIME 08/01/19 RX: Ferrous Sulfate [Ferrous Sulfate*] 325 mg PO TID 08/01/19 RX: Gabapentin 300 mg PO DAILY 08/01/19 RX: Gabapentin 600 mg PO BEDTIME 08/01/19 RX: Levothyroxine Sodium [Synthroid] 75 mcg PO DAILY 08/01/19 RX: Memantine HCl [Namenda] 10 mg PO BID 08/01/19 RX: Trazodone [Desyrel*] 50 mg PO BEDTIME 08/01/19 RX: oxyBUTYnin chloride [Ditropan*] 10 mg PO BID 08/03/19 RX: Anastrozole [Arimidex*] 1 mg PO BEDTIME 07/22/22 RX: Loratadine [Claritin*] 10 mg PO DAILY 07/22/22 RX: Pantoprazole [Protonix Tab*] 40 mg PO ACB 07/22/22 RX: lisinopriL [Lisinopril] 10 mg PO DAILY 07/22/22 Furosemide [Lasix] 40 mg PO BIDL #60 tab 07/23/22 RX: Spironolactone [Aldactone*] 25 mg PO DAILY #30 tab 07/23/22 New Medications: RX: Spironolactone [Aldactone*] 25 mg PO DAILY #30 tab Furosemide [Lasix] 40 mg PO BIDL #60 tab Physician Discharge Instructions: 1. Please attend your follow-up appointment with your PCP/Optoelectronics Engineer (Dr. Pickens) tomorrow at 12:15 PM 2. Please call and schedule a follow-up appointment with your Final Coat Sprayer (Dr. Scott) in 5-7 days - As we discussed thickening in your esophagus (swallow tube) has the potential to become cancer - please discuss with Dr. Scott 3. Please call and schedule a follow-up appointment with your Soil Expert (Dr. Corcoran) in 5-7 days 4. Please call and schedule a follow-up appointment with Pulmonology (Dr. Cortez) in 1-2 weeks Diet: AHA Activity: Ad khoi Followup: Solomon Cortez MD [ACTIVE - CAN ADMIT] - Kylee Pickens MD [Primary Care Provider] - Jasson Scott MD [OUTSIDE PHYSICIAN] - Carlos Corcoran MD [OUTSIDE PHYSICIAN] - Time spent managing pt's care (in minutes): 35
== END 2022-07-23 18:10 | disposition home health service (06) | DRG 280 ==
LOC: ER 09:16 → ERHOLD 14:01 → 2ND 16:06
PROVIDERS: ADMIT Internal Medicine; ATTEND Internal Medicine
PROC: 4A023N7 Measurement of Cardiac Sampling and Pressure, Left Heart, Percutaneous Approach (ICD-10-PCS; principal; 2022-07-21)
PROC: B2111ZZ Fluoroscopy of Multiple Coronary Arteries using Low Osmolar Contrast (ICD-10-PCS; 2022-07-21)
PROC: 02HV33Z Insertion of Infusion Device into Superior Vena Cava, Percutaneous Approach (ICD-10-PCS; 2022-07-22)
DX: I13.0 Hypertensive heart and chronic kidney disease with heart failure and stage 1 through stage 4 chronic kidney disease, or unspecified chronic kidney disease (principal); I50.33 Acute on chronic diastolic (congestive) heart failure; I21.A1 Myocardial infarction type 2; J18.9 Pneumonia, unspecified organism; J96.01 Acute respiratory failure with hypoxia; N39.0 Urinary tract infection, site not specified; R18.8 Other ascites; K76.6 Portal hypertension; I31.39 Other pericardial effusion (noninflammatory); Z16.12 Extended spectrum beta lactamase (ESBL) resistance; N17.9 Acute kidney failure, unspecified; E87.1 Hypo-osmolality and hyponatremia; N18.2 Chronic kidney disease, stage 2 (mild); E78.5 Hyperlipidemia, unspecified; D50.9 Iron deficiency anemia, unspecified; E03.9 Hypothyroidism, unspecified; K74.60 Unspecified cirrhosis of liver; G62.9 Polyneuropathy, unspecified; E66.09 Other obesity due to excess calories; I34.0 Nonrheumatic mitral (valve) insufficiency; K75.81 Nonalcoholic steatohepatitis (NASH); D63.1 Anemia in chronic kidney disease; N28.9 Disorder of kidney and ureter, unspecified; F41.8 Other specified anxiety disorders; F03.90 Unspecified dementia, unspecified severity, without behavioral disturbance, psychotic disturbance, mood disturbance, and anxiety; K21.00 Gastro-esophageal reflux disease with esophagitis, without bleeding; I25.10 Atherosclerotic heart disease of native coronary artery without angina pectoris; B96.89 Other specified bacterial agents as the cause of diseases classified elsewhere; R32 Unspecified urinary incontinence; Z88.5 Allergy status to narcotic agent; Z88.0 Allergy status to penicillin; Z85.3 Personal history of malignant neoplasm of breast; Z88.1 Allergy status to other antibiotic agents; Z68.37 Body mass index [BMI] 37.0-37.9, adult; Z79.82 Long term (current) use of aspirin; Z98.51 Tubal ligation status; Z79.52 Long term (current) use of systemic steroids; Z79.51 Long term (current) use of inhaled steroids; Z90.13 Acquired absence of bilateral breasts and nipples; Z90.49 Acquired absence of other specified parts of digestive tract; Z79.899 Other long term (current) drug therapy; Z79.890 Hormone replacement therapy; Z20.822 Contact with and (suspected) exposure to COVID-19
CPT/HCPCS: 0241U; 36415; 36569; 70450; 71045; 71275; 74175; 76937; 80048; 80061; 80076; 80164; 81003; 82140; 82565; 83036; 83605; 83690; 83735; 83880; 84100; 84439; 84443; 84484; 85025; 85379; 85610; 85730; 87040; 87077; 87086; 87088; 87186; 93005; 93306; 93454; 93970; 94010; 96365; 96366; 96367; 96368; 96375; 99285; C1760; C1893; G0269; J0360; J0456; J0461; J1335; J1644; J1650; J1940; J2001; J2185; J2250; J2405; J3010; J3475; J7030; J7040; J7050; J7613; J7644; Q9966; Q9967

== ENCOUNTER 2023-11-18 12:34 | Emergency (ER) | payer OTHER, MEDICARE ==
--- NOTE | 2023-11-18 14:24 | RAD REPORT ---
EXAM DESCRIPTION: Freddy Single View11/18/2023 2:09 pm CLINICAL HISTORY: Shortness of breath COMPARISON: 2022 FINDINGS: Mild bilateral pulmonary opacities. Heart is enlarged IMPRESSION: Mild bilateral pulmonary opacities may represent pulmonary edema or pneumonia
[2023-11-18 14:47] LABS: PT Prothrombin Time 11.7 SECONDS (9.4-12.5); Protime INR 1.07
[2023-11-18 14:48] LABS: Absolute Eosinophils 0.1 K/uL (0-0.5); Absolute Lymphocytes (CBC) 0.7 K/uL (0.7-4.9); Absolute Monocytes 0.3 K/uL (0.1-1.3); Absolute Neutrophil 2.5 K/uL (1.8-8.0); Basophils % 0.8 % (0-1.3); Eosinophils % 3.9 % (0-4.4); Hemoglobin 11.8 g/dL (12.0-15.0); Lymphocytes % 18.8 % (15.3-44.8); MCH 32.1 pg (27.0-35.0); MCHC 33.7 g/dL (32.0-36.0); MCV 95.3 fL (80-100); MPV 7.2 fL (7.6-11.3); Monocytes % 9.3 % (3.3-12.3); Neutrophils % 67.2 % (41.7-73.7); Nucleated Red Blood Cells % 0.1 % (0-0); Platelets 124 thou/uL (152-406); RBC Red Blood Cell Count 3.67 M/uL (3.86-4.86); Red Cell Distribution Width 13.7 % (12.1-15.2)
[2023-11-18 15:02] LABS: Anion Gap 7.4 mEq/L (5.0-15.0); Magnesium 1.9 mg/dL (1.6-2.4); Potassium 4.4 mEq/L (3.5-5.1); Troponin High Sensitivity 4.4 pg/mL (<58.9)
[2023-11-18 15:27] LABS: Specific Gravity 1.015 (1.005-1.030); Sqamous Epithelial <5 /HPF (None Seen); Urine Bacteria None Seen /HPF (<20); Urine Bilirubin NEGATIVE (Negative); Urine Blood Negative (Negative); Urine Clarity Clear (Clear); Urine Color Yellow (Yellow); Urine Crystals Unidentified Few /HPF (None Seen); Urine Culture Reflex Order NOT NEEDED; Urine Glucose NEGATIVE (Negative); Urine Ketones NEGATIVE (Negative); Urine Micro Reflex YN NO BILL MICROSCOPIC; Urine Nitrite NEGATIVE (Negative); Urine Protein NEGATIVE (Negative); Urine RBC <5 /HPF (None Seen); Urine Urobilinogen Normal (Normal); Urine WBC <5 /HPF (<5); Urine Yeast (Budding) Trace /HPF (None Seen)
--- NOTE | 2023-11-18 17:02 | EDPHYS ---
Physician Documentation [facility] Name: Rosi Jordan Age: 73 yrs Sex: Female : 1950 Arrival Date: 11/18/2023 Time: 12:34 Bed 12 Private MD: ED Physician Peace Owusu HPI: 11/17 16:57 This 73 yrs old Female presents to ER via Wheelchair with complaints of gb1 Weakness. 16:57 73-year-old female here with weakness and cough with shortness of breath at gb1 times. She denies any chest pain. She is history of hypertension, breast cancer, renal disease, hyperlipidemia, GERD depression and thyroid disorder. The patient denies any fever or chills states that she feels like her mouth is been more dry lately.. Historical: - Allergies: 12:54 Codeine; ll1 12:54 PENICILLINS; ll1 12:54 Sulfa (Sulfonamide Antibiotics); ll1 12:54 Vancomycin; ll1 - PMHx: 12:54 Hypertension; breast cancer; kidney disease; Hyperlipidemia; GERD; Depression; ll1 Hypothyroidism; - PSHx: 12:54 Cholecystectomy; Tonsillectomy; ll1 13:17 Carotid endarterectomy; ll1 - Immunization history:: Adult Immunizations up to date. - Infectious Disease History:: Denies. - Social history:: Smoking status: Patient denies any tobacco usage or history of. Exam: 16:57 Constitutional: This is a well developed, well nourished patient who is awake, alert, gb1 and in no acute distress. Head/Face: Normocephalic, atraumatic. Eyes: Pupils equal round and reactive to light, extra-ocular motions intact. Lids and lashes normal. Conjunctiva and sclera are non-icteric and not injected. Cornea within normal limits. Periorbital areas with no swelling, redness, or edema. ENT: Nares patent. No nasal discharge, no septal abnormalities noted. Tympanic membranes are normal and external auditory canals are clear. Oropharynx with no redness, swelling, or masses, exudates, or evidence of obstruction, uvula midline. Mucous membranes moist. Neck: Trachea midline, no thyromegaly or masses palpated, and no cervical lymphadenopathy. Supple, full range of motion without nuchal rigidity, or vertebral point tenderness. No Meningismus. Chest/axilla: Normal chest wall appearance and motion. Nontender with no deformity. No lesions are appreciated. Cardiovascular: Regular rate and rhythm with a normal S1 and S2. No gallops, murmurs, or rubs. Normal PMI, no JVD. No pulse deficits. Respiratory: Lungs have equal breath sounds bilaterally, clear to auscultation and percussion. No rales, rhonchi or wheezes noted. No increased work of breathing, no retractions or nasal flaring. Abdomen/GI: Soft, non-tender, with normal bowel sounds. No distension or tympany. No guarding or rebound. No evidence of tenderness throughout. Back: No spinal tenderness. No costovertebral tenderness. Full range of motion. Skin: Warm, dry with normal turgor. Normal color with no rashes, no lesions, and no evidence of cellulitis. MS/ Extremity: Pulses equal, no cyanosis. Neurovascular intact. Full, normal range of motion. Neuro: Awake and alert, GCS 15, oriented to person, place, time, and situation. Cranial nerves II-XII grossly intact. Motor strength 5/5 in all extremities. Sensory grossly intact. Cerebellar exam normal. Normal gait. Vital Signs: 13:17 BP 124 / 58; Pulse 65; Resp 17; Temp 97.2; Pulse Ox 95% ; Weight 88.9 kg; Height 5 ft. ll1 1 in. ; Pain 0/10; 14:52 BP 139 / 71; Pulse 65; Resp 15; Pulse Ox 97% ; jl7 15:30 BP 133 / 69; Pulse 66; Resp 16; Pulse Ox 96% on R/A; Pain 4/10; tl4 16:30 BP 135 / 76; Pulse 71; Resp 20; Pulse Ox 97% on R/A; tl4 17:30 BP 128 / 75; Pulse 64; Resp 18; Temp 98.3(O); Pulse Ox 97% on R/A; Pain 4/10; tl4 13:17 Body Mass Index 37.03 (88.90 kg, 154.94 cm) ll1 13:17 Pain Scale: Adult ll1 15:30 Pain Scale: Adult tl4 17:30 Pain Scale: Adult tl4 MDM: 14:47 Patient medically screened. gb1 16:57 Data reviewed: vital signs, nurses notes, EKG, radiologic studies. ED course: Patient gb1 is EKG is normal sinus rhythm with a rate of 63 bpm normal interval and axis.. ED course: 73-year-old female here with weakness generalized no signs of UTI EKG is within normal limits. She does have a chest x-ray that is concerning for possible early pneumonia specifically on the left side. There are no signs of pulmonary vascular congestion at this time BNP is normal and patient is not requiring supplemental oxygen she is not having any increased work of breathing or retractions. She is afebrile and otherwise well-appearing and nontoxic at time of discharge home today. I will start her on doxycycline and I recommended that she see her primary care doctor early next week before Wednesday. Both of her daughters at the bedside they are compliant with this plan of care. Patient's troponin and BNP today are also normal.. 11/17 13:26 Order name: Basic Metabolic Panel; Complete Time: 15:54 11/17 13:26 Order name: CBC with Diff; Complete Time: 15:54 11/17 13:26 Order name: Magnesium; Complete Time: 15:54 11/17 13:26 Order name: NT PRO-BNP; Complete Time: 15:54 11/17 13:26 Order name: PT-INR; Complete Time: 15:54 11/17 13:26 Order name: Troponin HS; Complete Time: 15:54 11/17 13:26 Order name: Urinalysis W/Microscopic; Complete Time: 15:54 11/17 13:26 Order name: XRAY Chest (1 view); Complete Time: 15:54 11/17 13:26 Order name: Cardiac monitoring; Complete Time: 17:14 11/17 13:26 Order name: EKG - Nurse/Tech; Complete Time: 15:05 11/17 13:26 Order name: IV Saline Lock; Complete Time: 14:39 11/17 13:26 Order name: Labs collected and sent; Complete Time: 14:39 11/17 13:26 Order name: O2 Per Protocol; Complete Time: 14:39 11/17 13:26 Order name: O2 Sat Monitoring; Complete Time: 14:39 gb Administered Medications: No medications were administered Disposition: 16:57 Co-signature as Attending Physician, Peace Owusu MD. gb1 Disposition Summary: 11/18/23 17:01 Discharge Ordered Notes: Location: Home gb1 Condition: Stable gb1 Diagnosis - Other pneumonia, unspecified organism gb1 Followup: gb1 - With: Private Physician - When: 2 - 3 days - Reason: Re-evaluation by your physician Discharge Instructions: - Discharge Summary Sheet gb1 - Community-Acquired Pneumonia, Adult gb1 Forms: - Medication Reconciliation Form gb1 - Antibiotic Education gb1 - Prescription Opioid Use gb1 - Patient Portal Instructions gb1 - Leadership Thank You Letter gb1 Prescriptions: - Doxycycline Hyclate 100 mg Oral Tablet - take 1 tablet ORAL route every 12 hours; 20 tablet; Refills: 0, Product gb1 Selection Permitted Signatures: Dispatcher [employer] EDMS Michele Edwards RN RN ll1 Peace Owusu MD MD gb1 Corrections: (The following items were deleted from the chart) 13:27 13:26 BASIC METABOLIC PANEL+C.LAB.BRZ ordered. EDMS EDMS 13:27 13:26 CBC+H.LAB.BRZ ordered. EDMS EDMS 13:27 13:26 MAGNESIUM+C.LAB.BRZ ordered. EDMS EDMS 13:27 13:26 PROBNP+C.LAB.BRZ ordered. EDMS EDMS 13:27 13:26 PROTIME (+INR)+COAG.LAB.BRZ ordered. EDMS EDMS 13:27 13:26 Troponin High Sensitivity+C.LAB.BRZ ordered. EDMS EDMS 13:27 13:26 Urinalysis W/Microscopic+U.LAB.BRZ ordered. EDMS EDMS 13:27 13:27 Chest Single View+RAD.RAD.BRZ ordered. EDMS EDMS
--- NOTE | 2023-11-18 17:02 | ER ---
Nurse's Notes [facility] Name: Rosi Jordan Age: 73 yrs Sex: Female : 1950 Arrival Date: 11/18/2023 Time: 12:34 Bed 12 Private MD: Diagnosis: Other pneumonia, unspecified organism Presentation: 11/17 13:17 Chief complaint: Patient states: Fatigue, weak, no energy, sleep a lot, nausea for 3-4 ll1 days. Coronavirus screen: Client denies travel out of the [place] in the last 14 days. At this time, the client does not indicate any symptoms associated with coronavirus-19. Ebola Screen: Patient denies travel to an Ebola-affected area in the 21 days before illness onset. No acute neurological deficit is noted. Initial Sepsis Screen: Does the patient meet any 2 criteria? No. Patient's initial sepsis screen is negative. Does the patient have a suspected source of infection? No. Patient's initial sepsis screen is negative. Risk Assessment: Do you want to hurt yourself or someone else? Patient reports no desire to harm self or others. Onset of symptoms was November 15, 2023. 13:17 Method Of Arrival: Wheelchair ll1 13:17 Acuity: CASPER 3 ll1 Triage Assessment: 13:17 General: Appears uncomfortable, ill, Behavior is calm, cooperative, appropriate for ll1 age. General: Reports fatigue for. Pain: Denies pain. Neuro: Reports weakness. 13:17 GI: Reports nausea. ll1 Stroke Activation: Symptom onset > 6 hours Physician: ED Attending; Name: ; Notified At: ; Arrived At: Physician: Mid-Level Provider; Name: ; Notified At: ; Arrived At: Physician: [not used]; Name: ; Notified At: ; Arrived At: Physician: [not used]; Name: ; Notified At: ; Arrived At: Physician: [not used]; Name: ; Notified At: ; Arrived At: Historical: - Allergies: 12:54 Codeine; ll1 12:54 PENICILLINS; ll1 12:54 Sulfa (Sulfonamide Antibiotics); ll1 12:54 Vancomycin; ll1 - PMHx: 12:54 Hypertension; breast cancer; kidney disease; Hyperlipidemia; GERD; Depression; ll1 Hypothyroidism; - PSHx: 12:54 Cholecystectomy; Tonsillectomy; ll1 13:17 Carotid endarterectomy; ll1 - Immunization history:: Adult Immunizations up to date. - Infectious Disease History:: Denies. - Social history:: Smoking status: Patient denies any tobacco usage or history of. Screenin:15 [facility] ED Fall Risk Assessment (Adult) History of falling in the last 3 months, tl4 including since admission No falls in past 3 months (0 pts) Confusion or Disorientation No (0 pts) Intoxicated or Sedated No (0 pts) Impaired Gait No (0 pts) Mobility Assist Device Used No (0 pt) Altered Elimination No (0 pt) Score/Fall Risk Level 0 - 2 = Low Risk Oriented to surroundings, Maintained a safe environment, Educated pt \T\ family on fall prevention, incl call for assistance when getting out of bed, Assessed \T\ reinforced patient's understanding of fall precautions, Hourly rounding (assess needs \T\ fall precautionary measures) done, Used ambulatory aids as needed (educated on \T\ assisted with), Used gait belt as appropriate. Abuse screen: Denies threats or abuse. Denies injuries from another. Nutritional screening: No deficits noted. Tuberculosis screening: No symptoms or risk factors identified. Assessment: 15:00 General: Appears in no apparent distress. Behavior is calm, cooperative. Pain: tl4 Complains of pain in back. Neuro: Level of Consciousness is awake, alert, obeys commands, Oriented to person, place, time, situation, Moves all extremities. Full function Speech is normal, Facial symmetry appears normal. Cardiovascular: Capillary refill < 3 seconds Patient's skin is warm and dry. Respiratory: Airway is patent Respiratory effort is even, unlabored, Respiratory pattern is regular, symmetrical, Breath sounds are coarse bilaterally. the patient has mild shortness of breath. GI: No signs and/or symptoms were reported involving the gastrointestinal system. : No signs and/or symptoms were reported regarding the genitourinary system. EENT: No signs and/or symptoms were reported regarding the EENT system. Derm: No signs and/or symptoms reported regarding the dermatologic system. Musculoskeletal: No signs and/or symptoms reported regarding the musculoskeletal system. 16:00 Reassessment: Patient and/or family updated on plan of care and expected duration. Pain tl4 level reassessed. Patient is alert, oriented x 3, equal unlabored respirations, skin warm/dry/pink. Pt denies any needs at this time. Family at bedside. Will continue to monitor. 17:15 Reassessment: No changes from previously documented assessment. Patient and/or family tl4 updated on plan of care and expected duration. Pain level reassessed. Patient is alert, oriented x 3, equal unlabored respirations, skin warm/dry/pink. Pt denies any needs at this time. Vital Signs: 13:17 BP 124 / 58; Pulse 65; Resp 17; Temp 97.2; Pulse Ox 95% ; Weight 88.9 kg; Height 5 ft. ll1 1 in. ; Pain 0/10; 14:52 BP 139 / 71; Pulse 65; Resp 15; Pulse Ox 97% ; jl7 15:30 BP 133 / 69; Pulse 66; Resp 16; Pulse Ox 96% on R/A; Pain 4/10; tl4 16:30 BP 135 / 76; Pulse 71; Resp 20; Pulse Ox 97% on R/A; tl4 17:30 BP 128 / 75; Pulse 64; Resp 18; Temp 98.3(O); Pulse Ox 97% on R/A; Pain 4/10; tl4 13:17 Body Mass Index 37.03 (88.90 kg, 154.94 cm) ll1 13:17 Pain Scale: Adult ll1 15:30 Pain Scale: Adult tl4 17:30 Pain Scale: Adult tl4 ED Course: 12:35 Patient arrived in ED. mr 12:54 Arm band placed on. ll1 13:09 Peace Owusu MD is Attending Physician. gb1 13:18 Triage completed. ll1 14:10 XRAY Chest (1 view) In Process Unspecified. EDMS 14:30 Missed attempt(s): 22 gauge in left antecubital area. Bleeding controlled, band aid jl7 applied, catheter tip intact. 14:35 Initial lab(s) drawn, by me, sent to lab. Inserted saline lock: 22 gauge in left jl7 antecubital area, using aseptic technique. Blood collected. 15:05 Urine collected: clean catch specimen, clear. jl7 17:15 Patient has correct armband on for positive identification. Placed in gown. Bed in low tl4 position. Call light in reach. Side rails up X 1. Adult w/ patient. Provided Education on: ed process, call brown. Client placed on continuous cardiac and pulse oximetry monitoring. NIBP monitoring applied. emt dispatcher on. Door closed. Noise minimized. Lights dimmed. Moved to private room. Warm blanket given. Pillow given. 17:16 No provider procedures requiring assistance completed. IV discontinued, intact, tl4 bleeding controlled, No redness/swelling at site. Pressure dressing applied. Administered Medications: No medications were administered Medication: 17:15 VIS not applicable for this client. tl4 Outcome: 17:01 Discharge ordered by . gb1 17:25 Discharged to home via wheelchair, with family, tl4 17:25 Condition: stable 17:25 Discharge instructions given to patient, family, Instructed on discharge instructions, follow up and referral plans. medication usage, Demonstrated understanding of instructions, follow-up care, medications, Prescriptions given X 1, 17:34 Patient left the ED. tl4 Signatures: Dispatcher [employer] EDMS SuarezKaylee, Reg Reg mr EcheverriaDebi, RN RN jl7 Michele Edwards RN RN ll1 Peace Owusu MD MD gb1 Aaron Landaverde, RN RN tl4 Corrections: (The following items were deleted from the chart) 16:40 13:17 Neuro: Reports weakness ll1 ll1
[2023-11-18 18:10] VITALS: BP 128/75; TEMP 98.3; O2SAT 97
--- NOTE | 2023-11-20 14:10 | EKG ---
Test Date: 2023-11-18 Test Time: 15:00:18 [employer] Design Lead: OLI MEASUREMENT RESULTS: Intervals: Rate: 63 IA: 172 QRSD: 88 QT: 422 QTc: 431 [place]: P: 51 IA: 172 QRS: -5 T: 22 INTERPRETIVE STATEMENTS: Normal sinus rhythm Normal ECG Compared to ECG 02/22/2023 09:56:28 Sinus bradycardia no longer present T-wave abnormality no longer present Electronically Signed On 11-20-23 14:06:55 CDT by Misha Burch
== END 2023-11-18 17:34 | disposition home or self-care (01) ==
LOC: ER 12:34
DX: J18.8 Other pneumonia, unspecified organism (principal); I10 Essential (primary) hypertension; E03.9 Hypothyroidism, unspecified; K21.9 Gastro-esophageal reflux disease without esophagitis; Z88.0 Allergy status to penicillin; Z88.1 Allergy status to other antibiotic agents; Z88.2 Allergy status to sulfonamides; Z88.5 Allergy status to narcotic agent
CPT/HCPCS: 36415; 71045; 80048; 81001; 83735; 83880; 84484; 85025; 85610; 93005; 99284

== ENCOUNTER 2024-03-20 11:02 | Inpatient (IN) | payer OTHER, MEDICARE ==
[2024-03-20 12:20] LABS: SARS-CoV-2 Antigen CONTROL BLUE LINE VIS/BG OK; SARS-CoV-2 Antigen Rapid Res Negative (Negative)
--- NOTE | 2024-03-20 12:48 | RAD REPORT ---
EXAMINATION: ONE VIEW CHEST XR CLINICAL INDICATION: MALAISE TECHNIQUE: Frontal chest projection is submitted. Examination is limited by patient positioning and t echnique. COMPARISON: 11/18/2023 FINDINGS: The lungs are underinflated resulting in mild vascular crowding. Elevated right hemidiaphragm, unchan ged. The heart is mildly enlarged in size. No displaced fractures identified. IMPRESSION: No acute intrathoracic abnormalities.
[2024-03-20 13:23] LABS: ALT/SGPT 15 U/L (13-56); Albumin 3.3 g/dL (3.4-5.0); Albumin/Globulin Ratio 0.9 (1.1-1.8); Alkaline Phosphatase 56 U/L (45-117); Anion Gap 10.2 mEq/L (5.0-15.0); BUN Blood Urea Nitrogen 12 mg/dL (7-18); Bicarbonate 26 mEq/L (21-32); Bilirubin Total 0.3 mg/dL (0.2-1.0); Globulin 3.5 g/dL (2.3-3.5); Glomerular Filtration Rate 56 ml/min (=/>90); Glucose Level 96 mg/dL (74-106); NT PRO-BNP 507 pg/mL (<450); Protein, Total 6.8 g/dL (6.4-8.2); Sodium Level 120 mEq/L (136-145); Troponin High Sensitivity 5.3 pg/mL (<58.9)
[2024-03-20 13:24] LABS: AST/SGOT 16 U/L (15-37); Bilirubin Direct < 0.2 mg/dL (0-0.2); Bilirubin Indirect, Calculated 0.1 mg/dL (0.2-0.8); Magnesium 1.5 mg/dL (1.6-2.4); Potassium 5.2 mEq/L (3.5-5.1)
[2024-03-20 13:32] LABS: Sqamous Epithelial None Seen /HPF (None Seen); Urine Bacteria None Seen /HPF (<20); Urine Bilirubin NEGATIVE (Negative); Urine Blood Trace (Negative); Urine Clarity Clear (Clear); Urine Color Light-Yellow (Yellow); Urine Culture Reflex Order NOT NEEDED; Urine Glucose NEGATIVE (Negative); Urine Ketones NEGATIVE (Negative); Urine Micro Reflex YN NO BILL MICROSCOPIC; Urine Nitrite NEGATIVE (Negative); Urine Protein NEGATIVE (Negative); Urine RBC <5 /HPF (None Seen); Urine Urobilinogen Normal (Normal); Urine WBC None Seen /HPF (<5)
[2024-03-20 13:52] LABS: Absolute Eosinophils 0.3 K/uL (0-0.5); Absolute Lymphocytes (CBC) 0.8 K/uL (0.7-4.9); Absolute Monocytes 0.4 K/uL (0.1-1.3); Absolute Neutrophil 2.9 K/uL (1.8-8.0); Eosinophils % 5.7 % (0-4.4); Hematocrit 32.9 % (36.0-45.0); Hemoglobin 11.4 g/dL (12.0-15.0); Lymphocytes % 18.4 % (15.3-44.8); MCH 32.8 pg (27.0-35.0); MCHC 34.7 g/dL (32.0-36.0); MCV 94.4 fL (80-100); MPV 7.4 fL (7.6-11.3); Neutrophils % 65.9 % (41.7-73.7); Platelets 91 thou/uL (152-406); RBC Red Blood Cell Count 3.49 M/uL (3.86-4.86); Red Cell Distribution Width 12.6 % (12.1-15.2)
[2024-03-20 13:59] LABS: PT Prothrombin Time 12.7 SECONDS (9.4-12.5); Protime INR 1.14
[2024-03-20] MEDS ORDERED: ONDANSETRON 4 MG/2 ML VIAL ONE (14:00)
--- NOTE | 2024-03-20 14:20 | ER ---
Nurse's Notes [facility] Name: Rosi Jordan Age: 73 yrs Sex: Female : 1950 Arrival Date: 03/20/2024 Time: 11:02 Bed 5 Private MD: Diagnosis: Hyponatremia, generalized weakness Presentation: 03/20 11:05 Chief complaint: EMS states: they were toned out for generalized weakness that has been kc6 ongoing but worse today with dizziness and nausea. Coronavirus screen: At this time, the client does not indicate any symptoms associated with coronavirus-19. Ebola Screen: No symptoms or risks identified at this time. Initial Sepsis Screen: Does the patient meet any 2 criteria? No. Patient's initial sepsis screen is negative. Does the patient have a suspected source of infection? No. Patient's initial sepsis screen is negative. Risk Assessment: Do you want to hurt yourself or someone else? Patient reports no desire to harm self or others. Onset of symptoms was March 20, 2024. 11:05 Method Of Arrival: [facility] 6 11:05 Acuity: CASPER 3 kc6 Triage Assessment: 11:08 General: Appears in no apparent distress. comfortable, well groomed, well developed, kc6 Behavior is calm, cooperative, appropriate for age. Pain: Denies pain. EENT: No signs and/or symptoms were reported regarding the EENT system. Neuro: Level of Consciousness is awake, alert, obeys commands, Oriented to person, place, time, situation, Appropriate for age Reports dizziness, weakness. Cardiovascular: Capillary refill < 3 seconds. Respiratory: Airway is patent Trachea midline Respiratory effort is even, unlabored, Respiratory pattern is regular, symmetrical. GI: Reports nausea, Patient currently denies abdominal pain, diarrhea, vomiting. : No signs and/or symptoms were reported regarding the genitourinary system. Derm: No signs and/or symptoms reported regarding the dermatologic system. Skin is intact, is healthy with good turgor, Skin is pink, warm \T\ dry. Musculoskeletal: No signs and/or symptoms reported regarding the musculoskeletal system. Circulation, motion, and sensation intact. Capillary refill < 3 seconds, Range of motion: intact in all extremities. Historical: - Allergies: 11:08 Codeine; kc6 11:08 PENICILLINS; kc6 11:08 Sulfa (Sulfonamide Antibiotics); kc6 11:08 Vancomycin; kc6 - PMHx: 11:08 breast cancer; Depression; GERD; Hyperlipidemia; Hypertension; Hypothyroidism; kidney kc6 disease; Cerebrovascular accident; - PSHx: 11:08 Carotid endarterectomy; Cholecystectomy; Tonsillectomy; kc6 - Immunization history:: Adult Immunizations up to date. - Infectious Disease History:: Denies. - Social history:: Smoking status: Patient denies any tobacco usage or history of. Screenin:21 [facility] ED Fall Risk Assessment (Adult) History of falling in the last 3 months, kc6 including since admission No falls in past 3 months (0 pts) Confusion or Disorientation No (0 pts) Intoxicated or Sedated No (0 pts) Impaired Gait No (0 pts) Mobility Assist Device Used No (0 pt) Altered Elimination No (0 pt) Score/Fall Risk Level 0 - 2 = Low Risk Oriented to surroundings. Abuse screen: Denies threats or abuse. Denies injuries from another. Nutritional screening: No deficits noted. Tuberculosis screening: No symptoms or risk factors identified. Assessment: 11:11 Reassessment: please see triage. kc6 12:11 Reassessment: Patient appears in no apparent distress at this time. No changes from kc6 previously documented assessment. Patient and/or family updated on plan of care and expected duration. Pain level reassessed. Patient is alert, oriented x 3, equal unlabored respirations, skin warm/dry/pink. 12:29 Reassessment: Spoke to inside lab, [facility], about blood collection due to pt being had mb9 stick. She states she will is leaving and will let the oncoming staff know. 12:34 Reassessment: Lab at bedside. mb9 13:11 Reassessment: Patient appears in no apparent distress at this time. No changes from kc6 previously documented assessment. Patient and/or family updated on plan of care and expected duration. Pain level reassessed. Patient is alert, oriented x 3, equal unlabored respirations, skin warm/dry/pink. 14:11 Reassessment: Patient appears in no apparent distress at this time. No changes from kc6 previously documented assessment. Patient and/or family updated on plan of care and expected duration. Pain level reassessed. Patient is alert, oriented x 3, equal unlabored respirations, skin warm/dry/pink. 15:11 Reassessment: Patient appears in no apparent distress at this time. No changes from [facility] previously documented assessment. Patient and/or family updated on plan of care and expected duration. Pain level reassessed. Patient is alert, oriented x 3, equal unlabored respirations, skin warm/dry/pink. Vital Signs: 11:05 BP 188 / 77; Pulse 66; Resp 16 S; Pulse Ox 100% on R/A; Weight 88.9 kg (R); Height 5 kc ft. 1 in. (R); 14:04 BP 191 / 82; Pulse 69; Resp 16 S; Pulse Ox 99% on R/A; kc6 15:46 BP 171 / 81; Pulse 69; Resp 16 S; Pulse Ox 98% on R/A; kc6 11:05 Body Mass Index 37.03 (88.90 kg, 154.94 cm) [facility] ED Course: 11:04 Patient arrived in ED. 6 11:05 Juventino Rainey MD is Attending Physician. sp3 11:08 Triage completed. kc6 11:08 Arm band placed on. kc6 11:21 Patient has correct armband on for positive identification. Bed in low position. Call [facility] light in reach. Side rails up X2. engine monitor on. Pulse ox on. NIBP on. Door closed. Noise minimized. Lights dimmed. Pillow given. 11:22 Patient maintains SpO2 saturation greater than 95% on room air. kc6 11:25 Reva Hoffman, RN is Primary Nurse. kc6 11:55 SARS RAPID Sent. kc6 11:55 Strep Sent. kc6 11:55 Flu Sent. kc6 11:55 Missed attempt(s): 22 gauge in left antecubital area. Inserted saline lock: 24 gauge in [facility] left upper arm, using aseptic technique. Flushed with 10 mL NS. 12:20 Radiology exam delayed due to IV insertion attempt and/or patient not having rs4 appropriate IV at this time. 12:30 Missed attempt(s): 20 gauge in left antecubital area. Bleeding controlled, band aid mb9 applied, catheter tip intact. 12:46 XRAY Chest (1 view) In Process Unspecified. EDMS 13:37 Lactate w/ 2H reflex if indic. Sent. iw 13:37 PT-INR Sent. iw 13:37 CBC with Diff Sent. iw 14:19 Rolly Hardin MD is Hospitalizing Provider. sp3 15:55 No provider procedures requiring assistance completed. Patient admitted, IV remains in kc6 place. Administered Medications: 14:20 Drug: Ondansetron IVP 4 mg IVP once; over 2 minutes Route: IVP; Site: right upper arm; kc6 15:45 Drug: NS 0.9% IV 1000 ml IV at 75 ml/hr continuous Route: IV; Rate: 75 ml/hr; Site: kc6 left upper arm; Medication: 15:55 VIS not applicable for this client. kc6 Outcome: 14:19 Decision to Hospitalize by Provider. sp3 15:55 Admitted to Med/surg accompanied by tech, via wheelchair, room 212, with chart, kc6 15:55 Condition: good 15:55 Instructed on the need for admit, 15:55 Patient left the ED. kc6 Signatures: Dispatcher [employer] EDConcepcion Yang RN RN iw Juventino Rainey MD MD sp3 Reva Hoffman RN RN kc6 Kaylee Galindo RN RN mb9 Pratibha Rico rs4
--- NOTE | 2024-03-20 14:20 | EDPHYS ---
Physician Documentation [facility] Name: Rosi Jordan Age: 73 yrs Sex: Female : 1950 Arrival Date: 03/20/2024 Time: 11:02 Bed 5 Private MD: ED Physician Juventino Rainey HPI: 03/20 11:41 This 73 yrs old Female presents to ER via EMS with complaints of General Weakness. sp3 11:41 73-year-old female with history of hypertension, hypothyroidism, hyperlipidemia, prior sp3 breast cancer with no evidence of disease x 4 years currently on anastrozole maintenance chemotherapy presents to the ED with chief complaint generalized weakness and malaise. Patient was recently on a cruise about 1 month ago and after she returned was diagnosed with pneumonia and finished a course of antibiotics. She improved and now is starting to feel similar symptoms with the weakness. She denies any cough, congestion, fever, chest pain, shortness of breath, abdominal pain, vomiting or diarrhea, rash, or any other signs or symptoms on ROS at this time. She does endorse nausea.. Historical: - Allergies: 11:08 Codeine; kc6 11:08 PENICILLINS; kc6 11:08 Sulfa (Sulfonamide Antibiotics); kc6 11:08 Vancomycin; kc6 - PMHx: 11:08 breast cancer; Depression; GERD; Hyperlipidemia; Hypertension; Hypothyroidism; kidney kc6 disease; Cerebrovascular accident; - PSHx: 11:08 Carotid endarterectomy; Cholecystectomy; Tonsillectomy; kc6 - Immunization history:: Adult Immunizations up to date. - Infectious Disease History:: Denies. - Social history:: Smoking status: Patient denies any tobacco usage or history of. ROS: 11:42 Constitutional: Negative for fever, chills, and weight loss, Eyes: Negative for injury, sp3 pain, redness, and discharge, ENT: Negative for injury, pain, and discharge, Neck: Negative for injury, pain, and swelling, Cardiovascular: Negative for chest pain, palpitations, and edema, Respiratory: Negative for shortness of breath, cough, wheezing, and pleuritic chest pain, Back: Negative for injury and pain, MS/Extremity: Negative for injury and deformity, Skin: Negative for injury, rash, and discoloration, Psych: Negative for depression, anxiety, suicide ideation, homicidal ideation, and hallucinations, Allergy/Immunology: Negative for hives, rash, and allergies, 11:42 All other systems are negative, Exam: 11:42 Constitutional: This is a well developed, well nourished patient who is awake, alert, sp3 and in no acute distress. Head/Face: Normocephalic, atraumatic. ENT: Nares patent. No nasal discharge, no septal abnormalities noted. External auditory canals are clear. Oropharynx with no redness, swelling, or masses, exudates, or evidence of obstruction, uvula midline. Mucous membranes moist. Neck: Trachea midline, no thyromegaly or masses palpated, and no cervical lymphadenopathy. Supple, full range of motion without nuchal rigidity, or vertebral point tenderness. No Meningismus. Chest/axilla: Normal chest wall appearance and motion. Nontender with no deformity. No lesions are appreciated. Cardiovascular: Regular rate and rhythm with a normal S1 and S2. No gallops, murmurs, or rubs. Normal PMI, no JVD. No pulse deficits. Respiratory: Lungs have equal breath sounds bilaterally, clear to auscultation and percussion. No rales, rhonchi or wheezes noted. No increased work of breathing, no retractions or nasal flaring. Abdomen/GI: Soft, non-tender, with normal bowel sounds. No distension or tympany. No guarding or rebound. No evidence of tenderness throughout. Back: No spinal tenderness. No costovertebral tenderness. Full range of motion. Skin: Warm, dry with normal turgor. Normal color with no rashes, no lesions, and no evidence of cellulitis. MS/ Extremity: Pulses equal, no cyanosis. Neurovascular intact. Full, normal range of motion. Neuro: Awake and alert, GCS 15, oriented to person, place, time, and situation. Cranial nerves II-XII grossly intact. Motor strength 5/5 in all extremities. Sensory grossly intact. Cerebellar exam normal. Normal gait. Psych: Awake, alert, with orientation to person, place and time. Behavior, mood, and affect are within normal limits. 11:46 ECG was reviewed by the Attending Physician. EKG demonstrates normal sinus rhythm at 65 sp3 bpm with normal intervals, normal QRS, normal axis, nonspecific diffuse ST's ST changes without evidence of acute ischemia. Vital Signs: 11:05 BP 188 / 77; Pulse 66; Resp 16 S; Pulse Ox 100% on R/A; Weight 88.9 kg (R); Height 5 kc6 ft. 1 in. (R); 14:04 BP 191 / 82; Pulse 69; Resp 16 S; Pulse Ox 99% on R/A; kc6 15:46 BP 171 / 81; Pulse 69; Resp 16 S; Pulse Ox 98% on R/A; kc6 11:05 Body Mass Index 37.03 (88.90 kg, 154.94 cm) kc6 MDM: 11:06 Medical Screening Exam initiated sp3 11:43 Data reviewed: vital signs, nurses notes, old medical records, lab test result(s), EKG, sp3 radiologic studies. ED course: 73-year-old female with PMH above now with generalized weakness and malaise. Differential diagnosis includes dehydration, electrolyte abnormality, infection including UTI and pneumonia, ACS, among others. Workup will include EKG, chest x-ray, general labs, UA, viral swabs, and general supportive care. Disposition pending workup and patient course.. 14:18 ED course: Patient with sodium 120. Will start slow normal saline correction patient to sp3 be admitted to medicine.. 03/20 11:07 Order name: Basic Metabolic Panel; Complete Time: 14:11 sp3 03/20 11:07 Order name: CBC with Diff; Complete Time: 14:11 sp3 03/20 11:07 Order name: LFT's; Complete Time: 14:11 sp3 03/20 11:07 Order name: Magnesium; Complete Time: 14:11 sp3 03/20 11:07 Order name: NT PRO-BNP; Complete Time: 14:11 sp3 03/20 11:07 Order name: PT-INR; Complete Time: 14:11 sp3 03/20 11:07 Order name: Troponin HS; Complete Time: 14:11 sp3 03/20 11:07 Order name: Lactate w/ 2H reflex if indic.; Complete Time: 14:11 sp3 03/20 11:44 Order name: UAM; Complete Time: 14:11 sp3 03/20 11:44 Order name: Flu; Complete Time: 14:11 sp3 03/20 11:44 Order name: Strep sp3 03/20 11:44 Order name: SARS RAPID; Complete Time: 12:58 sp3 03/20 12:24 Order name: Throat Culture EDMS 03/20 14:46 Order name: Urinalysis w/ reflexes EDMS 03/20 14:46 Order name: Basic Metabolic Panel EDMS 03/20 14:46 Order name: Basic Metabolic Panel EDMS 03/20 14:46 Order name: Basic Metabolic Panel EDMS 03/20 14:46 Order name: CBC with Automated Diff EDMS 03/20 14:46 Order name: CBC with Automated Diff EDMS 03/20 14:46 Order name: CBC with Automated Diff EDMS 03/20 14:46 Order name: Magnesium EDMS 03/20 14:46 Order name: Magnesium EDMS 03/20 14:46 Order name: Magnesium EDMS 03/20 11:07 Order name: XRAY Chest (1 view); Complete Time: 12:58 sp3 03/20 11:07 Order name: Cardiac monitoring; Complete Time: 11:45 sp3 03/20 11:07 Order name: EKG - Nurse/Tech; Complete Time: 11:45 sp3 03/20 11:07 Order name: IV Saline Lock; Complete Time: 11:55 sp3 03/20 11:07 Order name: Labs collected and sent; Complete Time: 13:37 sp3 03/20 11:07 Order name: O2 Per Protocol; Complete Time: 11:27 sp3 03/20 11:07 Order name: O2 Sat Monitoring; Complete Time: 11:27 sp3 Administered Medications: 14:20 Drug: Ondansetron IVP 4 mg IVP once; over 2 minutes Route: IVP; Site: right upper arm; [facility] 15:45 Drug: NS 0.9% IV 1000 ml IV at 75 ml/hr continuous Route: IV; Rate: 75 ml/hr; Site: [facility] left upper arm; Disposition Summary: 03/20/24 14:19 Hospitalization Ordered Notes: Hospitalization Status: Inpatient Admission sp3 Provider: Rolly Hardin3 Location: Telemetry/MedSur (Inpatient) sp3 Condition: Stable sp3 Problem: new sp3 Symptoms: have worsened sp3 Bed/Room Type: Standard sp3 Room Assignment: [facility](03/20/24 14:51) bd Diagnosis - Hyponatremia, generalized weakness sp3 Forms: - Medication Reconciliation Form sp3 - SBAR form sp3 - Leadership Thank You Letter sp3 Signatures: Dispatcher [employer] EDMS Erica No bd Juventino Rainey MD MD sp3 Reva Hoffman RN RN kc6 Corrections: (The following items were deleted from the chart) 11:08 11:08 BASIC METABOLIC PANEL+C.LAB.BRZ ordered. EDMS EDMS 11:08 11:08 CBC+H.LAB.BRZ ordered. EDMS EDMS 11:08 11:08 HEPATIC FUNCTION+C.LAB.BRZ ordered. EDMS EDMS 11:08 11:08 MAGNESIUM+C.LAB.BRZ ordered. EDMS EDMS 11:08 11:08 PROBNP+C.LAB.BRZ ordered. EDMS EDMS 11:08 11:08 PROTIME (+INR)+COAG.LAB.BRZ ordered. EDMS EDMS 11:08 11:08 Troponin High Sensitivity+C.LAB.BRZ ordered. EDMS EDMS 11:08 11:08 LACTATE+C.LAB.BRZ ordered. EDMS EDMS 11:08 11:08 Chest Single View+RAD.RAD.BRZ ordered. EDMS EDMS 14:51 14:19 sp3 bd
--- NOTE | 2024-03-20 14:40 | P.HP ---
Certification for Inpatient Patient admitted to: Inpatient With expected LOS: <2 Midnights Patient will require the following post-hospital care: None Practitioner: I am a practitioner with admitting privileges, knowledge of patient current condition, hospital course, and medical plan of care. Services: Services provided to patient in accordance with Admission requirements found in Title 42 Section 412.3 of the Code of Federal Regulations Patient History Date of Service: 03/21/24 Reason for admission: weakness History of Present Illness: This 73 yrs old Female with past medical history of breast cancer; Depression; GERD; Hyperlipidemia; Hypertension; Hypothyroidism; kidney disease; Cerebrovascular accident presents to the emergency room with General Weakness. She reports being on a cruise for one day and being treated in a medical facility and being transported back to the [facility]. She reports not remembering much of the incidence. She reports recent diagnosis with pneumonia and finished a course of antibiotics She reports bilateral upper extremity weakness, She reports nausea, vomiting x 1, loose stools. breast cancer with no evidence of disease x 4 years currently on anastrozole maintenance chemotherapy. She denies fever, cough, shortness of breath or chest pain. ED work up reveals hyponatremia, na 121, GFR 57, lactic acid normal 1.1, WBC normal, microcytic anemia HH 11.4/32.9 thrrombocytopenia 100. CXR\ The lungs are underinflated resulting in mild vascular crowding. Elevated right hemidiaphragm, unchanged. The heart is mildly enlarged in size. No displaced fractures identified. IMPRESSION: No acute intrathoracic abnormalities plan to admit for dedydration, hyponatremia, generalized weakness with neph to consult Allergies codeine Allergy (Verified 01/05/22 09:45) Rash Penicillins Allergy (Verified 01/05/22 09:45) Rash Sulfa (Sulfonamide Antibiotics) Allergy (Verified 01/05/22 09:45) Rash Home Medications: Aspirin [Ecotrin 81 MG] 81 mg PO DAILY 08/01/19 Atorvastatin Calcium [Lipitor*] 20 mg PO BEDTIME 08/01/19 Cholecalciferol (Vitamin D3) [Vitamin D3] 5,000 unit PO DAILY 08/01/19 Cholestyramine (with Sugar) [Cholestyramine Packet] 1 packet PO DAILY 08/01/19 Citalopram Hydrobromide [Celexa] 40 mg PO DAILY 08/01/19 Gabapentin 300 mg PO DAILY 08/01/19 Levothyroxine Sodium [Synthroid] 75 mcg PO DAILY 08/01/19 Trazodone [Desyrel*] 50 mg PO BEDTIME 08/01/19 oxyBUTYnin chloride [Ditropan*] 10 mg PO BID 08/03/19 Anastrozole [Arimidex*] 1 mg PO BEDTIME 07/22/22 Loratadine [Claritin*] 10 mg PO DAILY 07/22/22 carvediloL [Coreg*] 6.25 mg PO BIDWM #180 tab 09/07/22 Donepezil HCl 10 mg PO DAILY 03/20/24 Fluticasone Propion/Salmeterol [Wixela 250-50 Inhub] 50 - 250 unit XX BID 03/20/24 Fluticasone [Flonase 50MCG Nasal Rugby*] 50 mcg XX DAILY 03/20/24 Magnesium Oxide [Mag 0X*] 400 mg PO DAILY 03/20/24 Meclizine HCl 25 mg PO PRN 03/20/24 Memantine HCl 10 mg PO DAILY 03/20/24 Nifedipine Xl [Procardia XL] 30 mg PO DAILY 03/20/24 Nitrofurantoin Macrocrystal [Macrodantin] 100 mg PO BID 03/20/24 Torsemide [Demadex] 20 mg PO DAILY 03/20/24 Valsartan 160 mg PO DAILY 03/20/24 modafiniL [Provigil] 200 mg PO DAILY 03/20/24 - Past Medical/Surgical History Diabetic: No -: Depression -: GERD -: Hyperlipidemia -: Hypertension -: Hypothyroidism -: NON ALCOHOLIC CIRRHOSIS OF LIVER. -: Chronic renal disease -: Recurrent UTI -: Breast cancer status post bilateral mastectomy -: POSSIBLE CHF BUT NOT CLEAR TO ME. -: Hand surgery -: Lap band -: Foot surgery -: Back surgery -: Bilateral mastectomy -: Cholecystectomy -: Tubal ligation Psychosocial/ Personal History: She is a . She has 3 children. 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 - Family History Mother -: Diabetes Father -: Heart disease, Other (see notes) Brother -: Heart disease Sister -: Other (see notes) Notes: lupus - Social History Alcohol use: No CD- Drugs: No Caffeine use: Yes Review of Systems 10-point ROS is otherwise unremarkable General: As per HPI Physical Examination - Physical Exam General: Alert, Oriented x3, Other (moderate generalized weakness) HEENT: Atraumatic, Normocephalic, PERRLA Neck: Supple, Without JVD or thyroid abnormality Respiratory: Clear to auscultation bilaterally, Normal air movement Cardiovascular: No edema, Normal pulses, Regular rate/rhythm Capillary refill: <2 Seconds Gastrointestinal: Normal bowel sounds, Soft and benign, Other (nausea) Musculoskeletal: No swelling, No contractures Integumentary: No breakdown, No significant lesion Neurological: Normal speech, Sensation intact, Cranial nerves 3-12 intact, Other (generalized weakness, abmulate w assist) - Studies Laboratory Data (last 24 hrs) 03/20/24 03/20/24 03/20/24 13:34 13:34 12:53 WBC 4.40 Hgb 11.4 L Hct 32.9 L Plt Count 91 L PT 12.7 H INR 1.14 Sodium 120 L Potassium 5.2 H BUN 12 Creatinine 1.04 H Glucose 96 Magnesium 1.5 L Total Bilirubin 0.3 AST 16 ALT 15 Alkaline Phosphatase 56 Microbiology Data (last 24 hrs): 03/20/24 11:52 Nasopharnyx Influenza Type A Antigen Screen - Final 03/20/24 11:52 Nasopharnyx Influenza Type B Antigen Screen - Final 03/20/24 11:52 Throat Group A Streptococcus Rapid Screen - Final Assessment and Plan - Problems (Diagnosis) (1) Nausea & vomiting Current Visit: Yes Status: Acute (2) Chemotherapy adverse reaction Current Visit: Yes Status: Acute (3) History of breast cancer Current Visit: Yes Status: Acute (4) Thrombocytopenia Current Visit: No Status: Acute (5) Dehydration Current Visit: No Status: Chronic - Plan admit to [facility] neph consult, Trend kidney funtion/electrolytes replace electrolytes prn Gentle hydration resume home meds fall precautions Discharge Plan: Home - Advance Directives Does patient have a Living Will: Yes Does patient have a Durable POA for Healthcare: No - Code Status/Comfort Care Code Status: Full Code Critical Care: No Time Spent Managing Pts Care (In Minutes): 55
[2024-03-20] MEDS ORDERED: ALPRAZOLAM 0.25 MG TABLET PO PRN (14:42)
[2024-03-20] MEDS: NA CHLORIDE 0.9% 1,000 ML IV SCH ×2 (15:00→17:00)
[2024-03-20] MEDS ORDERED: NA CHLORIDE 0.9% 1,000 ML ONE (15:38)
[2024-03-20] MEDS: ACETAMINOPHEN 500 MG TAB PO ONE (20:12)
[2024-03-20] MEDS: TRAZODONE 50 MG TABLET PO PRN (21:50)
[2024-03-21 01:11] VITALS: O2SAT 97
[2024-03-21 01:22] LABS: Anion Gap 10.1 mEq/L (5.0-15.0); Potassium 4.1 mEq/L (3.5-5.1)
[2024-03-21] MEDS: METOPROLOL TAR 25 MG TAB ONE (02:19)
[2024-03-21] MEDS: METOPROLOL TAR 25 MG TAB PO ONE (03:40)
[2024-03-21] MEDS: ONDANSETRON 4 MG/2 ML VIAL IV PRN (04:54)
[2024-03-21 05:27] LABS: Absolute Eosinophils 0.2 K/uL (0-0.5); Absolute Lymphocytes (CBC) 0.6 K/uL (0.7-4.9); Absolute Monocytes 0.4 K/uL (0.1-1.3); Absolute Neutrophil 3.4 K/uL (1.8-8.0); Basophils % 1.1 % (0-1.3); Eosinophils % 4.9 % (0-4.4); Hematocrit 34.1 % (36.0-45.0); Hemoglobin 11.9 g/dL (12.0-15.0); MCV 94.2 fL (80-100); MPV 7.1 fL (7.6-11.3); Monocytes % 8.1 % (3.3-12.3); Neutrophils % 72.9 % (41.7-73.7); Nucleated Red Blood Cells % 0.2 % (0-0); Platelets 107 thou/uL (152-406); RBC Red Blood Cell Count 3.62 M/uL (3.86-4.86); Red Cell Distribution Width 12.7 % (12.1-15.2)
[2024-03-21 05:44] LABS: Anion Gap 9.4 mEq/L (5.0-15.0); Magnesium 1.5 mg/dL (1.6-2.4); Potassium 4.4 mEq/L (3.5-5.1)
[2024-03-21 06:22] LABS: Phosphorus 3.3 mg/dL (2.5-4.9)
[2024-03-21 06:59] LABS: Phosphorus 3.3 mg/dL (2.5-4.9)
[2024-03-21] MEDS: UREA 15 GM POWDER PACKET PO SCH (09:00)
[2024-03-21] MEDS: SODIUM CHLORIDE 1 GM TAB PO SCH (09:00)
[2024-03-21] MEDS: ASPIRIN EC 81 MG TAB PO SCH (09:40)
[2024-03-21] MEDS: Magnesium Sulfate 2gm IVPB 2 G/50 ML BAG IV ONE (09:40)
[2024-03-21] MEDS: carvediloL 6.25 MG TAB PO SCH (09:40)
--- NOTE | 2024-03-21 10:38 | P.PN ---
Subjective Date of Service: 03/21/24 Chief Complaint: Weakness Subjective: Improving (Patient states she feels a little bit better this morning. Last vomited earlier in the a.m. has had diarrhea x 2 and request her cholestyramine. Continue generalized weakness) Review of Systems General: Weakness, Malaise Eyes: Unremarkable ENT: Unremarkable Respiratory: Unremarkable Cardiovascular: Unremarkable Gastrointestinal: Nausea, Vomiting, Diarrhea Genitourinary: Unremarkable Musculoskeletal: Unremarkable Integumentary: Unremarkable Neurological: Weakness, Other (Frontal headache) Lymphatics: Unremarkable Physical Examination - Vital Signs Temperature: 98.4 F Blood Pressure: 184/77 Pulse: 62 Respirations: 16 Pulse Ox (%): 95 - Physical Exam General: Alert, In no apparent distress, Oriented x3, Other (mild frontal headache) HEENT: Atraumatic, Normocephalic Neck: Supple Respiratory: Normal air movement Cardiovascular: Normal pulses, Regular rate/rhythm Capillary refill: <2 Seconds Gastrointestinal: Soft and benign Musculoskeletal: No clubbing, No swelling Integumentary: No rashes Neurological: Normal speech, Normal tone, Normal affect Lymphatics: No axilla or inguinal lymphadenopathy External genitalia: Deferred Rectal: Deferred - Studies Laboratory Data (last 24 hrs) 03/20/24 03/20/24 03/20/24 13:34 13:34 12:53 WBC 4.40 Hgb 11.4 L Hct 32.9 L Plt Count 91 L PT 12.7 H INR 1.14 Sodium 120 L Potassium 5.2 H BUN 12 Creatinine 1.04 H Glucose 96 Magnesium 1.5 L Total Bilirubin 0.3 AST 16 ALT 15 Alkaline Phosphatase 56 Microbiology Data (last 24 hrs): 03/20/24 11:52 Throat Group A Streptococcus Rapid Screen - Final 03/20/24 11:52 Nasopharnyx Influenza Type A Antigen Screen - Final 03/20/24 11:52 Nasopharnyx Influenza Type B Antigen Screen - Final Assessment And Plan - Plan Hyponatremia Weakness Nausea vomiting/headache HTN Gentle hydration Monitor and trend electrolytes, replete as necessary History of diarrheacholestyramine Consult Dr. Wyman Neurochecks every 4h Phenergan as needed headache/nausea Teds Seizure precautions protonix prn Up to chair TID Na this afternoon at 123 Med rec per pharmacy records Valsartan 160mg po daily gabapentin 300mg TID atorvastatin 20mg po q hs lisinopril 20mg po daily donepezil 10mg po q hs citalopram 40mg po daily (can cause hyponatremia) divalproex 250mg po q hs - Code Status/Comfort Care Code Status Assessed: Yes (full)
[2024-03-21 11:41] LABS: Anion Gap 10.2 mEq/L (5.0-15.0); Potassium 4.2 mEq/L (3.5-5.1)
[2024-03-21] MEDS: PROMETHAZINE INJ 25 MG/ML AMP IV PRN (14:19)
[2024-03-21] MEDS: CHOLESTYRAMINE/ASP 4 GM/PKT PO SCH (14:39)
[2024-03-21 16:42] VITALS: BMI 36.8
[2024-03-21] MEDS: VALSARTAN 160 MG TAB PO SCH (18:29)
[2024-03-21 19:09] LABS: Anion Gap 11.1 mEq/L (5.0-15.0); Potassium 4.1 mEq/L (3.5-5.1)
[2024-03-21] MEDS: DIVALPROEX DR 250 MG TAB PO SCH (19:52)
[2024-03-21] MEDS: GABAPENTIN 300 MG CAP PO SCH (19:53)
[2024-03-21] MEDS: ATORVASTATIN 20 MG TAB PO SCH (19:53)
[2024-03-21] MEDS: TRAMADOL HCL 50 MG TAB PO PRN (19:54)
--- NOTE | 2024-03-21 19:57 | P.CNS ---
Date of Consult: 03/21/24 Reason for Consult: Hyponatremia Requesting Physician: Rolly Hardin Chief Complaint: Weakness History of Present Illness: [id number] 11:41 This 73 yrs old Female presents to ER via EMS with complaints of General Weakness. sp3 11:41 73-year-old female with history of hypertension, hypothyroidism, hyperlipidemia, prior sp3 breast cancer with no evidence of disease x 4 years currently on anastrozole maintenance chemotherapy presents to the ED with chief complaint generalized weakness and malaise. Patient was recently on a cruise about 1 month ago and after she returned was diagnosed with pneumonia and finished a course of antibiotics. She improved and now is starting to feel similar symptoms with the weakness. She denies any cough, congestion, fever, chest pain, shortness of breath, abdominal pain, vomiting or diarrhea, rash, Allergies codeine Allergy (Verified 01/05/22 09:45) Rash Penicillins Allergy (Verified 01/05/22 09:45) Rash Sulfa (Sulfonamide Antibiotics) Allergy (Verified 01/05/22 09:45) Rash Home medications list reviewed: Yes Home Medications: Aspirin [Ecotrin 81 MG] 81 mg PO DAILY 08/01/19 Atorvastatin Calcium [Lipitor*] 20 mg PO BEDTIME 08/01/19 Cholecalciferol (Vitamin D3) [Vitamin D3] 5,000 unit PO DAILY 08/01/19 Cholestyramine (with Sugar) [Cholestyramine Packet] 1 packet PO DAILY 08/01/19 Citalopram Hydrobromide [Celexa] 40 mg PO DAILY 08/01/19 Gabapentin 300 mg PO DAILY 08/01/19 Levothyroxine Sodium [Synthroid] 75 mcg PO DAILY 08/01/19 Trazodone [Desyrel*] 50 mg PO BEDTIME 08/01/19 oxyBUTYnin chloride [Ditropan*] 10 mg PO BID 08/03/19 Anastrozole [Arimidex*] 1 mg PO BEDTIME 07/22/22 Loratadine [Claritin*] 10 mg PO DAILY 07/22/22 carvediloL [Coreg*] 6.25 mg PO BIDWM #180 tab 09/07/22 Donepezil HCl 10 mg PO DAILY 03/20/24 Fluticasone Propion/Salmeterol [Wixela 250-50 Inhub] 50 - 250 unit XX BID 03/20/24 Fluticasone [Flonase 50MCG Nasal [place]*] 50 mcg XX DAILY 03/20/24 Magnesium Oxide [Mag 0X*] 400 mg PO DAILY 03/20/24 Meclizine HCl 25 mg PO PRN 03/20/24 Memantine HCl 10 mg PO DAILY 03/20/24 Nifedipine Xl [Procardia XL] 30 mg PO DAILY 03/20/24 Nitrofurantoin Macrocrystal [Macrodantin] 100 mg PO BID 03/20/24 Torsemide [Demadex] 20 mg PO DAILY 03/20/24 Valsartan 160 mg PO DAILY 03/20/24 modafiniL [Provigil] 200 mg PO DAILY 03/20/24 - Past Medical/Surgical History Diabetic: No -: Depression -: GERD -: HLD -: HTN -: Hypothyroidism -: NON ALCOHOLIC CIRRHOSIS OF LIVER. -: Hyponatremia (Dr. Pickens) -: Recurrent UTI -: Breast cancer status post bilateral mastectomy -: Hand surgery -: Lap band -: Foot surgery -: Back surgery -: Bilateral mastectomy -: Cholecystectomy -: Tubal ligation Psychosocial/ Personal History: She is a . She has 3 children. 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 - Family History Mother Medical History: Diabetes Father Medical History: Heart disease, Other (see notes) Brother Medical History: Heart disease Sister Medical History: Other (see notes) Notes: lupus - Social History Smoking Status: Unknown if ever smoked Alcohol use: No CD- Drugs: No Caffeine use: Yes Place of Residence: Home Review of Systems 10-point ROS is otherwise unremarkable General: Weakness, Malaise Gastrointestinal: Nausea Physical Examination Temp Pulse Resp BP Pulse Ox 98.4 F 62 16 184/77 H 95 03/21/24 17:17 03/21/24 18:29 03/21/24 17:17 03/21/24 18:29 03/21/24 17:17 General: In no apparent distress, Oriented x3, Cooperative HEENT: Atraumatic Neck: Supple Respiratory: Clear to auscultation bilaterally, Normal air movement Cardiovascular: No edema, Regular rate/rhythm Gastrointestinal: Soft and benign, Non-distended Musculoskeletal: No clubbing, No contractures Integumentary: No rashes, No cyanosis Neurological: Normal speech Blood work reviewed in the chart. Imagings Data: [id number] EXAMINATION: ONE VIEW CHEST XR CLINICAL INDICATION: MALAISE TECHNIQUE: Frontal chest projection is submitted. Examination is limited by pat ient positioning and technique. COMPARISON: 11/18/2023 FINDINGS: The lungs are underinflated resulting in mild vascular crowding. Elevated right hemidiaphragm, unchanged. The heart is mildly enlarged in size. No displaced fractures identified. IMPRESSION: No acute intrathoracic abnormalities. Conclusions/Impression: Hyponatremia -Continue IVF with NS -Start salt tabs -Start Ure-Na BID -Repeat BMP Hypomagnesemia -Replete as ordered HTN -Start Coreg BID -Continue Valsartan -Start Nifedipine XL BID Anemia in chronic illness Thrombocytopenia -Monitor CBC Case reviewed with the hospitalist team Thank you kindly for the consultation
[2024-03-21] MEDS: METOCLOPRAMIDE 10 MG/2mL INJ IV PRN (20:24)
[2024-03-21] MEDS: NIFEDIPINE XL 30 MG TABLET PO SCH (22:00)
[2024-03-21 23:15] LABS: Anion Gap 10.5 mEq/L (5.0-15.0); Potassium 4.5 mEq/L (3.5-5.1)
[2024-03-22] MEDS: HYDRALAZINE HCL 20 MG/ML VIAL IV PRN (01:12)
[2024-03-22 03:02] LABS: Anion Gap 8.7 mEq/L (5.0-15.0); Potassium 3.7 mEq/L (3.5-5.1)
[2024-03-22 06:21] LABS: Absolute Eosinophils 0.1 K/uL (0-0.5); Absolute Lymphocytes (CBC) 0.6 K/uL (0.7-4.9); Absolute Monocytes 0.4 K/uL (0.1-1.3); Absolute Neutrophil 2.4 K/uL (1.8-8.0); Basophils % 0.9 % (0-1.3); Eosinophils % 3.3 % (0-4.4); Hematocrit 31.3 % (36.0-45.0); Hemoglobin 10.8 g/dL (12.0-15.0); Lymphocytes % 17.1 % (15.3-44.8); MCH 32.5 pg (27.0-35.0); MCHC 34.4 g/dL (32.0-36.0); MCV 94.3 fL (80-100); Monocytes % 10.1 % (3.3-12.3); Neutrophils % 68.6 % (41.7-73.7); Nucleated Red Blood Cells % 0.1 % (0-0); Platelets 84 thou/uL (152-406); RBC Red Blood Cell Count 3.31 M/uL (3.86-4.86); Red Cell Distribution Width 12.7 % (12.1-15.2)
[2024-03-22 06:48] LABS: Anion Gap 8.8 mEq/L (5.0-15.0)
[2024-03-22 07:01] LABS: Magnesium 1.8 mg/dL (1.6-2.4); Potassium 3.8 mEq/L (3.5-5.1)
[2024-03-22] MEDS ORDERED: CHOLESTYRAMINE/ASP 4 GM/PKT PO SCH (08:00)
--- NOTE | 2024-03-22 08:00 | P.DS ---
Admission Date: 03/20/24 Discharge Date: 03/22/24 Disposition: ROUTINE DISCHARGE Reason for Admission: weakness - Problems (1) Nausea & vomiting Current Visit: Yes Status: Acute (2) Chemotherapy adverse reaction Current Visit: Yes Status: Acute (3) History of breast cancer Current Visit: Yes Status: Acute (4) Thrombocytopenia Current Visit: No Status: Acute (5) Dehydration Current Visit: No Status: Chronic Brief History of Present Illness: This 73 yrs old Female with past medical history of breast cancer; Depression; GERD; Hyperlipidemia; Hypertension; Hypothyroidism; kidney disease; Cerebrovascular accident presents to the emergency room with General Weakness. She reports being on a cruise for one day and being treated in a medical facility and being transported back to the [facility]. She reports not remembering much of the incidence. She reports recent diagnosis with pneumonia and finished a course of antibiotics She reports bilateral upper extremity weakness, She reports nausea, vomiting x 1, loose stools. breast cancer with no evidence of disease x 4 years currently on anastrozole maintenance chemotherapy. She denies fever, cough, shortness of breath or chest pain. ED work up reveals hyponatremia, na 121, GFR 57, lactic acid normal 1.1, WBC normal, microcytic anemia HH 11.4/32.9 thrrombocytopenia 100. CXR\ The lungs are underinflated resulting in mild vascular crowding. Elevated right hemidiaphragm, unchanged. The heart is mildly enlarged in size. No displaced fractures identified. IMPRESSION: No acute intrathoracic abnormalities plan to admit for dedydration, hyponatremia, generalized weakness with neph to consult Vital Signs/Physical Exam: Temp Pulse Resp BP Pulse Ox 98.3 F 85 18 154/73 H 95 03/22/24 04:00 03/22/24 04:00 03/22/24 05:11 03/22/24 06:45 03/22/24 05:11 Laboratory Data at Discharge: WBC 3.50 thou/uL (4.3-10.9) L 03/22/24 06:05 Hgb 10.8 g/dL (12.0-15.0) L D 03/22/24 06:05 Hct 31.3 % (36.0-45.0) L 03/22/24 06:05 Plt Count 84 thou/uL (152-406) L 03/22/24 06:05 PT 12.7 SECONDS (9.4-12.5) H 03/20/24 13:34 INR 1.14 03/20/24 13:34 Sodium 127 mEq/L (136-145) L 03/22/24 06:05 Potassium 3.8 mEq/L (3.5-5.1) 03/22/24 06:05 BUN 10 mg/dL (7-18) 03/22/24 06:05 Creatinine 0.89 mg/dL (0.55-1.02) 03/22/24 06:05 Glucose 110 mg/dL (74-106) H 03/22/24 06:05 Phosphorus 3.3 mg/dL (2.5-4.9) 03/21/24 05:04 Magnesium 1.8 mg/dL (1.6-2.4) 03/22/24 06:05 Total Bilirubin 0.3 mg/dL (0.2-1.0) 03/20/24 12:53 AST 16 U/L (15-37) 03/20/24 12:53 ALT 15 U/L (13-56) 03/20/24 12:53 Alkaline Phosphatase 56 U/L (45-117) 03/20/24 12:53 Home Medications: Aspirin [Ecotrin 81 MG] 81 mg PO DAILY 08/01/19 Atorvastatin Calcium [Lipitor*] 20 mg PO BEDTIME 08/01/19 Cholecalciferol (Vitamin D3) [Vitamin D3] 5,000 unit PO DAILY 08/01/19 Cholestyramine (with Sugar) [Cholestyramine Packet] 1 packet PO DAILY 08/01/19 Citalopram Hydrobromide [Celexa] 40 mg PO DAILY 08/01/19 Gabapentin 300 mg PO DAILY 08/01/19 Levothyroxine Sodium [Synthroid] 75 mcg PO DAILY 08/01/19 Trazodone [Desyrel*] 50 mg PO BEDTIME 08/01/19 oxyBUTYnin chloride [Ditropan*] 10 mg PO BID 08/03/19 Anastrozole [Arimidex*] 1 mg PO BEDTIME 07/22/22 Loratadine [Claritin*] 10 mg PO DAILY 07/22/22 carvediloL [Coreg*] 6.25 mg PO BIDWM #180 tab 09/07/22 Donepezil HCl 10 mg PO DAILY 03/20/24 Fluticasone Propion/Salmeterol [Wixela 250-50 Inhub] 50 - 250 unit XX BID 03/20/24 Fluticasone [Flonase 50MCG Nasal [place]*] 50 mcg XX DAILY 03/20/24 Magnesium Oxide [Mag 0X*] 400 mg PO DAILY 03/20/24 Meclizine HCl 25 mg PO PRN 03/20/24 Memantine HCl 10 mg PO DAILY 03/20/24 Nifedipine Xl [Procardia XL] 30 mg PO DAILY 03/20/24 Nitrofurantoin Macrocrystal [Macrodantin] 100 mg PO BID 03/20/24 Torsemide [Demadex] 20 mg PO DAILY 03/20/24 Valsartan 160 mg PO DAILY 03/20/24 modafiniL [Provigil] 200 mg PO DAILY 03/20/24 Followup: Kylee Pickens MD [Primary Care Provider] -
[2024-03-22] MEDS ORDERED: VALSARTAN 160 MG TAB PO SCH (09:00)
[2024-03-22] MEDS ORDERED: lisinopriL 20 MG TAB PO SCH (09:00)
[2024-03-22 09:03] LABS: Blood Morphology Comment NOT SEEN (NOT SEEN); Platelet Estimate DECR; White Blood Cell Scan OK (OK)
[2024-03-22] MEDS: POTASSIUM 25 MEQ EFFERV TAB PO ONE (09:21)
[2024-03-22] MEDS: carvediloL 12.5 MG TAB PO SCH (09:22)
[2024-03-22] MEDS: MAGNESIUM SULFATE 1 gm IVPB 1 GM/100 ML BAG IV ONE (09:22)
[2024-03-22 10:47] LABS: Anion Gap 8.2 mEq/L (5.0-15.0); Potassium 4.2 mEq/L (3.5-5.1)
[2024-03-22] MEDS: ENSURE MAX PROTEIN 330 ML LIQUID PO SCH (13:00)
--- NOTE | 2024-03-22 14:57 | EKG ---
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
[2024-03-22 15:41] LABS: Anion Gap 6.4 mEq/L (5.0-15.0); Potassium 4.4 mEq/L (3.5-5.1)
--- NOTE | 2024-03-22 20:50 | P.PN ---
Date of Service: 03/22/24 Vital Signs Temp Pulse Resp BP Pulse Ox 97.9 F 72 14 142/63 H 92 03/22/24 16:00 03/22/24 20:24 03/22/24 16:00 03/22/24 20:24 03/22/24 16:00 Medications Alprazolam (Alprazolam 0.25 Mg Tablet) 0.25 mg PO BEDTIME PRN PRN PRN Reason: INSOMNIA Aspirin (Aspirin Ec 81 Mg Tab) 81 mg PO DAILY [facility] Last Admin: 03/22/24 09:22 Dose: 81 mg Atorvastatin Calcium (Atorvastatin 20 Mg Tab) 20 mg PO BEDTIME [facility] Last Admin: 03/22/24 20:24 Dose: 20 mg Carvedilol (Carvedilol 12.5 Mg Tab) 12.5 mg PO BIDWM [facility] Last Admin: 03/22/24 16:30 Dose: 12.5 mg Cholestyramine Resin (Cholestyramine/Asp 4 Gm/Pkt) 4 gm PO BIDWM [facility] Last Admin: 03/22/24 16:30 Dose: 4 gm Divalproex Sodium (Divalproex Dr 250 Mg Tab) 250 mg PO BEDTIME [facility] Last Admin: 03/22/24 20:27 Dose: 250 mg Gabapentin (Gabapentin 300 Mg Cap) 300 mg PO TID [facility] Last Admin: 03/22/24 20:24 Dose: 300 mg Hydralazine HCl (Hydralazine Hcl 20 Mg/Ml Vial) 10 mg IV Q4HP PRN PRN Reason: Goal to achieve SBP in comment Last Admin: 03/22/24 06:05 Dose: 10 mg Metoclopramide HCl (Metoclopramide 10 Mg/2ml Inj) 10 mg IV Q6H PRN PRN Reason: NAUSEA / VOMITING-3rd line Last Admin: 03/21/24 20:24 Dose: 10 mg Nifedipine (Nifedipine Xl 30 Mg Tablet) 30 mg PO BID [facility] Last Admin: 03/22/24 20:24 Dose: 30 mg Ondansetron HCl (Ondansetron 4 Mg/2 Ml Vial) 4 mg IV Q6HP PRN PRN Reason: NAUSEA / VOMITING Last Admin: 03/21/24 17:19 Dose: 4 mg Promethazine HCl (Promethazine Inj 25 Mg/Ml Amp) 6.25 mg IV Q6H PRN PRN Reason: NAUSEA / VOMITING Last Admin: 03/21/24 14:19 Dose: 6.25 mg Protein (Ensure Max Protein 330 Ml Liquid) 240 ml PO QID [facility] Last Admin: 03/22/24 16:35 Dose: 240 ml Sodium Chloride (Sodium Chloride 1 Gm Tab) 1 gm PO QID [facility] Last Admin: 03/22/24 20:24 Dose: 1 gm Tramadol HCl (Tramadol Hcl 50 Mg Tab) 50 mg PO Q6H PRN PRN Reason: Pain scale 5-7 (Moderate) Last Admin: 03/22/24 17:15 Dose: 50 mg Urea (Urea 15 Gm Powder Packet) 30 gm PO BID [facility] Last Admin: 03/22/24 20:26 Dose: Not Given Valsartan (Valsartan 160 Mg Tab) 160 mg PO DAILY [facility] Last Admin: 03/22/24 09:22 Dose: 160 mg Microbiology Results 03/20/24 11:52 Throat Group A Streptococcus Rapid Screen - Final 03/20/24 11:52 Throat Culture & Sensitivity - Final 03/20/24 11:52 Nasopharnyx Influenza Type A Antigen Screen - Final 03/20/24 11:52 Nasopharnyx Influenza Type B Antigen Screen - Final Assessment/ Plan: Nephrology No dyspnea No chest pain No acute events overnight Vitals, medications, blood work and imaging reviewed in the chart General: In no apparent distress, Oriented x3, Cooperative HEENT: Atraumatic Neck: Supple Respiratory: Clear to auscultation bilaterally, Normal air movement Cardiovascular: No edema, Regular rate/rhythm Gastrointestinal: Soft and benign, Non-distended Musculoskeletal: No clubbing, No contractures Integumentary: No rashes, No cyanosis Neurological: Normal speech Blood work reviewed in the chart. Imagings Data: [id number] EXAMINATION: ONE VIEW CHEST XR CLINICAL INDICATION: MALAISE TECHNIQUE: Frontal chest projection is submitted. Examination is limited by patient positioning and technique. COMPARISON: 11/18/2023 FINDINGS: The lungs are underinflated resulting in mild vascular crowding. Elevated right hemidiaphragm, unchanged. The heart is mildly enlarged in size. No displaced fractures identified. IMPRESSION: No acute intrathoracic abnormalities. Conclusions/Impression: Hyponatremia -Continue IVF with NS -Continue salt tabs -Continue Ure-Na BID Hypomagnesemia -Replete as ordered HTN -Continue Coreg BID -Continue Valsartan -Continue Nifedipine XL BID Anemia in chronic illness Thrombocytopenia -Monitor CBC Case reviewed with the hospitalist team
[2024-03-23 06:08] LABS: Anion Gap 7.5 mEq/L (5.0-15.0); Phosphorus 3.7 mg/dL (2.5-4.9); Potassium 4.5 mEq/L (3.5-5.1); Uric Acid 3.4 mg/dL (2.6-6.0)
--- NOTE | 2024-03-23 10:05 | P.PN ---
Date of Service: 03/23/24 Vital Signs Temp Pulse Resp BP Pulse Ox 97.9 F 75 18 134/63 93 03/23/24 04:00 03/23/24 04:00 03/23/24 04:00 03/23/24 04:00 03/23/24 04:00 Medications Alprazolam (Alprazolam 0.25 Mg Tablet) 0.25 mg PO BEDTIME PRN PRN PRN Reason: INSOMNIA Aspirin (Aspirin Ec 81 Mg Tab) 81 mg PO DAILY [facility] Last Admin: 03/22/24 09:22 Dose: 81 mg Atorvastatin Calcium (Atorvastatin 20 Mg Tab) 20 mg PO BEDTIME [facility] Last Admin: 03/22/24 20:24 Dose: 20 mg Carvedilol (Carvedilol 12.5 Mg Tab) 12.5 mg PO BIDWM [facility] Last Admin: 03/22/24 16:30 Dose: 12.5 mg Cholestyramine Resin (Cholestyramine/Asp 4 Gm/Pkt) 4 gm PO BIDWM [facility] Last Admin: 03/22/24 16:30 Dose: 4 gm Divalproex Sodium (Divalproex Dr 250 Mg Tab) 250 mg PO BEDTIME [facility] Last Admin: 03/22/24 20:27 Dose: 250 mg Gabapentin (Gabapentin 300 Mg Cap) 300 mg PO TID [facility] Last Admin: 03/22/24 20:24 Dose: 300 mg Hydralazine HCl (Hydralazine Hcl 20 Mg/Ml Vial) 10 mg IV Q4HP PRN PRN Reason: Goal to achieve SBP in comment Last Admin: 03/22/24 06:05 Dose: 10 mg Metoclopramide HCl (Metoclopramide 10 Mg/2ml Inj) 10 mg IV Q6H PRN PRN Reason: NAUSEA / VOMITING-3rd line Last Admin: 03/21/24 20:24 Dose: 10 mg Nifedipine (Nifedipine Xl 30 Mg Tablet) 30 mg PO BID [facility] Last Admin: 03/22/24 20:24 Dose: 30 mg Ondansetron HCl (Ondansetron 4 Mg/2 Ml Vial) 4 mg IV Q6HP PRN PRN Reason: NAUSEA / VOMITING Last Admin: 03/21/24 17:19 Dose: 4 mg Promethazine HCl (Promethazine Inj 25 Mg/Ml Amp) 6.25 mg IV Q6H PRN PRN Reason: NAUSEA / VOMITING Last Admin: 03/21/24 14:19 Dose: 6.25 mg Protein (Ensure Max Protein 330 Ml Liquid) 240 ml PO QID [facility] Last Admin: 03/22/24 16:35 Dose: 240 ml Sodium Chloride (Sodium Chloride 1 Gm Tab) 1 gm PO QID [facility] Last Admin: 03/22/24 20:24 Dose: 1 gm Tramadol HCl (Tramadol Hcl 50 Mg Tab) 50 mg PO Q6H PRN PRN Reason: Pain scale 5-7 (Moderate) Last Admin: 03/23/24 04:45 Dose: 50 mg Urea (Urea 15 Gm Powder Packet) 30 gm PO BID [facility] Last Admin: 03/22/24 20:26 Dose: Not Given Valsartan (Valsartan 160 Mg Tab) 160 mg PO DAILY [facility] Last Admin: 03/22/24 09:22 Dose: 160 mg Microbiology Results 03/20/24 11:52 Throat Group A Streptococcus Rapid Screen - Final 03/20/24 11:52 Throat Culture & Sensitivity - Final 03/20/24 11:52 Nasopharnyx Influenza Type A Antigen Screen - Final 03/20/24 11:52 Nasopharnyx Influenza Type B Antigen Screen - Final Assessment/ Plan: Nephrology No dyspnea No chest pain She is not able to take the Ure-Na due to nausea She reports drinking lots of water No acute events overnight Vitals, medications, blood work and imaging reviewed in the chart General: In no apparent distress, Oriented x3, Cooperative HEENT: Atraumatic Neck: Supple Respiratory: Clear to auscultation bilaterally, Normal air movement Cardiovascular: No edema, Regular rate/rhythm Gastrointestinal: Soft and benign, Non-distended Musculoskeletal: No clubbing, No contractures Integumentary: No rashes, No cyanosis Neurological: Normal speech Blood work reviewed in the chart. Imagings Data: [id number] EXAMINATION: ONE VIEW CHEST XR CLINICAL INDICATION: MALAISE TECHNIQUE: Frontal chest projection is submitted. Examination is limited by patient positioning and technique. COMPARISON: 11/18/2023 FINDINGS: The lungs are underinflated resulting in mild vascular crowding. Elevated right hemidiaphragm, unchanged. The heart is mildly enlarged in size. No displaced fractures identified. IMPRESSION: No acute intrathoracic abnormalities. Conclusions/Impression: Hyponatremia -Discontinue IVF with NS -Continue salt tabs -Discontinue Ure-Na due to poor tolerance -Fluid restriction Hypomagnesemia -Replete prn HTN -Continue Coreg BID -Continue Valsartan -Continue Nifedipine XL BID Anemia in chronic illness Thrombocytopenia -Monitor CBC Case reviewed with the hospitalist team
--- NOTE | 2024-03-23 12:59 | P.PN ---
Date of Service: 03/22/24 Subjective Generalized weakness Hyponatremia, nephrology following Review of Systems 10 point negative unless listed in HPI Physical Examination - Vital Signs Reviewed - Physical Exam General: Alert, In no apparent distress, Oriented x3, Other (mild frontal headache) HEENT: Atraumatic, Normocephalic Neck: Supple Respiratory: Normal air movement Cardiovascular: Normal pulses, Regular rate/rhythm Capillary refill: <2 Seconds Gastrointestinal: Soft and benign Musculoskeletal: No clubbing, No swelling Integumentary: No rashes Neurological: Normal speech, Normal tone, Normal affect Lymphatics: No axilla or inguinal lymphadenopathy External genitalia: Deferred Hyponatremia Hypomagnesia Weakness Gentle hydration Consult Dr. Wyman Neurochecks every 4h Placed on fluid restriction -Continue Ure-Na BID 120->121->->123->125->127->-127-> Nausea vomiting/headache Monitor and trend electrolytes, replete as necessary History of diarrheacholestyramine Phenergan as needed headache/nausea Reglan added Essential HTN Resume appropriate home meds alsartan 160mg po daily gabapentin 300mg TID atorvastatin 20mg po q hs lisinopril 20mg po daily donepezil 10mg po q hs Seizure Seizure precautions citalopram 40mg po daily (can cause hyponatremia) divalproex 250mg po q hs - Code Status/Comfort Care Code Status Assessed: Yes (full) , With patient 30-minute
--- NOTE | 2024-03-23 13:01 | P.PN ---
Date of Service: 03/23/24 Subjective Generalized weakness ambulating with physical Hyponatremia, nephrology following Placed on fluid restriction Review of Systems 10 point negative unless listed in HPI Physical Examination - Vital Signs Reviewed - Physical Exam General: Alert, In no apparent distress, Oriented x3, HEENT: Atraumatic, Normocephalic Neck: Supple Respiratory: Normal air movement, equal unlabored Cardiovascular: Normal pulses, Regular rate/rhythm Capillary refill: <2 Seconds Gastrointestinal: Soft and benign, nontender Musculoskeletal: No clubbing, No swelling, generalized weakness Integumentary: No rashes Neurological: Normal speech, Normal tone, Normal affect Hyponatremia improving Hypomagnesia improved Weakness Gentle hydration Consult Dr. Wyman Neurochecks every 4h Placed on fluid restriction -Continue Ure-Na BID and electrolytes replace as needed Ambulating with physical therapy Nausea vomiting/headache improving Monitor and trend electrolytes, replete as necessary History of diarrheacholestyramine Phenergan as needed headache/nausea Essential HTN Resume appropriate home meds alsartan 160mg po daily gabapentin 300mg TID atorvastatin 20mg po q hs lisinopril 20mg po daily donepezil 10mg po q hs Seizure Seizure precautions citalopram 40mg po daily (can cause hyponatremia) divalproex 250mg po q hs - Code Status/Comfort Care Code Status Assessed: Yes (full) , With patient 30-minute
[2024-03-23] MEDS ORDERED: HOME MED 1 EA UNK (Meclizine Hcl [Meclizine Hcl] 25 MG Tablet) PO SCH (14:15)
[2024-03-23] MEDS ORDERED: MECLIZINE HCL 12.5 MG TAB PO PRN (14:27)
[2024-03-23] MEDS: carvediloL 6.25 MG TAB PO SCH (16:49)
[2024-03-23 18:35] LABS: Anion Gap 6.9 mEq/L (5.0-15.0); Potassium 4.9 mEq/L (3.5-5.1)
[2024-03-23] MEDS: ATORVASTATIN 20 MG TAB PO SCH (20:57)
[2024-03-23] MEDS: ANASTROZOLE 1 MG TAB PO SCH (20:57)
[2024-03-23] MEDS: TRAMADOL HCL 50 MG TAB PO PRN (20:57)
[2024-03-23] MEDS: oxyBUTYnin chloride 5 MG TAB PO SCH (20:58)
[2024-03-24] MEDS: LEVOTHYROXINE SOD 0.075 MG TAB PO SCH (05:04)
[2024-03-24 07:02] LABS: Anion Gap 7.8 mEq/L (5.0-15.0); Magnesium 1.8 mg/dL (1.6-2.4); Potassium 4.8 mEq/L (3.5-5.1); Uric Acid 3.1 mg/dL (2.6-6.0)
[2024-03-24 07:11] LABS: Absolute Eosinophils 0.2 K/uL (0-0.5); Absolute Lymphocytes (CBC) 0.8 K/uL (0.7-4.9); Absolute Monocytes 0.4 K/uL (0.1-1.3); Absolute Neutrophil 2.2 K/uL (1.8-8.0); Basophils % 1.2 % (0-1.3); Eosinophils % 5.1 % (0-4.4); Hematocrit 28.1 % (36.0-45.0); Hemoglobin 9.4 g/dL (12.0-15.0); Lymphocytes % 21.5 % (15.3-44.8); MCH 32.5 pg (27.0-35.0); MCHC 33.5 g/dL (32.0-36.0); MPV 7.2 fL (7.6-11.3); Monocytes % 10.1 % (3.3-12.3); Neutrophils % 62.1 % (41.7-73.7); Platelets 84 thou/uL (152-406); Red Cell Distribution Width 13.3 % (12.1-15.2)
[2024-03-24] MEDS: CHOLESTYRAMINE/ASP 4 GM/PKT PO SCH (07:35)
[2024-03-24] MEDS: MAGNESIUM OXIDE 400 MG TAB PO SCH (09:00)
[2024-03-24] MEDS ORDERED: HOME MED 1 EA UNK (Cholestyramine (With Sugar) [Cholestyramine Packet] 4 GM Powd.Pack) PO SCH (09:00)
[2024-03-24] MEDS ORDERED: HOME MED 1 EA UNK (Citalopram Hydrobromide [Celexa] 40 MG Tablet) PO SCH (09:00)
[2024-03-24] MEDS ORDERED: HOME MED 1 EA UNK (Donepezil Hcl [Donepezil Hcl] 10 MG Tablet) PO SCH (09:00)
[2024-03-24] MEDS: MAGNESIUM SULFATE 1 gm IVPB 1 GM/100 ML BAG IV ONE (09:29)
[2024-03-24] MEDS: FLUTICASONE 50MCG NASAL SPRAY NAS SCH (09:30)
[2024-03-24] MEDS: LORATADINE 10 MG TAB PO SCH (09:31)
[2024-03-24] MEDS: CITALOPRAM 10 MG TABLET PO SCH (09:31)
[2024-03-24] MEDS: MEMANTINE HCL 10 MG TABLET PO SCH (09:33)
[2024-03-24] MEDS: GABAPENTIN 300 MG CAP PO SCH (09:33)
[2024-03-24] MEDS: NIFEDIPINE XL 30 MG TABLET PO SCH (09:34)
[2024-03-24] MEDS: DONEPEZIL HCL 5 MG TAB PO SCH (09:34)
[2024-03-24] MEDS: VALSARTAN 160 MG TAB PO SCH (09:35)
[2024-03-24 10:06] LABS: Specific Gravity 1.012 (1.005-1.030); Sqamous Epithelial <5 /HPF (None Seen); Urine Bacteria None Seen /HPF (<20); Urine Bilirubin NEGATIVE (Negative); Urine Blood Negative (Negative); Urine Clarity Clear (Clear); Urine Color Light-Yellow (Yellow); Urine Culture Reflex Order NOT NEEDED; Urine Glucose NEGATIVE (Negative); Urine Ketones NEGATIVE (Negative); Urine Micro Reflex YN NO BILL MICROSCOPIC; Urine Mucus Slight /HPF (None Seen); Urine Nitrite NEGATIVE (Negative); Urine Protein NEGATIVE (Negative); Urine RBC <5 /HPF (None Seen); Urine Urobilinogen Normal (Normal); Urine WBC <5 /HPF (<5); Urine pH 5.5 (5.0-7.0)
--- NOTE | 2024-03-24 11:14 | P.PN ---
Nephrology No acute complaints, eating well, ambulating without dizziness, mild COLLAZO (O) Vitals, medications, blood work and imaging reviewed in the chart General: In no apparent distress HEENT: Atraumatic, sclera anicteric, not on O2 Neck: Supple Respiratory: Clear to auscultation bilaterally, Normal air movement Cardiovascular: No sig edema, Regular rate/rhythm mostly Gastrointestinal: Soft and benign, Non-distended Musculoskeletal: No contractures Integumentary: No rashes Neurological: Normal speech, alert, non focal Blood work reviewed in the chart. Conclusions/Impression: Hyponatremia, acute on chronic -Multifactorial on chronic diuretic therapy. Na level has improved, lower salt tabs (cont temp), cont some free water restriction HTN, chronic -Continue Coreg BID -Continue Valsartan -Continue Nifedipine XL BID Diastolic dysfunction, mild MR based on prior COLIN. Chronic COLLAZO -Lower maintenance diuretic dose on discharge
[2024-03-24 11:26] LABS: MA/CREAT RATIO 15.1 (< 30.0); UR MICROALBUMIN 0.8 mg/dL (< 1.9); UR PROTEIN 9.9 mg/dL (<11.9); Urine Protein/Creatinine Ratio 0.19 ratio (<0.15)
--- NOTE | 2024-03-24 13:04 | P.DS ---
Admission Date: 03/20/24 Discharge Date: 03/24/24 Disposition: ROUTINE DISCHARGE Reason for Admission: weakness - Problems (1) Nausea & vomiting Current Visit: Yes Status: Acute (2) Chemotherapy adverse reaction Current Visit: Yes Status: Acute (3) History of breast cancer Current Visit: Yes Status: Acute (4) Thrombocytopenia Current Visit: No Status: Acute (5) Dehydration Current Visit: No Status: Chronic (6) Hyponatremia Current Visit: Yes Status: Acute Brief History of Present Illness: This 73 yrs old Female with past medical history of breast cancer; Depression; GERD; Hyperlipidemia; Hypertension; Hypothyroidism; kidney disease; Cerebrovascular accident presents to the emergency room with General Weakness. She reports being on a cruise for one day and being treated in a medical facility and being transported back to the [facility]. She reports not remembering much of the incidence. She reports recent diagnosis with pneumonia and finished a course of antibiotics She reports bilateral upper extremity weakness, She reports nausea, vomiting x 1, loose stools. breast cancer with no evidence of disease x 4 years currently on anastrozole maintenance chemotherapy. She denies fever, cough, shortness of breath or chest pain. ED work up reveals hyponatremia, na 121, GFR 57, lactic acid normal 1.1, WBC normal, microcytic anemia HH 11.4/32.9 thrrombocytopenia 100. CXR\ The lungs are underinflated resulting in mild vascular crowding. Elevated right hemidiaphragm, unchanged. The heart is mildly enlarged in size. No displaced fractures identified. I MPRESSION: No acute intrathoracic abnormalities plan to admit for dedydration, hyponatremia, generalized weakness with neph to consult - Physical Exam General: Alert, Oriented x3, Other (moderate generalized weakness) HEENT: Atraumatic, Normocephalic, PERRLA Neck: Supple, Without JVD or thyroid abnormality Respiratory: Clear to auscultation bilaterally, Normal air movement Cardiovascular: No edema, Normal pulses, Regular rate/rhythm Capillary refill: <2 Seconds Gastrointestinal: Normal bowel sounds, Soft and benign, Other (nausea) Musculoskeletal: No swelling, No contractures Integumentary: No breakdown, No significant lesion Neurological: Normal speech, Sensation intact, Cranial nerves 3-12 intact, Other (generalized weakness, abmulate w assist) Hospital Course: 73 yrs old Female with past medical history of breast cancer; Depression; GERD; Hyperlipidemia; Hypertension; Hypothyroidism; kidney disease; Cerebrovascular accident presents to the emergency room with General Weakness. He had reported mild nausea vomiting, was noted to have hyponatremia, she was evaluated by nephrology, she is tolerating diet, stable to discharge home, follow-up with nephrology after discharge. Nephrology recommended fluid restriction 1 L a day. Follow-up with Dr. Pickens, nephrology, call office after discharge for appointment Discharge medication Coreg twice daily Continue valsartan Nifedipine XL twice daily Salt tabs after discharge Free water restriction 1 L a day Assessment Nausea vomiting improved with antiemetic Hyponatremia She is on chemotherapy needs to follow-up with oncology after discharge History of breast cancer follow-up with oncology after discharge Mild thrombocytopenia is been stable Dehydration improved with IV fluids Continue home medicines as previously prescribed GOAL: Clear understanding of disease process INSTRUCTIONS: Physician Discharge Instructions: -Follow-up with nephrology after discharge, call office for -Follow-up with PCP in 1 to 2 weeks -Please call Dr. Hardin at [phone] if any questions regarding hospital stay -Please call nursing station at [phone] if any nursing or medication questions -Return to the emergency room if symptoms worsen Diet: ADA, low sodium Activity: Fall precautions Vital Signs/Physical Exam: Temp Pulse Resp BP Pulse Ox 97.9 F 76 14 140/58 L 95 03/24/24 08:00 03/24/24 09:35 03/24/24 08:00 03/24/24 09:35 03/24/24 08:00 Laboratory Data at Discharge: WBC 3.60 thou/uL (4.3-10.9) L 03/24/24 06:47 Hgb 9.4 g/dL (12.0-15.0) L 03/24/24 06:47 Hct 28.1 % (36.0-45.0) L 03/24/24 06:47 Plt Count 84 thou/uL (152-406) L 03/24/24 06:47 PT 12.7 SECONDS (9.4-12.5) H 03/20/24 13:34 INR 1.14 03/20/24 13:34 Sodium 130 mEq/L (136-145) L 03/24/24 06:28 Potassium 4.8 mEq/L (3.5-5.1) 03/24/24 06:28 BUN 29 mg/dL (7-18) H 03/24/24 06:28 Creatinine 1.00 mg/dL (0.55-1.02) 03/24/24 06:28 Glucose 109 mg/dL (74-106) H 03/24/24 06:28 Uric Acid 3.1 mg/dL (2.6-6.0) 03/24/24 06:28 Phosphorus 3.7 mg/dL (2.5-4.9) 03/23/24 05:41 Magnesium 1.8 mg/dL (1.6-2.4) 03/24/24 06:28 Total Bilirubin 0.3 mg/dL (0.2-1.0) 03/20/24 12:53 AST 16 U/L (15-37) 03/20/24 12:53 ALT 15 U/L (13-56) 03/20/24 12:53 Alkaline Phosphatase 56 U/L (45-117) 03/20/24 12:53 Home Medications: Aspirin [Ecotrin 81 MG] 81 mg PO DAILY 08/01/19 Atorvastatin Calcium [Lipitor*] 20 mg PO BEDTIME 08/01/19 Cholecalciferol (Vitamin D3) [Vitamin D3] 5,000 unit PO DAILY 08/01/19 Cholestyramine (with Sugar) [Cholestyramine Packet] 1 packet PO DAILY 08/01/19 Citalopram Hydrobromide [Celexa] 40 mg PO DAILY 08/01/19 Gabapentin 300 mg PO DAILY 08/01/19 Levothyroxine Sodium [Synthroid] 75 mcg PO DAILY 08/01/19 Trazodone [Desyrel*] 50 mg PO BEDTIME 08/01/19 oxyBUTYnin chloride [Ditropan*] 10 mg PO BID 08/03/19 Anastrozole [Arimidex*] 1 mg PO BEDTIME 07/22/22 Loratadine [Claritin*] 10 mg PO DAILY 07/22/22 carvediloL [Coreg*] 6.25 mg PO BIDWM #180 tab 09/07/22 Donepezil HCl 10 mg PO DAILY 03/20/24 Fluticasone Propion/Salmeterol [Wixela 250-50 Inhub] 50 - 250 unit XX BID 03/20/24 Fluticasone [Flonase 50MCG Nasal Phoenix*] 50 mcg XX DAILY 03/20/24 Magnesium Oxide [Mag 0X*] 400 mg PO DAILY 03/20/24 Meclizine HCl 25 mg PO PRN 03/20/24 Memantine HCl 10 mg PO DAILY 03/20/24 Nifedipine Xl [Procardia XL] 30 mg PO DAILY 03/20/24 Nitrofurantoin Macrocrystal [Macrodantin] 100 mg PO BID 03/20/24 Torsemide [Demadex] 20 mg PO DAILY 03/20/24 Valsartan 160 mg PO DAILY 03/20/24 modafiniL [Provigil] 200 mg PO DAILY 03/20/24 ALPRAZolam [Xanax*] 0.25 mg PO BEDTIME PRN PRN tab 03/24/24 Cholestyramine/Asp [Questran Light*] 4 gm PO DAILY WITH BREAKFAST packet 03/24/24 Ensure Max Protein 240 ml PO QID can 03/24/24 Sodium Chloride Tab [Sodium Chloride*] 1 gm PO BID 30 Days #60 tab 03/24/24 Valsartan [Diovan*] 160 mg PO DAILY tab 03/24/24 traMADol HCL [Ultram*] 50 mg PO Q6H PRN tab 03/24/24 New Medications: Sodium Chloride Tab [Sodium Chloride*] 1 gm PO BID 30 Days #60 tab Physician Discharge Instructions: 73 yrs old Female with past medical history of breast cancer; Depression; GERD; Hyperlipidemia; Hypertension; Hypothyroidism; kidney disease; Cerebrovascular accident presents to the emergency room with General Weakness. He had reported mild nausea vomiting, was noted to have hyponatremia, she was evaluated by nephrology, she is tolerating diet, stable to discharge home, follow-up with nephrology after discharge. Nephrology recommended fluid restriction 1 L a day. Follow-up with Dr. Pickens, nephrology, call office after discharge for appointment Discharge medication Coreg twice daily Continue valsartan Nifedipine XL twice daily Salt tabs after discharge Free water restriction 1 L a day Assessment Nausea vomiting improved with antiemetic She is on chemotherapy needs to follow-up with oncology after discharge History of breast cancer follow-up with oncology after discharge Mild thrombocytopenia is been stable Dehydration improved with IV fluids Continue home medicines as previously prescribed GOAL: Clear understanding of disease process INSTRUCTIONS: Physician Discharge Instructions: -Follow-up with PCP in 1 to 2 weeks -Please call Dr. Hardin at [phone] if any questions regarding hospital stay -Please call nursing station at [phone] if any nursing or medication questions -Return to the emergency room if symptoms worsen Diet: ADA, low sodium Activity: Fall precautions Diet: AHA Activity: Fall precautions Followup: Kylee Pickens MD [Primary Care Provider] - Time spent managing pt's care (in minutes): 55
[2024-03-24] MEDS ORDERED: SODIUM CHLORIDE 1 GM TAB PO SCH ×2 (14:00→21:00)
[2024-03-24 14:19] VITALS: BP 143/59; TEMP 98
[2024-03-24] MEDS ORDERED: NIFEDIPINE XL 30 MG TABLET PO SCH (21:00)
== END 2024-03-24 15:27 | disposition home or self-care (01) | DRG 641 ==
LOC: ER 11:02 → ERHOLD 14:40 → 2ND 15:39
PROVIDERS: ADMIT Hospitalist; ATTEND Hospitalist
DX: E87.1 Hypo-osmolality and hyponatremia (principal); I10 Essential (primary) hypertension; E78.5 Hyperlipidemia, unspecified; E03.9 Hypothyroidism, unspecified; E86.0 Dehydration; D69.6 Thrombocytopenia, unspecified; D50.9 Iron deficiency anemia, unspecified; D63.8 Anemia in other chronic diseases classified elsewhere; E83.42 Hypomagnesemia; K21.9 Gastro-esophageal reflux disease without esophagitis; C50.919 Malignant neoplasm of unspecified site of unspecified female breast; T45.1X5A Adverse effect of antineoplastic and immunosuppressive drugs, initial encounter; Z88.0 Allergy status to penicillin; Z88.2 Allergy status to sulfonamides; Z88.5 Allergy status to narcotic agent; Z88.1 Allergy status to other antibiotic agents; Z85.3 Personal history of malignant neoplasm of breast; Z90.49 Acquired absence of other specified parts of digestive tract; Z86.73 Personal history of transient ischemic attack (TIA), and cerebral infarction without residual deficits; Z79.82 Long term (current) use of aspirin; Z79.890 Hormone replacement therapy; Z79.899 Other long term (current) drug therapy; Z90.13 Acquired absence of bilateral breasts and nipples; Z98.51 Tubal ligation status; Z11.52 Encounter for screening for COVID-19
CPT/HCPCS: 36415; 71045; 80048; 80069; 80076; 81001; 82043; 82570; 83605; 83735; 83880; 83930; 83935; 84100; 84156; 84484; 84550; 85025; 85610; 87070; 87081; 87804; 87811; 93005; 96374; 99285; J0360; J2405; J2550; J2765; J3475; J7030

== ENCOUNTER 2024-04-19 14:25 | Observation (INO) | payer OTHER, MEDICARE ==
--- NOTE | 2024-04-19 15:14 | RAD REPORT ---
EXAMINATION: ONE VIEW CHEST XR CLINICAL INDICATION: DYSPNEA TECHNIQUE: Frontal chest projection is submitted. Examination is limited by patient positioning and t echnique. COMPARISON: 03/20/2024 FINDINGS: The lungs appear underinflated. Mild interstitial pulmonary edema likely present. The heart is upper limit of normal in size. No displaced fractures identified. IMPRESSION: Underinflated lungs. Mild CHF is possible.
[2024-04-19 16:55] LABS: Absolute Basophils 0.1 K/uL (0-0.5); Absolute Eosinophils 0.3 K/uL (0-0.5); Absolute Lymphocytes (CBC) 0.8 K/uL (0.7-4.9); Absolute Monocytes 0.5 K/uL (0.1-1.3); Albumin 3.3 g/dL (3.4-5.0); Albumin/Globulin Ratio 0.9 (1.1-1.8); Anion Gap 11.9 mEq/L (5.0-15.0); Basophils % 1.2 % (0-1.3); Bilirubin Total 0.3 mg/dL (0.2-1.0); Eosinophils % 5.3 % (0-4.4); Globulin 3.8 g/dL (2.3-3.5); Hematocrit 31.9 % (36.0-45.0); Hemoglobin 10.6 g/dL (12.0-15.0); Lymphocytes % 14.6 % (15.3-44.8); MCHC 33.2 g/dL (32.0-36.0); MCV 96.3 fL (80-100); MPV 8.1 fL (7.6-11.3); Magnesium 1.8 mg/dL (1.6-2.4); Monocytes % 8.8 % (3.3-12.3); Neutrophils % 70.1 % (41.7-73.7); Platelets 123 thou/uL (152-406); Potassium 4.9 mEq/L (3.5-5.1); Protein, Total 7.1 g/dL (6.4-8.2); RBC Red Blood Cell Count 3.31 M/uL (3.86-4.86); Red Cell Distribution Width 13.2 % (12.1-15.2); Troponin High Sensitivity 4.9 pg/mL (<58.9)
--- NOTE | 2024-04-19 17:51 | RAD REPORT ---
EXAMINATION: CT ABDOMEN AND PELVIS WITH CONTRAST CLINICAL INDICATION: ABD PAIN TECHNIQUE: CT abdomen and pelvis was performed, after the administration of IV contrast, as per [facility] protocol. Axial, sagittal and coronal reconstructions were obtained. One or more of the following dose reduction techniques were used: Automated exposure control, adjustment of the mA and k V according to patient size, and iterative reconstruction. Unless otherwise specified, incidental findings do not require dedicated imaging follow-up. COMPARISON: 07/20/2022, 08/16/2018 FINDINGS: LOWER CHEST: The visualized lung bases are clear. Gastric banding noted. LIVER: Moderate liver cirrhosis. Cholecystectomy clips. SPLEEN: Spleen mildly prominent in size. PANCREAS: No mass, ductal dilation, or edy-pancreatic fluid. ADRENALS: Normal; no mass. KIDNEYS: Normal size and contour. No hydronephrosis. GASTROINTESTINAL TRACT: No evidence of free air, significant intra-abdominal free fluid, bowel obstru ction or abscess. APPENDIX: Appendix not visualized, but no inflammatory changes in region of appendix. LYMPH NODES: No lymphadenopathy. MUSCULOSKELETAL: Prominent lower lumbar disc bulges. ADDITIONAL FINDINGS: None. IMPRESSION: Moderate liver cirrhosis. Gastric banding with mild fluid in distal esophagus could indicate reflux.
--- NOTE | 2024-04-19 18:50 | EDPHYS ---
Physician Documentation [facility] Name: Rosi Jordan Age: 73 yrs Sex: Female : 1950 Arrival Date: 04/19/2024 Time: 14:25 Bed 6 Private MD: ED Physician Isaiah Cifuentes HPI: 04/19 15:25 This 73 yrs old Female presents to ER via EMS with complaints of Nausea/Vomiting, Leg kb Swelling. 15:25 Pt is a 73 year old female who presents for nausea and vomiting that has been kb intermittent for one month. States she sees Dr Bautista and was given zofran which normally works, but today it wasn't kicking in. States she was also 10 pounds heavier today than yesterday and her feet are swollen. Reports shortness of breath that is worse with exertion. . Historical: - Allergies: 14:35 Codeine; kc6 14:35 PENICILLINS; kc6 14:35 Sulfa (Sulfonamide Antibiotics); kc6 14:35 Vancomycin; kc6 - PMHx: 14:35 breast cancer; Cerebrovascular accident; Depression; GERD; Hyperlipidemia; kc6 Hypertension; Hypothyroidism; kidney disease; Congestive heart failure; - PSHx: 14:35 Carotid endarterectomy; Cholecystectomy; Tonsillectomy; kc6 - Immunization history:: Adult Immunizations up to date. - Infectious Disease History:: Denies. - Social history:: Smoking status: Patient denies any tobacco usage or history of. ROS: 15:25 Constitutional: As per HPI kb Exam: 15:24 Constitutional: This is a well developed, well nourished patient who is awake, alert, kb and in no acute distress. Head/Face: Normocephalic, atraumatic. ENT: Moist Mucous membranes Cardiovascular: Regular rate Respiratory: Respirations even and unlabored. No increased work of breathing. Talking in full sentences Abdomen/GI: Soft, non-tender. No distention Skin: Warm, dry with normal turgor. Normal color. MS/ Extremity: Pulses equal, no cyanosis. Neurovascular intact. Full, normal range of motion. Neuro: Awake and alert, GCS 15, oriented to person, place, time, and situation. 15:24 Cardiovascular: Heart sounds: murmur, Edema: 1+ edema to bilateral lower extremities, 15:24 ECG was reviewed by the Attending Physician. Vital Signs: 14:34 BP 115 / 90; Pulse 85; Resp 18 S; Temp 98.2(O); Pulse Ox 91% on R/A; Weight 90.72 kg kc6 (R); Height 5 ft. 2 in. (R); Pain 0/10; 14:34 Body Mass Index 36.58 (90.72 kg, 157.48 cm) kc6 14:34 Pain Scale: Adult kc6 MDM: 14:38 Medical Screening Exam initiated kb 15:25 Data reviewed: vital signs, nurses notes. kb 18:48 Differential diagnosis: pulmonary edema, CHF exacerbation, uri, kidney failure. kb Consideration of Admission/Observation Patient was admitted/placed on observation. Escalation of care including admission/observation considered. Management of patient was discussed with the following: Hospitalist: TITA Perla accepts pt for admission. Counseling: I had a detailed discussion with the patient and/or guardian regarding the historical points, exam findings, and any diagnostic results supporting the discharge/admit diagnosis, lab results, radiology results, the need for further work-up and treatment in the hospital. 04/19 14:45 Order name: CBC with Diff; Complete Time: 17:19 kb 04/19 14:45 Order name: Magnesium; Complete Time: 16:56 kb 04/19 14:45 Order name: NT PRO-BNP; Complete Time: 16:56 kb 04/19 14:45 Order name: Troponin HS; Complete Time: 16:56 kb 04/19 14:45 Order name: CMP; Complete Time: 16:56 kb 04/19 14:45 Order name: Lipase; Complete Time: 16:56 kb 04/19 21:15 Order name: CBC with Automated Diff EDNJ 04/19 21:15 Order name: Comprehensive Metabolic Panel EDNJ 04/19 21:15 Order name: Lactate w/ 2H reflex if indic. EDNJ 04/19 21:15 Order name: Liver (Hepatic) Function EDNJ 04/19 21:15 Order name: Magnesium EDNJ 04/19 21:15 Order name: NT PRO-BNP EDNJ 04/19 21:15 Order name: Phosphorus EDNJ 04/19 21:15 Order name: Thyroid Stimulating Hormone EDNJ 04/19 21:15 Order name: Urinalysis w/ reflexes EDNJ 04/19 21:15 Order name: Lipid Profile EDNJ 04/19 21:15 Order name: Lipid Profile EDNJ 04/19 21:17 Order name: Osmolality, Urine EDNJ 04/19 21:17 Order name: Urine Sodium, 24 Hr EDNJ 04/19 21:18 Order name: Osmolality, Serum EDNJ 04/19 14:45 Order name: XRAY Chest (1 view); Complete Time: 15:15 kb 04/19 16:57 Order name: CT Abd/Pelvis - IV Contrast Only; Complete Time: 17:52 kb 04/19 19:56 Order name: US Extremity Venous W Compression Arash; Complete Time: 21:12 kb 04/19 21:37 Order name: Echo with Doppler EDNJ 04/19 21:15 Order name: CONS Physician Consult [facility] 04/19 21:16 Order name: Respiratory Therapy Consult [facility] 04/19 14:45 Order name: Cardiac monitoring; Complete Time: 15:37 kb 04/19 14:45 Order name: EKG - Nurse/Tech; Complete Time: 15:37 kb 04/19 14:45 Order name: IV Saline Lock; Complete Time: 15:37 kb 04/19 14:45 Order name: Labs collected and sent; Complete Time: 16:35 kb 04/19 14:45 Order name: O2 Per Protocol; Complete Time: 15:37 kb 04/19 14:45 Order name: O2 Sat Monitoring; Complete Time: 15:37 kb EC:24 Rate is 82 beats/min. Rhythm is regular. QRS Phoenix is Normal. MS interval is normal at kb 156 msec. QRS interval is normal at 82 msec. QT interval is normal at 420 msec. Administered Medications: 20:39 Drug: Furosemide IVP 20 mg IVP once; give over 2 minutes Route: IVP; Site: left jb4 antecubital; Disposition Summary: 04/19/24 18:49 Hospitalization Ordered Notes: Hospitalization Status: Observation kb Provider: Rolly Hardin Location: Telemetry/MedSurg (observation) kb Condition: Stable kb Problem: new kb Symptoms: are unchanged kb Bed/Room Type: Standard Room Assignment: 230(04/19/24 21:26) rv1 Diagnosis - Unspecified combined systolic (congestive) and diastolic (congestive) heart failure kb Forms: - Medication Reconciliation Form kb - SBAR form kb - Leadership Thank You Letter kb Signatures: Dispatcher [employer] Anu Weeks, ROLLING MACHINE OPERATOR-C ROLLING MACHINE OPERATOR-CkJh Borrego, RN RN jb4 Reva Hoffman RN RN kc6 Leda Romero rv1 Corrections: (The following items were deleted from the chart) 18:49 kb rv1
--- NOTE | 2024-04-19 18:50 | ER ---
Nurse's Notes [facility] Name: Rosi Jordan Age: 73 yrs Sex: Female : 1950 Arrival Date: 04/19/2024 Time: 14:25 Bed 6 Private MD: Diagnosis: Unspecified combined systolic (congestive) and diastolic (congestive) heart failure Presentation: 04/19 14:34 Chief complaint: EMS states: they were toned out for n/v x1 mo and REGINA LE swelling with kc6 hx of CHF. Coronavirus screen: At this time, the client does not indicate any symptoms associated with coronavirus-19. Ebola Screen: No symptoms or risks identified at this time. Initial Sepsis Screen: Does the patient meet any 2 criteria? No. Patient's initial sepsis screen is negative. Does the patient have a suspected source of infection? No. Patient's initial sepsis screen is negative. Risk Assessment: Do you want to hurt yourself or someone else? Patient reports no desire to harm self or others. Onset of symptoms was April 19, 2024. 14:34 Method Of Arrival: EMS: [facility] 14:34 Acuity: CASPER 3 kc6 14:35 Care prior to arrival: Medication(s) given: REGLAN 5MG IM. kc6 Triage Assessment: 22:46 General: Appears. ha1 Historical: - Allergies: 14:35 Codeine; kc6 14:35 PENICILLINS; kc6 14:35 Sulfa (Sulfonamide Antibiotics); kc6 14:35 Vancomycin; kc6 - PMHx: 14:35 breast cancer; Cerebrovascular accident; Depression; GERD; Hyperlipidemia; kc6 Hypertension; Hypothyroidism; kidney disease; Congestive heart failure; - PSHx: 14:35 Carotid endarterectomy; Cholecystectomy; Tonsillectomy; kc6 - Immunization history:: Adult Immunizations up to date. - Infectious Disease History:: Denies. - Social history:: Smoking status: Patient denies any tobacco usage or history of. Screenin:46 [facility] ED Fall Risk Assessment (Adult) History of falling in the last 3 months, ha1 including since admission No falls in past 3 months (0 pts) Confusion or Disorientation No (0 pts) Intoxicated or Sedated Impaired Gait Yes (1 pt) Mobility Assist Device Used Yes (1 pt) Altered Elimination No (0 pt) Score/Fall Risk Level 3 or more points = High Risk Oriented to surroundings, Maintained a safe environment, Educated pt \T\ family on fall prevention, incl call for assistance when getting out of bed, Hourly rounding (assess needs \T\ fall precautionary measures) done. Abuse screen: Denies threats or abuse. Denies injuries from another. Nutritional screening: No deficits noted. Tuberculosis screening: No symptoms or risk factors identified. Assessment: 18:27 Reassessment: Patient appears in no apparent distress at this time. Patient and/or jb4 family updated on plan of care and expected duration. Pain level reassessed. Patient is alert, oriented x 3, equal unlabored respirations, skin warm/dry/pink. Vital Signs: 14:34 BP 115 / 90; Pulse 85; Resp 18 S; Temp 98.2(O); Pulse Ox 91% on R/A; Weight 90.72 kg kc6 (R); Height 5 ft. 2 in. (R); Pain 0/10; 14:34 Body Mass Index 36.58 (90.72 kg, 157.48 cm) [facility] 14:34 Pain Scale: Adult kc6 ED Course: 14:34 Patient arrived in ED. kc6 14:35 Triage completed. [facility] 14:35 Arm band placed on. [facility] 14:36 Patient has correct armband on for positive identification. Bed in low position. Call kc6 light in reach. Side rails up X2. Pulse ox on. NIBP on. Door closed. Noise minimized. Lights dimmed. Pillow given. 14:38 Anu Gomez FNP-C is [facility]. kb 14:38 Isaiah Cifuentes MD is Attending Physician. kb 15:09 XRAY Chest (1 view) In Process Unspecified. EDMS 16:24 Jh Travis, RN is Primary Nurse. jb4 16:33 Accessed peripheral vein via ultrasound, utilizing dynamic ultrasound technique Blood cm10 collected. Clean \T\ dry. Dressing intact. Good blood return. Flushes easily. 20g Left forearm . 16:35 CBC with Diff Sent. cm10 16:35 Magnesium Sent. cm10 16:35 NT PRO-BNP Sent. cm10 16:35 Troponin HS Sent. cm10 16:35 Lipase Sent. cm10 16:35 CMP Sent. cm10 17:47 CT Abd/Pelvis - IV Contrast Only In Process Unspecified. EDMS 18:49 Rolly Hardin MD is Hospitalizing Provider. kb 20:59 US Extremity Venous W Compression Regina In Process Unspecified. EDMS 22:46 No provider procedures requiring assistance completed. Patient admitted, IV remains in ha1 place. Administered Medications: 20:39 Drug: Furosemide IVP 20 mg IVP once; give over 2 minutes Route: IVP; Site: left jb4 antecubital; Medication: 22:47 VIS not applicable for this client. ha1 Outcome: 18:49 Decision to Hospitalize by Provider. kb 22:46 Admitted to Med/surg accompanied by tech, via stretcher, with chart, ha1 22:46 Condition: stable 22:46 Instructed on the need for admit, 22:47 Patient left the ED. ha1 Signatures: Dispatcher [employer] EDAnu Hong, GRIDDLE COOK-C GRIDDLE COOK-Ckb Jh Travis RN RN jb4 Pearl Greer RN RN ha1 Reva Hoffman RN RN kc6 Stephanie Cr RN RN cm10
[2024-04-19] MEDS ORDERED: FUROSEMIDE 20 MG/ 2ML VIAL ONE ×2 (20:29→20:33)
--- NOTE | 2024-04-19 21:03 | RAD REPORT ---
EXAMINATION: US BILATERAL LOWER EXTREMITY VENOUS DOPPLER CLINICAL INDICATION: SWELLING TECHNIQUE: Complete bilateral duplex sonography of the BILATERAL lower extremity veins was performed. The examination included compression for vein patency, color Doppler imaging and flow augmentation in response to distal compression of the distal external iliac, common femoral, femoral, popliteal, t ibial, and great and small saphenous veins. COMPARISON: 07/20/2022 FINDINGS: Duplex sonography testing of the veins of the BILATERAL lower extremity was performed. Color flow preet ging shows all veins to be compressible with [id number] color filling. Pulsatile and phasic flow is present within all lower extremity deep and superficial veins examined. IMPRESSION: There is no deep vein or superficial vein thrombosis.
[2024-04-19] MEDS ORDERED: ALBUTEROL 2.5 MG/3 ML NEB SOL NEB PRN (21:09)
[2024-04-19] MEDS ORDERED: ACETAMINOPHEN 325 MG TABLET PO PRN (21:09)
[2024-04-19] MEDS ORDERED: ALPRAZOLAM 0.25 MG TABLET PO PRN (21:16)
--- NOTE | 2024-04-19 21:24 | P.HP ---
Certification for Inpatient With expected LOS: <2 Midnights Practitioner: I am a practitioner with admitting privileges, knowledge of patient current condition, hospital course, and medical plan of care. Services: Services provided to patient in accordance with Admission requirements found in Title 42 Section 412.3 of the Code of Federal Regulations Patient History Date of Service: 04/19/24 Reason for admission: chf exacerbation History of Present Illness: 73-year-old woman with a past medical history significant for breast cancer in remission, HTN, depression, hypothyroidism, CKD, CHF, GERD, and HDL presented to the emergency room complaining of shortness of breath is at rest and 10 pound weight gain since yesterday. The patient is alert, and oriented x 3. She is not on home oxygen. She states that she noticed yesterday that all her extremities feel heavier, and she is getting short of breath with exertion. The patient has not attempted anything to improve her symptoms, and states nothing worsens. Also, the patient states that she has vomited at least 3 times today in which all have been nonbloody. She denies coughing any blood. Also, the patient denies fever, and urinary symptoms. Allergies codeine Allergy (Verified 01/05/22 09:45) Rash Penicillins Allergy (Verified 01/05/22 09:45) Rash Sulfa (Sulfonamide Antibiotics) Allergy (Verified 01/05/22 09:45) Rash Home medications list reviewed: Yes Home Medications: Aspirin [Ecotrin 81 MG] 81 mg PO DAILY 08/01/19 Atorvastatin Calcium [Lipitor*] 20 mg PO BEDTIME 08/01/19 Cholecalciferol (Vitamin D3) [Vitamin D3] 5,000 unit PO DAILY 08/01/19 Cholestyramine (with Sugar) [Cholestyramine Packet] 1 packet PO DAILY 08/01/19 Citalopram Hydrobromide [Celexa] 40 mg PO DAILY 08/01/19 Gabapentin 300 mg PO DAILY 08/01/19 Levothyroxine Sodium [Synthroid] 75 mcg PO DAILY 08/01/19 Trazodone [Desyrel*] 50 mg PO BEDTIME 08/01/19 oxyBUTYnin chloride [Ditropan*] 10 mg PO BID 08/03/19 Anastrozole [Arimidex*] 1 mg PO BEDTIME 07/22/22 Loratadine [Claritin*] 10 mg PO DAILY 07/22/22 carvediloL [Coreg*] 6.25 mg PO BIDWM #180 tab 09/07/22 Donepezil HCl 10 mg PO DAILY 03/20/24 Fluticasone Propion/Salmeterol [Wixela 250-50 Inhub] 50 - 250 unit XX BID 03/20/24 Fluticasone [Flonase 50MCG Nasal [place]*] 50 mcg XX DAILY 03/20/24 Magnesium Oxide [Mag 0X*] 400 mg PO DAILY 03/20/24 Meclizine HCl 25 mg PO PRN 03/20/24 Memantine HCl 10 mg PO DAILY 03/20/24 Nifedipine Xl [Procardia Xl*] 30 mg PO DAILY 03/20/24 Nitrofurantoin Macrocrystal [Macrodantin] 100 mg PO BID 03/20/24 Torsemide [Demadex*] 20 mg PO DAILY 03/20/24 Valsartan 160 mg PO DAILY 03/20/24 modafiniL [Provigil] 200 mg PO DAILY 03/20/24 ALPRAZolam [Xanax*] 0.25 mg PO BEDTIME PRN PRN tab 03/24/24 Cholestyramine/Asp [Questran Light*] 4 gm PO DAILY WITH BREAKFAST packet 03/24/24 Ensure Max Protein 240 ml PO QID can 03/24/24 Sodium Chloride Tab [Sodium Chloride*] 1 gm PO BID 30 Days #60 tab 03/24/24 Valsartan [Diovan*] 160 mg PO DAILY tab 03/24/24 traMADol HCL [Ultram*] 50 mg PO Q6H PRN tab 03/24/24 - Past Medical/Surgical History Diabetic: No -: Depression -: GERD -: Hyperlipidemia -: Hypertension -: Hypothyroidism -: NON ALCOHOLIC CIRRHOSIS OF LIVER. -: Chronic renal disease -: Recurrent UTI -: Breast cancer status post bilateral mastectomy -: chf -: Hand surgery -: Lap band -: Foot surgery -: Back surgery -: Bilateral mastectomy -: Cholecystectomy -: Tubal ligation Psychosocial/ Personal History: She is a . She has 3 children. 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 - Family History Mother -: Diabetes Father -: Heart disease, Other (see notes) Brother -: Heart disease Sister -: Other (see notes) Notes: lupus - Social History Smoking Status: Unknown if ever smoked Alcohol use: No CD- Drugs: No Caffeine use: Yes Review of Systems General: Other (weight gain of 10 lbs since 04/18/24) Respiratory: Shortness of Breath, SOB with Excertion Gastrointestinal: Nausea, Vomiting Physical Examination - Vital Signs Temperature: 98.2 F Blood Pressure: 140/62 Pulse: 86 Respirations: 18 Pulse Ox (%): 100 (room air) - Physical Exam General: Alert, Oriented x3 HEENT: Atraumatic, Normocephalic Neck: JVD not distended Respiratory: Crackles/rales (b/l lungs) Cardiovascular: Regular rate/rhythm, No gallops, No rubs, Edema Gastrointestinal: Normal bowel sounds, Non-distended, No tenderness Musculoskeletal: Swelling (b/l lower extremity edema) Neurological: Normal strength at 5/5 x4 extr, Sensation intact - Studies Laboratory Data (last 24 hrs) 04/19/24 04/19/24 16:28 16:28 WBC 5.80 Hgb 10.6 L Hct 31.9 L Plt Count 123 L Sodium 129 L Potassium 4.9 BUN 21 H Creatinine 1.14 H Glucose 132 H Magnesium 1.8 Total Bilirubin 0.3 AST 14 L ALT 21 Alkaline Phosphatase 83 Lipase 18 Assessment and Plan - Problems (Diagnosis) (1) CHF exacerbation Current Visit: Yes Status: Acute (2) Nausea & vomiting Current Visit: No Status: Acute (3) Depression Onset Date: 10/14/16 Current Visit: No Status: Chronic Qualifiers: (4) Hyperlipidemia Onset Date: 10/14/16 Current Visit: No Status: Chronic Qualifiers: (5) Hypertension Onset Date: 10/14/16 Current Visit: No Status: Chronic (6) Hypothyroidism Onset Date: 10/14/16 Current Visit: No Status: Chronic Qualifiers: (7) Hyponatremia Current Visit: No Status: Acute - Plan CHF exacerbation: Admit to floor Cardiology consulted Respiratory therapy consulted DuoNebs as needed ordered IV Lasix ordered Telemetry ordered Echo ordered Negative troponin BNP within normal limits CXR revealed mild interstitial pulmonary edema versus mild CHF US b/l LE revealed no DVT Hyponatremia: Chronic, resume home medication salt tabs Plasma osmolality, urine osmolality, and urine sodium ordered Fluid restriction Cirrhosis: CT A/P revealed moderate cirrhosis, reflux indicated Hypothyroidism: Resumed home medication Hypertension: Holding home medication HDL: Resumed home medication - Advance Directives Does patient have a Living Will: Yes Does patient have a Durable POA for Healthcare: No
[2024-04-19] MEDS ORDERED: METOCLOPRAMIDE 10 MG/2mL INJ IV PRN (21:35)
[2024-04-19 22:59] VITALS: BMI 36.6
[2024-04-20] MEDS: HEPARIN 5000 UNIT/ML 1 ML VIAL SQ SCH (00:15)
[2024-04-20 00:22] LABS: Specific Gravity 1.012 (1.005-1.030); Urine Bilirubin NEGATIVE (Negative); Urine Blood Negative (Negative); Urine Clarity Clear (Clear); Urine Color Colorless (Yellow); Urine Glucose NEGATIVE (Negative); Urine Ketones NEGATIVE (Negative); Urine Microscopic Reflex YN NO UMIC; Urine Nitrite NEGATIVE (Negative); Urine Protein NEGATIVE (Negative); Urine Urobilinogen Normal (Normal); Urine pH 6.5 (5.0-7.0)
[2024-04-20] MEDS: IPRATROPIUM BROM 0.5MG/2.5ML NEB SCH (02:44)
[2024-04-20] MEDS ORDERED: PNEUMOCOCCAL VACCINE 0.5 ML IMVAC ONE (08:00)
[2024-04-20] MEDS: SODIUM CHLORIDE 1 GM TAB PO SCH (08:16)
[2024-04-20] MEDS: DONEPEZIL HCL 5 MG TAB PO SCH (08:16)
[2024-04-20] MEDS: LEVOTHYROXINE SOD 0.075 MG TAB PO SCH (08:16)
[2024-04-20] MEDS: MEMANTINE HCL 10 MG TABLET PO SCH (08:16)
[2024-04-20] MEDS: GABAPENTIN 300 MG CAP PO SCH (08:16)
[2024-04-20] MEDS: FUROSEMIDE 40 MG/4 ML VIAL IV SCH (08:17)
[2024-04-20] MEDS ORDERED: HOME MED 1 EA UNK (Donepezil Hcl [Donepezil Hcl] 10 MG Tablet) PO SCH (09:00)
[2024-04-20] MEDS ORDERED: TRAMADOL HCL 50 MG TAB PO PRN (09:25)
[2024-04-20 09:29] VITALS: O2SAT 99
[2024-04-20 09:53] VITALS: BP 161/77; TEMP 97.8
--- NOTE | 2024-04-20 10:51 | P.DS ---
Admission Date: 04/19/24 Discharge Date: 04/20/24 Disposition: ROUTINE DISCHARGE Discharge Condition: FAIR Reason for Admission: chf exacerbation - Problems (1) Acute on chronic diastolic heart failure Current Visit: Yes Status: Acute (2) Anasarca Current Visit: Yes Status: Acute (3) Dementia Onset Date: 10/14/16 Current Visit: No Status: Chronic Qualifiers: Dementia type: unspecified type Qualified Code(s): F03.90 - Unspecified dementia, unspecified severity, without behavioral disturbance, psychotic disturbance, mood disturbance, and anxiety (4) Hypertension Onset Date: 10/14/16 Current Visit: No Status: Chronic (5) Liver cirrhosis secondary to nonalcoholic steatohepatitis (FLEMING) Current Visit: No Status: Chronic Brief History of Present Illness: 73-year-old woman with a past medical history significant for breast cancer in remission, HTN, depression, hypothyroidism, CKD, CHF, GERD, and HDL presented to the emergency room complaining of shortness of breath and weight gain. Chest x- ray demonstrated mild vascular congestion, CT abdomen pelvis showed moderate liver cirrhosis. Patient given IV Lasix in the emergency department and admitted for further management Hospital Course: Patient hospitalized and treated with IV Lasix for fluid retention. Patient last echocardiogram showed normal EF. Patient diuresed with resolution of her lower extremity edema. Patient's shortness of breath resolved with treatment. Her oxygen saturation was stable on room air. Patient has chronic hyponatremia and his sodium level is at baseline. Patient is currently asymptomatic with stable vitals. She is deemed stable for discharge Vital Signs/Physical Exam: Temp Pulse Resp BP Pulse Ox 97.8 F 96 H 16 161/77 H 94 04/20/24 08:00 04/20/24 08:00 04/20/24 08:00 04/20/24 08:00 04/20/24 08:00 General: Alert, In no apparent distress, Oriented x3 HEENT: Mucous membr. moist/pink, Sclerae nonicteric Neck: Supple, JVD not distended Respiratory: Clear to auscultation bilaterally, Normal air movement Cardiovascular: No edema, Regular rate/rhythm, Normal S1 S2 Gastrointestinal: Normal bowel sounds, Soft and benign, Non-distended Musculoskeletal: No swelling Integumentary: No rashes, No cyanosis Neurological: Normal strength at 5/5 x4 extr, Cranial nerves 3-12 intact Laboratory Data at Discharge: WBC 5.80 thou/uL (4.3-10.9) 04/19/24 16:28 Hgb 10.6 g/dL (12.0-15.0) L 04/19/24 16:28 Hct 31.9 % (36.0-45.0) L 04/19/24 16:28 Plt Count 123 thou/uL (152-406) L 04/19/24 16:28 Sodium 129 mEq/L (136-145) L 04/19/24 16:28 Potassium 4.9 mEq/L (3.5-5.1) 04/19/24 16:28 BUN 21 mg/dL (7-18) H 04/19/24 16:28 Creatinine 1.14 mg/dL (0.55-1.02) H 04/19/24 16:28 Glucose 132 mg/dL (74-106) H 04/19/24 16:28 Magnesium 1.8 mg/dL (1.6-2.4) 04/19/24 16:28 Total Bilirubin 0.3 mg/dL (0.2-1.0) 04/19/24 16:28 AST 14 U/L (15-37) L 04/19/24 16:28 ALT 21 U/L (13-56) 04/19/24 16:28 Alkaline Phosphatase 83 U/L (45-117) 04/19/24 16:28 Lipase 18 U/L (13-75) 04/19/24 16:28 Home Medications: Aspirin [Ecotrin 81 MG] 81 mg PO DAILY 08/01/19 Atorvastatin Calcium [Lipitor*] 20 mg PO BEDTIME 08/01/19 Cholecalciferol (Vitamin D3) [Vitamin D3] 5,000 unit PO DAILY 08/01/19 Citalopram Hydrobromide [Celexa] 40 mg PO DAILY 08/01/19 Gabapentin 300 mg PO DAILY 08/01/19 Levothyroxine Sodium [Synthroid] 75 mcg PO DAILY 08/01/19 Trazodone [Desyrel*] 50 mg PO BEDTIME 08/01/19 oxyBUTYnin chloride [Ditropan*] 10 mg PO BID 08/03/19 Anastrozole [Arimidex*] 1 mg PO BEDTIME 03/01/23 Loratadine [Claritin*] 10 mg PO DAILY 07/22/22 carvediloL [Coreg*] 6.25 mg PO BIDWM #180 tab 09/07/22 Donepezil HCl 10 mg PO DAILY 03/20/24 Fluticasone Propion/Salmeterol [Wixela 250-50 Inhub] 50 - 250 unit XX BID 03/20/24 Fluticasone [Flonase 50MCG Nasal [place]*] 50 mcg XX DAILY 03/20/24 Magnesium Oxide [Mag 0X*] 400 mg PO DAILY 03/20/24 Meclizine HCl 25 mg PO PRN 03/20/24 Memantine HCl 10 mg PO BID 03/20/24 Nifedipine Xl [Procardia Xl*] 30 mg PO DAILY 03/20/24 Nitrofurantoin Macrocrystal [Macrodantin] 100 mg PO BID 03/20/24 Valsartan 160 mg PO DAILY 03/20/24 modafiniL [Provigil] 200 mg PO DAILY 03/20/24 ALPRAZolam [Xanax*] 0.25 mg PO BEDTIME PRN PRN tab 03/24/24 Cholestyramine/Asp [Questran Light*] 4 gm PO DAILY WITH BREAKFAST packet 03/24/24 Ensure Max Protein 240 ml PO QID can 03/24/24 Sodium Chloride Tab [Sodium Chloride*] 1 gm PO BID 30 Days #60 tab 03/24/24 Valsartan [Diovan*] 160 mg PO DAILY tab 03/24/24 traMADol HCL [Ultram*] 50 mg PO Q6H PRN tab 03/24/24 Torsemide [Demadex*] 20 mg PO DAILY #37 tab 04/20/24 New Medications: Torsemide [Demadex*] 20 mg PO DAILY #37 tab Diet: Low fat Activity: Fall precautions Followup: Kylee Pickens MD [Primary Care Provider] - Time spent managing pt's care (in minutes): 28
[2024-04-20] MEDS ORDERED: TRAZODONE 50 MG TABLET PO SCH (21:00)
[2024-04-20] MEDS ORDERED: oxyBUTYnin chloride 5 MG TAB PO SCH (21:00)
[2024-04-20] MEDS ORDERED: ATORVASTATIN 20 MG TAB PO SCH (21:00)
[2024-04-20] MEDS ORDERED: ANASTROZOLE 1 MG TAB PO SCH (21:00)
[2024-04-21] MEDS ORDERED: CHOLESTYRAMINE/ASP 4 GM/PKT PO SCH (08:00)
[2024-04-21] MEDS ORDERED: modafiniL 100 MG TAB PO SCH (09:00)
[2024-04-21] MEDS ORDERED: VALSARTAN 160 MG TAB PO SCH (09:00)
[2024-04-21] MEDS ORDERED: LORATADINE 10 MG TAB PO SCH (09:00)
[2024-04-21] MEDS ORDERED: FLUTICASONE 50MCG NASAL SPRAY NAS SCH (09:00)
[2024-04-21] MEDS ORDERED: MAGNESIUM OXIDE 400 MG TAB PO SCH (09:00)
[2024-04-21] MEDS ORDERED: CITALOPRAM 10 MG TABLET PO SCH (09:00)
[2024-04-21] MEDS ORDERED: ASPIRIN EC 81 MG TAB PO SCH (09:00)
[2024-04-21] MEDS ORDERED: NIFEDIPINE XL 30 MG TABLET PO SCH (09:00)
--- NOTE | 2024-04-21 09:48 | EKG ---
Test Date: 2024-04-19 Test Time: 15:21:47 Reconnaissance Man: GURVINDER MEASUREMENT RESULTS: Intervals: Rate: 82 CO: 156 QRSD: 82 QT: 360 QTc: 420 Sparks: P: 59 CO: 156 QRS: -18 T: 35 INTERPRETIVE STATEMENTS: Normal sinus rhythm Normal ECG Compared to ECG 03/20/2024 11:32:55 Myocardial infarct finding no longer present Electronically Signed On 04-21-24 09:47:15 TELEPHONIC NURSE by Rohit Perez
== END 2024-04-20 13:29 | disposition home health service (06) ==
LOC: ER 14:25 → INTOOBSV 21:09 → 2ND 21:09
PROVIDERS: ADMIT Internal Medicine; ATTEND Internal Medicine
DX: I50.33 Acute on chronic diastolic (congestive) heart failure (principal); R60.1 Generalized edema; F03.90 Unspecified dementia, unspecified severity, without behavioral disturbance, psychotic disturbance, mood disturbance, and anxiety; I10 Essential (primary) hypertension; K75.81 Nonalcoholic steatohepatitis (NASH); K74.60 Unspecified cirrhosis of liver; E87.1 Hypo-osmolality and hyponatremia; E78.5 Hyperlipidemia, unspecified; E03.9 Hypothyroidism, unspecified; Z88.0 Allergy status to penicillin; Z88.5 Allergy status to narcotic agent; Z88.2 Allergy status to sulfonamides; Z88.3 Allergy status to other anti-infective agents; Z86.73 Personal history of transient ischemic attack (TIA), and cerebral infarction without residual deficits; Z85.3 Personal history of malignant neoplasm of breast
CPT/HCPCS: 93005; 85025; 36415; 83735; 81003; 84484; 83690; 80053; 83880; 83930; 83935; 74177; 71045; 93970; 94640; 94760 ×2; 96374; 99285; Q9967; J1644 ×2; J1940 ×2; J7644 ×2; G0378

== ENCOUNTER 2024-09-07 14:26 | Emergency (ER) | payer OTHER, MEDICARE ==
[2024-09-07 14:44] LABS: Absolute Eosinophils 0.1 K/uL (0-0.5); Absolute Lymphocytes (CBC) 0.6 K/uL (0.7-4.9); Absolute Monocytes 0.3 K/uL (0.1-1.3); Absolute Neutrophil 1.6 K/uL (1.8-8.0); Eosinophils % 4.3 % (0-4.4); Hematocrit 34.2 % (36.0-45.0); Hemoglobin 11.8 g/dL (12.0-15.0); Lymphocytes % 24.2 % (15.3-44.8); MCH 32.4 pg (27.0-35.0); MCHC 34.4 g/dL (32.0-36.0); MCV 94.1 fL (80-100); MPV 7.9 fL (7.6-11.3); Monocytes % 10.3 % (3.3-12.3); Neutrophils % 60.2 % (41.7-73.7); Nucleated Red Blood Cells % 0.2 % (0-0); Platelets 92 thou/uL (152-406); RBC Red Blood Cell Count 3.63 M/uL (3.86-4.86); Red Cell Distribution Width 14.4 % (12.1-15.2)
[2024-09-07 15:19] LABS: ALT/SGPT 16 U/L (13-56); AST/SGOT 16 U/L (15-37); Albumin 3.6 g/dL (3.4-5.0); Alkaline Phosphatase 46 U/L (45-117); Anion Gap 6.9 mEq/L (5.0-15.0); BUN Blood Urea Nitrogen 34 mg/dL (7-18); Bicarbonate 31 mEq/L (21-32); Bilirubin Direct < 0.2 mg/dL (0-0.2); Bilirubin Indirect, Calculated 0.2 mg/dL (0.2-0.8); Bilirubin Total 0.4 mg/dL (0.2-1.0); Globulin 3.6 g/dL (2.3-3.5); Glomerular Filtration Rate 37 ml/min (=/>90); Glucose Level 133 mg/dL (74-106); Magnesium 1.7 mg/dL (1.6-2.4); NT PRO-BNP 276 pg/mL (<450); Potassium 4.9 mEq/L (3.5-5.1); Protein, Total 7.2 g/dL (6.4-8.2); Sodium Level 133 mEq/L (136-145); Troponin High Sensitivity 6.8 pg/mL (<58.9)
[2024-09-07 15:45] LABS: PT Prothrombin Time 11.8 SECONDS (10-13.0); Protime INR 1.04
--- NOTE | 2024-09-07 16:11 | RAD REPORT ---
EXAMINATION: CTA CHEST PE CLINICAL INDICATION: prior breast cancer;Dyspnea TECHNIQUE: This examination was performed according to an angiographic protocol with 3D post-processi ng. This involves 3D reconstructions, MIPs, volume rendered images and/or shaded surface rendering. One or more of the following dose reduction techniques were used: Automated exposure control, adjustm ent of the mA and/or kV according to patient size, and/or iterative reconstruction. Unless otherwise specified, incidental findings do not require dedicated imaging follow-up. COMPARISON: 07/21/2022 FINDINGS: PULMONARY ARTERIES: Normal caliber. No evidence of pulmonary emboli to the subsegmental level. THORACIC AORTA: Normal caliber and configuration. LUNGS: Mild emphysema. Linear scarring is present in both lung bases with traction bronchiectasis in the right lung base. Tiny subpleural nodules present on the right measuring 4 mm. PLEURA: No pleural effusion. No pneumothorax. MEDIASTINUM AND LYMPH NODES: No mediastinal mass or fluid collection. Normal size mediastinal, hilar, and axillary lymph nodes. OSSEOUS STRUCTURES AND CHEST WALL: Intact. UPPER ABDOMEN: Liver cirrhosis. IMPRESSION: No evidence of pulmonary emboli to the subsegmental level. Mild COPD with scarring in both lung bases. Liver cirrhosis.
--- NOTE | 2024-09-07 16:13 | RAD REPORT ---
EXAMINATION: CT ABDOMEN AND PELVIS WITH CONTRAST CLINICAL INDICATION: epigastric pain; Use PE runoffs TECHNIQUE: CT abdomen and pelvis was performed, after the administration of IV contrast, as per [facility] protocol. Axial, sagittal and coronal reconstructions were obtained. One or more of the following dose reduction techniques were used: Automated exposure control, adjustment of the mA and k V according to patient size, and iterative reconstruction. Unless otherwise specified, incidental findings do not require dedicated imaging follow-up. COMPARISON: 04/19/2024 FINDINGS: LOWER CHEST: Mild linear scarring is present in both lung bases. Tiny subpleural nodule seen on the r ight. Gastric banding. LIVER: Moderate liver cirrhosis. Cholecystectomy clips. SPLEEN: Mild splenomegaly. PANCREAS: No mass, ductal dilation, or edy-pancreatic fluid. ADRENALS: Normal; no mass. KIDNEYS: Normal size and contour. No hydronephrosis. GASTROINTESTINAL TRACT: No evidence of free air, significant intra-abdominal free fluid, bowel obstru ction or abscess. APPENDIX: Normal appendix. LYMPH NODES: No lymphadenopathy. MUSCULOSKELETAL: Mild lower lumbar spondylosis. ADDITIONAL FINDINGS: None. IMPRESSION: No acute abnormalities seen in the abdomen or pelvis. Prominent liver cirrhosis. Mild splenomegaly.
--- NOTE | 2024-09-07 16:19 | EDPHYS ---
Physician Documentation [facility] Name: Rosi Jordan Age: 74 yrs Sex: Female : 1950 Arrival Date: 09/07/2024 Time: 14:26 Bed 7 Private MD: ED Physician Juventino Rainey HPI: 09/07 14:54 This 74 yrs old Female presents to ER via EMS with complaints of Abdominal Pain. sp3 14:54 74-year-old female with a history of breast cancer status postmastectomy, CVA, CHF sp3 history, GERD now presents to the ED via EMS for chief complaint epigastric pain and shortness of breath. Patient has not had DVT or PE in the past and is not on any active cancer treatment. She has had a history of CHF. She is also in the process of getting scheduled for an upper endoscopy to assess for peptic ulcer disease and/or other pathology. This morning she started to have epigastric pain radiating to the chest coupled with shortness of breath. This led her to activate EMS and present to the ED. 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 Historical: - Allergies: 14:30 Codeine; ph 14:30 Sulfa (Sulfonamide Antibiotics); ph 14:30 PENICILLINS; ph 14:30 Vancomycin; ph - PMHx: 14:30 breast cancer; Cerebrovascular accident; Congestive heart failure; Depression; GERD; ph Hyperlipidemia; Hypertension; Hypothyroidism; kidney disease; - PSHx: 14:30 Carotid endarterectomy; Cholecystectomy; Tonsillectomy; ph - Immunization history:: Adult Immunizations up to date. - Infectious Disease History:: Denies. - Social history:: Smoking status: Patient denies any tobacco usage or history of. ROS: 14:55 Constitutional: Negative for fever, chills, and weight loss, Eyes: Negative for injury, sp3 pain, redness, and discharge, Neck: Negative for injury, pain, and swelling, Cardiovascular: Negative for chest pain, palpitations, and edema, Back: Negative for injury and pain, MS/Extremity: Negative for injury and deformity, Skin: Negative for injury, rash, and discoloration, Neuro: Negative for headache, weakness, numbness, tingling, and seizure, Psych: Negative for depression, anxiety, suicide ideation, homicidal ideation, and hallucinations, Allergy/Immunology: Negative for hives, rash, and allergies, Endocrine: Negative for neck swelling, polydipsia, polyuria, polyphagia, and marked weight changes, Hematologic/Lymphatic: Negative for swollen nodes, abnormal bleeding, and unusual bruising, 14:55 All other systems are negative, Exam: 14:56 Constitutional: This is a well developed, well nourished patient who is awake, alert, sp3 and in no acute distress. Head/Face: Normocephalic, atraumatic. Eyes: Pupils equal round and reactive to light, extra-ocular motions intact. Lids and lashes normal. Conjunctiva and sclera are non-icteric and not injected. Cornea within normal limits. Periorbital areas with no swelling, redness, or edema. Neck: Trachea midline, no thyromegaly or masses palpated, and no cervical lymphadenopathy. Supple, full range of motion without nuchal rigidity, or vertebral point tenderness. No Meningismus. Chest/axilla: Normal chest wall appearance and motion. Nontender with no deformity. No lesions are appreciated. Cardiovascular: Regular rate and rhythm with a normal S1 and S2. No gallops, murmurs, or rubs. Normal PMI, no JVD. No pulse deficits. Back: No spinal tenderness. No costovertebral tenderness. Full range of motion. Skin: Warm, dry with normal turgor. Normal color with no rashes, no lesions, and no evidence of cellulitis. MS/ Extremity: Pulses equal, no cyanosis. Neurovascular intact. Full, normal range of motion. Neuro: Awake and alert, GCS 15, oriented to person, place, time, and situation. Cranial nerves II-XII grossly intact. Motor strength 5/5 in all extremities. Sensory grossly intact. Cerebellar exam normal. Normal gait. Psych: Awake, alert, with orientation to person, place and time. Behavior, mood, and affect are within normal limits. 14:56 Respiratory: Scattered Rales noted. 97% on room air and breathing at 18 times per minute., 14:56 Abdomen/GI: Epigastric pain to palpation without peritoneal signs, rebound or guarding. sp3 Nonsurgical abdomen., 15:00 ECG was reviewed by the Attending Physician. EKG demonstrates normal sinus rhythm at 66 sp3 bpm with normal intervals, normal QRS, normal axis and nonspecific diffuse ST/T changes without evidence of acute ischemia. Vital Signs: 14:28 BP 159 / 81; Pulse 65; Resp 18; Temp 98.4(O); Pulse Ox 97% on 2 lpm NC; Weight 94.35 hb kg; Height 5 ft. 1 in. ; 16:00 BP 156 / 62; Pulse 63; Resp 18; Pulse Ox 100% on 2 lpm NC; ph 17:00 BP 148 / 64; Pulse 64; Resp 18; Temp 97.8; Pulse Ox 95% on R/A; ph 17:52 BP 143 / 60; Pulse 65; Resp 18; Temp 97.8; Pulse Ox 95% on R/A; ph 14:28 Body Mass Index 39.30 (94.35 kg, 154.94 cm) hb MDM: 14:29 Medical Screening Exam initiated sp3 14:56 Data reviewed: vital signs, nurses notes. ED course: 74-year-old female with PMH above sp3 now with shortness of breath and epigastric abdominal pain. Differential diagnosis includes peptic ulcer disease, biliary pathology, gastritis, GERD, with cancer history of PE, ACS, among others. I am not highly suspicious of sepsis or shock or any other critical process. Workup will include CT scan of the chest PE protocol with runoffs use for the abdomen pelvis, general labs, EKG and general supportive care. Disposition pending workup and patient course with possible admission depending on diagnostic results.. 16:17 ED course: Full workup negative including CTs. Vital signs remained stable. Will sp3 discharge patient to outpatient follow-up with GI which she already has scheduled.. 09/07 14:29 Order name: Basic Metabolic Panel; Complete Time: 15:56 sp3 09/07 14:29 Order name: CBC with Diff sp3 09/07 14:29 Order name: LFT's; Complete Time: 15:56 sp3 09/07 14:29 Order name: Magnesium; Complete Time: 15:56 sp3 09/07 14:29 Order name: NT PRO-BNP; Complete Time: 15:56 sp3 09/07 14:29 Order name: PT-INR; Complete Time: 15:56 sp3 09/07 14:29 Order name: Troponin HS; Complete Time: 15:56 sp3 09/07 14:29 Order name: CT Chest For PE Angio; Complete Time: 16:16 sp3 09/07 14:29 Order name: CT Abd/Pelvis - IV Contrast Only; Complete Time: 16:16 sp3 09/07 14:29 Order name: Cardiac monitoring; Complete Time: 17:31 sp3 09/07 14:29 Order name: EKG - Nurse/Tech; Complete Time: 17:31 sp3 09/07 14:29 Order name: IV Saline Lock; Complete Time: 17:31 sp3 09/07 14:29 Order name: Labs collected and sent; Complete Time: 17:31 sp3 09/07 14:29 Order name: O2 Per Protocol; Complete Time: 17:31 sp3 09/07 14:29 Order name: O2 Sat Monitoring; Complete Time: 17:31 sp3 Administered Medications: No medications were administered Disposition Summary: 09/07/24 16:18 Discharge Ordered Notes: Location: Home sp3 Condition: Stable sp3 Diagnosis - Abdominal pain, unspecified sp3 Discharge Instructions: - Discharge Summary Sheet sp3 - Abdominal Pain, Adult sp3 Forms: - Medication Reconciliation Form sp3 - Antibiotic Education sp3 - Prescription Opioid Use sp3 - Patient Portal Instructions sp3 - Leadership Thank You Letter sp3 Signatures: Dispatcher [employer] Rosi Estrada, RN RN Juventino Walsh MD MD sp3 Corrections: (The following items were deleted from the chart) 14:29 14:29 BASIC METABOLIC PANEL+C.LAB.BRZ ordered. EDMS EDMS 14:29 14:29 CBC+H.LAB.BRZ ordered. EDMS EDMS 14:29 14:29 HEPATIC FUNCTION+C.LAB.BRZ ordered. EDMS EDMS 14:29 14:29 MAGNESIUM+C.LAB.BRZ ordered. EDMS EDMS 14:29 14:29 PROBNP+C.LAB.BRZ ordered. EDMS EDMS 14:29 14:29 PROTIME (+INR)+COAG.LAB.BRZ ordered. EDMS EDMS 14:29 14:29 Troponin High Sensitivity+C.LAB.BRZ ordered. EDMS EDMS 14:30 14:30 Chest For PE Angio+CT.RAD.BRZ ordered. EDMS EDMS 14:30 14:30 Abdomen Pelvis W Con+CT.RAD.BRZ ordered. EDMS EDMS
--- NOTE | 2024-09-07 16:19 | ER ---
Nurse's Notes [facility] Name: Rosi Jordan Age: 74 yrs Sex: Female : 1950 Arrival Date: 09/07/2024 Time: 14:26 Bed 7 Private MD: Diagnosis: Abdominal pain, unspecified Presentation: 09/07 14:28 Chief complaint: EMS states: Pt c/o abdominal pain and vomiting x 3 days, also reports ph SOB, hx of CHF, was 88% RA, other VS stable. Coronavirus screen: Vaccine status: Patient reports receiving the 2nd dose of the covid vaccine. Ebola Screen: No symptoms or risks identified at this time. Initial Sepsis Screen: Does the patient meet any 2 criteria? No. Patient's initial sepsis screen is negative. Does the patient have a suspected source of infection? No. Patient's initial sepsis screen is negative. Risk Assessment: Do you want to hurt yourself or someone else? Patient reports no desire to harm self or others. Onset of symptoms was September 07, 2024. 14:28 Method Of Arrival: EMS ph 14:28 Acuity: CASPER 3 ph Historical: - Allergies: 14:30 Codeine; ph 14:30 Sulfa (Sulfonamide Antibiotics); ph 14:30 PENICILLINS; ph 14:30 Vancomycin; ph - PMHx: 14:30 breast cancer; Cerebrovascular accident; Congestive heart failure; Depression; GERD; ph Hyperlipidemia; Hypertension; Hypothyroidism; kidney disease; - PSHx: 14:30 Carotid endarterectomy; Cholecystectomy; Tonsillectomy; ph - Immunization history:: Adult Immunizations up to date. - Infectious Disease History:: Denies. - Social history:: Smoking status: Patient denies any tobacco usage or history of. Screenin:36 [facility] ED Fall Risk Assessment (Adult) History of falling in the last 3 months, ph including since admission No falls in past 3 months (0 pts) Confusion or Disorientation No (0 pts) Intoxicated or Sedated No (0 pts) Impaired Gait No (0 pts) Mobility Assist Device Used No (0 pt) Altered Elimination No (0 pt) Score/Fall Risk Level 0 - 2 = Low Risk Oriented to surroundings, Maintained a safe environment, Hourly rounding (assess needs \T\ fall precautionary measures) done. Abuse screen: Denies threats or abuse. Denies injuries from another. Nutritional screening: No deficits noted. Tuberculosis screening: No symptoms or risk factors identified. Assessment: 15:09 General: Appears in no apparent distress. comfortable, well groomed, Behavior is calm, ph cooperative, appropriate for age. Pain: Complains of pain in abdomen. Neuro: Level of Consciousness is awake, alert, obeys commands, Oriented to person, place, time, situation. Cardiovascular: Capillary refill < 3 seconds in bilateral fingers Patient's skin is warm and dry. Respiratory: Airway is patent Respiratory effort is even, unlabored, Respiratory pattern is regular, symmetrical. GI: Reports upper abdominal pain, intolerance of food, vomiting. : No signs and/or symptoms were reported regarding the genitourinary system. Derm: Skin is pink, warm \T\ dry. Vital Signs: 14:28 BP 159 / 81; Pulse 65; Resp 18; Temp 98.4(O); Pulse Ox 97% on 2 lpm NC; Weight 94.35 hb kg; Height 5 ft. 1 in. ; 16:00 BP 156 / 62; Pulse 63; Resp 18; Pulse Ox 100% on 2 lpm NC; ph 17:00 BP 148 / 64; Pulse 64; Resp 18; Temp 97.8; Pulse Ox 95% on R/A; ph 17:52 BP 143 / 60; Pulse 65; Resp 18; Temp 97.8; Pulse Ox 95% on R/A; ph 14:28 Body Mass Index 39.30 (94.35 kg, 154.94 cm) hb ED Course: 14:28 Patient arrived in ED. sp3 14:28 Juventino Rainey MD is Attending Physician. sp3 14:30 Triage completed. ph 14:32 Initial lab(s) drawn, by me, sent to lab. Maintain EMS IV. Dressing intact. Good blood hb return noted. Site clean \T\ dry. Gauge \T\ site: 20g LAC. Flushed with 10 mL NS. 14:36 Arm band placed on Patient placed in an exam room, on a stretcher, on cardiac cath technician, ph on pulse oximetry. 14:48 Patient has correct armband on for positive identification. Bed in low position. Call hb light in reach. Provided Education on: tests, result times. Client placed on continuous cardiac and pulse oximetry monitoring. NIBP monitoring applied. library monitor on. Pulse ox on. NIBP on. 15:06 Rosi Peraza, RN is Primary Nurse. ph 15:07 EKG done, by ED staff, reviewed by Juventino Rainey MD. ph 15:51 CT Chest For PE Angio In Process Unspecified. EDMS 15:51 CT Abd/Pelvis - IV Contrast Only In Process Unspecified. EDMS 17:50 No provider procedures requiring assistance completed. IV discontinued, intact, ph bleeding controlled, No redness/swelling at site. Pressure dressing applied. Administered Medications: No medications were administered Medication: 14:36 VIS not applicable for this client. ph Outcome: 16:18 Discharge ordered by . sp3 17:52 Discharged to home via wheelchair, with family, ph 17:52 Condition: good 17:52 Discharge instructions given to patient, Instructed on discharge instructions, follow up and referral plans. Demonstrated understanding of instructions, follow-up care, 17:52 Patient left the ED. ph Signatures: Dispatcher [employer] [facility] Rosi Peraza, RN RN Karine Arita RN RN Juventino Rainey MD MD sp3 Corrections: (The following items were deleted from the chart) 15:30 14:28 BP 159 / 1; Pulse 65bpm; Resp 18bpm; Pulse Ox 97% 2 lpm Nasal Cannula; Temp 98.4F hb Oral; 94.35 kg; Height 5 ft. 1 in.; BMI: 39.3; ph
[2024-09-07 17:59] VITALS: TEMP 97.8; O2SAT 95
[2024-09-07 18:00] VITALS: BP 143/60
[2024-09-07 22:56] LABS: Basophilic Stippling 1+; Blood Morphology Comment NOTED (NOT SEEN); Platelet Estimate DECR; Polychromasia 1+; White Blood Cell Scan OK (OK)
== END 2024-09-07 17:52 | disposition home or self-care (01) ==
LOC: ER 14:26
DX: R10.9 Unspecified abdominal pain (principal); I10 Essential (primary) hypertension; E03.9 Hypothyroidism, unspecified; E78.5 Hyperlipidemia, unspecified; Z86.73 Personal history of transient ischemic attack (TIA), and cerebral infarction without residual deficits; Z88.0 Allergy status to penicillin; Z88.1 Allergy status to other antibiotic agents; Z88.2 Allergy status to sulfonamides; Z88.5 Allergy status to narcotic agent
CPT/HCPCS: 36415; 71275; 74177; 80048; 80076; 83735; 83880; 84484; 85025; 85610; 93005; Q9967

== ENCOUNTER 2024-09-14 13:55 | Emergency (ER) | payer OTHER, MEDICARE ==
--- NOTE | 2024-09-14 14:26 | RAD REPORT ---
EXAMINATION: Head C Spine Mpr Wo Con CLINICAL INDICATION: Female, 74 years old. DIZZINESS TECHNIQUE: Axial CT images from the skull base to the vertex without intravenous contrast. Axial CT i mages through the cervical spine were obtained without intravenous contrast. Sagittal and coronal reformatted images were created from the data set. Coronal and sagittal reformatted images were creat ed from the data set. One or more of the following dose reduction techniques were used: Automated exposure control, adjustment of the mA and/or kV according to patient size, and/or iterative reconstr uction. Unless otherwise specified, incidental findings do not require dedicated imaging follow-up. [id number]. COMPARISON: Head CT 07/20/2022 FINDINGS: Head: INTRACRANIAL: No acute intracranial hemorrhage. No hydrocephalus. No mass effect or midline shift. No significant white matter disease. VASCULATURE: No visualized abnormalities in the arteries or dural venous sinuses. SCALP/SKULL: No calvarial fracture identified. No acute soft tissue abnormality. SINUSES: The visualized paranasal sinuses are mostly clear. No significant mastoid fluid. Cervical spine: ALIGNMENT: The cervical spine has normal alignment without scoliosis or spondylolisthesis. BONE: Vertebral body heights are maintained. No aggressive osseous lesions. DEGENERATIVE: Mild multilevel cervical spondylosis with evidence of bilateral neural foraminal narrow ing, predominantly at C5-6 bilaterally. No high grade central spinal stenosis. SOFT TISSUE: No significant abnormalities in the soft tissue of the neck. The visualized lung apices are clear. IMPRESSION: No acute intracranial abnormality. No acute fracture or traumatic malalignment of the cervical spine.
--- NOTE | 2024-09-14 14:33 | RAD REPORT ---
EXAMINATION: Spine Lumbar Wo Con CLINICAL INDICATION: Female, 74 years old. FALL TECHNIQUE: Axial CT images were obtained through the lumbar spine in soft tissue and bone windows wit hout intravenous contrast. Coronal and Sagittal reformatted images were created from the data set. One or more of the following dose reduction techniques were used: Automated exposure control, adjustm ent of the mA and/ or kV according to patient size, and/or iterative reconstruction. Unless otherwise specified, incidental findings do not require dedicated imaging follow-up. [id number]. COMPARISON: 09/07/2024 FINDINGS: For purposes of this dictation, it is assumed that there are 5 non rib-bearing lumbar type vertebrae, and the most caudal fully segmented lumbar vertebra is labeled L5. ALIGNMENT: Right lateral translation of L5 with respect to L4 which may be due to underlying degenera tive changes. BONES: No significant soft tissue abnormalities. No aggressive osseous lesions. DISCS: Severe disc height loss at L4-5 on the right aspect of the disc. There is right lateral transl ation of the L5 vertebral body with respect to L4. Moderate disc height loss at L5-S1 and at L2-3. Mild disc height loss at the other levels. LEVELS: Moderate to severe neural foraminal narrowing is present on the right at L4-5 and on the left at L5-S1. No high-grade central spinal stenosis. SOFT TISSUE: No soft tissue abnormalities. IMPRESSION: No acute lumbar spine abnormalities. Moderate degenerative disc disease.
--- NOTE | 2024-09-14 15:42 | ER ---
Nurse's Notes [facility] Name: Rosi Jordan Age: 74 yrs Sex: Female : 1950 Arrival Date: 09/14/2024 Time: 13:53 Bed 26 Private MD: Diagnosis: Repeated falls;Low back pain Presentation: 09/14 14:11 Chief complaint: EMS states: toned out to patient home for fall. Denies pain. Negative ld1 LOC- not on blood thinners. Coronavirus screen: At this time, the client does not indicate any symptoms associated with coronavirus-19. Ebola Screen: No symptoms or risks identified at this time. Initial Sepsis Screen: Does the patient meet any 2 criteria? No. Patient's initial sepsis screen is negative. Does the patient have a suspected source of infection? No. Patient's initial sepsis screen is negative. Risk Assessment: Do you want to hurt yourself or someone else? Patient reports no desire to harm self or others. Onset of symptoms was September 14, 2024. 14:11 Method Of Arrival: EMS: [facility] ld1 14:11 Acuity: CASPER 3 ld1 Triage Assessment: 14:15 General: Appears in no apparent distress. comfortable, Behavior is calm, cooperative, ld1 appropriate for age. Pain: Denies pain. EENT: No signs and/or symptoms were reported regarding the EENT system. Neuro: Level of Consciousness is awake, alert, obeys commands, Oriented to person, place, time, situation. Cardiovascular: Capillary refill < 3 seconds Patient's skin is warm and dry. Cardiovascular:. Respiratory: Airway is patent Respiratory effort is even, unlabored. GI: Abdomen is round non-distended. : No signs and/or symptoms were reported regarding the genitourinary system. Derm: No signs and/or symptoms reported regarding the dermatologic system. Musculoskeletal: No signs and/or symptoms reported regarding the musculoskeletal system. Historical: - Allergies: 14:10 Codeine; ld1 14:10 PENICILLINS; ld1 14:10 Sulfa (Sulfonamide Antibiotics); ld1 14:10 Vancomycin; ld1 - PMHx: 14:10 Depression; Hypothyroidism; Cerebrovascular accident; kidney disease; Hypertension; ld1 Hyperlipidemia; breast cancer; Congestive heart failure; GERD; 14:15 Dementia; ld1 - PSHx: 14:10 Carotid endarterectomy; Cholecystectomy; Tonsillectomy; ld1 14:15 Double mastectomy; ld1 - Immunization history:: Adult Immunizations up to date. - Infectious Disease History:: Denies. - Social history:: Smoking status: Patient denies any tobacco usage or history of. Screenin:19 [facility] ED Fall Risk Assessment (Adult) History of falling in the last 3 months, ld1 including since admission No falls in past 3 months (0 pts) Confusion or Disorientation No (0 pts) Intoxicated or Sedated No (0 pts) Impaired Gait No (0 pts) Mobility Assist Device Used No (0 pt) Altered Elimination No (0 pt) Score/Fall Risk Level 0 - 2 = Low Risk Oriented to surroundings, Hourly rounding (assess needs \T\ fall precautionary measures) done. Abuse screen: Denies threats or abuse. Denies injuries from another. Nutritional screening: No deficits noted. Tuberculosis screening: No symptoms or risk factors identified. Assessment: 14:19 Reassessment: See triage assessment. ld1 15:45 Reassessment: Patient appears in no apparent distress at this time. No changes from ld1 previously documented assessment. Patient and/or family updated on plan of care and expected duration. Pain level reassessed. Patient is alert, oriented x 3, equal unlabored respirations, skin warm/dry/pink. Vital Signs: 14:11 BP 136 / 50; Pulse 66; Resp 18; Temp 97.5(TE); Pulse Ox 94% on R/A; Weight 84.37 kg; ld1 Height 5 ft. 2 in. ; Pain 0/10; 15:45 BP 141 / 58; Pulse 62; Resp 18; Pulse Ox 96% on R/A; ld1 14:11 Body Mass Index 34.02 (84.37 kg, 157.48 cm) ld1 14:11 Pain Scale: Adult ld1 ED Course: 13:53 Patient arrived in ED. bd 13:57 Allison Anderson MD is Attending Physician. sw6 14:15 Triage completed. ld1 14:15 Arm band placed on right wrist. ld1 14:18 Spine Lumbar Wo Con In Process Unspecified. EDMS 14:19 CT Head C Spine In Process Unspecified. EDMS 14:19 Patient has correct armband on for positive identification. Placed in gown. Bed in low ld1 position. Call light in reach. Side rails up X2. Pulse ox on. NIBP on. Door closed. Noise minimized. Warm blanket given. 14:19 No provider procedures requiring assistance completed. ld1 14:26 Mandy Pfeiffer, RN is Primary Nurse. ld1 15:46 Patient did not have IV access during this emergency room visit. ld1 Administered Medications: No medications were administered Medication: 14:19 VIS not applicable for this client. ld1 Outcome: 15:42 Discharge ordered by . sw6 15:46 Discharged to home via wheelchair, with family, ld1 15:46 Condition: stable 15:46 Discharge instructions given to patient, Instructed on discharge instructions, follow up and referral plans. Demonstrated understanding of instructions, follow-up care, 15:46 Patient left the ED. ld1 Signatures: Dispatcher [employer] EDMS Erica No Lauren, RN RN ld1 Allison Anderson MD MD sw6
--- NOTE | 2024-09-14 15:42 | EDPHYS ---
Physician Documentation [facility] Name: Rosi Jordan Age: 74 yrs Sex: Female : 1950 Arrival Date: 09/14/2024 Time: 13:53 Bed 26 Private MD: MARTINEZ Physician Allison Anderson HPI: 09/14 14:00 This 74 yrs old Female presents to ER via Unassigned with complaints of fall. sw6 14:00 Details of fall: The patient fell from an upright position, while walking. Onset: The sw6 symptoms/episode began/occurred 0600 today. The patient presents from home with EMS for evaluation after mechanical fall that occurred around 6:00 in the morning. She denies hitting her head. No loss of consciousness. She does take Plavix daily. She was unable to get herself back up and waited approximately 1.5 hours until her grandson was able to help her up. She then waited at home until she talk to her doctor later on who advised her to go to the ER for evaluation. No headache. No neck pain. No arm or leg pain. She normally uses a walker for ambulation. No medication given by EMS prior to arrival. Here for evaluation. Historical: - Allergies: 14:10 Codeine; ld1 14:10 PENICILLINS; ld1 14:10 Sulfa (Sulfonamide Antibiotics); ld1 14:10 Vancomycin; ld1 - PMHx: 14:10 Depression; Hypothyroidism; Cerebrovascular accident; kidney disease; Hypertension; ld1 Hyperlipidemia; breast cancer; Congestive heart failure; GERD; 14:15 Dementia; ld1 - PSHx: 14:10 Carotid endarterectomy; Cholecystectomy; Tonsillectomy; ld1 14:15 Double mastectomy; ld1 - Immunization history:: Adult Immunizations up to date. - Infectious Disease History:: Denies. - Social history:: Smoking status: Patient denies any tobacco usage or history of. ROS: 14:00 Constitutional: Negative for fever, chills, and weight loss, Cardiovascular: Negative sw6 for chest pain, palpitations, and edema, Respiratory: Negative for shortness of breath, cough, wheezing, and pleuritic chest pain, Abdomen/GI: Negative for abdominal pain, nausea, vomiting, diarrhea, and constipation, MS/Extremity: Negative for injury and deformity, 14:00 All other systems are negative, Exam: 14:00 Constitutional: This is a well developed, well nourished patient who is awake, alert, sw6 and in no acute distress. Chest/axilla: Normal chest wall appearance and motion. Nontender with no deformity. No lesions are appreciated. Cardiovascular: Regular rate and rhythm with a normal S1 and S2. No gallops, murmurs, or rubs. Normal PMI, no JVD. No pulse deficits. Respiratory: Lungs have equal breath sounds bilaterally, clear to auscultation and percussion. No rales, rhonchi or wheezes noted. No increased work of breathing, no retractions or nasal flaring. Abdomen/GI: Soft, non-tender, with normal bowel sounds. No distension or tympany. No guarding or rebound. No evidence of tenderness throughout. 14:00 Neck: No vertebral body tenderness to her cervical spine., 14:00 Musculoskeletal/extremity: Her pelvis is stable nontender. Full range of motion of her bilateral shoulders, elbows, wrist, hips, knees and ankles.. Vital Signs: 14:11 BP 136 / 50; Pulse 66; Resp 18; Temp 97.5(TE); Pulse Ox 94% on R/A; Weight 84.37 kg; ld1 Height 5 ft. 2 in. ; Pain 0/10; 15:45 BP 141 / 58; Pulse 62; Resp 18; Pulse Ox 96% on R/A; ld1 14:11 Body Mass Index 34.02 (84.37 kg, 157.48 cm) ld1 14:11 Pain Scale: Adult ld1 MDM: 13:57 Medical Screening Exam initiated 14:00 Differential diagnosis: abrasion, closed head injury, contusion, fracture. Data reviewed: vital signs, nurses notes, EMS record. 15:40 Data reviewed: radiologic studies, CT scan. ED course: The patient is doing well here sw6 in the ER. The CT of her head, cervical spine as well as her lumbar spine show no acute osseous injuries and no bleeding. She remained stable here in the ER and is okay for discharge home with PCP follow-up.. 09/14 13:59 Order name: CT Head C Spine; Complete Time: 15:04 09/14 15:04 Interpretation: No acute disease. 09/14 14:18 Order name: Spine Lumbar Wo Con; Complete Time: 15:04 EDMS Administered Medications: No medications were administered Disposition Summary: 09/14/24 15:42 Discharge Ordered Notes: Location: Home 6 Condition: Stable sw6 Diagnosis - Repeated falls sw6 - Low back pain sw6 Followup: sw6 - With: Private Physician - When: 2 - 3 days - Reason: Discharge Instructions: - Discharge Summary Sheet 6 - Acute Back Pain, Adult sw6 - Fall Prevention in the Home, Adult, [id number] 6 Forms: - Medication Reconciliation Form 6 - Antibiotic Education sw6 - Prescription Opioid Use sw6 - Patient Portal Instructions 6 - Leadership Thank You Letter Signatures: Dispatcher [employer] EDMandy Cantrell RN RN ld1 Allison Anderson MD MD sw6
[2024-09-14 17:37] VITALS: TEMP 97.5
[2024-09-14 17:38] VITALS: BP 141/58; O2SAT 96
== END 2024-09-14 15:46 | disposition home or self-care (01) ==
LOC: ER 13:55
DX: M54.50 Low back pain, unspecified (principal); R29.6 Repeated falls; Z79.01 Long term (current) use of anticoagulants
CPT/HCPCS: 70450; 72125; 72131; 99283